=== PATIENT | female | born 1930 | race Caucasian/White ===

== ENCOUNTER → 2016-10-03 | Outpatient (CLI) | payer MEDICARE ==
[~2016-10-03] MED LIST: AGM875T PO; HCT25T; LISI20TA PO; METO50TA7 PO; SIMV20TA3 PO; TRM50T PO
== END ==
LOC: LAB 15:50
PROVIDERS: ATTEND Nurse Practitioner Family
DX: N30.00 Acute cystitis without hematuria (principal)
CPT/HCPCS: 87088

== ENCOUNTER 2018-10-19 21:31 | Inpatient (IN) | payer MEDICARE ==
[~2018-10-19] VITALS: Ht 165.1 cm; Wt 61.3 kg
--- OUTSIDE RECORDS SUMMARY | 2018-10-19 21:38 | XMS REPORT | CCD ---
Author Author Rosi Vega MD, [facility] Address [address] [place] [address] Phone Care Team Providers Care Home Health Care Worker Name Role Phone PP Unavailable CCM Unavailable Summary Purpose Interface Exchange Insurance Providers Payer name Policy type / Coverage type Covered alliance party ID Effective Begin Date Effective End Date WPS Medicare Part B Medicare Part B [id number] Unknown Unknown Family history Daughter Diagnosis Age At Onset Skin cancer Unknown Arthritis Unknown Coronary Artery Disease Unknown Asthma Unknown Depression Unknown Diabetes mellitus Type 2 Unknown Stroke Unknown Son Diagnosis Age At Onset Diabetes mellitus Type 2 Unknown Arthritis Unknown Hyperlipidemia Unknown Skin cancer Unknown Hypertension Unknown Mother Diagnosis Age At Onset Hypertension Unknown Arthritis Unknown Sister Diagnosis Age At Onset Arthritis Unknown Diabetes mellitus Type 2 Unknown Coronary Artery Disease Unknown Stroke Unknown Father Diagnosis Age At Onset Arthritis Unknown Arthritis Unknown Social History Social History Element Codes Description Effective Dates Marital status Unknown 01/02/2016 Number of children Unknown 3 01/02/[address]: 019204905 Never smoker 01/02/[address]: 181726951 Never drinks alcohol 01/02/2016 Allergies, Adverse Reactions, Alerts Substance Reaction Codes Entered Date Inactivated Date Status SULFA (SULFONAMIDE ANTIBIOTICS) Unknown 01/02/2016 No Inactive Date Active Past Medical History Illness Codes Condition Status Onset Date Resolved Date Essential (primary) hypertension ICD-9: 401.9 ICD-10: I10 Active 04/22/2016 Unknown Hypothyroidism, unspecified ICD-9: 244.9 ICD-10: E03.9 Active 07/15/2017 Unknown Mixed hyperlipidemia ICD- 9: 272.2 ICD-10: E78.2 Active 01/28/2016 Unknown Primary generalized (osteo)arthritis ICD-9: 715.09 ICD-10: M15.0 Active 09/08/2018 Unknown Abnormal weight loss ICD- 9: 783.21 ICD-10: R63.4 Active 01/06/2018 Unknown Encounter for immunization ICD-9: V04.81 ICD-10: Z23 Active 01/29/2016 Unknown Low back pain ICD-9: 724.2 ICD-10: M54.5 Active 01/06/2018 Unknown Radiculopathy, lumbar region ICD-9: 724.4 ICD-10: M54.16 Active 01/29/2016 Unknown Hypothryroidism Unknown Active 07/15/2017 Unknown Dysuria ICD-9: 788.1 ICD-10: R30.0 Active 07/08/2017 Unknown Cramp and spasm ICD-9: 729.82 ICD-10: R25.2 Active 04/22/2016 Unknown Pain in right shoulder ICD-9: 719.41 ICD-10: M25.511 Active 07/08/2017 Unknown Hypertension Unknown Active 08/20/2016 Unknown Lumbago with sciatica, left side ICD-9: 724.3 ICD-10: M54.42 Active 04/22/2016 Unknown Impacted cerumen, left ear ICD-9: 389.8 ICD-10: H61.22 Active 01/29/2016 Unknown Problems Condition Codes Effective Dates Condition Status Essential (primary) hypertension ICD-9: 401.9 ICD-10: I10 04/22/2016 Active Hypothyroidism, unspecified ICD-9: 244.9 ICD-10: E03.9 07/15/2017 Active Mixed hyperlipidemia ICD- 9: 272.2 ICD-10: E78.2 01/28/2016 Active Primary generalized (osteo)arthritis ICD-9: 715.09 ICD-10: M15.0 09/08/2018 Active Abnormal weight loss ICD- 9: 783.21 ICD-10: R63.4 01/06/2018 Active Encounter for immunization ICD-9: V04.81 ICD-10: Z23 01/29/2016 Active Low back pain ICD-9: 724.2 ICD-10: M54.5 01/06/2018 Active Radiculopathy, lumbar region ICD-9: 724.4 ICD-10: M54.16 01/29/2016 Active Hypothryroidism Unknown 07/15/2017 Active Dysuria ICD-9: 788.1 ICD-10: R30.0 07/08/2017 Active Cramp and spasm ICD-9: 729.82 ICD-10: R25.2 04/22/2016 Active Pain in right shoulder ICD-9: 719.41 ICD-10: M25.511 07/08/2017 Active Hypertension Unknown 08/20/2016 Active Lumbago with sciatica, left side ICD-9: 724.3 ICD-10: M54.42 04/22/2016 Active Impacted cerumen, left ear ICD-9: 389.8 ICD-10: H61.22 01/29/2016 Active Medications Medication Codes Instructions Start Date Stop Date Status Fill Instructions alendronate 70 mg tablet RxNorm: 206437 Tablet(s) TAKE ONE TABLET BY MOUTH ONCE A WEEK 10/19/2018 No Stop Date Active tramadol 50 mg tablet RxNorm: 084991 2 Tablet(s) PO QID as needed 10/16/2018 10/30/2018 Active tramadol 50 mg tablet RxNorm: 664137 2 Tablet(s) PO QID as needed 10/03/2018 10/15/2018 Inactive tramadol 50 mg tablet RxNorm: 314839 1-2 Tablet(s) PO QID as needed 10/03/2018 10/02/2018 Inactive tramadol 50 mg tablet RxNorm: 573166 1-2 Tablet(s) PO QID as needed 09/27/2018 09/28/2018 Inactive Synthroid 25 mcg tablet RxNorm: 709981 TAKE 1 TABLET BY MOUTH ONCE DAILY 09/04/2018 No Stop Date Active tramadol 50 mg tablet RxNorm: 290045 1-2 Tablet(s) PO QID as needed 2018 09/12/2018 Inactive tramadol 50 mg tablet RxNorm: 968155 1-2 Tablet(s) PO QID as needed 06/12/2018 07/24/2018 Inactive hydrochlorothiazide 25 mg tablet RxNorm: 059324 TAKE ONE TABLET BY MOUTH ONCE DAILY 05/08/2018 No Stop Date Active tramadol 50 mg tablet RxNorm: 899757 1-2 Tablet(s) PO QID as needed 04/04/2018 08/14/2018 Inactive simvastatin 20 mg tablet RxNorm: 790665 TAKE 1 TABLET BY MOUTH ONCE DAILY 03/13/2018 No Stop Date Active Synthroid 25 mcg tablet RxNorm: 733396 1 Tablet(s) PO daily 03/07/2018 09/02/2018 Inactive lisinopril 40 mg tablet RxNorm: 153490 TAKE 1 TABLET BY MOUTH ONCE DAILY 02/20/2018 No Stop Date Active alendronate 70 mg tablet RxNorm: 735818 TAKE ONE TABLET BY MOUTH ONCE A WEEK 02/20/2018 08/14/2018 Inactive alendronate 70 mg tablet RxNorm: 687180 TAKE ONE TABLET BY MOUTH ONCE A WEEK 02/20/2018 10/18/2018 Inactive gabapentin 100 mg capsule RxNorm: 680040 TAKE TWO CAPSULES BY MOUTH AT BEDTIME 01/30/2018 No Stop Date Active tramadol 50 mg tablet RxNorm: 030423 1-2 Tablet(s) PO QID as needed 01/16/2018 03/01/2018 Inactive tramadol 50 mg tablet RxNorm: 514119 1-2 Tablet(s) PO QID as needed 11/28/2017 06/11/2018 Inactive tramadol 50 mg tablet RxNorm: 205422 1-2 Tablet(s) PO QID as needed 10/11/2017 01/15/2018 Inactive simvastatin 20 mg tablet RxNorm: 144748 TAKE ONE TABLET BY MOUTH ONCE DAILY 09/12/2017 03/12/2018 Inactive lisinopril 40 mg tablet RxNorm: 160834 TAKE ONE TABLET BY MOUTH ONCE DAILY 2017 02/19/2018 Inactive Synthroid 25 mcg tablet RxNorm: 097934 1 Tablet(s) PO daily 08/10/2017 02/05/2018 Inactive Synthroid 25 mcg tablet RxNorm: 666983 1 Tablet(s) PO daily 08/09/2017 08/09/2017 Inactive okay for generic-hold until refill due tramadol 50 mg tablet RxNorm: 416333 1-2 Tablet(s) PO QID as needed 08/01/2017 09/13/2017 Inactive Keflex 500 mg capsule RxNorm: 847326 1 Capsule(s) PO TID 07/15/2017 07/21/2017 Inactive Synthroid 25 mcg tablet RxNorm: 166543 1 Tablet(s) PO daily 07/15/2017 07/14/2017 Inactive Synthroid 25 mcg tablet RxNorm: 094932 1 Tablet(s) PO daily 07/15/2017 07/18/2017 Inactive Voltaren 1 % topical gel RxNorm: 923181 4 Gram(s) TOP QID 07/08/2017 08/06/2017 Inactive tramadol 50 mg tablet RxNorm: 184734 1-2 Tablet(s) PO QID as needed 06/16/2017 11/27/2017 Inactive simvastatin 20 mg tablet RxNorm: 470754 TAKE ONE TABLET BY MOUTH ONCE DAILY 06/13/2017 09/11/2017 Inactive hydrochlorothiazide 25 mg tablet RxNorm: 573210 TAKE ONE TABLET BY MOUTH ONCE DAILY 05/16/2017 05/07/2018 Inactive tramadol 50 mg tablet RxNorm: 266460 1-2 Tablet(s) PO QID as needed 04/20/2017 07/31/2017 Inactive Keflex 500 mg capsule RxNorm: 338517 1 Capsule(s) PO TID 03/17/2017 03/16/2017 Inactive Keflex 500 mg capsule RxNorm: 507035 1 Capsule(s) PO TID 03/17/2017 03/23/2017 Inactive alendronate 70 mg tablet RxNorm: 937519 1 Tablet(s) PO QW 03/08/2017 02/19/2018 Inactive tramadol 50 mg tablet RxNorm: 809292 1-2 Tablet(s) PO QID as needed 02/02/2017 07/31/2017 Inactive gabapentin 100 mg capsule RxNorm: 067143 TAKE TWO CAPSULES BY MOUTH AT BEDTIME 01/31/2017 07/29/2017 Inactive tramadol 50 mg tablet RxNorm: 858115 1-2 Tablet(s) PO QID as needed 12/06/2016 07/31/2017 Inactive hydrochlorothiazide 25 mg tablet RxNorm: 236942 TAKE ONE TABLET BY MOUTH ONCE DAILY 11/16/2016 05/14/2017 Inactive lisinopril 40 mg tablet RxNorm: 207028 TAKE ONE TABLET BY MOUTH ONCE DAILY 09/30/2016 06/26/2017 Inactive alendronate 70 mg tablet RxNorm: 815156 1 Tablet(s) PO QW 09/24/2016 03/07/2017 Inactive simvastatin 20 mg tablet RxNorm: 412396 TAKE ONE TABLET BY MOUTH ONCE DAILY 09/20/2016 06/12/2017 Inactive tramadol 50 mg tablet RxNorm: 726353 1-2 Tablet(s) PO QID as needed 09/08/2016 10/20/2016 Inactive gabapentin 100 mg capsule RxNorm: 028784 1 Capsule(s) PO QHS 08/20/2016 08/14/2018 Inactive HOLD- WILL CALL WHEN NEEDED tramadol 50 mg tablet RxNorm: 506013 1-2 Tablet(s) PO QID as needed 08/20/2016 09/07/2016 Inactive tramadol 50 mg tablet RxNorm: 193980 1 Tablet(s) PO QID as needed 05/14/2016 08/05/2016 Inactive Kenalog 40 mg/mL suspension for injection RxNorm: 6522163 Milliliter(s) Inj 04/23/2016 04/23/2016 Inactive gabapentin 100 mg capsule RxNorm: 753289 2 Capsule(s) PO QHS 04/23/2016 08/19/2016 Inactive HOLD- WILL CALL WHEN NEEDED alendronate 70 mg tablet RxNorm: 594507 1 Tablet(s) PO QW 04/07/2016 09/23/2016 Inactive simvastatin 20 mg tablet RxNorm: 915732 1 Tablet(s) PO daily 03/29/2016 09/19/2016 Inactive tramadol 50 mg tablet RxNorm: 095727 1 Tablet(s) PO QID as needed 03/10/2016 07/31/2017 Inactive gabapentin 100 mg capsule RxNorm: 184281 1 Capsule(s) PO QHS 01/30/2016 04/22/2016 Inactive lisinopril 40 mg tablet RxNorm: 022952 1 Tablet(s) PO daily 01/30/2016 09/29/2016 Inactive hydrochlorothiazide 25 mg tablet RxNorm: 214028 1 Tablet(s) PO daily 01/30/2016 10/25/2016 Inactive alendronate 70 mg tablet RxNorm: 016179 1 Tablet(s) QW 01/02/2016 04/06/2016 Inactive simvastatin 20 mg tablet RxNorm: 078980 1 Tablet(s) PO daily 12/31/2015 12/30/2015 Inactive simvastatin 20 mg tablet RxNorm: 769550 1 Tablet(s) PO daily 12/31/2015 03/28/2016 Inactive Calcium + D oral RxNorm: 807342 oral No Start Date Active Tylenol 500 mg RxNorm: 2 PO QHS No Start Date Active hydrocodone 5 mg-acetaminophen 325 mg tablet RxNorm: 586225 1-2 Tablet(s) PO TID PRN No Start Date 10/01/2018 Inactive hydrochlorothiazide 25 mg tablet RxNorm: 037869 1 Tablet(s) PO daily No Start Date 01/29/2016 Inactive tramadol 50 mg tablet RxNorm: 579803 1 Tablet(s) PO QID as needed No Start Date 03/09/2016 Inactive lisinopril 40 mg tablet RxNorm: 835316 1 Tablet(s) PO daily No Start Date 01/29/2016 Inactive Medication Administered Medication Codes Instructions Start Date Status Kenalog 40 mg/mL suspension for injection RxNorm: 1060566 Milliliter 04/23/2016 No longer Active Immunizations Vaccine Codes Date Status Influenza CVX: 141 01/06/2018 completed Influenza CVX: 141 01/30/2016 completed Pneumococcal (Adult) CVX: 133 01/30/2016 completed Assessments Condition Codes Effective Dates Essential (primary) hypertension ICD-10: I10 ICD-9: 401.9 09/08/2018 Mixed hyperlipidemia ICD-10: E78.2 ICD-9: 272.2 09/08/2018 Hypothyroidism, unspecified ICD-10: E03.9 ICD-9: 244.9 09/08/2018 Primary generalized (osteo)arthritis ICD-10: M15.0 ICD-9: 715.09 09/08/2018 Encounter for immunization ICD-10: Z23 ICD-9: V04.81 01/06/2018 Abnormal weight loss ICD-10: R63.4 ICD-9: 783.21 01/06/2018 Low back pain ICD-10: M54.5 ICD-9: 724.2 01/06/2018 Dysuria ICD-10: R30.0 ICD-9: 788.1 07/15/2017 Cramp and spasm ICD-10: R25.2 ICD-9: 729.82 07/08/2017 Pain in right shoulder ICD-10: M25.511 ICD-9: 719.41 07/08/2017 Radiculopathy, lumbar region ICD-10: M54.16 ICD-9: 724.4 08/20/2016 Lumbago with sciatica, left side ICD-10: M54.42 ICD-9: 724.3 04/23/2016 Impacted cerumen, left ear ICD-10: H61.22 ICD-9: 389.8 01/30/2016 Reason For Visit Reason For Visit Effective Dates Notes joint complaint 09/08/2018 joint complaint 01/06/2018 urinary incontinence 07/08/2017 joint complaint 08/20/2016 joint complaint 04/23/2016 vaccination against influenza 01/30/2016 skin lesion 01/02/2016 to arms Results Observation Observation Code Item Item Code Result Date Lipid Ord30 CHOL 193 mg/dL 09/11/2018 Lipid Ord30 HDL 61.0 mg/dl 09/11/2018 Lipid Ord30 TRIG 172 mg/dL 09/11/2018 Lipid Ord30 LDL 98 mg/dL 09/11/2018 Lipid Ord30 C/HDL 3.2 Ratio 09/11/2018 Tsh Ord6 TSH (3rd IS) 2.05 uIU/mL 09/11/2018 Free T4 Ikv675 FREE T4 0.94 ng/dL 09/11/2018 Cbc With Differential Ord2 WBC 8.10 K/ul 09/11/2018 Cbc With Differential Ord2 RBC 3.74 M/ul 09/11/2018 Cbc With Differential Ord2 HGB 11.6 g/dl 09/11/2018 Cbc With Differential Ord2 HCT 34.6 % 09/11/2018 Cbc With Differential Ord2 Neut% 59.2 % 09/11/2018 Cbc With Differential Ord2 MCV 92.5 fl 09/11/2018 Cbc With Differential Ord2 Lymph% 28.6 % 09/11/2018 Cbc With Differential Ord2 MCH 31.0 pg 09/11/2018 Cbc With Differential Ord2 [place]% 8.9 % 09/11/2018 Cbc With Differential Ord2 Eos% 2.8 % 09/11/2018 Cbc With Differential Ord2 MCHC 33.5 pg 09/11/2018 Cbc With Differential Ord2 Baso% 0.5 % 09/11/2018 Cbc With Differential Ord2 PLT 328 K/ul 09/11/2018 Cbc With Differential Ord2 RDW 12.9 % 09/11/2018 Cbc With Differential Ord2 Neut ABS# 4.79 K/ul 09/11/2018 Cbc With Differential Ord2 Lymph ABS# 2.32 K/ul 09/11/2018 Cbc With Differential Ord2 [place] ABS# 0.7 K/ul 09/11/2018 Cbc With Differential Ord2 Eos ABS# 0.2 K/ul 09/11/2018 Cbc With Differential Ord2 Baso ABS# 0.0 K/ul 09/11/2018 Comp Metabolic Rku404 NA 129 mEq/L 09/11/2018 Comp Metabolic Smp204 K 4.0 mEq/L 09/11/2018 Comp Metabolic Xtf487 CL 93 mEq/L 09/11/2018 Comp Metabolic Tru794 CO2 27.0 mEq/L 09/11/2018 Comp Metabolic Saf846 ANION GAP 13 09/11/2018 Comp Metabolic Nxm396 GLUCOSE 83 mg/dL 09/11/2018 Comp Metabolic Tis936 Creat 0.8 mg/dL 09/11/2018 Comp Metabolic Msm445 eGFR 69 ml/min/1.73m2 09/11/2018 Comp Metabolic Byl009 BUN 16 mg/dL 09/11/2018 Comp Metabolic Tuz048 B/C Ratio 19.3 Ratio 09/11/2018 Comp Metabolic Ore858 CALCIUM 9.4 mg/dL 09/11/2018 Comp Metabolic Gor333 ALK PHOS 58 U/L 09/11/2018 Comp Metabolic Web404 AST(SGOT) 14 U/L 09/11/2018 Comp Metabolic Ift695 ALT(SGPT) 8 U/L 09/11/2018 Comp Metabolic Arm130 BILI T 0.3 mg/dL 09/11/2018 Comp Metabolic Tvb709 ALBUMIN 4.2 g/dL 09/11/2018 Comp Metabolic Gud014 TPRO 6.9 g/dL 09/11/2018 Comp Metabolic Hob256 GLOB 2.8 g/dL 09/11/2018 Comp Metabolic Esd468 A/G Ratio 1.5 Ratio 09/11/2018 Comp Metabolic Pes349 Osmo 259 mOsmo 09/11/2018 Free T4 Hoy324 FREE T4 0.95 ng/dL 01/13/2018 Comp Metabolic Udh533 NA 132 mEq/L 01/13/2018 Comp Metabolic Ipe259 K 4.2 mEq/L 01/13/2018 Comp Metabolic Iva840 CL 97 mEq/L 01/13/2018 Comp Metabolic Pdu489 CO2 29.0 mEq/L 01/13/2018 Comp Metabolic Wjw661 ANION GAP 10 01/13/2018 Comp Metabolic Rqb493 GLUCOSE 88 mg/dL 01/13/2018 Comp Metabolic Cmu852 Creat 0.9 mg/dL 01/13/2018 Comp Metabolic Cik415 eGFR 62 ml/min/1.73m2 01/13/2018 Comp Metabolic Mpw785 BUN 16 mg/dL 01/13/2018 Comp Metabolic Rpm709 B/C Ratio 17.6 Ratio 01/13/2018 Comp Metabolic Bef140 CALCIUM 10.0 mg/dL 01/13/2018 Comp Metabolic Mri291 ALK PHOS 65 U/L 01/13/2018 Comp Metabolic Qbl740 AST(SGOT) 20 U/L 01/13/2018 Comp Metabolic Kct310 ALT(SGPT) 16 U/L 01/13/2018 Comp Metabolic Ykx059 BILI T 0.3 mg/dL 01/13/2018 Comp Metabolic Zra978 ALBUMIN 4.0 g/dL 01/13/2018 Comp Metabolic Vqo448 TPRO 7.0 g/dL 01/13/2018 Comp Metabolic Fxq236 GLOB 3.0 g/dL 01/13/2018 Comp Metabolic Ypf738 A/G Ratio 1.3 Ratio 01/13/2018 Comp Metabolic Hmq754 Osmo 265 mOsmo 01/13/2018 Tsh Ord6 TSH (3rd IS) 3.60 uIU/mL 01/13/2018 Cbc With Differential Ord2 WBC 8.14 K/ul 01/13/2018 Cbc With Differential Ord2 RBC 3.94 M/ul 01/13/2018 Cbc With Differential Ord2 HGB 11.7 g/dl 01/13/2018 Cbc With Differential Ord2 HCT 34.9 % 01/13/2018 Cbc With Differential Ord2 Neut% 57.8 % 01/13/2018 Cbc With Differential Ord2 MCV 88.6 fl 01/13/2018 Cbc With Differential Ord2 Lymph% 31.3 % 01/13/2018 Cbc With Differential Ord2 MCH 29.7 pg 01/13/2018 Cbc With Differential Ord2 [place]% 7.6 % 01/13/2018 Cbc With Differential Ord2 MCHC 33.5 pg 01/13/2018 Cbc With Differential Ord2 Eos% 2.6 % 01/13/2018 Cbc With Differential Ord2 PLT 296 K/ul 01/13/2018 Cbc With Differential Ord2 Baso% 0.7 % 01/13/2018 Cbc With Differential Ord2 RDW 13.3 % 01/13/2018 Cbc With Differential Ord2 Neut ABS# 4.70 K/ul 01/13/2018 Cbc With Differential Ord2 Lymph ABS# 2.55 K/ul 01/13/2018 Cbc With Differential Ord2 [place] ABS# 0.6 K/ul 01/13/2018 Cbc With Differential Ord2 Eos ABS# 0.2 K/ul 01/13/2018 Cbc With Differential Ord2 Baso ABS# 0.1 K/ul 01/13/2018 Urine Culture Ucult Complete >100,000 col/ml aerobic growth sent to ref lab 07/16/2017 Cbc With Differential Ord2 WBC 8.52 K/ul 07/15/2017 Cbc With Differential Ord2 RBC 4.01 M/ul 07/15/2017 Cbc With Differential Ord2 HGB 11.8 g/dl 07/15/2017 Cbc With Differential Ord2 HCT 35.1 % 07/15/2017 Cbc With Differential Ord2 Neut% 59.5 % 07/15/2017 Cbc With Differential Ord2 MCV 87.5 fl 07/15/2017 Cbc With Differential Ord2 Lymph% 28.6 % 07/15/2017 Cbc With Differential Ord2 MCH 29.4 pg 07/15/2017 Cbc With Differential Ord2 [place]% 8.8 % 07/15/2017 Cbc With Differential Ord2 MCHC 33.6 pg 07/15/2017 Cbc With Differential Ord2 Eos% 2.6 % 07/15/2017 Cbc With Differential Ord2 PLT 258 K/ul 07/15/2017 Cbc With Differential Ord2 Baso% 0.5 % 07/15/2017 Cbc With Differential Ord2 RDW 13.3 % 07/15/2017 Cbc With Differential Ord2 Neut ABS# 5.07 K/ul 07/15/2017 Cbc With Differential Ord2 Lymph ABS# 2.44 K/ul 07/15/2017 Cbc With Differential Ord2 [place] ABS# 0.8 K/ul 07/15/2017 Cbc With Differential Ord2 Eos ABS# 0.2 K/ul 07/15/2017 Cbc With Differential Ord2 Baso ABS# 0.0 K/ul 07/15/2017 Lipid Ord30 CHOL 164 mg/dL 07/15/2017 Lipid Ord30 HDL 64.0 mg/dl 07/15/2017 Lipid Ord30 TRIG 93 mg/dL 07/15/2017 Lipid Ord30 LDL 81 mg/dL 07/15/2017 Lipid Ord30 C/HDL 2.6 Ratio 07/15/2017 Urinalysis Ord28 U-Color Yellow 07/15/2017 Urinalysis Ord28 U-Clarity Slightly Cloudy 07/15/2017 Urinalysis Ord28 U-Gluc Negative 07/15/2017 Urinalysis Ord28 U-Bili Negative 07/15/2017 Urinalysis Ord28 U-Ketone Negative 07/15/2017 Urinalysis Ord28 U-SG 1.010 07/15/2017 Urinalysis Ord28 U-Blood Trace-lysed 07/15/2017 Urinalysis Ord28 U-pH 6.5 07/15/2017 Urinalysis Ord28 U-Protein Negative 07/15/2017 Urinalysis Ord28 U-Urobilin 0.2 E.U./dL E.U./dL 07/15/2017 Urinalysis Ord28 U-Nitrites Negative 07/15/2017 Urinalysis Ord28 U-Leuk Small 07/15/2017 Urinalysis Ord28 U-Bact 4+ 07/15/2017 Urinalysis Ord28 U-Squamous Epi 0-5 per/HPF 07/15/2017 Urinalysis Ord28 U-Crystal None per/HPF 07/15/2017 Urinalysis Ord28 U-Mucus None 07/15/2017 Urinalysis Ord28 U-Renal tubular epi None 07/15/2017 Urinalysis Ord28 U-RBC RARE per/HPF 07/15/2017 Urinalysis Ord28 U-Transitional epi RARE per/HPF 07/15/2017 Urinalysis Ord28 U-WBC 10-20 per/HPF 07/15/2017 Urinalysis Ord28 U-Cast None per/HPF 07/15/2017 Urinalysis Ord28 U-VOL VOLUME SUFFICIENT (10mL) 07/15/2017 Urinalysis Ord28 U-Yeast NEGATIVE 07/15/2017 Urinalysis Ord28 U-Com Urine saved if culture needed (specimen acceptable for 48 hours from collection if refrigerated) 07/15/2017 Comp Metabolic Zco778 NA 132 mEq/L 07/15/2017 Comp Metabolic Vxr307 K 3.8 mEq/L 07/15/2017 Comp Metabolic Tec170 CL 95 mEq/L 07/15/2017 Comp Metabolic Kur523 CO2 30.0 mEq/L 07/15/2017 Comp Metabolic Brx742 ANION GAP 11 07/15/2017 Comp Metabolic Wsp447 GLUCOSE 92 mg/dL 07/15/2017 Comp Metabolic Udj330 Creat 0.8 mg/dL 07/15/2017 Comp Metabolic Fyr340 eGFR 75 ml/min/1.73m2 07/15/2017 Comp Metabolic Mjx902 BUN 11 mg/dL 07/15/2017 Comp Metabolic Ojy825 B/C Ratio 14.1 Ratio 07/15/2017 Comp Metabolic Ftm279 CALCIUM 9.7 mg/dL 07/15/2017 Comp Metabolic Cdy734 ALK PHOS 72 U/L 07/15/2017 Comp Metabolic Mla155 AST(SGOT) 14 U/L 07/15/2017 Comp Metabolic Viz293 ALT(SGPT) 9 U/L 07/15/2017 Comp Metabolic Zey245 BILI T 0.5 mg/dL 07/15/2017 Comp Metabolic Nwq683 ALBUMIN 4.1 g/dL 07/15/2017 Comp Metabolic Zrt513 TPRO 6.9 g/dL 07/15/2017 Comp Metabolic Bhl185 GLOB 2.8 g/dL 07/15/2017 Comp Metabolic Hkr803 A/G Ratio 1.5 Ratio 07/15/2017 Comp Metabolic Qhp944 Osmo 264 mOsmo 07/15/2017 Tsh Ord6 TSH (3rd IS) 6.20 uIU/mL 07/15/2017 Free T4 Gmi086 FREE T4 0.95 ng/dL 07/15/2017 Cbc With Differential Ord2 WBC 7.90 K/ul 01/30/2016 Cbc With Differential Ord2 RBC 3.83 M/ul 01/30/2016 Cbc With Differential Ord2 HGB 11.9 g/dl 01/30/2016 Cbc With Differential Ord2 HCT 34.9 % 01/30/2016 Cbc With Differential Ord2 Neut% 61.5 % 01/30/2016 Cbc With Differential Ord2 MCV 91.1 fl 01/30/2016 Cbc With Differential Ord2 Lymph% 27.3 % 01/30/2016 Cbc With Differential Ord2 MCH 31.1 pg 01/30/2016 Cbc With Differential Ord2 [place]% 8.6 % 01/30/2016 Cbc With Differential Ord2 MCHC 34.1 pg 01/30/2016 Cbc With Differential Ord2 Eos% 2.2 % 01/30/2016 Cbc With Differential Ord2 PLT 250 K/ul 01/30/2016 Cbc With Differential Ord2 Baso% 0.4 % 01/30/2016 Cbc With Differential Ord2 RDW 13.0 % 01/30/2016 Cbc With Differential Ord2 Neut ABS# 4.86 K/ul 01/30/2016 Cbc With Differential Ord2 Lymph ABS# 2.16 K/ul 01/30/2016 Cbc With Differential Ord2 [place] ABS# 0.7 K/ul 01/30/2016 Cbc With Differential Ord2 Eos ABS# 0.2 K/ul 01/30/2016 Cbc With Differential Ord2 Baso ABS# 0.0 K/ul 01/30/2016 Tsh Ord6 hTSH II 2.93 uIU/mL 01/30/2016 Comp Metabolic Yyr568 NA 134 mEq/L 01/30/2016 Comp Metabolic Bit417 K 4.0 mEq/L 01/30/2016 Comp Metabolic Rww803 CL 97 mEq/L 01/30/2016 Comp Metabolic Eao183 CO2 29.0 mEq/L 01/30/2016 Comp Metabolic Tgr092 ANION GAP 12 01/30/2016 Comp Metabolic Cyc505 GLUCOSE 98 mg/dL 01/30/2016 Comp Metabolic Inn018 Creat 0.9 mg/dL 01/30/2016 Comp Metabolic Sjj730 eGFR 67 ml/min/1.73m2 01/30/2016 Comp Metabolic Wuh787 BUN 16 mg/dL 01/30/2016 Comp Metabolic Uye725 B/C Ratio 18.6 Ratio 01/30/2016 Comp Metabolic Fkp049 CALCIUM 10.3 mg/dL 01/30/2016 Comp Metabolic Nuk136 ALK PHOS 66 U/L 01/30/2016 Comp Metabolic Asi908 AST(SGOT) 16 U/L 01/30/2016 Comp Metabolic Ajx622 ALT(SGPT) 10 U/L 01/30/2016 Comp Metabolic Bdf917 BILI T 0.4 mg/dL 01/30/2016 Comp Metabolic Jop448 ALBUMIN 4.2 g/dL 01/30/2016 Comp Metabolic Eot425 TPRO 7.1 g/dL 01/30/2016 Comp Metabolic Sbq492 GLOB 2.9 g/dL 01/30/2016 Comp Metabolic Ise043 A/G Ratio 1.5 Ratio 01/30/2016 Comp Metabolic Tfq296 Osmo 269 mOsmo 01/30/2016 Lipid Ord30 CHOL 176 mg/dL 01/30/2016 Lipid Ord30 HDL 53.0 mg/dl 01/30/2016 Lipid Ord30 TRIG 164 mg/dL 01/30/2016 Lipid Ord30 LDL 90 mg/dL 01/30/2016 Lipid Ord30 C/HDL 3.3 Ratio 01/30/2016 Review of Systems System Result Effective Dates Constitutional No recent illness 09/08/2018 Constitutional No anorexia 09/08/2018 Constitutional No night sweats 09/08/2018 Constitutional No chills 09/08/2018 Constitutional No diaphoresis 09/08/2018 Constitutional No fatigue 09/08/2018 Constitutional No fever 09/08/2018 Constitutional No insomnia 09/08/2018 Constitutional No malaise 09/08/2018 Constitutional No weight loss 09/08/2018 Constitutional No weight gain 09/08/2018 Eyes No eye discharge 09/08/2018 Eyes No eye erythema 09/08/2018 Eyes vision change 09/08/2018 Ears/Nose/Throat/Neck No dizziness 09/08/2018 Ears/Nose/Throat/Neck No headache 09/08/2018 Cardiovascular No chest pain/pressure 09/08/2018 Cardiovascular No dyspnea 09/08/2018 Respiratory No cough 09/08/2018 Gastrointestinal No abdominal pain 09/08/2018 Gastrointestinal No constipation 09/08/2018 Gastrointestinal No diarrhea 09/08/2018 Genitourinary/Nephrology No dysuria 09/08/2018 Musculoskeletal back pain 09/08/2018 Musculoskeletal joint complaint 09/08/2018 Dermatologic No rash 09/08/2018 Neurologic No alteration of consciousness 09/08/2018 Neurologic pain, limb 09/08/2018 Psychiatric No anxiety 09/08/2018 Endocrine No dry or coarse skin 09/08/2018 Ears/Nose/Throat/Neck hearing loss 09/08/2018 Genitourinary/Nephrology urinary frequency 09/08/2018 Constitutional No recent illness 01/06/2018 Constitutional No anorexia 01/06/2018 Constitutional No night sweats 01/06/2018 Constitutional No chills 01/06/2018 Constitutional No diaphoresis 01/06/2018 Constitutional No fatigue 01/06/2018 Constitutional No fever 01/06/2018 Constitutional No insomnia 01/06/2018 Constitutional No malaise 01/06/2018 Constitutional No weight loss 01/06/2018 Constitutional No weight gain 01/06/2018 Eyes No eye discharge 01/06/2018 Eyes No eye erythema 01/06/2018 Eyes vision change 01/06/2018 Ears/Nose/Throat/Neck No dizziness 01/06/2018 Ears/Nose/Throat/Neck No headache 01/06/2018 Cardiovascular No chest pain/pressure 01/06/2018 Cardiovascular No dyspnea 01/06/2018 Respiratory No cough 01/06/2018 Gastrointestinal No abdominal pain 01/06/2018 Gastrointestinal constipation 01/06/2018 Gastrointestinal No diarrhea 01/06/2018 Genitourinary/Nephrology No dysuria 01/06/2018 Musculoskeletal back pain 01/06/2018 Musculoskeletal joint complaint 01/06/2018 Dermatologic No rash 01/06/2018 Neurologic No alteration of consciousness 01/06/2018 Neurologic pain, limb 01/06/2018 Psychiatric No anxiety 01/06/2018 Endocrine No dry or coarse skin 01/06/2018 Musculoskeletal shoulder pain 07/08/2017 Genitourinary/Nephrology dysuria 07/08/2017 Gastrointestinal No abdominal pain 07/08/2017 Gastrointestinal constipation 07/08/2017 Gastrointestinal No diarrhea 07/08/2017 Constitutional No recent illness 07/08/2017 Constitutional No chills 07/08/2017 Constitutional No night sweats 07/08/2017 Constitutional No anorexia 07/08/2017 Constitutional No diaphoresis 07/08/2017 Constitutional fatigue 07/08/2017 Constitutional No insomnia 07/08/2017 Constitutional No fever 07/08/2017 Constitutional No malaise 07/08/2017 Constitutional weight loss 07/08/2017 Constitutional No weight gain 07/08/2017 Eyes No eye erythema 07/08/2017 Eyes No eye discharge 07/08/2017 Dermatologic No rash 07/08/2017 Dermatologic No sores 07/08/2017 Neurologic No alteration of consciousness 07/08/2017 Respiratory No cough 07/08/2017 Cardiovascular No chest pain/pressure 07/08/2017 Ears/Nose/Throat/Neck No dizziness 07/08/2017 Ears/Nose/Throat/Neck No headache 07/08/2017 Constitutional No recent illness 08/20/2016 Constitutional No anorexia 08/20/2016 Constitutional No night sweats 08/20/2016 Constitutional No chills 08/20/2016 Constitutional No diaphoresis 08/20/2016 Constitutional No fatigue 08/20/2016 Constitutional No fever 08/20/2016 Constitutional No insomnia 08/20/2016 Constitutional No malaise 08/20/2016 Constitutional No weight loss 08/20/2016 Constitutional No weight gain 08/20/2016 Eyes No eye discharge 08/20/2016 Eyes No eye erythema 08/20/2016 Eyes vision change 08/20/2016 Ears/Nose/Throat/Neck No dizziness 08/20/2016 Ears/Nose/Throat/Neck No headache 08/20/2016 Cardiovascular No chest pain/pressure 08/20/2016 Cardiovascular No dyspnea 08/20/2016 Respiratory No cough 08/20/2016 Gastrointestinal No abdominal pain 08/20/2016 Gastrointestinal constipation 08/20/2016 Gastrointestinal No diarrhea 08/20/2016 Genitourinary/Nephrology No dysuria 08/20/2016 Musculoskeletal back pain 08/20/2016 Musculoskeletal joint complaint 08/20/2016 Dermatologic No rash 08/20/2016 Neurologic No alteration of consciousness 08/20/2016 Neurologic pain, limb 08/20/2016 Psychiatric No anxiety 08/20/2016 Endocrine No dry or coarse skin 08/20/2016 Constitutional No recent illness 04/23/2016 Constitutional No anorexia 04/23/2016 Constitutional No night sweats 04/23/2016 Constitutional No chills 04/23/2016 Constitutional No diaphoresis 04/23/2016 Constitutional No fatigue 04/23/2016 Constitutional No fever 04/23/2016 Constitutional No insomnia 04/23/2016 Constitutional No malaise 04/23/2016 Constitutional No weight loss 04/23/2016 Constitutional No weight gain 04/23/2016 Eyes No eye discharge 04/23/2016 Eyes No eye erythema 04/23/2016 Eyes vision change 04/23/2016 Ears/Nose/Throat/Neck No dizziness 04/23/2016 Ears/Nose/Throat/Neck No headache 04/23/2016 Cardiovascular No chest pain/pressure 04/23/2016 Cardiovascular No dyspnea 04/23/2016 Respiratory No cough 04/23/2016 Gastrointestinal No abdominal pain 04/23/2016 Gastrointestinal constipation 04/23/2016 Gastrointestinal No diarrhea 04/23/2016 Genitourinary/Nephrology No dysuria 04/23/2016 Musculoskeletal joint complaint 04/23/2016 Dermatologic No rash 04/23/2016 Neurologic No alteration of consciousness 04/23/2016 Neurologic pain, limb 04/23/2016 Musculoskeletal back pain 04/23/2016 Constitutional No recent illness 01/30/2016 Constitutional No anorexia 01/30/2016 Constitutional No night sweats 01/30/2016 Constitutional No chills 01/30/2016 Constitutional No diaphoresis 01/30/2016 Constitutional No fatigue 01/30/2016 Constitutional No fever 01/30/2016 Constitutional No insomnia 01/30/2016 Constitutional No malaise 01/30/2016 Constitutional No weight loss 01/30/2016 Constitutional No weight gain 01/30/2016 Eyes No eye discharge 01/30/2016 Eyes vision change 01/30/2016 Eyes No eye erythema 01/30/2016 Musculoskeletal joint complaint 01/30/2016 Ears/Nose/Throat/Neck No dizziness 01/30/2016 Ears/Nose/Throat/Neck No headache 01/30/2016 Cardiovascular No chest pain/pressure 01/30/2016 Cardiovascular No dyspnea 01/30/2016 Respiratory No cough 01/30/2016 Gastrointestinal No abdominal pain 01/30/2016 Gastrointestinal constipation 01/30/2016 Gastrointestinal No diarrhea 01/30/2016 Genitourinary/Nephrology No dysuria 01/30/2016 Dermatologic No rash 01/30/2016 Neurologic No alteration of consciousness 01/30/2016 Neurologic pain, limb 01/30/2016 Constitutional No recent illness 01/02/2016 Constitutional No anorexia 01/02/2016 Constitutional No night sweats 01/02/2016 Constitutional No chills 01/02/2016 Constitutional No diaphoresis 01/02/2016 Constitutional No fever 01/02/2016 Constitutional No fatigue 01/02/2016 Constitutional No insomnia 01/02/2016 Constitutional No malaise 01/02/2016 Constitutional No weight loss 01/02/2016 Constitutional No weight gain 01/02/2016 Eyes No eye discharge 01/02/2016 Eyes No eye erythema 01/02/2016 Ears/Nose/Throat/Neck No dizziness 01/02/2016 Ears/Nose/Throat/Neck No headache 01/02/2016 Cardiovascular No chest pain/pressure 01/02/2016 Cardiovascular No dyspnea 01/02/2016 Cardiovascular No edema 01/02/2016 Respiratory No productive sputum 01/02/2016 Respiratory No chest congestion 01/02/2016 Respiratory No cough 01/02/2016 Gastrointestinal No abdominal pain 01/02/2016 Gastrointestinal constipation 01/02/2016 Gastrointestinal No diarrhea 01/02/2016 Genitourinary/Nephrology No dysuria 01/02/2016 Genitourinary/Nephrology nocturia 01/02/2016 Eyes vision change 01/02/2016 Musculoskeletal joint complaint 01/02/2016 Dermatologic rash 01/02/2016 Neurologic No alteration of consciousness 01/02/2016 Psychiatric No anxiety 01/02/2016 Psychiatric No depression 01/02/2016 Endocrine No dry or coarse skin 01/02/2016 Hematologic/Lymphatic No abnormal ecchymoses 01/02/2016 Physical Exam Exam Name System Name Item Name Status Result Effective Dates Notes Full Exam - General 1994 Constitutional general appearance Overall: well developed 09/08/2018 None Full Exam - General 1994 Constitutional general appearance Overall: in no acute distress 09/08/2018 None Full Exam - General 1994 Constitutional general appearance Overall: well nourished 09/08/2018 None Full Exam - General 1994 Eyes conjunctiva/eyelids Overall: conjunctiva clear 09/08/2018 None Full Exam - General 1994 Eyes pupils and irises Overall: pupils equal, round, reactive to light and accomodation 09/08/2018 None Full Exam - General 1994 Ears/Nose/Throat otoscopic exam Overall: external auditory canals clear 09/08/2018 None Full Exam - General 1994 Ears/Nose/Throat otoscopic exam Overall: tympanic membranes clear 09/08/2018 None Full Exam - General 1994 Ears/Nose/Throat oral cavity/pharynx/larynx Overall: oral mucosa clear 09/08/2018 None Full Exam - General 1994 Respiratory auscultation Overall: breath sounds clear bilaterally 09/08/2018 None Full Exam - General 1994 Respiratory respiratory effort/rhythm Overall: no retractions 09/08/2018 None Full Exam - General 1994 Respiratory respiratory effort/rhythm Overall: normal rate 09/08/2018 None Full Exam - General 1994 Cardiovascular auscultation of heart Overall: regular rate 09/08/2018 None Full Exam - General 1994 Cardiovascular auscultation of heart Overall: normal heart sounds 09/08/2018 None Full Exam - General 1994 Cardiovascular auscultation of heart Murmur: previously known murmur unchanged 09/08/2018 None Full Exam - General 1994 Cardiovascular auscultation of heart Systolic murmur: midsystolic 09/08/2018 None Full Exam - General 1994 Cardiovascular auscultation of heart Systolic murmur grade: II/ 09/08/2018 None Full Exam - General 1994 Abdomen abdominal exam Overall: no tenderness 09/08/2018 None Full Exam - General 1994 Abdomen abdominal exam Overall: normal bowel sounds 09/08/2018 None Full Exam - General 1994 Lymphatic neck nodes Overall: anterior cervical chain benign 09/08/2018 None Full Exam - General 1994 Lymphatic neck nodes Overall: posterior cervical chain benign 09/08/2018 None Full Exam - General 1994 Musculoskeletal spine, ribs and pelvis Posture: kyphosis 09/08/2018 None Full Exam - General 1994 Musculoskeletal head and neck Overall: head atraumatic 09/08/2018 None Full Exam - General 1994 Neurologic sensation Overall: intact to touch, pin, vibration, proprioception 09/08/2018 None Full Exam - General 1994 Neurologic cranial nerves Overall: crainial nerves 2 - 12 grossly intact 09/08/2018 None Full Exam - General 1994 Psychiatric orientation/consciousness Overall: oriented to person, place and time 09/08/2018 None Full Exam - General 1994 Constitutional general appearance Overall: well developed 01/06/2018 None Full Exam - General 1994 Constitutional general appearance Overall: in no acute distress 01/06/2018 None Full Exam - General 1994 Constitutional general appearance Overall: well nourished 01/06/2018 None Full Exam - General 1994 Eyes conjunctiva/eyelids Overall: conjunctiva clear 01/06/2018 None Full Exam - General 1994 Eyes pupils and irises Overall: pupils equal, round, reactive to light and accomodation 01/06/2018 None Full Exam - General 1994 Ears/Nose/Throat otoscopic exam Overall: external auditory canals clear 01/06/2018 None Full Exam - General 1994 Ears/Nose/Throat otoscopic exam Overall: tympanic membranes clear 01/06/2018 None Full Exam - General 1994 Ears/Nose/Throat oral cavity/pharynx/larynx Overall: oral mucosa clear 01/06/2018 None Full Exam - General 1994 Respiratory auscultation Overall: breath sounds clear bilaterally 01/06/2018 None Full Exam - General 1994 Respiratory respiratory effort/rhythm Overall: no retractions 01/06/2018 None Full Exam - General 1994 Respiratory respiratory effort/rhythm Overall: normal rate 01/06/2018 None Full Exam - General 1994 Cardiovascular auscultation of heart Overall: regular rate 01/06/2018 None Full Exam - General 1994 Cardiovascular auscultation of heart Overall: normal heart sounds 01/06/2018 None Full Exam - General 1994 Abdomen abdominal exam Overall: no tenderness 01/06/2018 None Full Exam - General 1994 Abdomen abdominal exam Overall: normal bowel sounds 01/06/2018 None Full Exam - General 1994 Lymphatic neck nodes Overall: anterior cervical chain benign 01/06/2018 None Full Exam - General 1994 Lymphatic neck nodes Overall: posterior cervical chain benign 01/06/2018 None Full Exam - General 1994 Musculoskeletal spine, ribs and pelvis Posture: kyphosis 01/06/2018 None Full Exam - General 1994 Musculoskeletal head and neck Overall: head atraumatic 01/06/2018 None Full Exam - General 1994 Neurologic sensation Overall: intact to touch, pin, vibration, proprioception 01/06/2018 None Full Exam - General 1994 Neurologic cranial nerves Overall: crainial nerves 2 - 12 grossly intact 01/06/2018 None Full Exam - General 1994 Psychiatric orientation/consciousness Overall: oriented to person, place and time 01/06/2018 None Full Exam - General 1994 Cardiovascular auscultation of heart Murmur: previously known murmur unchanged 01/06/2018 None Full Exam - General 1994 Cardiovascular auscultation of heart Systolic murmur: midsystolic 01/06/2018 None Full Exam - General 1994 Cardiovascular auscultation of heart Systolic murmur grade: II/ 01/06/2018 None Full Exam - General 1995 Constitutional general appearance Overall: well developed 07/08/2017 None Full Exam - General 1994 Constitutional general appearance Overall: in no acute distress 07/08/2017 None Full Exam - General 1994 Constitutional general appearance Overall: well nourished 07/08/2017 None Full Exam - General 1994 Eyes conjunctiva/eyelids Overall: conjunctiva clear 07/08/2017 None Full Exam - General 1994 Eyes pupils and irises Overall: pupils equal, round, reactive to light and accomodation 07/08/2017 None Full Exam - General 1994 Ears/Nose/Throat otoscopic exam Overall: external auditory canals clear 07/08/2017 None Full Exam - General 1994 Ears/Nose/Throat otoscopic exam Overall: tympanic membranes clear 07/08/2017 None Full Exam - General 1994 Ears/Nose/Throat oral cavity/pharynx/larynx Overall: oral mucosa clear 07/08/2017 None Full Exam - General 1994 Respiratory auscultation Overall: breath sounds clear bilaterally 07/08/2017 None Full Exam - General 1994 Respiratory respiratory effort/rhythm Overall: no retractions 07/08/2017 None Full Exam - General 1994 Respiratory respiratory effort/rhythm Overall: normal rate 07/08/2017 None Full Exam - General 1994 Cardiovascular auscultation of heart Overall: regular rate 07/08/2017 None Full Exam - General 1994 Cardiovascular auscultation of heart Overall: normal heart sounds 07/08/2017 None Full Exam - General 1994 Abdomen abdominal exam Overall: no tenderness 07/08/2017 None Full Exam - General 1994 Abdomen abdominal exam Overall: normal bowel sounds 07/08/2017 None Full Exam - General 1994 Lymphatic neck nodes Overall: anterior cervical chain benign 07/08/2017 None Full Exam - General 1994 Lymphatic neck nodes Overall: posterior cervical chain benign 07/08/2017 None Full Exam - General 1994 Musculoskeletal spine, ribs and pelvis Posture: kyphosis 07/08/2017 None Full Exam - General 1994 Musculoskeletal head and neck Overall: head atraumatic 07/08/2017 None Full Exam - General 1994 Neurologic sensation Overall: intact to touch, pin, vibration, proprioception 07/08/2017 None Full Exam - General 1994 Neurologic cranial nerves Overall: crainial nerves 2 - 12 grossly intact 07/08/2017 None Full Exam - General 1994 Psychiatric orientation/consciousness Overall: oriented to person, place and time 07/08/2017 None Full Exam - General 1994 Constitutional general appearance Overall: well developed 08/20/2016 None Full Exam - General 1994 Constitutional general appearance Overall: in no acute distress 08/20/2016 None Full Exam - General 1994 Constitutional general appearance Overall: well nourished 08/20/2016 None Full Exam - General 1994 Eyes conjunctiva/eyelids Overall: conjunctiva clear 08/20/2016 None Full Exam - General 1994 Eyes pupils and irises Overall: pupils equal, round, reactive to light and accomodation 08/20/2016 None Full Exam - General 1994 Ears/Nose/Throat otoscopic exam Overall: external auditory canals clear 08/20/2016 None Full Exam - General 1994 Ears/Nose/Throat otoscopic exam Overall: tympanic membranes clear 08/20/2016 None Full Exam - General 1994 Ears/Nose/Throat oral cavity/pharynx/larynx Overall: oral mucosa clear 08/20/2016 None Full Exam - General 1994 Respiratory auscultation Overall: breath sounds clear bilaterally 08/20/2016 None Full Exam - General 1994 Respiratory respiratory effort/rhythm Overall: no retractions 08/20/2016 None Full Exam - General 1994 Respiratory respiratory effort/rhythm Overall: normal rate 08/20/2016 None Full Exam - General 1994 Cardiovascular auscultation of heart Overall: regular rate 08/20/2016 None Full Exam - General 1994 Cardiovascular auscultation of heart Overall: normal heart sounds 08/20/2016 None Full Exam - General 1994 Abdomen abdominal exam Overall: no tenderness 08/20/2016 None Full Exam - General 1994 Abdomen abdominal exam Overall: normal bowel sounds 08/20/2016 None Full Exam - General 1994 Lymphatic neck nodes Overall: anterior cervical chain benign 08/20/2016 None Full Exam - General 1994 Lymphatic neck nodes Overall: posterior cervical chain benign 08/20/2016 None Full Exam - General 1994 Musculoskeletal spine, ribs and pelvis Posture: kyphosis 08/20/2016 None Full Exam - General 1994 Musculoskeletal head and neck Overall: head atraumatic 08/20/2016 None Full Exam - General 1994 Neurologic sensation Overall: intact to touch, pin, vibration, proprioception 08/20/2016 None Full Exam - General 1994 Neurologic cranial nerves Overall: crainial nerves 2 - 12 grossly intact 08/20/2016 None Full Exam - General 1994 Psychiatric orientation/consciousness Overall: oriented to person, place and time 08/20/2016 None Full Exam - General 1994 Constitutional general appearance Overall: well developed 04/23/2016 None Full Exam - General 1994 Constitutional general appearance Overall: in no acute distress 04/23/2016 None Full Exam - General 1994 Constitutional general appearance Overall: well nourished 04/23/2016 None Full Exam - General 1994 Eyes conjunctiva/eyelids Overall: conjunctiva clear 04/23/2016 None Full Exam - General 1994 Eyes pupils and irises Overall: pupils equal, round, reactive to light and accomodation 04/23/2016 None Full Exam - General 1994 Ears/Nose/Throat otoscopic exam Overall: external auditory canals clear 04/23/2016 None Full Exam - General 1994 Ears/Nose/Throat otoscopic exam Overall: tympanic membranes clear 04/23/2016 None Full Exam - General 1994 Ears/Nose/Throat oral cavity/pharynx/larynx Overall: oral mucosa clear 04/23/2016 None Full Exam - General 1994 Respiratory auscultation Overall: breath sounds clear bilaterally 04/23/2016 None Full Exam - General 1994 Respiratory respiratory effort/rhythm Overall: no retractions 04/23/2016 None Full Exam - General 1994 Respiratory respiratory effort/rhythm Overall: normal rate 04/23/2016 None Full Exam - General 1994 Cardiovascular auscultation of heart Overall: regular rate 04/23/2016 None Full Exam - General 1994 Cardiovascular auscultation of heart Overall: normal heart sounds 04/23/2016 None Full Exam - General 1994 Abdomen abdominal exam Overall: no tenderness 04/23/2016 None Full Exam - General 1994 Abdomen abdominal exam Overall: normal bowel sounds 04/23/2016 None Full Exam - General 1994 Lymphatic neck nodes Overall: anterior cervical chain benign 04/23/2016 None Full Exam - General 1994 Lymphatic neck nodes Overall: posterior cervical chain benign 04/23/2016 None Full Exam - General 1994 Musculoskeletal spine, ribs and pelvis Posture: kyphosis 04/23/2016 None Full Exam - General 1994 Musculoskeletal head and neck Overall: head atraumatic 04/23/2016 None Full Exam - General 1994 Integument inspection of skin Location: left arm 04/23/2016 None Full Exam - General 1994 Integument inspection of skin Location: right arm 04/23/2016 None Full Exam - General 1994 Integument inspection of skin Rash/Lesions: patch 04/23/2016 None Full Exam - General 1994 Neurologic sensation Overall: intact to touch, pin, vibration, proprioception 04/23/2016 None Full Exam - General 1994 Neurologic cranial nerves Overall: crainial nerves 2 - 12 grossly intact 04/23/2016 None Full Exam - General 1994 Psychiatric orientation/consciousness Overall: oriented to person, place and time 04/23/2016 None Full Exam - General 1994 Musculoskeletal spine, ribs and pelvis Sacroiliac joints: tender left sacroiliac joint 04/23/2016 None Full Exam - General 1994 Constitutional general appearance Overall: well developed 01/30/2016 None Full Exam - General 1994 Constitutional general appearance Overall: in no acute distress 01/30/2016 None Full Exam - General 1994 Constitutional general appearance Overall: well nourished 01/30/2016 None Full Exam - General 1994 Eyes conjunctiva/eyelids Overall: conjunctiva clear 01/30/2016 None Full Exam - General 1994 Eyes pupils and irises Overall: pupils equal, round, reactive to light and accomodation 01/30/2016 None Full Exam - General 1994 Ears/Nose/Throat otoscopic exam Overall: external auditory canals clear 01/30/2016 None Full Exam - General 1994 Ears/Nose/Throat otoscopic exam Overall: tympanic membranes clear 01/30/2016 None Full Exam - General 1994 Ears/Nose/Throat oral cavity/pharynx/larynx Overall: oral mucosa clear 01/30/2016 None Full Exam - General 1994 Respiratory auscultation Overall: breath sounds clear bilaterally 01/30/2016 None Full Exam - General 1994 Respiratory respiratory effort/rhythm Overall: no retractions 01/30/2016 None Full Exam - General 1994 Respiratory respiratory effort/rhythm Overall: normal rate 01/30/2016 None Full Exam - General 1994 Cardiovascular auscultation of heart Overall: regular rate 01/30/2016 None Full Exam - General 1994 Cardiovascular auscultation of heart Overall: normal heart sounds 01/30/2016 None Full Exam - General 1994 Abdomen abdominal exam Overall: no tenderness 01/30/2016 None Full Exam - General 1994 Abdomen abdominal exam Overall: normal bowel sounds 01/30/2016 None Full Exam - General 1994 Lymphatic neck nodes Overall: anterior cervical chain benign 01/30/2016 None Full Exam - General 1994 Lymphatic neck nodes Overall: posterior cervical chain benign 01/30/2016 None Full Exam - General 1994 Musculoskeletal spine, ribs and pelvis Posture: kyphosis 01/30/2016 None Full Exam - General 1994 Musculoskeletal head and neck Overall: head atraumatic 01/30/2016 None Full Exam - General 1994 Integument inspection of skin Location: left arm 01/30/2016 None Full Exam - General 1994 Integument inspection of skin Location: right arm 01/30/2016 None Full Exam - General 1994 Integument inspection of skin Rash/Lesions: patch 01/30/2016 None Full Exam - General 1994 Neurologic sensation Overall: intact to touch, pin, vibration, proprioception 01/30/2016 None Full Exam - General 1994 Neurologic cranial nerves Overall: crainial nerves 2 - 12 grossly intact 01/30/2016 None Full Exam - General 1994 Psychiatric orientation/consciousness Overall: oriented to person, place and time 01/30/2016 None Full Exam - General 1994 Constitutional general appearance Overall: well developed 01/02/2016 None Full Exam - General 1994 Constitutional general appearance Overall: in no acute distress 01/02/2016 None Full Exam - General 1994 Constitutional general appearance Overall: well nourished 01/02/2016 None Full Exam - General 1994 Psychiatric orientation/consciousness Overall: oriented to person, place and time 01/02/2016 None Full Exam - General 1994 Neurologic cranial nerves Overall: crainial nerves 2 - 12 grossly intact 01/02/2016 None Full Exam - General 1994 Neurologic sensation Overall: intact to touch, pin, vibration, proprioception 01/02/2016 None Full Exam - General 1994 Integument inspection of skin Rash/Lesions: patch 01/02/2016 None Full Exam - General 1994 Integument inspection of skin Location: left arm 01/02/2016 None Full Exam - General 1994 Integument inspection of skin Location: right arm 01/02/2016 None Full Exam - General 1994 Musculoskeletal spine, ribs and pelvis Posture: kyphosis 01/02/2016 None Full Exam - General 1994 Musculoskeletal head and neck Overall: head atraumatic 01/02/2016 None Full Exam - General 1994 Lymphatic neck nodes Overall: anterior cervical chain benign 01/02/2016 None Full Exam - General 1994 Lymphatic neck nodes Overall: posterior cervical chain benign 01/02/2016 None Full Exam - General 1994 Abdomen abdominal exam Overall: no tenderness 01/02/2016 None Full Exam - General 1994 Abdomen abdominal exam Overall: normal bowel sounds 01/02/2016 None Full Exam - General 1994 Cardiovascular auscultation of heart Overall: regular rate 01/02/2016 None Full Exam - General 1994 Cardiovascular auscultation of heart Overall: normal heart sounds 01/02/2016 None Full Exam - General 1994 Respiratory auscultation Overall: breath sounds clear bilaterally 01/02/2016 None Full Exam - General 1994 Respiratory respiratory effort/rhythm Overall: no retractions 01/02/2016 None Full Exam - General 1994 Respiratory respiratory effort/rhythm Overall: normal rate 01/02/2016 None Full Exam - General 1994 Ears/Nose/Throat otoscopic exam Overall: external auditory canals clear 01/02/2016 None Full Exam - General 1994 Ears/Nose/Throat otoscopic exam Overall: tympanic membranes clear 01/02/2016 None Full Exam - General 1994 Ears/Nose/Throat oral cavity/pharynx/larynx Overall: oral mucosa clear 01/02/2016 None Full Exam - General 1994 Eyes conjunctiva/eyelids Overall: conjunctiva clear 01/02/2016 None Full Exam - General 1994 Eyes pupils and irises Overall: pupils equal, round, reactive to light and accomodation 01/02/2016 None Procedures Procedure Codes Date ADMIN INFLUENZA VIRUS VAC CPT-4: G0008 01/06/2018 FLU VAC NO PRSV 4 RODNEY 3 YRS+ Formatting Model/CDA Sections, Assigned to/Karine [facility] CPT-4: [id number] 01/06/2018 TRIAMCINOLONE ACET INJ NOS CPT-4: J3301 04/23/2016 ADMIN INFLUENZA VIRUS VAC CPT-4: G0008 01/30/2016 PNEUMOCOCCAL VACC [address]: [id number] CPT-4: 10780 01/30/2016 FLU VACC 4 RODNEY 3 YRS PLUS IM Formatting Model/CDA Sections, Assigned to/Karine Archuleta SNOMED CT: [id number] CPT-4: 39383Fpdcpnt 01/30/2016 ADMIN PNEUMOCOCCAL VACCINE SNOMED CT: 94305067 CPT-4: G0009 01/30/2016 Vital Signs Date Vital 09/08/2018 Blood Pressure 1: 140/72 Code: 8480-6 Heart Rate 1: 85 bpm SpO2: 98% Weight: 136 lbs 01/06/2018 Blood Pressure 1: 138/70 Code: 8480-6 BMI: 21.5 Code: 52021-2 Heart Rate 1: 75 bpm Height: 5'6" SpO2: 98% Weight: 133 lbs 07/08/2017 Blood Pressure 1: 148/82 Code: 8480-6 BMI: 21.6 Code: 81370-3 Heart Rate 1: 80 bpm Height: 5'6" SpO2: 98% Weight: 134 lbs 08/20/2016 Blood Pressure 1: 124/76 Code: 8480-6 BMI: 23.2 Code: 60301-6 Heart Rate 1: 72 bpm Height: 5'6" SpO2: 93% Weight: 144 lbs 04/23/2016 Blood Pressure 1: 130/82 Code: 8480-6 BMI: 23.4 Code: 45734-3 Heart Rate 1: 86 bpm Height: 5'6" SpO2: 98% Weight: 145 lbs 01/30/2016 Blood Pressure 1: 140/86 Code: 8480-6 BMI: 23.9 Code: 97352-4 Heart Rate 1: 55 bpm Height: 5'6" SpO2: 96% Weight: 148 lbs 01/02/2016 Blood Pressure 1: 146/86 Code: 8480-6 BMI: 24.2 Code: 29115-7 Heart Rate 1: 84 bpm Height: 5'6" SpO2: 97% Weight: 150 lbs Functional Status No Functional Status data History of Present Illness Symptom Name Status Result Effective Date Notes Location diffusely 09/08/2018 left hip Location on both knees 09/08/2018 None Quality chronic 09/08/2018 None Onset and Resolution ongoing 09/08/2018 None Onset of Symptom _ years ago 09/08/2018 None Limitation on Activities does not limit activities 09/08/2018 None Significant Medications NSAIDs 09/08/2018 None Triggers no known associated factors 09/08/2018 None Alleviating Factors medication 09/08/2018 None Exacerbating Factors activity 09/08/2018 None Pertinent Findings Denies joint redness 09/08/2018 None Pertinent Findings Denies muscle swelling 09/08/2018 None Quality intermittent 09/08/2018 None Onset and Resolution ongoing 09/08/2018 None Onset of Symptom during adulthood 09/08/2018 None Blood Pressure Values not checking blood pressure at home 09/08/2018 None Severity not consistently severe symptoms, the symptoms fluctuate from no symptoms to anxiety and headaches 09/08/2018 None Frequency of Episodes unchanged 09/08/2018 None Triggers no known associated factors 09/08/2018 None Alleviating Factors medication 09/08/2018 None Pertinent Findings Denies anxiety 09/08/2018 None Pertinent Findings Denies decreased energy 09/08/2018 None Pertinent Findings Denies dizziness 09/08/2018 None Pertinent Findings Denies dyspnea 09/08/2018 None Pertinent Findings Denies edema 09/08/2018 None joint complaint Location diffusely 01/06/2018 left hip joint complaint Location on both knees 01/06/2018 more on the left joint complaint Onset and Resolution ongoing 01/06/2018 None joint complaint Limitation on Activities does not limit activities 01/06/2018 None joint complaint Pertinent Findings Denies joint redness 01/06/2018 None joint complaint Pertinent Findings Denies muscle swelling 01/06/2018 None hypertension Quality intermittent 01/06/2018 None hypertension Onset and Resolution ongoing 01/06/2018 None hypertension Blood Pressure Values not checking blood pressure at home 01/06/2018 None hypertension Severity not consistently severe symptoms, the symptoms fluctuate from no symptoms to anxiety and headaches 01/06/2018 None hypertension Frequency of Episodes unchanged 01/06/2018 None hypertension Triggers no known associated factors 01/06/2018 None hypertension Alleviating Factors medication 01/06/2018 None hypertension Pertinent Findings Denies anxiety 01/06/2018 None hypertension Pertinent Findings Denies decreased energy 01/06/2018 None hypertension Pertinent Findings Denies dizziness 01/06/2018 None hypertension Pertinent Findings Denies dyspnea 01/06/2018 None hypertension Pertinent Findings Denies edema 01/06/2018 None joint complaint Onset of Symptom _ years ago 01/06/2018 None joint complaint Triggers no known associated factors 01/06/2018 None joint complaint Alleviating Factors medication 01/06/2018 None joint complaint Exacerbating Factors activity 01/06/2018 None hypertension Onset of Symptom during adulthood 01/06/2018 None joint complaint Quality chronic 01/06/2018 None joint complaint Significant Medications NSAIDs 01/06/2018 None joint complaint Mechanism of injury unknown 01/06/2018 None urinary incontinence Quality constant 07/08/2017 None urinary incontinence Onset and Resolution sudden in onset 07/08/2017 None urinary incontinence Onset of Symptom 1 months ago 07/08/2017 None urinary incontinence Frequency of Episodes daily 07/08/2017 None urinary incontinence Timing of Episodes at night 07/08/2017 None urinary incontinence Pertinent Findings nocturia 07/08/2017 None joint complaint Location diffusely 08/20/2016 left hip joint complaint Location on both knees 08/20/2016 more on the left joint complaint Onset and Resolution ongoing 08/20/2016 None joint complaint Limitation on Activities does not limit activities 08/20/2016 None joint complaint Pertinent Findings Denies joint redness 08/20/2016 None joint complaint Pertinent Findings Denies muscle swelling 08/20/2016 None hypertension Quality intermittent 08/20/2016 None hypertension Onset and Resolution ongoing 08/20/2016 None hypertension Severity not consistently severe symptoms, the symptoms fluctuate from no symptoms to anxiety and headaches 08/20/2016 None hypertension Frequency of Episodes unchanged 08/20/2016 None hypertension Triggers no known associated factors 08/20/2016 None hypertension Alleviating Factors medication 08/20/2016 None hypertension Pertinent Findings Denies anxiety 08/20/2016 None hypertension Pertinent Findings Denies dizziness 08/20/2016 None hypertension Pertinent Findings Denies dyspnea 08/20/2016 None hypertension Blood Pressure Values not checking blood pressure at home 08/20/2016 None hypertension Pertinent Findings Denies decreased energy 08/20/2016 None hypertension Pertinent Findings Denies edema 08/20/2016 None hypertension Quality intermittent 04/23/2016 None hypertension Onset and Resolution ongoing 04/23/2016 None hypertension Blood Pressure Values patient checking blood pressure at home - did not bring in readings 04/23/2016 None hypertension Severity not consistently severe symptoms, the symptoms fluctuate from no symptoms to anxiety and headaches 04/23/2016 None hypertension Frequency of Episodes unchanged 04/23/2016 None hypertension Triggers no known associated factors 04/23/2016 None hypertension Alleviating Factors medication 04/23/2016 None hypertension Pertinent Findings Denies anxiety 04/23/2016 None hypertension Pertinent Findings Denies dizziness 04/23/2016 None hypertension Pertinent Findings Denies dyspnea 04/23/2016 None joint complaint Location on both knees 04/23/2016 more on the left joint complaint Location diffusely 04/23/2016 left hip joint complaint Onset and Resolution ongoing 04/23/2016 None joint complaint Limitation on Activities does not limit activities 04/23/2016 None joint complaint Pertinent Findings Denies joint redness 04/23/2016 None joint complaint Pertinent Findings Denies muscle swelling 04/23/2016 None hypertension Quality intermittent 01/30/2016 None hypertension Onset and Resolution ongoing 01/30/2016 None hypertension Blood Pressure Values patient checking blood pressure at home - did not bring in readings 01/30/2016 None hypertension Pertinent Findings Denies anxiety 01/30/2016 None hypertension Pertinent Findings Denies dizziness 01/30/2016 None hypertension Pertinent Findings Denies dyspnea 01/30/2016 None hypertension Severity not consistently severe symptoms, the symptoms fluctuate from no symptoms to anxiety and headaches 01/30/2016 None hypertension Frequency of Episodes unchanged 01/30/2016 None hypertension Triggers no known associated factors 01/30/2016 None hypertension Alleviating Factors medication 01/30/2016 None skin lesion Quality erythematous 01/02/2016 None paresthesia Location bilaterally 01/02/2016 None paresthesia Location on both feet 01/02/2016 None skin lesion Onset and Resolution gradual in onset 01/02/2016 None skin lesion Onset of Symptom 3 years ago 01/02/2016 None paresthesia Quality pins and needles 01/02/2016 None paresthesia Quality numbness 01/02/2016 None paresthesia Quality aching 01/02/2016 None paresthesia Quality intermittent 01/02/2016 None paresthesia Onset and Resolution ongoing 01/02/2016 None paresthesia Onset of Symptom 4 years ago 01/02/2016 None paresthesia Frequency of Episodes daily 01/02/2016 None Advance Directives No Advance Directive data Encounters Encounter Performer Location Codes Date [id number]) [id number] EST. PATIENT, LEVEL IV Diagnosis: Essential (primary) hypertension[ICD10: I10] Diagnosis: Mixed hyperlipidemia[ICD10: E78.2] Diagnosis: Hypothyroidism, unspecified[ICD10: E03.9] Diagnosis: Primary generalized (osteo)arthritis[ICD10: M15.0] Rosi Tsai MD, [facility] CPT-4: 87739 09/08/2018 ([id number]) 45430 EST. PATIENT, LEVEL IV Diagnosis: Essential (primary) hypertension[ICD10: I10] Diagnosis: Hypothyroidism, unspecified[ICD10: E03.9] Diagnosis: Low back pain[ICD10: M54.5] Diagnosis: Encounter for immunization[ICD10: Z23] Diagnosis: Abnormal weight loss[ICD10: R63.4] Rosi Tsai MD, [facility] CPT- 4: 34468 01/06/2018 [id number]) [id number] EST. PATIENT, LEVEL IV Diagnosis: Essential (primary) hypertension[ICD10: I10] Diagnosis: Pain in right shoulder[ICD10: M25.511] Diagnosis: Mixed hyperlipidemia[ICD10: E78.2] Diagnosis: Dysuria[ICD10: R30.0] Diagnosis: Cramp and spasm[ICD10: R25.2] Rosi Tsai MD, [facility] CPT-4: 13832 07/08/2017 ([id number]) 83745 EST. PATIENT, LEVEL III Diagnosis: Essential (primary) hypertension[ICD10: I10] Diagnosis: Radiculopathy, lumbar region[ICD10: M54.16] Rosi Tsai MD, [facility] CPT-4: 88945 08/20/2016 ([id number]) 65856 EST. PATIENT, LEVEL IV Diagnosis: Essential (primary) hypertension[ICD10: I10] Diagnosis: Lumbago with sciatica, left side[ICD10: M54.42] Diagnosis: Cramp and spasm[ICD10: R25.2] Rosi Tsai MD, [facility] CPT-4: 54618 04/23/2016 ([id number]) 19353 EST. PATIENT, LEVEL III Diagnosis: Essential (primary) hypertension[ICD10: I10] Diagnosis: Radiculopathy, lumbar region[ICD10: M54.16] Diagnosis: Encounter for immunization[ICD10: Z23] Diagnosis: Impacted cerumen, left ear[ICD10: H61.22] Genny Tsai MD, [facility] CPT-4: 97665 01/30/2016 ([id number]) OFFICE VISIT, NEW - LEVEL 3 Diagnosis: Essential (primary) hypertension[ICD10: I10] Diagnosis: Mixed hyperlipidemia[ICD10: E78.2] Diagnosis: Cramp and spasm[ICD10: R25.2] Rosi Tsai MD, [facility] CPT-4: 10560 01/02/2016 Plan of Care Planned Activity Notes Codes Status Date Visit Plan: Hypertension - well controlled - continue with current medications, continue with no added salt diet. Pt has been encouraged to exercise daily. The pt has been advised to call the office if there are any acute concerns about change in blood pressure readings at home. Hypothyroidism - pt with chronic hypothyroidism, continue with current medication, will monitor pt to signs or symptoms of lack of adequate supplementation. Pt is to continue with current dose of medication unless directed otherwise. Check labs at regular intervals q 3 months or q 6 months based on previous levels of control. Hyperlip idemia -hold simvastatin due to pain -call in 2 weeks with update 09/08/2018 Patient Education: Patient Medication Summary Completed 09/08/2018 Patient Education: Cholesterol Management Completed 09/08/2018 Patient Education: Hypertension Completed 09/08/2018 Appointment: Rosi Vega WPtel: [phone] [phone] [place] (30 min) Complex 09/01/2018 Appointment: Rosi Vega WPtel: [address] [phone] [place] (30 min) Complex 07/28/2018 Appointment: Rosi Vega WPtel: [address] [phone] [place] (30 min) Complex 07/14/2018 Appointment: Rosi Vega WPtel: [phone] [id number] [place] (30 min) Complex 07/07/2018 Visit Plan: Hypertension - well controlled - continue with current medications, continue with no added salt diet. Pt has been encouraged to exercise daily. The pt has been advised to call the office if there are any acute concerns about change in blood pressure readings at home. Hypothyroidism - pt with chronic hypothyroidism, continue with current medication, will monitor pt to signs or symptoms of lack of adequate supplementation. Pt is to continue with current dose of medication unless directed otherwise. Check labs at regular intervals wither q 3 months or q 6 months based on previous levels of control. C hronic Pain Syndrome - pt has chronic pain - has been maintained on current medications, has not sought out other medications, only uses PRN pain medications as directed, and understands the consequences of over-medication. Weight loss-add carnation instant breakfast to ice cream 01/06/2018 Appointment: Rosi Vega WPtel: [phone] [phone] [place] (15 min) Moderate 01/06/2018 Patient Education: Patient Medication Summary Completed 01/06/2018 Patient Education: Hypertension Completed 01/06/2018 Patient Education: Patient Medication Summary Completed 07/15/2017 Visit Plan: Hypertension - well controlled - continue with current medications, continue with no added salt diet. Pt has been encouraged to exercise daily. The pt has been advised to call the office if there are any acute concerns about change in blood pressure readings at home. Right shoulder pain-rx for voltaren gel Dysuria-urinary incontinence -check UA Leg cramps-check labs 07/08/2017 Appointment: Rosi Vega WPtel: [phone] (15 min) Moderate 07/08/2017 Patient Education: Patient Medication Summary Completed 07/08/2017 Appointment: Rosi Vega WPtel: [address] [place], [place] [phone] (15 min) Moderate 12/24/2016 Visit Plan: Hypertension - well controlled - continue with current medications, continue with no added salt diet. Pt has been encouraged to exercise daily. The pt has been advised to call the office if there are any acute concerns about change in blood pressure readings at home. Chronic back pain -continue tramadol-okay to take 2 tabs if needed especially at bedtime- patient verbalized understanding of plan. 08/20/2016 Appointment: Rosi Vega WPtel: [address] [place], [place] [phone] (30 min) Complex 08/20/2016 Patient Education: Patient Medication Summary Completed 08/20/2016 Appointment: Rosi Vega WPtel: [address] [place], [place] [phone] (30 min) Complex 04/30/2016 Visit Plan: Hypertension - well controlled - continue with current medications, continue with no added salt diet. Pt has been encouraged to exercise daily. The pt has been advised to call the office if there are any acute concerns about change in blood pressure readings at home. Lumbar radiculopathy with sciatica-kenalog injection today in the office-increase gabapentin to 200mg at HS 04/23/2016 Patient Education: Patient Medication Summary Completed 04/23/2016 Visit Plan: Hypertension - well controlled - continue with current medications, continue with no added salt diet. Pt has been encouraged to exercise daily. The pt has been advised to call the office if there are any acute concerns about change in blood pressure readings at home. Lumbar radiculopathy-start gabapentin 100mg po q HS Cerumen Impaction - The impacted cerumen was removed with the use of the ear currette. The patient tolerated the procedure without incident and had improvement in hearing. The wax was removed by the practitioner due to the wax being more complicated to remove, and staff was needed to assist the removal of the wax by holding the ear, and keeping patient stabilized during the removal process. 01/30/2016 Appointment: Rosi Vega WPtel: [id number] (30 min) Complex 01/30/2016 Patient Education: Patient Medication Summary Completed 01/30/2016 Patient Education: Hypertension Completed 01/30/2016 Patient Education: Patient Medication Summary Completed 01/29/2016 Visit Plan: Hypertension - well controlled - continue with current medications, continue with no added salt diet. Pt has been encouraged to exercise daily. The pt has been advised to call the office if there are any acute concerns about change in blood pressure readings at home. Hyperlipidemia - pt has been counseled about appropriate diet, exercise, and need for low fat food choices. I have discussed the need for the patient to take medications as prescribed. If the patient has negative side effects from the medication, they are to CALL the office and not abruptly discontinue the medication without discussion with a practitioner in the office. We will check labs in 3-6 months for follow up on the patient's chronic medical problem and to assure normal liver response to medications. Leg cramps-review recent labs from Dr Reese-cbc, cmp, iron, vitamin B12, magnesium 01/02/2016 Appointment: Rosi Vega WPtel: [id number] New Patient 01/02/2016 Patient Education: Patient Medication Summary Completed 01/02/2016 Instructions Comment PREVNAR 13 AND INFLUENZA VACCINE . Hypertension - well controlled - continue with current medications, continue with no added salt diet. Pt has been encouraged to exercise daily. The pt has been advised to call the office if there are any acute concerns about change in blood pressure readings at home. Lumbar radiculopathy-start gabapentin 100mg po q HS Cerumen Impaction - The impacted cerumen was removed with the use of the ear currette. The patient tolerated the procedure without incident and had improvement in hearing. The wax was removed by the practitioner due to the wax being more complicated to remove, and staff was needed to assist the removal of the wax by holding the ear, and keeping patient stabilized during the removal process. HOLD SIMVASTATIN X 2 WEEKS AND MESSAGE WITH UPDATE FASTING LABS . Hypertension - well controlled - continue with current medications, continue with no added salt diet. Pt has been encouraged to exercise daily. The pt has been advised to call the office if there are any acute concerns about change in blood pressure readings at home. Hypothyroidism - pt with chronic hypothyroidism, continue with current medication, will monitor pt to signs or symptoms of lack of adequate supplementation. Pt is to continue with current dose of medication unless directed otherwise. Check labs at regular intervals q 3 months or q 6 months based on previous levels of control. Hyperlipidemia -hold simvastatin due to pain -call in 2 weeks with update . Hypertension - well controlled - continue with current medications, continue with no added salt diet. Pt has been encouraged to exercise daily. The pt has been advised to call the office if there are any acute concerns about change in blood pressure readings at home. Chronic back pain -continue tramadol-okay to take 2 tabs if needed especially at bedtime-patient verbalized understanding of plan. check UA fasting labs-I'll send an order to [facility] voltaren gel for right shoulder . Hypertension - well controlled - continue with current medications, continue with no added salt diet. Pt has been encouraged to exercise daily. The pt has been advised to call the office if there are any acute concerns about change in blood pressure readings at home. Right shoulder pain-rx for voltaren gel Dysuria-urinary incontinence -check UA Leg cramps-check labs . Hypertension - well controlled - continue with current medications, continue with no added salt diet. Pt has been encouraged to exercise daily. The pt has been advised to call the office if there are any acute concerns about change in blood pressure readings at home. Hyperlipidemia - pt has been counseled about appropriate diet, exercise, and need for low fat food choices. I have discussed the need for the patient to take medications as prescribed. If the patient has negative side effects from the medication, they are to CALL the office and not abruptly discontinue the medication without discussion with a practitioner in the office. We will check labs in 3-6 months for follow up on the patient's chronic medical problem and to assure normal liver response to medications. Leg cramps-review recent labs from Dr Reese-cbc, cmp, iron, vitamin B12, magnesium TYLENOL EXTRA STRENTH 2 TABS UP TO THREE TIMES DAILY FOR PAIN CARNATION INSTANT BREAKFAST-ADD TO ICE CREAM REPEAT THYROID LABS . Hypertension - well controlled - continue with current medications, continue with no added salt diet. Pt has been encouraged to exercise daily. The pt has been advised to call the office if there are any acute concerns about change in blood pressure readings at home. Hypothyroidism - pt with chronic hypothyroidism, continue with current medication, will monitor pt to signs or symptoms of lack of adequate supplementation. Pt is to continue with current dose of medication unless directed otherwise. Check labs at regular intervals wither q 3 months or q 6 months based on previous levels of control. Chronic Pain Syndrome - pt has chronic pain - has been maintained on current medications, has not sought out other medications, only uses PRN pain medications as directed, and understands the consequences of over-medication. Weight loss-add carnation instant breakfast to ice cream INCREASE GABAPENTIN TO 2 CAPSULES AT BEDTIME . Hypertension - well controlled - continue with current medications, continue with no added salt diet. Pt has been encouraged to exercise daily. The pt has been advised to call the office if there are any acute concerns about change in blood pressure readings at home. Lumbar radiculopathy with sciatica-kenalog injection today in the office- increase gabapentin to 200mg at HS
--- OUTSIDE RECORDS SUMMARY | 2018-10-19 21:39 | XMS REPORT | CCD ---
Author Author Rosi Vega MD, [facility] Address [address] [place] [address] Phone Care Team Providers Care Cutter First Name Role Phone PP Unavailable CCM Unavailable Summary Purpose Interface Exchange Insurance Providers Payer name Policy type / Coverage type Covered democrat ID Effective Begin Date Effective End Date WPS Medicare Part B Medicare Part B [id number] Unknown Unknown Family history Daughter Diagnosis Age [...] Unknown 5 01/02/[address]: 640321009 Never smoker 01/02/[address]: 458315908 Never drinks alcohol 01/02/2016 Allergies, Adverse Reactions, [...] Start Date Stop Date Status Fill Instructions tramadol 50 mg tablet RxNorm: 316854 2 Tablet(s) PO QID as needed 10/16/2018 10/30/2018 Active tramadol 50 mg tablet RxNorm: 317307 2 Tablet(s) PO QID as needed 10/03/2018 10/15/2018 Inactive tramadol 50 mg tablet RxNorm: 957661 1-2 Tablet(s) PO QID as needed 10/03/2018 10/02/2018 Inactive tramadol 50 mg tablet RxNorm: 553164 1-2 Tablet(s) PO QID as needed 09/27/2018 09/28/2018 Inactive Synthroid 25 mcg tablet RxNorm: 058290 TAKE 1 TABLET BY MOUTH ONCE DAILY 09/04/2018 No Stop Date Active tramadol 50 mg tablet RxNorm: 524566 1-2 Tablet(s) PO QID as needed 2018 09/12/2018 Inactive tramadol 50 mg tablet RxNorm: 071286 1-2 Tablet(s) PO QID as needed 06/12/2018 07/24/2018 Inactive hydrochlorothiazide 25 mg tablet RxNorm: 927064 TAKE ONE TABLET BY MOUTH ONCE DAILY 05/08/2018 No Stop Date Active tramadol 50 mg tablet RxNorm: 725872 1-2 Tablet(s) PO QID as needed 04/04/2018 08/14/2018 Inactive simvastatin 20 mg tablet RxNorm: 907788 TAKE 1 TABLET BY MOUTH ONCE DAILY 03/13/2018 No Stop Date Active Synthroid 25 mcg tablet RxNorm: 915225 1 Tablet(s) PO daily 03/07/2018 09/02/2018 Inactive lisinopril 40 mg tablet RxNorm: 450113 TAKE 1 TABLET BY MOUTH ONCE DAILY 02/20/2018 No Stop Date Active alendronate 70 mg tablet RxNorm: 939324 TAKE ONE TABLET BY MOUTH ONCE A WEEK 02/20/2018 No Stop Date Active alendronate 70 mg tablet RxNorm: 624202 TAKE ONE TABLET BY MOUTH ONCE A WEEK 02/20/2018 08/14/2018 Inactive gabapentin 100 mg capsule RxNorm: 014716 TAKE TWO CAPSULES BY MOUTH AT BEDTIME 01/30/2018 No Stop Date Active tramadol 50 mg tablet RxNorm: 421396 1-2 Tablet(s) PO QID as needed 01/16/2018 03/01/2018 Inactive tramadol 50 mg tablet RxNorm: 984885 1-2 Tablet(s) PO QID as needed 11/28/2017 06/11/2018 Inactive tramadol 50 mg tablet RxNorm: 028109 1-2 Tablet(s) PO QID as needed 10/11/2017 01/15/2018 Inactive simvastatin 20 mg tablet RxNorm: 197590 TAKE ONE TABLET BY MOUTH ONCE DAILY 09/12/2017 03/12/2018 Inactive lisinopril 40 mg tablet RxNorm: 685092 TAKE ONE TABLET BY MOUTH ONCE DAILY 2017 02/19/2018 Inactive Synthroid 25 mcg tablet RxNorm: 854428 1 Tablet(s) PO daily 08/10/2017 02/05/2018 Inactive Synthroid 25 mcg tablet RxNorm: 312293 1 Tablet(s) PO daily 08/09/2017 08/09/2017 Inactive okay for generic-hold until refill due tramadol 50 mg tablet RxNorm: 313471 1-2 Tablet(s) PO QID as needed 08/01/2017 09/13/2017 Inactive Keflex 500 mg capsule RxNorm: 293104 1 Capsule(s) PO TID 07/15/2017 07/21/2017 Inactive Synthroid 25 mcg tablet RxNorm: 601034 1 Tablet(s) PO daily 07/15/2017 07/14/2017 Inactive Synthroid 25 mcg tablet RxNorm: 659565 1 Tablet(s) PO daily 07/15/2017 07/18/2017 Inactive Voltaren 1 % topical gel RxNorm: 673795 4 Gram(s) TOP QID 07/08/2017 08/06/2017 Inactive tramadol 50 mg tablet RxNorm: 676719 1-2 Tablet(s) PO QID as needed 06/16/2017 11/27/2017 Inactive simvastatin 20 mg tablet RxNorm: 291787 TAKE ONE TABLET BY MOUTH ONCE DAILY 06/13/2017 09/11/2017 Inactive hydrochlorothiazide 25 mg tablet RxNorm: 458756 TAKE ONE TABLET BY MOUTH ONCE DAILY 05/16/2017 05/07/2018 Inactive tramadol 50 mg tablet RxNorm: 613964 1-2 Tablet(s) PO QID as needed 04/20/2017 07/31/2017 Inactive Keflex 500 mg capsule RxNorm: 399871 1 Capsule(s) PO TID 03/17/2017 03/16/2017 Inactive Keflex 500 mg capsule RxNorm: 098486 1 Capsule(s) PO TID 03/17/2017 03/23/2017 Inactive alendronate 70 mg tablet RxNorm: 713941 1 Tablet(s) PO QW 03/08/2017 02/19/2018 Inactive tramadol 50 mg tablet RxNorm: 743850 1-2 Tablet(s) PO QID as needed 02/02/2017 07/31/2017 Inactive gabapentin 100 mg capsule RxNorm: 173258 TAKE TWO CAPSULES BY MOUTH AT BEDTIME 01/31/2017 07/29/2017 Inactive tramadol 50 mg tablet RxNorm: 101459 1-2 Tablet(s) PO QID as needed 12/06/2016 07/31/2017 Inactive hydrochlorothiazide 25 mg tablet RxNorm: 868120 TAKE ONE TABLET BY MOUTH ONCE DAILY 11/16/2016 05/14/2017 Inactive lisinopril 40 mg tablet RxNorm: 424205 TAKE ONE TABLET BY MOUTH ONCE DAILY 09/30/2016 06/26/2017 Inactive alendronate 70 mg tablet RxNorm: 224533 1 Tablet(s) PO QW 09/24/2016 03/07/2017 Inactive simvastatin 20 mg tablet RxNorm: 418482 TAKE ONE TABLET BY MOUTH ONCE DAILY 09/20/2016 06/12/2017 Inactive tramadol 50 mg tablet RxNorm: 142893 1-2 Tablet(s) PO QID as needed 09/08/2016 10/20/2016 Inactive gabapentin 100 mg capsule RxNorm: 059357 1 Capsule(s) PO QHS 08/20/2016 08/14/2018 Inactive HOLD- WILL CALL WHEN NEEDED tramadol 50 mg tablet RxNorm: 105096 1-2 Tablet(s) PO QID as needed 08/20/2016 09/07/2016 Inactive tramadol 50 mg tablet RxNorm: 963150 1 Tablet(s) PO QID as needed 05/14/2016 08/05/2016 Inactive Kenalog 40 mg/mL suspension for injection RxNorm: 2907100 Milliliter(s) Inj 04/23/2016 04/23/2016 Inactive gabapentin 100 mg capsule RxNorm: 872676 2 Capsule(s) PO QHS 04/23/2016 08/19/2016 Inactive HOLD- WILL CALL WHEN NEEDED alendronate 70 mg tablet RxNorm: 052734 1 Tablet(s) PO QW 04/07/2016 09/23/2016 Inactive simvastatin 20 mg tablet RxNorm: 733236 1 Tablet(s) PO daily 03/29/2016 09/19/2016 Inactive tramadol 50 mg tablet RxNorm: 539665 1 Tablet(s) PO QID as needed 03/10/2016 07/31/2017 Inactive gabapentin 100 mg capsule RxNorm: 747194 1 Capsule(s) PO QHS 01/30/2016 04/22/2016 Inactive lisinopril 40 mg tablet RxNorm: 024037 1 Tablet(s) PO daily 01/30/2016 09/29/2016 Inactive hydrochlorothiazide 25 mg tablet RxNorm: 470647 1 Tablet(s) PO daily 01/30/2016 10/25/2016 Inactive alendronate 70 mg tablet RxNorm: 900874 1 Tablet(s) QW 01/02/2016 04/06/2016 Inactive simvastatin 20 mg tablet RxNorm: 191984 1 Tablet(s) PO daily 12/31/2015 12/30/2015 Inactive simvastatin 20 mg tablet RxNorm: 304215 1 Tablet(s) PO daily 12/31/2015 03/28/2016 Inactive Calcium + D oral RxNorm: 189074 oral No Start Date Active Tylenol 500 mg RxNorm: 2 PO QHS No Start Date Active hydrocodone 5 mg-acetaminophen 325 mg tablet RxNorm: 137988 1-2 Tablet(s) PO TID PRN No Start Date 10/01/2018 Inactive hydrochlorothiazide 25 mg tablet RxNorm: 157072 1 Tablet(s) PO daily No Start Date 01/29/2016 Inactive tramadol 50 mg tablet RxNorm: 153356 1 Tablet(s) PO QID as needed No Start Date 03/09/2016 Inactive lisinopril 40 mg tablet RxNorm: 059380 1 Tablet(s) PO daily No Start Date 01/29/2016 Inactive Medication Administered Medication Codes Instructions Start Date Status Kenalog 40 mg/mL suspension for injection RxNorm: 7118602 Milliliter 04/23/2016 No longer Active Immunizations Vaccine [...] (3rd IS) 2.05 uIU/mL 09/11/2018 Free T4 Hdm452 FREE T4 0.94 ng/dL 09/11/2018 Cbc With [...] 31.0 pg 09/11/2018 Cbc With Differential Ord2 Mccone% 8.9 % 09/11/2018 Cbc With Differential Ord2 [...] 2.32 K/ul 09/11/2018 Cbc With Differential Ord2 Mccone ABS# 0.7 K/ul 09/11/2018 Cbc With Differential Ord2 Eos ABS# 0.2 K/ul 09/11/2018 Cbc With Differential Ord2 Baso ABS# 0.0 K/ul 09/11/2018 Comp Metabolic Ojx622 NA 129 mEq/L 09/11/2018 Comp Metabolic Rtn732 K 4.0 mEq/L 09/11/2018 Comp Metabolic Ooc955 CL 93 mEq/L 09/11/2018 Comp Metabolic Bfs665 CO2 27.0 mEq/L 09/11/2018 Comp Metabolic Eho629 ANION GAP 13 09/11/2018 Comp Metabolic Keb835 GLUCOSE 83 mg/dL 09/11/2018 Comp Metabolic Jub788 Creat 0.8 mg/dL 09/11/2018 Comp Metabolic Rtn413 eGFR 69 ml/min/1.73m2 09/11/2018 Comp Metabolic Tnc854 BUN 16 mg/dL 09/11/2018 Comp Metabolic Rcm640 B/C Ratio 19.3 Ratio 09/11/2018 Comp Metabolic Lsk072 CALCIUM 9.4 mg/dL 09/11/2018 Comp Metabolic Orf920 ALK PHOS 58 U/L 09/11/2018 Comp Metabolic Ctg260 AST(SGOT) 14 U/L 09/11/2018 Comp Metabolic Eub104 ALT(SGPT) 8 U/L 09/11/2018 Comp Metabolic Ywo643 BILI T 0.3 mg/dL 09/11/2018 Comp Metabolic Qiw912 ALBUMIN 4.2 g/dL 09/11/2018 Comp Metabolic Nzx683 TPRO 6.9 g/dL 09/11/2018 Comp Metabolic Mye009 GLOB 2.8 g/dL 09/11/2018 Comp Metabolic Edu315 A/G Ratio 1.5 Ratio 09/11/2018 Comp Metabolic Slb278 Osmo 259 mOsmo 09/11/2018 Free T4 Zts372 FREE T4 0.95 ng/dL 01/13/2018 Comp Metabolic Xvi917 NA 132 mEq/L 01/13/2018 Comp Metabolic Bfj932 K 4.2 mEq/L 01/13/2018 Comp Metabolic Ekb277 CL 97 mEq/L 01/13/2018 Comp Metabolic Igw710 CO2 29.0 mEq/L 01/13/2018 Comp Metabolic Jdc208 ANION GAP 10 01/13/2018 Comp Metabolic Zin147 GLUCOSE 88 mg/dL 01/13/2018 Comp Metabolic Ydf558 Creat 0.9 mg/dL 01/13/2018 Comp Metabolic Uru998 eGFR 62 ml/min/1.73m2 01/13/2018 Comp Metabolic Ndl882 BUN 16 mg/dL 01/13/2018 Comp Metabolic Wuj209 B/C Ratio 17.6 Ratio 01/13/2018 Comp Metabolic Gez593 CALCIUM 10.0 mg/dL 01/13/2018 Comp Metabolic Vcx620 ALK PHOS 65 U/L 01/13/2018 Comp Metabolic Arp485 AST(SGOT) 20 U/L 01/13/2018 Comp Metabolic Fpk675 ALT(SGPT) 16 U/L 01/13/2018 Comp Metabolic Ooe948 BILI T 0.3 mg/dL 01/13/2018 Comp Metabolic Sqg246 ALBUMIN 4.0 g/dL 01/13/2018 Comp Metabolic Agf893 TPRO 7.0 g/dL 01/13/2018 Comp Metabolic Rrb095 GLOB 3.0 g/dL 01/13/2018 Comp Metabolic Nnk360 A/G Ratio 1.3 Ratio 01/13/2018 Comp Metabolic Wpi702 Osmo 265 mOsmo 01/13/2018 Tsh Ord6 TSH [...] 29.7 pg 01/13/2018 Cbc With Differential Ord2 Mccone% 7.6 % 01/13/2018 Cbc With Differential Ord2 [...] 2.55 K/ul 01/13/2018 Cbc With Differential Ord2 Mccone ABS# 0.6 K/ul 01/13/2018 Cbc With Differential [...] 29.4 pg 07/15/2017 Cbc With Differential Ord2 Mccone% 8.8 % 07/15/2017 Cbc With Differential Ord2 [...] 2.44 K/ul 07/15/2017 Cbc With Differential Ord2 Mccone ABS# 0.8 K/ul 07/15/2017 Cbc With Differential [...] from collection if refrigerated) 07/15/2017 Comp Metabolic Dac601 NA 132 mEq/L 07/15/2017 Comp Metabolic Aui828 K 3.8 mEq/L 07/15/2017 Comp Metabolic Puv223 CL 95 mEq/L 07/15/2017 Comp Metabolic Lph638 CO2 30.0 mEq/L 07/15/2017 Comp Metabolic Wuo986 ANION GAP 11 07/15/2017 Comp Metabolic Cuc648 GLUCOSE 92 mg/dL 07/15/2017 Comp Metabolic Iug370 Creat 0.8 mg/dL 07/15/2017 Comp Metabolic Fmq899 eGFR 75 ml/min/1.73m2 07/15/2017 Comp Metabolic Fiw685 BUN 11 mg/dL 07/15/2017 Comp Metabolic Jsm008 B/C Ratio 14.1 Ratio 07/15/2017 Comp Metabolic Ylf765 CALCIUM 9.7 mg/dL 07/15/2017 Comp Metabolic Sqc682 ALK PHOS 72 U/L 07/15/2017 Comp Metabolic Spx685 AST(SGOT) 14 U/L 07/15/2017 Comp Metabolic Pgx639 ALT(SGPT) 9 U/L 07/15/2017 Comp Metabolic Tfs820 BILI T 0.5 mg/dL 07/15/2017 Comp Metabolic Nne539 ALBUMIN 4.1 g/dL 07/15/2017 Comp Metabolic Ffg206 TPRO 6.9 g/dL 07/15/2017 Comp Metabolic Dwz487 GLOB 2.8 g/dL 07/15/2017 Comp Metabolic Auk272 A/G Ratio 1.5 Ratio 07/15/2017 Comp Metabolic Ibu859 Osmo 264 mOsmo 07/15/2017 Tsh Ord6 TSH (3rd IS) 6.20 uIU/mL 07/15/2017 Free T4 Djt323 FREE T4 0.95 ng/dL 07/15/2017 Cbc With [...] 31.1 pg 01/30/2016 Cbc With Differential Ord2 Mccone% 8.6 % 01/30/2016 Cbc With Differential Ord2 [...] 2.16 K/ul 01/30/2016 Cbc With Differential Ord2 Mccone ABS# 0.7 K/ul 01/30/2016 Cbc With Differential Ord2 Eos ABS# 0.2 K/ul 01/30/2016 Cbc With Differential Ord2 Baso ABS# 0.0 K/ul 01/30/2016 Tsh Ord6 hTSH II 2.93 uIU/mL 01/30/2016 Comp Metabolic Nle747 NA 134 mEq/L 01/30/2016 Comp Metabolic Okq871 K 4.0 mEq/L 01/30/2016 Comp Metabolic Bnr040 CL 97 mEq/L 01/30/2016 Comp Metabolic Vgp325 CO2 29.0 mEq/L 01/30/2016 Comp Metabolic Rpf805 ANION GAP 12 01/30/2016 Comp Metabolic Fgh026 GLUCOSE 98 mg/dL 01/30/2016 Comp Metabolic Hft704 Creat 0.9 mg/dL 01/30/2016 Comp Metabolic Lse319 eGFR 67 ml/min/1.73m2 01/30/2016 Comp Metabolic Cwe981 BUN 16 mg/dL 01/30/2016 Comp Metabolic Dcx905 B/C Ratio 18.6 Ratio 01/30/2016 Comp Metabolic Acb297 CALCIUM 10.3 mg/dL 01/30/2016 Comp Metabolic Imi166 ALK PHOS 66 U/L 01/30/2016 Comp Metabolic Icp011 AST(SGOT) 16 U/L 01/30/2016 Comp Metabolic Bik591 ALT(SGPT) 10 U/L 01/30/2016 Comp Metabolic Hpo949 BILI T 0.4 mg/dL 01/30/2016 Comp Metabolic Nhv160 ALBUMIN 4.2 g/dL 01/30/2016 Comp Metabolic Lvz189 TPRO 7.1 g/dL 01/30/2016 Comp Metabolic Sci158 GLOB 2.9 g/dL 01/30/2016 Comp Metabolic Tkb135 A/G Ratio 1.5 Ratio 01/30/2016 Comp Metabolic Uzl274 Osmo 269 mOsmo 01/30/2016 Lipid Ord30 CHOL [...] Formatting Model/CDA Sections, Assigned to/Karine Archuleta CPT-4: 23288Ovxhtrz 01/06/2018 TRIAMCINOLONE ACET INJ NOS CPT-4: J3301 04/23/2016 ADMIN INFLUENZA VIRUS VAC CPT-4: G0008 01/30/2016 PNEUMOCOCCAL VACC [address]: 20938003 CPT-4: 83763 01/30/2016 FLU VACC 4 RODNEY 3 YRS PLUS IM Formatting Model/CDA Sections, Assigned to/Karine Archuleta SNOMED CT: 87304696 CPT-4: 68116Zczmyse 01/30/2016 ADMIN PNEUMOCOCCAL VACCINE SNOMED CT: 46498044 CPT-4: G0009 01/30/2016 Vital Signs Date Vital 09/08/2018 Blood Pressure 1: 140/72 Code: 8480-6 Heart Rate 1: 85 bpm SpO2: 98% Weight: 136 lbs 01/06/2018 Blood Pressure 1: 138/70 Code: 8480-6 BMI: 21.5 Code: 37196-6 Heart Rate 1: 75 bpm Height: 5'6" SpO2: 98% Weight: 133 lbs 07/08/2017 Blood Pressure 1: 148/82 Code: 8480-6 BMI: 21.6 Code: 62059-6 Heart Rate 1: 80 bpm Height: 5'6" SpO2: 98% Weight: 134 lbs 08/20/2016 Blood Pressure 1: 124/76 Code: 8480-6 BMI: 23.2 Code: 39576-2 Heart Rate 1: 72 bpm Height: 5'6" SpO2: 93% Weight: 144 lbs 04/23/2016 Blood Pressure 1: 130/82 Code: 8480-6 BMI: 23.4 Code: 70106-6 Heart Rate 1: 86 bpm Height: 5'6" SpO2: 98% Weight: 145 lbs 01/30/2016 Blood Pressure 1: 140/86 Code: 8480-6 BMI: 23.9 Code: 41752-0 Heart Rate 1: 55 bpm Height: 5'6" SpO2: 96% Weight: 148 lbs 01/02/2016 Blood Pressure 1: 146/86 Code: 8480-6 BMI: 24.2 Code: 59006-7 Heart Rate 1: 84 bpm Height: 5'6" [...] data Encounters Encounter Performer Location Codes Date ([id number]) [id number] EST. PATIENT, LEVEL IV Diagnosis: Essential (primary) hypertension[ICD10: I10] Diagnosis: Mixed hyperlipidemia[ICD10: E78.2] Diagnosis: Hypothyroidism, unspecified[ICD10: E03.9] Diagnosis: Primary generalized (osteo)arthritis[ICD10: M15.0] Rosi Tsai MD, [facility] CPT-4: 04327 09/08/2018 ([id number]) [id number] EST. PATIENT, LEVEL IV Diagnosis: Essential (primary) hypertension[ICD10: I10] Diagnosis: Hypothyroidism, unspecified[ICD10: E03.9] Diagnosis: Low back pain[ICD10: M54.5] Diagnosis: Encounter for immunization[ICD10: Z23] Diagnosis: Abnormal weight loss[ICD10: R63.4] Rosi Tsai MD, [facility] CPT- 4: 92274 01/06/2018 [id number]) [id number] EST. PATIENT, LEVEL IV Diagnosis: Essential (primary) hypertension[ICD10: I10] Diagnosis: Pain in right shoulder[ICD10: M25.511] Diagnosis: Mixed hyperlipidemia[ICD10: E78.2] Diagnosis: Dysuria[ICD10: R30.0] Diagnosis: Cramp and spasm[ICD10: R25.2] Rosi Tsai MD, [facility] CPT-4: 34600 07/08/2017 ([id number]) [id number] EST. PATIENT, LEVEL III Diagnosis: Essential (primary) hypertension[ICD10: I10] Diagnosis: Radiculopathy, lumbar region[ICD10: M54.16] Rosi Tsai MD, [facility] CPT-4: 69824 08/20/2016 ([id number]) 22073 EST. PATIENT, LEVEL IV Diagnosis: Essential (primary) hypertension[ICD10: I10] Diagnosis: Lumbago with sciatica, left side[ICD10: M54.42] Diagnosis: Cramp and spasm[ICD10: R25.2] Rosi Tsai MD, [facility] CPT-4: 67599 04/23/2016 ([id number]) [id number] EST. PATIENT, LEVEL III Diagnosis: Essential (primary) hypertension[ICD10: I10] Diagnosis: Radiculopathy, lumbar region[ICD10: M54.16] Diagnosis: Encounter for immunization[ICD10: Z23] Diagnosis: Impacted cerumen, left ear[ICD10: H61.22] Genny Tsai MD, [facility] CPT-4: 30468 01/30/2016 ([id number]) OFFICE VISIT, NEW - LEVEL 3 Diagnosis: Essential (primary) hypertension[ICD10: I10] Diagnosis: Mixed hyperlipidemia[ICD10: E78.2] Diagnosis: Cramp and spasm[ICD10: R25.2] Rosi Tsai MD, [facility] CPT-4: 71005 01/02/2016 Plan of Care Planned Activity Notes [...] Hypertension Completed 09/08/2018 Appointment: Rosi Vega WPtel: [phone] [phone] [place] (30 min) Complex 09/01/2018 Appointment: Rosi Vega WPtel: [address] [phone] [place] (30 min) Complex 07/28/2018 Appointment: Rosi Vega WPtel: [phone] [phone] [place] (30 min) Complex 07/14/2018 Appointment: Rosi Vega WPtel: [phone] [phone] [place] (30 min) Complex 07/07/2018 Visit Plan: [...] ice cream 01/06/2018 [phone] [phone] [place] (15 min) Moderate 01/06/2018 Patient Education: [...] cramps-check labs 07/08/2017 Appointment: Rosi Vega WPtel: [address] [place] [address] (15 min) Moderate 07/08/2017 Patient Education: Patient Medication Summary Completed 07/08/2017 Appointment: Rosi Vega WPtel: [address] [place] [address] (15 min) Moderate 12/24/2016 Visit Plan: Hypertension [...] of plan. 08/20/2016 Appointment: Rosi Vega WPtel: [address] [place], [place] [phone] [place] [address] (30 min) Complex 08/20/2016 Patient Education: Patient Medication Summary Completed 08/20/2016 Appointment: Rosi Vega WPtel: [address] [place] [address] (30 min) Complex 04/30/2016 Visit Plan: Hypertension [...] removal process. 01/30/2016 Appointment: Rosi Vega WPtel: [phone] (30 min) Complex 01/30/2016 Patient Education: Patient [...] B12, magnesium 01/02/2016 [facility]ment: [facility] [phone] [phone] New Patient 01/02/2016 Patient Education: Patient Medication [...]
[2018-10-19] MEDS ORDERED: CEFEPIME INJECTION 1,000 MG in WATER (STERILE) FOR INJECTION 10 ML IV ONE (21:45)
[2018-10-19] MEDS ORDERED: ONDANSETRON 4 MG/2 ML (SDV) Z0FRAN IVP ONE (21:45)
[2018-10-19] MEDS ORDERED: NS IV 1000 ML 1,000 ML IV ONE ×2 (21:45→22:45)
--- OUTSIDE RECORDS SUMMARY | 2018-10-19 21:45 | XMS REPORT | CCD ---
Author Author Rosi Vega MD, [facility] Address [address] [place] [address] Phone Care Team Providers Care Life Underwriter Name Role Phone PP Unavailable CCM Unavailable Summary Purpose Interface Exchange Insurance Providers Payer name Policy type / Coverage type Covered republican ID Effective Begin Date Effective End Date WPS Medicare Part B Medicare Part B [id number] Unknown Unknown Family history Daughter Diagnosis Age [...] Unknown 5 01/02/[address]: 799894082 Never smoker 01/02/[address]: 922077774 Never drinks alcohol 01/02/2016 Allergies, Adverse Reactions, [...] Fill Instructions tramadol 50 mg tablet RxNorm: 943014 2 Tablet(s) PO QID as needed 10/03/2018 11/01/2018 Active tramadol 50 mg tablet RxNorm: 649982 1-2 Tablet(s) PO QID as needed 10/03/2018 10/02/2018 Inactive tramadol 50 mg tablet RxNorm: 367160 1-2 Tablet(s) PO QID as needed 09/27/2018 09/28/2018 Inactive Synthroid 25 mcg tablet RxNorm: 121923 TAKE 1 TABLET BY MOUTH ONCE DAILY 09/04/2018 No Stop Date Active tramadol 50 mg tablet RxNorm: 720834 1-2 Tablet(s) PO QID as needed 2018 09/12/2018 Inactive tramadol 50 mg tablet RxNorm: 031312 1-2 Tablet(s) PO QID as needed 06/12/2018 07/24/2018 Inactive hydrochlorothiazide 25 mg tablet RxNorm: 052974 TAKE ONE TABLET BY MOUTH ONCE DAILY 05/08/2018 No Stop Date Active tramadol 50 mg tablet RxNorm: 962212 1-2 Tablet(s) PO QID as needed 04/04/2018 08/14/2018 Inactive simvastatin 20 mg tablet RxNorm: 720755 TAKE 1 TABLET BY MOUTH ONCE DAILY 03/13/2018 No Stop Date Active Synthroid 25 mcg tablet RxNorm: 597855 1 Tablet(s) PO daily 03/07/2018 09/02/2018 Inactive lisinopril 40 mg tablet RxNorm: 084770 TAKE 1 TABLET BY MOUTH ONCE DAILY 02/20/2018 No Stop Date Active alendronate 70 mg tablet RxNorm: 597571 TAKE ONE TABLET BY MOUTH ONCE A WEEK 02/20/2018 No Stop Date Active alendronate 70 mg tablet RxNorm: 041593 TAKE ONE TABLET BY MOUTH ONCE A WEEK 02/20/2018 08/14/2018 Inactive gabapentin 100 mg capsule RxNorm: 400480 TAKE TWO CAPSULES BY MOUTH AT BEDTIME 01/30/2018 No Stop Date Active tramadol 50 mg tablet RxNorm: 959624 1-2 Tablet(s) PO QID as needed 01/16/2018 03/01/2018 Inactive tramadol 50 mg tablet RxNorm: 122392 1-2 Tablet(s) PO QID as needed 11/28/2017 06/11/2018 Inactive tramadol 50 mg tablet RxNorm: 838292 1-2 Tablet(s) PO QID as needed 10/11/2017 01/15/2018 Inactive simvastatin 20 mg tablet RxNorm: 606717 TAKE ONE TABLET BY MOUTH ONCE DAILY 09/12/2017 03/12/2018 Inactive lisinopril 40 mg tablet RxNorm: 494683 TAKE ONE TABLET BY MOUTH ONCE DAILY 2017 02/19/2018 Inactive Synthroid 25 mcg tablet RxNorm: 948624 1 Tablet(s) PO daily 08/10/2017 02/05/2018 Inactive Synthroid 25 mcg tablet RxNorm: 977801 1 Tablet(s) PO daily 08/09/2017 08/09/2017 Inactive okay for generic-hold until refill due tramadol 50 mg tablet RxNorm: 946219 1-2 Tablet(s) PO QID as needed 08/01/2017 09/13/2017 Inactive Keflex 500 mg capsule RxNorm: 002648 1 Capsule(s) PO TID 07/15/2017 07/21/2017 Inactive Synthroid 25 mcg tablet RxNorm: 951117 1 Tablet(s) PO daily 07/15/2017 07/14/2017 Inactive Synthroid 25 mcg tablet RxNorm: 805330 1 Tablet(s) PO daily 07/15/2017 07/18/2017 Inactive Voltaren 1 % topical gel RxNorm: 286492 4 Gram(s) TOP QID 07/08/2017 08/06/2017 Inactive tramadol 50 mg tablet RxNorm: 697486 1-2 Tablet(s) PO QID as needed 06/16/2017 11/27/2017 Inactive simvastatin 20 mg tablet RxNorm: 695978 TAKE ONE TABLET BY MOUTH ONCE DAILY 06/13/2017 09/11/2017 Inactive hydrochlorothiazide 25 mg tablet RxNorm: 588687 TAKE ONE TABLET BY MOUTH ONCE DAILY 05/16/2017 05/07/2018 Inactive tramadol 50 mg tablet RxNorm: 349884 1-2 Tablet(s) PO QID as needed 04/20/2017 07/31/2017 Inactive Keflex 500 mg capsule RxNorm: 861646 1 Capsule(s) PO TID 03/17/2017 03/16/2017 Inactive Keflex 500 mg capsule RxNorm: 831076 1 Capsule(s) PO TID 03/17/2017 03/23/2017 Inactive alendronate 70 mg tablet RxNorm: 687529 1 Tablet(s) PO QW 03/08/2017 02/19/2018 Inactive tramadol 50 mg tablet RxNorm: 846884 1-2 Tablet(s) PO QID as needed 02/02/2017 07/31/2017 Inactive gabapentin 100 mg capsule RxNorm: 070943 TAKE TWO CAPSULES BY MOUTH AT BEDTIME 01/31/2017 07/29/2017 Inactive tramadol 50 mg tablet RxNorm: 861767 1-2 Tablet(s) PO QID as needed 12/06/2016 07/31/2017 Inactive hydrochlorothiazide 25 mg tablet RxNorm: 078300 TAKE ONE TABLET BY MOUTH ONCE DAILY 11/16/2016 05/14/2017 Inactive lisinopril 40 mg tablet RxNorm: 730173 TAKE ONE TABLET BY MOUTH ONCE DAILY 09/30/2016 06/26/2017 Inactive alendronate 70 mg tablet RxNorm: 992683 1 Tablet(s) PO QW 09/24/2016 03/07/2017 Inactive simvastatin 20 mg tablet RxNorm: 740260 TAKE ONE TABLET BY MOUTH ONCE DAILY 09/20/2016 06/12/2017 Inactive tramadol 50 mg tablet RxNorm: 121220 1-2 Tablet(s) PO QID as needed 09/08/2016 10/20/2016 Inactive gabapentin 100 mg capsule RxNorm: 532530 1 Capsule(s) PO QHS 08/20/2016 08/14/2018 Inactive HOLD- WILL CALL WHEN NEEDED tramadol 50 mg tablet RxNorm: 659117 1-2 Tablet(s) PO QID as needed 08/20/2016 09/07/2016 Inactive tramadol 50 mg tablet RxNorm: 750192 1 Tablet(s) PO QID as needed 05/14/2016 08/05/2016 Inactive Kenalog 40 mg/mL suspension for injection RxNorm: 4012575 Milliliter(s) Inj 04/23/2016 04/23/2016 Inactive gabapentin 100 mg capsule RxNorm: 181489 2 Capsule(s) PO QHS 04/23/2016 08/19/2016 Inactive HOLD- WILL CALL WHEN NEEDED alendronate 70 mg tablet RxNorm: 966286 1 Tablet(s) PO QW 04/07/2016 09/23/2016 Inactive simvastatin 20 mg tablet RxNorm: 526682 1 Tablet(s) PO daily 03/29/2016 09/19/2016 Inactive tramadol 50 mg tablet RxNorm: 544657 1 Tablet(s) PO QID as needed 03/10/2016 07/31/2017 Inactive gabapentin 100 mg capsule RxNorm: 939833 1 Capsule(s) PO QHS 01/30/2016 04/22/2016 Inactive lisinopril 40 mg tablet RxNorm: 525463 1 Tablet(s) PO daily 01/30/2016 09/29/2016 Inactive hydrochlorothiazide 25 mg tablet RxNorm: 660590 1 Tablet(s) PO daily 01/30/2016 10/25/2016 Inactive alendronate 70 mg tablet RxNorm: 721511 1 Tablet(s) QW 01/02/2016 04/06/2016 Inactive simvastatin 20 mg tablet RxNorm: 846136 1 Tablet(s) PO daily 12/31/2015 12/30/2015 Inactive simvastatin 20 mg tablet RxNorm: 296554 1 Tablet(s) PO daily 12/31/2015 03/28/2016 Inactive Calcium + D oral RxNorm: 827138 oral No Start Date Active Tylenol 500 mg RxNorm: 2 PO QHS No Start Date Active hydrocodone 5 mg-acetaminophen 325 mg tablet RxNorm: 866922 1-2 Tablet(s) PO TID PRN No Start Date 10/01/2018 Inactive hydrochlorothiazide 25 mg tablet RxNorm: 307403 1 Tablet(s) PO daily No Start Date 01/29/2016 Inactive tramadol 50 mg tablet RxNorm: 814220 1 Tablet(s) PO QID as needed No Start Date 03/09/2016 Inactive lisinopril 40 mg tablet RxNorm: 921720 1 Tablet(s) PO daily No Start Date 01/29/2016 Inactive Medication Administered Medication Codes Instructions Start Date Status Kenalog 40 mg/mL suspension for injection RxNorm: 8274530 Milliliter 04/23/2016 No longer Active Immunizations Vaccine [...] (3rd IS) 2.05 uIU/mL 09/11/2018 Free T4 Uvj310 FREE T4 0.94 ng/dL 09/11/2018 Cbc With [...] 31.0 pg 09/11/2018 Cbc With Differential Ord2 [place]% 8.9 % 09/11/2018 Cbc With Differential Ord2 [...] 2.32 K/ul 09/11/2018 Cbc With Differential Ord2 [place] ABS# 0.7 K/ul 09/11/2018 Cbc With Differential Ord2 Eos ABS# 0.2 K/ul 09/11/2018 Cbc With Differential Ord2 Baso ABS# 0.0 K/ul 09/11/2018 Comp Metabolic Qgw783 NA 129 mEq/L 09/11/2018 Comp Metabolic Dfl694 K 4.0 mEq/L 09/11/2018 Comp Metabolic Lnh396 CL 93 mEq/L 09/11/2018 Comp Metabolic Fix949 CO2 27.0 mEq/L 09/11/2018 Comp Metabolic Szl020 ANION GAP 13 09/11/2018 Comp Metabolic Pqe165 GLUCOSE 83 mg/dL 09/11/2018 Comp Metabolic Xbq249 Creat 0.8 mg/dL 09/11/2018 Comp Metabolic Mvf346 eGFR 69 ml/min/1.73m2 09/11/2018 Comp Metabolic Ulb547 BUN 16 mg/dL 09/11/2018 Comp Metabolic Ilo403 B/C Ratio 19.3 Ratio 09/11/2018 Comp Metabolic Mty403 CALCIUM 9.4 mg/dL 09/11/2018 Comp Metabolic Qfh618 ALK PHOS 58 U/L 09/11/2018 Comp Metabolic Ziy528 AST(SGOT) 14 U/L 09/11/2018 Comp Metabolic Ldp420 ALT(SGPT) 8 U/L 09/11/2018 Comp Metabolic Dfp272 BILI T 0.3 mg/dL 09/11/2018 Comp Metabolic Jjv658 ALBUMIN 4.2 g/dL 09/11/2018 Comp Metabolic Vii030 TPRO 6.9 g/dL 09/11/2018 Comp Metabolic Csl621 GLOB 2.8 g/dL 09/11/2018 Comp Metabolic Jxo474 A/G Ratio 1.5 Ratio 09/11/2018 Comp Metabolic Fod383 Osmo 259 mOsmo 09/11/2018 Free T4 Rcn043 FREE T4 0.95 ng/dL 01/13/2018 Comp Metabolic Yka822 NA 132 mEq/L 01/13/2018 Comp Metabolic Mry838 K 4.2 mEq/L 01/13/2018 Comp Metabolic Uuw202 CL 97 mEq/L 01/13/2018 Comp Metabolic Spg092 CO2 29.0 mEq/L 01/13/2018 Comp Metabolic Ufe710 ANION GAP 10 01/13/2018 Comp Metabolic Ofa875 GLUCOSE 88 mg/dL 01/13/2018 Comp Metabolic Atj448 Creat 0.9 mg/dL 01/13/2018 Comp Metabolic Gal027 eGFR 62 ml/min/1.73m2 01/13/2018 Comp Metabolic Itr168 BUN 16 mg/dL 01/13/2018 Comp Metabolic Jgh429 B/C Ratio 17.6 Ratio 01/13/2018 Comp Metabolic Tel627 CALCIUM 10.0 mg/dL 01/13/2018 Comp Metabolic Oeb998 ALK PHOS 65 U/L 01/13/2018 Comp Metabolic Oav458 AST(SGOT) 20 U/L 01/13/2018 Comp Metabolic Oby876 ALT(SGPT) 16 U/L 01/13/2018 Comp Metabolic Wwn051 BILI T 0.3 mg/dL 01/13/2018 Comp Metabolic Exv971 ALBUMIN 4.0 g/dL 01/13/2018 Comp Metabolic Btl601 TPRO 7.0 g/dL 01/13/2018 Comp Metabolic Smr750 GLOB 3.0 g/dL 01/13/2018 Comp Metabolic Lam978 A/G Ratio 1.3 Ratio 01/13/2018 Comp Metabolic Asu941 Osmo 265 mOsmo 01/13/2018 Tsh Ord6 TSH [...] 29.7 pg 01/13/2018 Cbc With Differential Ord2 [place]% 7.6 % 01/13/2018 Cbc With Differential Ord2 [...] 2.55 K/ul 01/13/2018 Cbc With Differential Ord2 [place] ABS# 0.6 K/ul 01/13/2018 Cbc With Differential [...] 29.4 pg 07/15/2017 Cbc With Differential Ord2 [place]% 8.8 % 07/15/2017 Cbc With Differential Ord2 [...] 2.44 K/ul 07/15/2017 Cbc With Differential Ord2 [place] ABS# 0.8 K/ul 07/15/2017 Cbc With Differential [...] from collection if refrigerated) 07/15/2017 Comp Metabolic Mgv389 NA 132 mEq/L 07/15/2017 Comp Metabolic Rlb165 K 3.8 mEq/L 07/15/2017 Comp Metabolic Lcv182 CL 95 mEq/L 07/15/2017 Comp Metabolic Uhw513 CO2 30.0 mEq/L 07/15/2017 Comp Metabolic Mwo715 ANION GAP 11 07/15/2017 Comp Metabolic Xrz682 GLUCOSE 92 mg/dL 07/15/2017 Comp Metabolic Cir163 Creat 0.8 mg/dL 07/15/2017 Comp Metabolic Yqk040 eGFR 75 ml/min/1.73m2 07/15/2017 Comp Metabolic Xrs770 BUN 11 mg/dL 07/15/2017 Comp Metabolic Dgk266 B/C Ratio 14.1 Ratio 07/15/2017 Comp Metabolic Xrj269 CALCIUM 9.7 mg/dL 07/15/2017 Comp Metabolic Uqs575 ALK PHOS 72 U/L 07/15/2017 Comp Metabolic Ajl389 AST(SGOT) 14 U/L 07/15/2017 Comp Metabolic Ivu177 ALT(SGPT) 9 U/L 07/15/2017 Comp Metabolic Oly685 BILI T 0.5 mg/dL 07/15/2017 Comp Metabolic Owd409 ALBUMIN 4.1 g/dL 07/15/2017 Comp Metabolic Yzu490 TPRO 6.9 g/dL 07/15/2017 Comp Metabolic Xuy608 GLOB 2.8 g/dL 07/15/2017 Comp Metabolic Mns547 A/G Ratio 1.5 Ratio 07/15/2017 Comp Metabolic Aku299 Osmo 264 mOsmo 07/15/2017 Tsh Ord6 TSH (3rd IS) 6.20 uIU/mL 07/15/2017 Free T4 Yhs884 FREE T4 0.95 ng/dL 07/15/2017 Cbc With [...] 31.1 pg 01/30/2016 Cbc With Differential Ord2 [place]% 8.6 % 01/30/2016 Cbc With Differential Ord2 [...] 2.16 K/ul 01/30/2016 Cbc With Differential Ord2 [place] ABS# 0.7 K/ul 01/30/2016 Cbc With Differential Ord2 Eos ABS# 0.2 K/ul 01/30/2016 Cbc With Differential Ord2 Baso ABS# 0.0 K/ul 01/30/2016 Tsh Ord6 hTSH II 2.93 uIU/mL 01/30/2016 Comp Metabolic Avz524 NA 134 mEq/L 01/30/2016 Comp Metabolic Kbh894 K 4.0 mEq/L 01/30/2016 Comp Metabolic Kgp878 CL 97 mEq/L 01/30/2016 Comp Metabolic Tci034 CO2 29.0 mEq/L 01/30/2016 Comp Metabolic Mfc268 ANION GAP 12 01/30/2016 Comp Metabolic Odq953 GLUCOSE 98 mg/dL 01/30/2016 Comp Metabolic Hyi879 Creat 0.9 mg/dL 01/30/2016 Comp Metabolic Kle192 eGFR 67 ml/min/1.73m2 01/30/2016 Comp Metabolic Cki638 BUN 16 mg/dL 01/30/2016 Comp Metabolic Mfw615 B/C Ratio 18.6 Ratio 01/30/2016 Comp Metabolic Ekh013 CALCIUM 10.3 mg/dL 01/30/2016 Comp Metabolic Dpw125 ALK PHOS 66 U/L 01/30/2016 Comp Metabolic Ppr144 AST(SGOT) 16 U/L 01/30/2016 Comp Metabolic Hyv416 ALT(SGPT) 10 U/L 01/30/2016 Comp Metabolic Ouy204 BILI T 0.4 mg/dL 01/30/2016 Comp Metabolic Gvg790 ALBUMIN 4.2 g/dL 01/30/2016 Comp Metabolic Ltr305 TPRO 7.1 g/dL 01/30/2016 Comp Metabolic Pod902 GLOB 2.9 g/dL 01/30/2016 Comp Metabolic Ouj573 A/G Ratio 1.5 Ratio 01/30/2016 Comp Metabolic Tah423 Osmo 269 mOsmo 01/30/2016 Lipid Ord30 CHOL [...] II/ 01/06/2018 None Full Exam - General 1994 Constitutional general appearance Overall: well developed 07/08/2017 [...] Formatting Model/CDA Sections, Assigned to/Karine Archuleta CPT-4: 70104Rpfiiot 01/06/2018 TRIAMCINOLONE ACET INJ NOS CPT-4: J3301 04/23/2016 ADMIN INFLUENZA VIRUS VAC CPT-4: G0008 01/30/2016 PNEUMOCOCCAL VACC [address]: 91021430 CPT-4: 41188 01/30/2016 FLU VACC 4 RODNEY 3 YRS PLUS IM Formatting Model/CDA Sections, Assigned to/Karine Archuleta SNOMED CT: 71547055 CPT-4: 17606Zkszmuv 01/30/2016 ADMIN PNEUMOCOCCAL VACCINE SNOMED CT: 68046680 CPT-4: G0009 01/30/2016 Vital Signs Date Vital 09/08/2018 Blood Pressure 1: 140/72 Code: 8480-6 Heart Rate 1: 85 bpm SpO2: 98% Weight: 136 lbs 01/06/2018 Blood Pressure 1: 138/70 Code: 8480-6 BMI: 21.5 Code: 16481-9 Heart Rate 1: 75 bpm Height: 5'6" SpO2: 98% Weight: 133 lbs 07/08/2017 Blood Pressure 1: 148/82 Code: 8480-6 BMI: 21.6 Code: 28388-8 Heart Rate 1: 80 bpm Height: 5'6" SpO2: 98% Weight: 134 lbs 08/20/2016 Blood Pressure 1: 124/76 Code: 8480-6 BMI: 23.2 Code: 55824-1 Heart Rate 1: 72 bpm Height: 5'6" SpO2: 93% Weight: 144 lbs 04/23/2016 Blood Pressure 1: 130/82 Code: 8480-6 BMI: 23.4 Code: 14077-3 Heart Rate 1: 86 bpm Height: 5'6" SpO2: 98% Weight: 145 lbs 01/30/2016 Blood Pressure 1: 140/86 Code: 8480-6 BMI: 23.9 Code: 29242-2 Heart Rate 1: 55 bpm Height: 5'6" SpO2: 96% Weight: 148 lbs 01/02/2016 Blood Pressure 1: 146/86 Code: 8480-6 BMI: 24.2 Code: 65793-2 Heart Rate 1: 84 bpm Height: 5'6" [...] data Encounters Encounter Performer Location Codes Date ([id number]) [id number] EST. PATIENT, LEVEL IV Diagnosis: Essential (primary) hypertension[ICD10: I10] Diagnosis: Mixed hyperlipidemia[ICD10: E78.2] Diagnosis: Hypothyroidism, unspecified[ICD10: E03.9] Diagnosis: Primary generalized (osteo)arthritis[ICD10: M15.0] Rosi Tsai MD, [facility] CPT-4: 97638 09/08/2018 [id number]) [id number] EST. PATIENT, LEVEL IV Diagnosis: Essential (primary) hypertension[ICD10: I10] Diagnosis: Hypothyroidism, unspecified[ICD10: E03.9] Diagnosis: Low back pain[ICD10: M54.5] Diagnosis: Encounter for immunization[ICD10: Z23] Diagnosis: Abnormal weight loss[ICD10: R63.4] Rosi Tsai MD, [facility] CPT- 4: 54052 01/06/2018 ([id number]) 63048 EST. PATIENT, LEVEL IV Diagnosis: Essential (primary) hypertension[ICD10: I10] Diagnosis: Pain in right shoulder[ICD10: M25.511] Diagnosis: Mixed hyperlipidemia[ICD10: E78.2] Diagnosis: Dysuria[ICD10: R30.0] Diagnosis: Cramp and spasm[ICD10: R25.2] Rosi Tsai MD, [facility] CPT-4: 53566 07/08/2017 ([id number]) 91051 EST. PATIENT, LEVEL III Diagnosis: Essential (primary) hypertension[ICD10: I10] Diagnosis: Radiculopathy, lumbar region[ICD10: M54.16] [facility] CPT-4: 92538 08/20/2016 ([id number]) 77691 EST. PATIENT, LEVEL IV Diagnosis: Essential (primary) hypertension[ICD10: I10] Diagnosis: Lumbago with sciatica, left side[ICD10: M54.42] Diagnosis: Cramp and spasm[ICD10: R25.2] Rosi Tsai MD, [facility] CPT-4: 69102 04/23/2016 ([id number]) 14086 EST. PATIENT, LEVEL III Diagnosis: Essential (primary) hypertension[ICD10: I10] Diagnosis: Radiculopathy, lumbar region[ICD10: M54.16] Diagnosis: Encounter for immunization[ICD10: Z23] Diagnosis: Impacted cerumen, left ear[ICD10: H61.22] Genny Tsai MD, [facility] CPT-4: 15720 01/30/2016 ([id number]) OFFICE VISIT, NEW - LEVEL 3 Diagnosis: Essential (primary) hypertension[ICD10: I10] Diagnosis: Mixed hyperlipidemia[ICD10: E78.2] Diagnosis: Cramp and spasm[ICD10: R25.2] Rosi Tsai MD, [facility] CPT-4: 80670 01/02/2016 Plan of Care Planned Activity Notes [...] 09/08/2018 Patient Education: Hypertension Completed 09/08/2018 [facility]ointment: [facility] [phone] [phone] [place] (30 min) Complex 09/01/2018 Appointment: Rosi Vega WPtel: [phone] [phone] [place] (30 min) Complex 07/28/2018 Appointment: Rosi Vega WPtel: [phone] [phone] [place] (30 min) Complex 07/14/2018 Appointment: Rosi Vega WPtel: [phone] [phone] (30 min) Complex 07/07/2018 Visit Plan: Hypertension [...] ice cream 01/06/2018 Appointment: [phone] [phone] [place] (15 min) Moderate 01/06/2018 Patient Education: [...] cramps-check labs 07/08/2017 Appointment: Rosi Vega WPtel: [phone] [phone] (15 min) Moderate 07/08/2017 Patient Education: Patient Medication Summary Completed 07/08/2017 Appointment: Rosi Vega WPtel: [phone] [phone] (15 min) Moderate 12/24/2016 Visit Plan: Hypertension [...] of plan. 08/20/2016 Appointment: Rosi Vega WPtel: [phone] [place] (30 min) Complex 08/20/2016 Patient Education: Patient Medication Summary Completed 08/20/2016 Appointment: Rosi Vega WPtel: [phone] (30 min) Complex 04/30/2016 Visit Plan: Hypertension [...] removal process. 01/30/2016 Appointment: Rosi Vega WPtel: [phone] [phone] [place] [address] (30 min) Complex 01/30/2016 Patient Education: Patient [...] magnesium 01/02/2016 [facility]ment: [phone] [phone] New Patient 01/02/2016 Patient Education: Patient Medication [...]
--- OUTSIDE RECORDS SUMMARY | 2018-10-19 21:47 | XMS REPORT | CCD ---
Author Author Rosi Vega MD, 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 [employer] Name Role Phone PP Unavailable CCM Unavailable Summary Purpose Interface Exchange Insurance Providers Payer name Policy type / Coverage type Covered alliance party ID Effective Begin Date Effective End Date WPS Medicare Part B Medicare Part B [id number] Unknown Unknown Family history Daughter Diagnosis Age [...] Unknown 5 01/02/[address]: 482370075 Never smoker 01/02/[address]: 112674378 Never drinks alcohol 01/02/2016 Allergies, Adverse Reactions, [...] Fill Instructions tramadol 50 mg tablet RxNorm: 029652 1-2 Tablet(s) PO QID as needed 10/03/2018 11/01/2018 Active tramadol 50 mg tablet RxNorm: 674544 1-2 Tablet(s) PO QID as needed 09/27/2018 09/28/2018 Inactive Synthroid 25 mcg tablet RxNorm: 357781 TAKE 1 TABLET BY MOUTH ONCE DAILY 09/04/2018 No Stop Date Active tramadol 50 mg tablet RxNorm: 305933 1-2 Tablet(s) PO QID as needed 2018 09/12/2018 Inactive tramadol 50 mg tablet RxNorm: 095320 1-2 Tablet(s) PO QID as needed 06/12/2018 07/24/2018 Inactive hydrochlorothiazide 25 mg tablet RxNorm: 749995 TAKE ONE TABLET BY MOUTH ONCE DAILY 05/08/2018 No Stop Date Active tramadol 50 mg tablet RxNorm: 033349 1-2 Tablet(s) PO QID as needed 04/04/2018 08/14/2018 Inactive simvastatin 20 mg tablet RxNorm: 479807 TAKE 1 TABLET BY MOUTH ONCE DAILY 03/13/2018 No Stop Date Active Synthroid 25 mcg tablet RxNorm: 356541 1 Tablet(s) PO daily 03/07/2018 09/02/2018 Inactive lisinopril 40 mg tablet RxNorm: 084953 TAKE 1 TABLET BY MOUTH ONCE DAILY 02/20/2018 No Stop Date Active alendronate 70 mg tablet RxNorm: 780843 TAKE ONE TABLET BY MOUTH ONCE A WEEK 02/20/2018 No Stop Date Active alendronate 70 mg tablet RxNorm: 685069 TAKE ONE TABLET BY MOUTH ONCE A WEEK 02/20/2018 08/14/2018 Inactive gabapentin 100 mg capsule RxNorm: 137982 TAKE TWO CAPSULES BY MOUTH AT BEDTIME 01/30/2018 No Stop Date Active tramadol 50 mg tablet RxNorm: 971593 1-2 Tablet(s) PO QID as needed 01/16/2018 03/01/2018 Inactive tramadol 50 mg tablet RxNorm: 191342 1-2 Tablet(s) PO QID as needed 11/28/2017 06/11/2018 Inactive tramadol 50 mg tablet RxNorm: 093880 1-2 Tablet(s) PO QID as needed 10/11/2017 01/15/2018 Inactive simvastatin 20 mg tablet RxNorm: 724973 TAKE ONE TABLET BY MOUTH ONCE DAILY 09/12/2017 03/12/2018 Inactive lisinopril 40 mg tablet RxNorm: 605367 TAKE ONE TABLET BY MOUTH ONCE DAILY 2017 02/19/2018 Inactive Synthroid 25 mcg tablet RxNorm: 465837 1 Tablet(s) PO daily 08/10/2017 02/05/2018 Inactive Synthroid 25 mcg tablet RxNorm: 106977 1 Tablet(s) PO daily 08/09/2017 08/09/2017 Inactive okay for generic-hold until refill due tramadol 50 mg tablet RxNorm: 576774 1-2 Tablet(s) PO QID as needed 08/01/2017 09/13/2017 Inactive Keflex 500 mg capsule RxNorm: 115073 1 Capsule(s) PO TID 07/15/2017 07/21/2017 Inactive Synthroid 25 mcg tablet RxNorm: 989026 1 Tablet(s) PO daily 07/15/2017 07/14/2017 Inactive Synthroid 25 mcg tablet RxNorm: 640258 1 Tablet(s) PO daily 07/15/2017 07/18/2017 Inactive Voltaren 1 % topical gel RxNorm: 406053 4 Gram(s) TOP QID 07/08/2017 08/06/2017 Inactive tramadol 50 mg tablet RxNorm: 864732 1-2 Tablet(s) PO QID as needed 06/16/2017 11/27/2017 Inactive simvastatin 20 mg tablet RxNorm: 363229 TAKE ONE TABLET BY MOUTH ONCE DAILY 06/13/2017 09/11/2017 Inactive hydrochlorothiazide 25 mg tablet RxNorm: 315610 TAKE ONE TABLET BY MOUTH ONCE DAILY 05/16/2017 05/07/2018 Inactive tramadol 50 mg tablet RxNorm: 553718 1-2 Tablet(s) PO QID as needed 04/20/2017 07/31/2017 Inactive Keflex 500 mg capsule RxNorm: 452319 1 Capsule(s) PO TID 03/17/2017 03/16/2017 Inactive Keflex 500 mg capsule RxNorm: 588875 1 Capsule(s) PO TID 03/17/2017 03/23/2017 Inactive alendronate 70 mg tablet RxNorm: 018769 1 Tablet(s) PO QW 03/08/2017 02/19/2018 Inactive tramadol 50 mg tablet RxNorm: 892790 1-2 Tablet(s) PO QID as needed 02/02/2017 07/31/2017 Inactive gabapentin 100 mg capsule RxNorm: 094852 TAKE TWO CAPSULES BY MOUTH AT BEDTIME 01/31/2017 07/29/2017 Inactive tramadol 50 mg tablet RxNorm: 018552 1-2 Tablet(s) PO QID as needed 12/06/2016 07/31/2017 Inactive hydrochlorothiazide 25 mg tablet RxNorm: 725745 TAKE ONE TABLET BY MOUTH ONCE DAILY 11/16/2016 05/14/2017 Inactive lisinopril 40 mg tablet RxNorm: 151367 TAKE ONE TABLET BY MOUTH ONCE DAILY 09/30/2016 06/26/2017 Inactive alendronate 70 mg tablet RxNorm: 063725 1 Tablet(s) PO QW 09/24/2016 03/07/2017 Inactive simvastatin 20 mg tablet RxNorm: 836462 TAKE ONE TABLET BY MOUTH ONCE DAILY 09/20/2016 06/12/2017 Inactive tramadol 50 mg tablet RxNorm: 450456 1-2 Tablet(s) PO QID as needed 09/08/2016 10/20/2016 Inactive gabapentin 100 mg capsule RxNorm: 702883 1 Capsule(s) PO QHS 08/20/2016 08/14/2018 Inactive HOLD- WILL CALL WHEN NEEDED tramadol 50 mg tablet RxNorm: 426120 1-2 Tablet(s) PO QID as needed 08/20/2016 09/07/2016 Inactive tramadol 50 mg tablet RxNorm: 719394 1 Tablet(s) PO QID as needed 05/14/2016 08/05/2016 Inactive Kenalog 40 mg/mL suspension for injection RxNorm: 9561558 Milliliter(s) Inj 04/23/2016 04/23/2016 Inactive gabapentin 100 mg capsule RxNorm: 051971 2 Capsule(s) PO QHS 04/23/2016 08/19/2016 Inactive HOLD- WILL CALL WHEN NEEDED alendronate 70 mg tablet RxNorm: 737976 1 Tablet(s) PO QW 04/07/2016 09/23/2016 Inactive simvastatin 20 mg tablet RxNorm: 242572 1 Tablet(s) PO daily 03/29/2016 09/19/2016 Inactive tramadol 50 mg tablet RxNorm: 300512 1 Tablet(s) PO QID as needed 03/10/2016 07/31/2017 Inactive gabapentin 100 mg capsule RxNorm: 378026 1 Capsule(s) PO QHS 01/30/2016 04/22/2016 Inactive lisinopril 40 mg tablet RxNorm: 965765 1 Tablet(s) PO daily 01/30/2016 09/29/2016 Inactive hydrochlorothiazide 25 mg tablet RxNorm: 172122 1 Tablet(s) PO daily 01/30/2016 10/25/2016 Inactive alendronate 70 mg tablet RxNorm: 559228 1 Tablet(s) QW 01/02/2016 04/06/2016 Inactive simvastatin 20 mg tablet RxNorm: 689543 1 Tablet(s) PO daily 12/31/2015 12/30/2015 Inactive simvastatin 20 mg tablet RxNorm: 318874 1 Tablet(s) PO daily 12/31/2015 03/28/2016 Inactive Calcium + D oral RxNorm: 206766 oral No Start Date Active Tylenol 500 mg RxNorm: 2 PO QHS No Start Date Active hydrocodone 5 mg-acetaminophen 325 mg tablet RxNorm: 640233 1-2 Tablet(s) PO TID PRN No Start Date 10/01/2018 Inactive hydrochlorothiazide 25 mg tablet RxNorm: 643572 1 Tablet(s) PO daily No Start Date 01/29/2016 Inactive tramadol 50 mg tablet RxNorm: 684750 1 Tablet(s) PO QID as needed No Start Date 03/09/2016 Inactive lisinopril 40 mg tablet RxNorm: 950983 1 Tablet(s) PO daily No Start Date 01/29/2016 Inactive Medication Administered Medication Codes Instructions Start Date Status Kenalog 40 mg/mL suspension for injection RxNorm: 6296937 Milliliter 04/23/2016 No longer Active Immunizations Vaccine [...] (3rd IS) 2.05 uIU/mL 09/11/2018 Free T4 Ywt778 FREE T4 0.94 ng/dL 09/11/2018 Cbc With [...] 31.0 pg 09/11/2018 Cbc With Differential Ord2 Blanco% 8.9 % 09/11/2018 Cbc With Differential Ord2 [...] 2.32 K/ul 09/11/2018 Cbc With Differential Ord2 Blanco ABS# 0.7 K/ul 09/11/2018 Cbc With Differential Ord2 Eos ABS# 0.2 K/ul 09/11/2018 Cbc With Differential Ord2 Baso ABS# 0.0 K/ul 09/11/2018 Comp Metabolic Ukf152 NA 129 mEq/L 09/11/2018 Comp Metabolic Ifw982 K 4.0 mEq/L 09/11/2018 Comp Metabolic Cxe566 CL 93 mEq/L 09/11/2018 Comp Metabolic Ofp083 CO2 27.0 mEq/L 09/11/2018 Comp Metabolic Lwa397 ANION GAP 13 09/11/2018 Comp Metabolic Qnl894 GLUCOSE 83 mg/dL 09/11/2018 Comp Metabolic Pml701 Creat 0.8 mg/dL 09/11/2018 Comp Metabolic Jul132 eGFR 69 ml/min/1.73m2 09/11/2018 Comp Metabolic Tyr952 BUN 16 mg/dL 09/11/2018 Comp Metabolic Vyh728 B/C Ratio 19.3 Ratio 09/11/2018 Comp Metabolic Pqa372 CALCIUM 9.4 mg/dL 09/11/2018 Comp Metabolic Vck328 ALK PHOS 58 U/L 09/11/2018 Comp Metabolic Zkf315 AST(SGOT) 14 U/L 09/11/2018 Comp Metabolic Bsj386 ALT(SGPT) 8 U/L 09/11/2018 Comp Metabolic Inq216 BILI T 0.3 mg/dL 09/11/2018 Comp Metabolic Nwu224 ALBUMIN 4.2 g/dL 09/11/2018 Comp Metabolic Hbm984 TPRO 6.9 g/dL 09/11/2018 Comp Metabolic Syv323 GLOB 2.8 g/dL 09/11/2018 Comp Metabolic Skw669 A/G Ratio 1.5 Ratio 09/11/2018 Comp Metabolic Nxn712 Osmo 259 mOsmo 09/11/2018 Free T4 Sbt409 FREE T4 0.95 ng/dL 01/13/2018 Comp Metabolic Bar838 NA 132 mEq/L 01/13/2018 Comp Metabolic Jet269 K 4.2 mEq/L 01/13/2018 Comp Metabolic Wja375 CL 97 mEq/L 01/13/2018 Comp Metabolic Jre291 CO2 29.0 mEq/L 01/13/2018 Comp Metabolic Yyo699 ANION GAP 10 01/13/2018 Comp Metabolic Sib962 GLUCOSE 88 mg/dL 01/13/2018 Comp Metabolic Ces726 Creat 0.9 mg/dL 01/13/2018 Comp Metabolic Hmo172 eGFR 62 ml/min/1.73m2 01/13/2018 Comp Metabolic Tjn306 BUN 16 mg/dL 01/13/2018 Comp Metabolic Qvv981 B/C Ratio 17.6 Ratio 01/13/2018 Comp Metabolic Qra987 CALCIUM 10.0 mg/dL 01/13/2018 Comp Metabolic Ajt391 ALK PHOS 65 U/L 01/13/2018 Comp Metabolic Rmg356 AST(SGOT) 20 U/L 01/13/2018 Comp Metabolic Pih824 ALT(SGPT) 16 U/L 01/13/2018 Comp Metabolic Xxp962 BILI T 0.3 mg/dL 01/13/2018 Comp Metabolic Tee850 ALBUMIN 4.0 g/dL 01/13/2018 Comp Metabolic Uat886 TPRO 7.0 g/dL 01/13/2018 Comp Metabolic Pwh449 GLOB 3.0 g/dL 01/13/2018 Comp Metabolic Jhs709 A/G Ratio 1.3 Ratio 01/13/2018 Comp Metabolic Uwq864 Osmo 265 mOsmo 01/13/2018 Tsh Ord6 TSH [...] 29.7 pg 01/13/2018 Cbc With Differential Ord2 Blanco% 7.6 % 01/13/2018 Cbc With Differential Ord2 [...] 2.55 K/ul 01/13/2018 Cbc With Differential Ord2 Blanco ABS# 0.6 K/ul 01/13/2018 Cbc With Differential [...] 29.4 pg 07/15/2017 Cbc With Differential Ord2 Blanco% 8.8 % 07/15/2017 Cbc With Differential Ord2 [...] 2.44 K/ul 07/15/2017 Cbc With Differential Ord2 Blanco ABS# 0.8 K/ul 07/15/2017 Cbc With Differential [...] from collection if refrigerated) 07/15/2017 Comp Metabolic Glg204 NA 132 mEq/L 07/15/2017 Comp Metabolic Jrg649 K 3.8 mEq/L 07/15/2017 Comp Metabolic Aqf421 CL 95 mEq/L 07/15/2017 Comp Metabolic Fdj982 CO2 30.0 mEq/L 07/15/2017 Comp Metabolic Wng757 ANION GAP 11 07/15/2017 Comp Metabolic Biu778 GLUCOSE 92 mg/dL 07/15/2017 Comp Metabolic Cuu909 Creat 0.8 mg/dL 07/15/2017 Comp Metabolic Pvu824 eGFR 75 ml/min/1.73m2 07/15/2017 Comp Metabolic Xbf644 BUN 11 mg/dL 07/15/2017 Comp Metabolic Vyi946 B/C Ratio 14.1 Ratio 07/15/2017 Comp Metabolic Mln887 CALCIUM 9.7 mg/dL 07/15/2017 Comp Metabolic Khb471 ALK PHOS 72 U/L 07/15/2017 Comp Metabolic Qwf217 AST(SGOT) 14 U/L 07/15/2017 Comp Metabolic Gnu466 ALT(SGPT) 9 U/L 07/15/2017 Comp Metabolic Mrf670 BILI T 0.5 mg/dL 07/15/2017 Comp Metabolic Bxq595 ALBUMIN 4.1 g/dL 07/15/2017 Comp Metabolic Ahq662 TPRO 6.9 g/dL 07/15/2017 Comp Metabolic Hex888 GLOB 2.8 g/dL 07/15/2017 Comp Metabolic Wjk259 A/G Ratio 1.5 Ratio 07/15/2017 Comp Metabolic Bxd332 Osmo 264 mOsmo 07/15/2017 Tsh Ord6 TSH (3rd IS) 6.20 uIU/mL 07/15/2017 Free T4 Tpn268 FREE T4 0.95 ng/dL 07/15/2017 Cbc With [...] 31.1 pg 01/30/2016 Cbc With Differential Ord2 Blanco% 8.6 % 01/30/2016 Cbc With Differential Ord2 [...] 2.16 K/ul 01/30/2016 Cbc With Differential Ord2 Blanco ABS# 0.7 K/ul 01/30/2016 Cbc With Differential Ord2 Eos ABS# 0.2 K/ul 01/30/2016 Cbc With Differential Ord2 Baso ABS# 0.0 K/ul 01/30/2016 Tsh Ord6 hTSH II 2.93 uIU/mL 01/30/2016 Comp Metabolic Apa505 NA 134 mEq/L 01/30/2016 Comp Metabolic Qsr917 K 4.0 mEq/L 01/30/2016 Comp Metabolic Qxr424 CL 97 mEq/L 01/30/2016 Comp Metabolic Nji555 CO2 29.0 mEq/L 01/30/2016 Comp Metabolic Bdj794 ANION GAP 12 01/30/2016 Comp Metabolic Chg388 GLUCOSE 98 mg/dL 01/30/2016 Comp Metabolic Wol310 Creat 0.9 mg/dL 01/30/2016 Comp Metabolic Yqt419 eGFR 67 ml/min/1.73m2 01/30/2016 Comp Metabolic Uga445 BUN 16 mg/dL 01/30/2016 Comp Metabolic Jek057 B/C Ratio 18.6 Ratio 01/30/2016 Comp Metabolic Ohc864 CALCIUM 10.3 mg/dL 01/30/2016 Comp Metabolic Lgs895 ALK PHOS 66 U/L 01/30/2016 Comp Metabolic Hoh290 AST(SGOT) 16 U/L 01/30/2016 Comp Metabolic Ixz657 ALT(SGPT) 10 U/L 01/30/2016 Comp Metabolic Eun988 BILI T 0.4 mg/dL 01/30/2016 Comp Metabolic Qhj666 ALBUMIN 4.2 g/dL 01/30/2016 Comp Metabolic Cor948 TPRO 7.1 g/dL 01/30/2016 Comp Metabolic Ljo772 GLOB 2.9 g/dL 01/30/2016 Comp Metabolic Nry203 A/G Ratio 1.5 Ratio 01/30/2016 Comp Metabolic Rvh931 Osmo 269 mOsmo 01/30/2016 Lipid Ord30 CHOL [...] clear 09/08/2018 None Full Exam - General 1995 Ears/Nose/Throat otoscopic exam Overall: tympanic membranes clear [...] nourished 01/06/2018 None Full Exam - General 1995 Eyes conjunctiva/eyelids Overall: conjunctiva clear 01/06/2018 None [...] Formatting Model/CDA Sections, Assigned to/Karine Archuleta CPT-4: 88431Klwcekz 01/06/2018 TRIAMCINOLONE ACET INJ NOS CPT-4: J3301 04/23/2016 ADMIN INFLUENZA VIRUS VAC CPT-4: G0008 01/30/2016 PNEUMOCOCCAL VACC [address]: 63781956 CPT-4: 22664 01/30/2016 FLU VACC 4 RODNEY 3 YRS PLUS IM Formatting Model/CDA Sections, Assigned to/Karine Archuleta SNOMED CT: 75057514 CPT-4: 06889Bznpgwm 01/30/2016 ADMIN PNEUMOCOCCAL VACCINE SNOMED CT: 39940150 CPT-4: G0009 01/30/2016 Vital Signs Date Vital 09/08/2018 Blood Pressure 1: 140/72 Code: 8480-6 Heart Rate 1: 85 bpm SpO2: 98% Weight: 136 lbs 01/06/2018 Blood Pressure 1: 138/70 Code: 8480-6 BMI: 21.5 Code: 75359-1 Heart Rate 1: 75 bpm Height: 5'6" SpO2: 98% Weight: 133 lbs 07/08/2017 Blood Pressure 1: 148/82 Code: 8480-6 BMI: 21.6 Code: 57301-8 Heart Rate 1: 80 bpm Height: 5'6" SpO2: 98% Weight: 134 lbs 08/20/2016 Blood Pressure 1: 124/76 Code: 8480-6 BMI: 23.2 Code: 42885-2 Heart Rate 1: 72 bpm Height: 5'6" SpO2: 93% Weight: 144 lbs 04/23/2016 Blood Pressure 1: 130/82 Code: 8480-6 BMI: 23.4 Code: 52546-4 Heart Rate 1: 86 bpm Height: 5'6" SpO2: 98% Weight: 145 lbs 01/30/2016 Blood Pressure 1: 140/86 Code: 8480-6 BMI: 23.9 Code: 05767-3 Heart Rate 1: 55 bpm Height: 5'6" SpO2: 96% Weight: 148 lbs 01/02/2016 Blood Pressure 1: 146/86 Code: 8480-6 BMI: 24.2 Code: 81772-3 Heart Rate 1: 84 bpm Height: 5'6" [...] data Encounters Encounter Performer Location Codes Date ([id number]) [id number] EST. PATIENT, LEVEL IV Diagnosis: Essential (primary) hypertension[ICD10: I10] Diagnosis: Mixed hyperlipidemia[ICD10: E78.2] Diagnosis: Hypothyroidism, unspecified[ICD10: E03.9] Diagnosis: Primary generalized (osteo)arthritis[ICD10: M15.0] Rosi Tsai MD, [facility] CPT-4: 19076 09/08/2018 ([id number]) 11708 EST. PATIENT, LEVEL IV Diagnosis: Essential (primary) hypertension[ICD10: I10] Diagnosis: Hypothyroidism, unspecified[ICD10: E03.9] Diagnosis: Low back pain[ICD10: M54.5] Diagnosis: Encounter for immunization[ICD10: Z23] Diagnosis: Abnormal weight loss[ICD10: R63.4] Rosi Tsai MD, [facility] CPT- 4: 43735 01/06/2018 [id number]) [id number] EST. PATIENT, LEVEL IV Diagnosis: Essential (primary) hypertension[ICD10: I10] Diagnosis: Pain in right shoulder[ICD10: M25.511] Diagnosis: Mixed hyperlipidemia[ICD10: E78.2] Diagnosis: Dysuria[ICD10: R30.0] Diagnosis: Cramp and spasm[ICD10: R25.2] [facility] CPT-4: 84367 07/08/2017 [id number]) [id number] EST. PATIENT, LEVEL III Diagnosis: Essential (primary) hypertension[ICD10: I10] Diagnosis: Radiculopathy, lumbar region[ICD10: M54.16] Rosi Tsai MD, [facility] CPT-4: 67010 08/20/2016 ([id number]) 75954 EST. PATIENT, LEVEL IV Diagnosis: Essential (primary) hypertension[ICD10: I10] Diagnosis: Lumbago with sciatica, left side[ICD10: M54.42] Diagnosis: Cramp and spasm[ICD10: R25.2] [facility] CPT-4: 46240 04/23/2016 [id number]) 62213 EST. PATIENT, LEVEL III Diagnosis: Essential (primary) hypertension[ICD10: I10] Diagnosis: Radiculopathy, lumbar region[ICD10: M54.16] Diagnosis: Encounter for immunization[ICD10: Z23] Diagnosis: Impacted cerumen, left ear[ICD10: H61.22] Genny Tsai MD, [facility] CPT-4: 93674 01/30/2016 ([id number]) OFFICE VISIT, NEW - LEVEL 3 Diagnosis: Essential (primary) hypertension[ICD10: I10] Diagnosis: Mixed hyperlipidemia[ICD10: E78.2] Diagnosis: Cramp and spasm[ICD10: R25.2] Rosi Tsai MD, [facility] CPT-4: 12890 01/02/2016 Plan of Care Planned Activity Notes [...] 09/08/2018 Patient Education: Hypertension Completed 09/08/2018 Appointment: Reji Vegaie WPtel: [address] [phone] [place] (30 min) Complex 09/01/2018 Appointment: Gary Rosi WPtel: [address] [phone] [place] (30 min) Complex 07/28/2018 Appointment: Rosi Vega WPtel: [address] [phone] [place] (30 min) Complex 07/14/2018 Appointment: GaryRejiie WPtel: [phone] [phone] [place] (30 min) Complex 07/07/2018 Visit Plan: [...] ice cream 01/06/2018 Appointment: [phone] [place] (15 min) Moderate 01/06/2018 [...] cramps-check labs 07/08/2017 Appointment: Rosi Vega WPtel: [address] [place] [address] (15 min) Moderate 07/08/2017 Patient Education: Patient Medication Summary Completed 07/08/2017 Appointment: Rosi Vega WPtel: [address] [place] [address] (15 min) Moderate 12/24/2016 Visit Plan: Hypertension [...] of plan. 08/20/2016 Appointment: Rosi Vega WPtel: [address] [place], [place] [phone] [place] [address] (30 min) Complex 08/20/2016 Patient Education: Patient Medication Summary Completed 08/20/2016 Appointment: Rois Vega WPtel: [address] [place] [address] (30 min) Complex 04/30/2016 Visit Plan: Hypertension [...] process. 01/30/2016 Appointment: Rosi Vega WPtel: [phone] [facility] [place] [address] (30 min) Complex 01/30/2016 Patient Education: Patient [...] B12, magnesium 01/02/2016 Appointment: Rosi Vega WPtel: [address] [place], [place] [phone] New Patient 01/02/2016 Patient Education: Patient Medication [...]
--- OUTSIDE RECORDS SUMMARY | 2018-10-19 21:49 | XMS REPORT | CCD ---
Author Author Rosi Vega MD, [facility] Address [address] [place] [address] Phone Care Team Providers Care Tool Room Attendant Name Role Phone PP Unavailable CCM Unavailable Summary Purpose Interface Exchange Insurance Providers Payer name Policy type / Coverage type Covered green party ID Effective Begin Date Effective End Date WPS Medicare Part B Medicare Part B [id number] Unknown Unknown Family history Daughter Diagnosis Age [...] Unknown 5 01/02/[address]: 534899787 Never smoker 01/02/[address]: 473047120 Never drinks alcohol 01/02/2016 Allergies, Adverse Reactions, [...] Fill Instructions tramadol 50 mg tablet RxNorm: 310351 1-2 Tablet(s) PO QID as needed 09/27/2018 11/10/2018 Active Synthroid 25 mcg tablet RxNorm: 100140 TAKE 1 TABLET BY MOUTH ONCE DAILY 09/04/2018 No Stop Date Active tramadol 50 mg tablet RxNorm: 151469 1-2 Tablet(s) PO QID as needed 2018 09/12/2018 Inactive tramadol 50 mg tablet RxNorm: 499348 1-2 Tablet(s) PO QID as needed 06/12/2018 07/24/2018 Inactive hydrochlorothiazide 25 mg tablet RxNorm: 327463 TAKE ONE TABLET BY MOUTH ONCE DAILY 05/08/2018 No Stop Date Active tramadol 50 mg tablet RxNorm: 671438 1-2 Tablet(s) PO QID as needed 04/04/2018 08/14/2018 Inactive simvastatin 20 mg tablet RxNorm: 603868 TAKE 1 TABLET BY MOUTH ONCE DAILY 03/13/2018 No Stop Date Active Synthroid 25 mcg tablet RxNorm: 362078 1 Tablet(s) PO daily 03/07/2018 09/02/2018 Inactive lisinopril 40 mg tablet RxNorm: 624273 TAKE 1 TABLET BY MOUTH ONCE DAILY 02/20/2018 No Stop Date Active alendronate 70 mg tablet RxNorm: 917072 TAKE ONE TABLET BY MOUTH ONCE A WEEK 02/20/2018 No Stop Date Active alendronate 70 mg tablet RxNorm: 728290 TAKE ONE TABLET BY MOUTH ONCE A WEEK 02/20/2018 08/14/2018 Inactive gabapentin 100 mg capsule RxNorm: 022609 TAKE TWO CAPSULES BY MOUTH AT BEDTIME 01/30/2018 No Stop Date Active tramadol 50 mg tablet RxNorm: 209913 1-2 Tablet(s) PO QID as needed 01/16/2018 03/01/2018 Inactive tramadol 50 mg tablet RxNorm: 714306 1-2 Tablet(s) PO QID as needed 11/28/2017 06/11/2018 Inactive tramadol 50 mg tablet RxNorm: 963665 1-2 Tablet(s) PO QID as needed 10/11/2017 01/15/2018 Inactive simvastatin 20 mg tablet RxNorm: 921480 TAKE ONE TABLET BY MOUTH ONCE DAILY 09/12/2017 03/12/2018 Inactive lisinopril 40 mg tablet RxNorm: 392217 TAKE ONE TABLET BY MOUTH ONCE DAILY 2017 02/19/2018 Inactive Synthroid 25 mcg tablet RxNorm: 487973 1 Tablet(s) PO daily 08/10/2017 02/05/2018 Inactive Synthroid 25 mcg tablet RxNorm: 808393 1 Tablet(s) PO daily 08/09/2017 08/09/2017 Inactive okay for generic-hold until refill due tramadol 50 mg tablet RxNorm: 791098 1-2 Tablet(s) PO QID as needed 08/01/2017 09/13/2017 Inactive Keflex 500 mg capsule RxNorm: 366104 1 Capsule(s) PO TID 07/15/2017 07/21/2017 Inactive Synthroid 25 mcg tablet RxNorm: 852350 1 Tablet(s) PO daily 07/15/2017 07/14/2017 Inactive Synthroid 25 mcg tablet RxNorm: 447646 1 Tablet(s) PO daily 07/15/2017 07/18/2017 Inactive Voltaren 1 % topical gel RxNorm: 708383 4 Gram(s) TOP QID 07/08/2017 08/06/2017 Inactive tramadol 50 mg tablet RxNorm: 635914 1-2 Tablet(s) PO QID as needed 06/16/2017 11/27/2017 Inactive simvastatin 20 mg tablet RxNorm: 452478 TAKE ONE TABLET BY MOUTH ONCE DAILY 06/13/2017 09/11/2017 Inactive hydrochlorothiazide 25 mg tablet RxNorm: 186962 TAKE ONE TABLET BY MOUTH ONCE DAILY 05/16/2017 05/07/2018 Inactive tramadol 50 mg tablet RxNorm: 401346 1-2 Tablet(s) PO QID as needed 04/20/2017 07/31/2017 Inactive Keflex 500 mg capsule RxNorm: 332852 1 Capsule(s) PO TID 03/17/2017 03/16/2017 Inactive Keflex 500 mg capsule RxNorm: 939861 1 Capsule(s) PO TID 03/17/2017 03/23/2017 Inactive alendronate 70 mg tablet RxNorm: 516683 1 Tablet(s) PO QW 03/08/2017 02/19/2018 Inactive tramadol 50 mg tablet RxNorm: 650569 1-2 Tablet(s) PO QID as needed 02/02/2017 07/31/2017 Inactive gabapentin 100 mg capsule RxNorm: 907217 TAKE TWO CAPSULES BY MOUTH AT BEDTIME 01/31/2017 07/29/2017 Inactive tramadol 50 mg tablet RxNorm: 682858 1-2 Tablet(s) PO QID as needed 12/06/2016 07/31/2017 Inactive hydrochlorothiazide 25 mg tablet RxNorm: 822881 TAKE ONE TABLET BY MOUTH ONCE DAILY 11/16/2016 05/14/2017 Inactive lisinopril 40 mg tablet RxNorm: 938687 TAKE ONE TABLET BY MOUTH ONCE DAILY 09/30/2016 06/26/2017 Inactive alendronate 70 mg tablet RxNorm: 155075 1 Tablet(s) PO QW 09/24/2016 03/07/2017 Inactive simvastatin 20 mg tablet RxNorm: 684135 TAKE ONE TABLET BY MOUTH ONCE DAILY 09/20/2016 06/12/2017 Inactive tramadol 50 mg tablet RxNorm: 623089 1-2 Tablet(s) PO QID as needed 09/08/2016 10/20/2016 Inactive gabapentin 100 mg capsule RxNorm: 748016 1 Capsule(s) PO QHS 08/20/2016 08/14/2018 Inactive HOLD- WILL CALL WHEN NEEDED tramadol 50 mg tablet RxNorm: 774924 1-2 Tablet(s) PO QID as needed 08/20/2016 09/07/2016 Inactive tramadol 50 mg tablet RxNorm: 050029 1 Tablet(s) PO QID as needed 05/14/2016 08/05/2016 Inactive Kenalog 40 mg/mL suspension for injection RxNorm: 3876989 Milliliter(s) Inj 04/23/2016 04/23/2016 Inactive gabapentin 100 mg capsule RxNorm: 324705 2 Capsule(s) PO QHS 04/23/2016 08/19/2016 Inactive HOLD- WILL CALL WHEN NEEDED alendronate 70 mg tablet RxNorm: 950802 1 Tablet(s) PO QW 04/07/2016 09/23/2016 Inactive simvastatin 20 mg tablet RxNorm: 260182 1 Tablet(s) PO daily 03/29/2016 09/19/2016 Inactive tramadol 50 mg tablet RxNorm: 289055 1 Tablet(s) PO QID as needed 03/10/2016 07/31/2017 Inactive gabapentin 100 mg capsule RxNorm: 447040 1 Capsule(s) PO QHS 01/30/2016 04/22/2016 Inactive lisinopril 40 mg tablet RxNorm: 492985 1 Tablet(s) PO daily 01/30/2016 09/29/2016 Inactive hydrochlorothiazide 25 mg tablet RxNorm: 371139 1 Tablet(s) PO daily 01/30/2016 10/25/2016 Inactive alendronate 70 mg tablet RxNorm: 683728 1 Tablet(s) QW 01/02/2016 04/06/2016 Inactive simvastatin 20 mg tablet RxNorm: 237451 1 Tablet(s) PO daily 12/31/2015 12/30/2015 Inactive simvastatin 20 mg tablet RxNorm: 104097 1 Tablet(s) PO daily 12/31/2015 03/28/2016 Inactive Calcium + D oral RxNorm: 856368 oral No Start Date Active Tylenol 500 mg RxNorm: 2 PO QHS No Start Date Active hydrochlorothiazide 25 mg tablet RxNorm: 889750 1 Tablet(s) PO daily No Start Date 01/29/2016 Inactive tramadol 50 mg tablet RxNorm: 058577 1 Tablet(s) PO QID as needed No Start Date 03/09/2016 Inactive lisinopril 40 mg tablet RxNorm: 288762 1 Tablet(s) PO daily No Start Date 01/29/2016 Inactive Medication Administered Medication Codes Instructions Start Date Status Kenalog 40 mg/mL suspension for injection RxNorm: 1331750 Milliliter 04/23/2016 No longer Active Immunizations Vaccine [...] (3rd IS) 2.05 uIU/mL 09/11/2018 Free T4 Jrk189 FREE T4 0.94 ng/dL 09/11/2018 Cbc With [...] 31.0 pg 09/11/2018 Cbc With Differential Ord2 [place]% 8.9 % 09/11/2018 Cbc With Differential Ord2 [...] 2.32 K/ul 09/11/2018 Cbc With Differential Ord2 [place] ABS# 0.7 K/ul 09/11/2018 Cbc With Differential Ord2 Eos ABS# 0.2 K/ul 09/11/2018 Cbc With Differential Ord2 Baso ABS# 0.0 K/ul 09/11/2018 Comp Metabolic Xdh156 NA 129 mEq/L 09/11/2018 Comp Metabolic Nov747 K 4.0 mEq/L 09/11/2018 Comp Metabolic Jup363 CL 93 mEq/L 09/11/2018 Comp Metabolic Nit579 CO2 27.0 mEq/L 09/11/2018 Comp Metabolic Lam311 ANION GAP 13 09/11/2018 Comp Metabolic Jis860 GLUCOSE 83 mg/dL 09/11/2018 Comp Metabolic Srr115 Creat 0.8 mg/dL 09/11/2018 Comp Metabolic Ptc055 eGFR 69 ml/min/1.73m2 09/11/2018 Comp Metabolic Jbc937 BUN 16 mg/dL 09/11/2018 Comp Metabolic Tzw479 B/C Ratio 19.3 Ratio 09/11/2018 Comp Metabolic Oip616 CALCIUM 9.4 mg/dL 09/11/2018 Comp Metabolic Tjy366 ALK PHOS 58 U/L 09/11/2018 Comp Metabolic Yub332 AST(SGOT) 14 U/L 09/11/2018 Comp Metabolic Lfk167 ALT(SGPT) 8 U/L 09/11/2018 Comp Metabolic Xlj357 BILI T 0.3 mg/dL 09/11/2018 Comp Metabolic Iex194 ALBUMIN 4.2 g/dL 09/11/2018 Comp Metabolic Voh036 TPRO 6.9 g/dL 09/11/2018 Comp Metabolic Pua983 GLOB 2.8 g/dL 09/11/2018 Comp Metabolic Dkx133 A/G Ratio 1.5 Ratio 09/11/2018 Comp Metabolic Nbf503 Osmo 259 mOsmo 09/11/2018 Free T4 Pws394 FREE T4 0.95 ng/dL 01/13/2018 Comp Metabolic Nhq215 NA 132 mEq/L 01/13/2018 Comp Metabolic Ksc096 K 4.2 mEq/L 01/13/2018 Comp Metabolic Prl703 CL 97 mEq/L 01/13/2018 Comp Metabolic Wbz148 CO2 29.0 mEq/L 01/13/2018 Comp Metabolic Xqi325 ANION GAP 10 01/13/2018 Comp Metabolic Sdw376 GLUCOSE 88 mg/dL 01/13/2018 Comp Metabolic Bhu693 Creat 0.9 mg/dL 01/13/2018 Comp Metabolic Iep689 eGFR 62 ml/min/1.73m2 01/13/2018 Comp Metabolic Dko402 BUN 16 mg/dL 01/13/2018 Comp Metabolic Ypt298 B/C Ratio 17.6 Ratio 01/13/2018 Comp Metabolic Fhu347 CALCIUM 10.0 mg/dL 01/13/2018 Comp Metabolic Ecm584 ALK PHOS 65 U/L 01/13/2018 Comp Metabolic Vzz783 AST(SGOT) 20 U/L 01/13/2018 Comp Metabolic Jqz838 ALT(SGPT) 16 U/L 01/13/2018 Comp Metabolic Sje064 BILI T 0.3 mg/dL 01/13/2018 Comp Metabolic Sxr943 ALBUMIN 4.0 g/dL 01/13/2018 Comp Metabolic Vec762 TPRO 7.0 g/dL 01/13/2018 Comp Metabolic Yll116 GLOB 3.0 g/dL 01/13/2018 Comp Metabolic Rdq173 A/G Ratio 1.3 Ratio 01/13/2018 Comp Metabolic Pty110 Osmo 265 mOsmo 01/13/2018 Tsh Ord6 TSH [...] 29.7 pg 01/13/2018 Cbc With Differential Ord2 [place]% 7.6 % 01/13/2018 Cbc With Differential Ord2 [...] 2.55 K/ul 01/13/2018 Cbc With Differential Ord2 [place] ABS# 0.6 K/ul 01/13/2018 Cbc With Differential [...] 29.4 pg 07/15/2017 Cbc With Differential Ord2 [place]% 8.8 % 07/15/2017 Cbc With Differential Ord2 [...] 2.44 K/ul 07/15/2017 Cbc With Differential Ord2 [place] ABS# 0.8 K/ul 07/15/2017 Cbc With Differential [...] from collection if refrigerated) 07/15/2017 Comp Metabolic Lfv224 NA 132 mEq/L 07/15/2017 Comp Metabolic Aiv835 K 3.8 mEq/L 07/15/2017 Comp Metabolic Tct902 CL 95 mEq/L 07/15/2017 Comp Metabolic Dbl640 CO2 30.0 mEq/L 07/15/2017 Comp Metabolic Crc050 ANION GAP 11 07/15/2017 Comp Metabolic Vbt899 GLUCOSE 92 mg/dL 07/15/2017 Comp Metabolic Nry687 Creat 0.8 mg/dL 07/15/2017 Comp Metabolic Srb974 eGFR 75 ml/min/1.73m2 07/15/2017 Comp Metabolic Eds043 BUN 11 mg/dL 07/15/2017 Comp Metabolic Xuf664 B/C Ratio 14.1 Ratio 07/15/2017 Comp Metabolic Wta707 CALCIUM 9.7 mg/dL 07/15/2017 Comp Metabolic Byr224 ALK PHOS 72 U/L 07/15/2017 Comp Metabolic Xjd179 AST(SGOT) 14 U/L 07/15/2017 Comp Metabolic Ulx816 ALT(SGPT) 9 U/L 07/15/2017 Comp Metabolic Tqs417 BILI T 0.5 mg/dL 07/15/2017 Comp Metabolic Wap274 ALBUMIN 4.1 g/dL 07/15/2017 Comp Metabolic Xkc524 TPRO 6.9 g/dL 07/15/2017 Comp Metabolic Pvf473 GLOB 2.8 g/dL 07/15/2017 Comp Metabolic Tch779 A/G Ratio 1.5 Ratio 07/15/2017 Comp Metabolic Ies031 Osmo 264 mOsmo 07/15/2017 Tsh Ord6 TSH (3rd IS) 6.20 uIU/mL 07/15/2017 Free T4 Gjl252 FREE T4 0.95 ng/dL 07/15/2017 Cbc With [...] 31.1 pg 01/30/2016 Cbc With Differential Ord2 [place]% 8.6 % 01/30/2016 Cbc With Differential Ord2 [...] 2.16 K/ul 01/30/2016 Cbc With Differential Ord2 [place] ABS# 0.7 K/ul 01/30/2016 Cbc With Differential Ord2 Eos ABS# 0.2 K/ul 01/30/2016 Cbc With Differential Ord2 Baso ABS# 0.0 K/ul 01/30/2016 Tsh Ord6 hTSH II 2.93 uIU/mL 01/30/2016 Comp Metabolic Gfy609 NA 134 mEq/L 01/30/2016 Comp Metabolic Ydc146 K 4.0 mEq/L 01/30/2016 Comp Metabolic Ibr920 CL 97 mEq/L 01/30/2016 Comp Metabolic Udk070 CO2 29.0 mEq/L 01/30/2016 Comp Metabolic Dtm040 ANION GAP 12 01/30/2016 Comp Metabolic Vjj228 GLUCOSE 98 mg/dL 01/30/2016 Comp Metabolic Hen091 Creat 0.9 mg/dL 01/30/2016 Comp Metabolic Dkr982 eGFR 67 ml/min/1.73m2 01/30/2016 Comp Metabolic Wrg550 BUN 16 mg/dL 01/30/2016 Comp Metabolic Yxl521 B/C Ratio 18.6 Ratio 01/30/2016 Comp Metabolic Quk541 CALCIUM 10.3 mg/dL 01/30/2016 Comp Metabolic Ctp436 ALK PHOS 66 U/L 01/30/2016 Comp Metabolic Igc661 AST(SGOT) 16 U/L 01/30/2016 Comp Metabolic Lew996 ALT(SGPT) 10 U/L 01/30/2016 Comp Metabolic Qkg026 BILI T 0.4 mg/dL 01/30/2016 Comp Metabolic Qzw632 ALBUMIN 4.2 g/dL 01/30/2016 Comp Metabolic Kgz417 TPRO 7.1 g/dL 01/30/2016 Comp Metabolic Xee638 GLOB 2.9 g/dL 01/30/2016 Comp Metabolic Ksf947 A/G Ratio 1.5 Ratio 01/30/2016 Comp Metabolic She584 Osmo 269 mOsmo 01/30/2016 Lipid Ord30 CHOL [...] clear 01/06/2018 None Full Exam - General 1995 Ears/Nose/Throat otoscopic exam Overall: tympanic membranes clear 01/06/2018 None Full Exam - General 1995 Ears/Nose/Throat oral cavity/pharynx/larynx Overall: oral mucosa clear 01/06/2018 None Full Exam - General 1994 Respiratory auscultation Overall: breath sounds clear bilaterally 01/06/2018 None Full Exam - General 1995 Respiratory respiratory effort/rhythm Overall: no retractions 01/06/2018 [...] accomodation 07/08/2017 None Full Exam - General 1995 Ears/Nose/Throat otoscopic exam Overall: external auditory canals [...] Formatting Model/CDA Sections, Assigned to/Karine Archuleta CPT-4: 46388Ndlpqmd 01/06/2018 TRIAMCINOLONE ACET INJ NOS CPT-4: J3301 04/23/2016 ADMIN INFLUENZA VIRUS VAC CPT-4: G0008 01/30/2016 PNEUMOCOCCAL VACC [address]: 99640232 CPT-4: 97404 01/30/2016 FLU VACC 4 RODNEY 3 YRS PLUS IM Formatting Model/CDA Sections, Assigned to/Karine Archuleta SNOMED CT: 76812019 CPT-4: 56421Rngczla 01/30/2016 ADMIN PNEUMOCOCCAL VACCINE SNOMED CT: 66061999 CPT-4: G0009 01/30/2016 Vital Signs Date Vital 09/08/2018 Blood Pressure 1: 140/72 Code: 8480-6 Heart Rate 1: 85 bpm SpO2: 98% Weight: 136 lbs 01/06/2018 Blood Pressure 1: 138/70 Code: 8480-6 BMI: 21.5 Code: 23339-7 Heart Rate 1: 75 bpm Height: 5'6" SpO2: 98% Weight: 133 lbs 07/08/2017 Blood Pressure 1: 148/82 Code: 8480-6 BMI: 21.6 Code: 46461-6 Heart Rate 1: 80 bpm Height: 5'6" SpO2: 98% Weight: 134 lbs 08/20/2016 Blood Pressure 1: 124/76 Code: 8480-6 BMI: 23.2 Code: 44263-8 Heart Rate 1: 72 bpm Height: 5'6" SpO2: 93% Weight: 144 lbs 04/23/2016 Blood Pressure 1: 130/82 Code: 8480-6 BMI: 23.4 Code: 42359-5 Heart Rate 1: 86 bpm Height: 5'6" SpO2: 98% Weight: 145 lbs 01/30/2016 Blood Pressure 1: 140/86 Code: 8480-6 BMI: 23.9 Code: 74133-4 Heart Rate 1: 55 bpm Height: 5'6" SpO2: 96% Weight: 148 lbs 01/02/2016 Blood Pressure 1: 146/86 Code: 8480-6 BMI: 24.2 Code: 92289-4 Heart Rate 1: 84 bpm Height: 5'6" [...] data Encounters Encounter Performer Location Codes Date ([id number]) 30033 EST. PATIENT, LEVEL IV Diagnosis: Essential (primary) hypertension[ICD10: I10] Diagnosis: Mixed hyperlipidemia[ICD10: E78.2] Diagnosis: Hypothyroidism, unspecified[ICD10: E03.9] Diagnosis: Primary generalized (osteo)arthritis[ICD10: M15.0] Rosi Tsai MD, [facility] CPT-4: 75432 09/08/2018 ([id number]) 37626 EST. PATIENT, LEVEL IV Diagnosis: Essential (primary) hypertension[ICD10: I10] Diagnosis: Hypothyroidism, unspecified[ICD10: E03.9] Diagnosis: Low back pain[ICD10: M54.5] Diagnosis: Encounter for immunization[ICD10: Z23] Diagnosis: Abnormal weight loss[ICD10: R63.4] Rosi Tsai MD, [facility] CPT- 4: 41992 01/06/2018 ([id number]) 23208 EST. PATIENT, LEVEL IV Diagnosis: Essential (primary) hypertension[ICD10: I10] Diagnosis: Pain in right shoulder[ICD10: M25.511] Diagnosis: Mixed hyperlipidemia[ICD10: E78.2] Diagnosis: Dysuria[ICD10: R30.0] Diagnosis: Cramp and spasm[ICD10: R25.2] Rosi Tsai MD, [facility] CPT-4: 16383 07/08/2017 ([id number]) 91811 EST. PATIENT, LEVEL III Diagnosis: Essential (primary) hypertension[ICD10: I10] Diagnosis: Radiculopathy, lumbar region[ICD10: M54.16] Rosi Tsai MD, [facility] CPT-4: 53352 08/20/2016 ([id number]) 41214 EST. PATIENT, LEVEL IV Diagnosis: Essential (primary) hypertension[ICD10: I10] Diagnosis: Lumbago with sciatica, left side[ICD10: M54.42] Diagnosis: Cramp and spasm[ICD10: R25.2] Rosi Tsai MD, [facility] CPT-4: 53895 04/23/2016 ([id number]) 63579 EST. PATIENT, LEVEL III Diagnosis: Essential (primary) hypertension[ICD10: I10] Diagnosis: Radiculopathy, lumbar region[ICD10: M54.16] Diagnosis: Encounter for immunization[ICD10: Z23] Diagnosis: Impacted cerumen, left ear[ICD10: H61.22] [facility] CPT-4: 54578 01/30/2016 ([id number]) OFFICE VISIT, NEW - LEVEL 3 Diagnosis: Essential (primary) hypertension[ICD10: I10] Diagnosis: Mixed hyperlipidemia[ICD10: E78.2] Diagnosis: Cramp and spasm[ICD10: R25.2] [facility] CPT-4: 34972 01/02/2016 Plan of Care Planned Activity Notes [...] Hypertension Completed 09/08/2018 Appointment: [phone] ([facility] min) Complex 09/01/2018 Appointment: Rosi Vega WPtel: [facility]5 [phone] (30 min) Complex 07/28/2018 Appointment: Rosi Vega WPtel: [facility]9 [phone] (30 min) Complex 07/14/2018 Appointment: Rosi Vega WPtel: [phone] (30 min) Complex 07/07/2018 Visit Plan: Hypertension [...] ice cream 01/06/2018 Appointment: Rosi Vega WPtel: [address] [place], [place] [phone] (15 min) Moderate 01/06/2018 Patient Education: Patient [...] cramps-check labs 07/08/2017 Appointment: Rosi Vega WPtel: [phone] (15 min) Moderate 07/08/2017 Patient Education: Patient Medication Summary Completed 07/08/2017 Appointment: Rosi Vega WPtel: [phone] (15 min) Moderate 12/24/2016 Visit Plan: Hypertension [...] of plan. 08/20/2016 Appointment: Rosi Vega WPtel: [phone] (30 min) Complex 08/20/2016 Patient Education: Patient Medication Summary Completed 08/20/2016 Appointment: Rosi Vega WPtel: [phone] (30 min) Complex 04/30/2016 Visit Plan: Hypertension [...] process. 01/30/2016 Appointment: Ros[facility] Vega WPtel[phone] ([facility] min) Complex 01/30/2016 Patient Education: Patient [...] magnesium 01/02/2016 Appointment: [facility] [phone] [phone] New Patient 01/02/2016 Patient Education: Patient Medication [...]
--- NOTE | 2018-10-19 21:52 | ED GI ---
General Chief Complaint: Abdominal/GI Problems Stated Complaint: NAUSEA,VOMITING Source of Information: Patient, Family (Daughter) Exam Limitations: No Limitations History of Present Illness Date Seen by Provider: Oct 19, 2018 Time Seen by Provider: 21:37 Initial Comments Patient resists ER by private conveyance with her daughter and chief complaint that she's having nausea vomiting since about 6:30 this afternoon. She's not been able to keep much fluids down lately and her daughter's concern she has become dehydrated. She has no fevers or chills but last week she was discovered to have a red spot from what he thought was a bug bite on her right medial foot and so she was put on 10 days of doxycycline. Doxycycline had been hard on her stomach causing some nausea but no vomiting. Today however it became significantly worse. The patient denies any pain. She has a history of peripheral neuropathy in her feet. She denies a history of diabetes, chest pain, abdominal pain, diarrhea. She had a small bowel movement today. She refused any Pepto-Bismol thinking that it would just be vomited back up. Allergies and Home Medications Allergies Uncoded Allergies: SULFA (Allergy, 02/18/10) Home Medications Amoxicillin/Clavulanate K 1 Tab Tablet, 1 TAB PO BID FOR INFECTION Prescribed by: THANG ROLON on 02/18/10320 Lisinopril 20 Mg Tablet, 1 EACH PO DAILY, (Reported) Metoprolol Succinate 50 Mg Tab, 50 MG PO BID, (Reported) Simvastatin 20 Mg Tablet, 20 MG PO DAILY, (Reported) Tramadol Hcl 50 Mg Tab, 50 MG PO Q4-6HOURS PRN FOR PAIN Prescribed by: THANG ROLON on 02/18/10320 Patient Home Medication List Home Medication List Reviewed: Yes Review of Systems Review of Systems Constitutional: No chills, No fever; malaise, weakness EENTM: No Blurred Vision, No Double Vision Respiratory: Denies Cough, Denies Shortness of Air Cardiovascular: Denies Chest Pain, Denies Edema Gastrointestinal: See HPI; Denies Abdomen Distended, Denies Abdominal Pain, Denies Constipated, Denies Diarrhea; Nausea, Poor Appetite, Poor Fluid Intake, Vomiting Genitourinary: Denies Discharge, Denies Drainage Musculoskeletal: No back pain, No joint pain, No joint swelling Skin: No pruritus, No rash Psychiatric/Neurological: Denies Headache, Denies Numbness, Denies Paresthesia Past Aokecey-Qqmlpt-[id number] Hx Patient Social History Alcohol Use: Denies Use Recreational Drug Use: No Smoking Status: Never a Smoker Recent Foreign Travel: No Contact w/Someone Who Travel: No Physical Exam Vital Signs Vital Signs - First Documented 10/19/18 21:32 Temp 97.3 Pulse 106 Resp 20 B/P (MAP) 190/98 (128) Pulse Ox 99 O2 Delivery Room Air Capillary Refill : Height/Weight/BMI Height: '" Weight: lbs. oz. kg; BMI Method: General Appearance: WD/WN, moderate distress HEENT: PERRL/EOMI, normal ENT inspection, pharynx normal (oropharynx is dry) Neck: non-tender, full range of motion Respiratory: lungs clear, normal breath sounds, no respiratory distress, no accessory muscle use Cardiovascular: normal peripheral pulses, regular rate, rhythm, no edema Peripheral Pulses: 2+ Dorsalis Pedis (R), 2+ Left Dors-Pedis (L) Gastrointestinal: normal bowel sounds, soft, no organomegaly, tenderness (mild left upper and left lower quadrant tenderness) Extremities: normal range of motion, non-tender, no pedal edema, normal capillary refill, other (erythematous, nonindurated, rash on the right foot medial dorsal side. Nontender to palpation. No fluctuance) Neurologic/Psychiatric: alert, oriented x 3, other (anxious) Skin: rash (right foot dorsal) Focused Exam Lactate Level 10/19/18 21:40: Lactic Acid Level 1.51 Lactic Acid Level Laboratory Tests Test 10/19/18 21:40 Lactic Acid Level 1.51 MMOL/L (0.50-2.00) Progress/Results/Core Measures Results/Orders Lab Results Laboratory Tests Test 10/19/18 21:40 10/19/18 23:10 Range/Units White Blood Count 10.2 4.3-11.0 10^3/uL Red Blood Count 4.24 L 4.35-5.85 10^6/uL Hemoglobin 13.2 11.5-16.0 G/DL Hematocrit 37 35-52 % Mean Corpuscular Volume 88 80-99 FL Mean Corpuscular Hemoglobin 31 25-34 PG Mean Corpuscular Hemoglobin Concent 36 32-36 G/DL Red Cell Distribution Width 12.4 10.0-14.5 % Platelet Count 315 130-400 10^3/uL Mean Platelet Volume 9.5 7.4-10.4 FL Neutrophils (%) (Auto) 74 42-75 % Lymphocytes (%) (Auto) 17 12-44 % Monocytes (%) (Auto) 9 0-12 % Eosinophils (%) (Auto) 1 0-10 % Basophils (%) (Auto) 1 0-10 % Neutrophils # (Auto) 7.5 1.8-7.8 X 10^3 Lymphocytes # (Auto) 1.7 1.0-4.0 X 10^3 Monocytes # (Auto) 0.9 0.0-1.0 X 10^3 Eosinophils # (Auto) 0.1 0.0-0.3 10^3/uL Basophils # (Auto) 0.1 0.0-0.1 10^3/uL Prothrombin Time 14.0 12.2-14.7 SEC INR Comment 1.0 0.8-1.4 Activated Partial Thromboplast Time 35 24-35 SEC Sodium Level 124 *L 135-145 MMOL/L Potassium Level 3.4 L 3.6-5.0 MMOL/L Chloride Level 89 L 98-107 MMOL/L Carbon Dioxide Level 20 L 21-32 MMOL/L Anion Gap 15 H 5-14 MMOL/L Blood Urea Nitrogen 17 7-18 MG/DL Creatinine 0.85 0.60-1.30 MG/DL Estimat Glomerular Filtration Rate > 60 BUN/Creatinine Ratio 20 Glucose Level 112 H 70-105 MG/DL Lactic Acid Level 1.51 0.50-2.00 MMOL/L Calcium Level 9.9 8.5-10.1 MG/DL Corrected Calcium 9.5 8.5-10.1 MG/DL Magnesium Level 1.9 1.8-2.4 MG/DL Total Bilirubin 0.7 0.1-1.0 MG/DL Aspartate Amino Transf (AST/SGOT) 16 5-34 U/L Alanine Aminotransferase (ALT/SGPT) 9 0-55 U/L Alkaline Phosphatase 75 40-136 U/L Total Protein 8.3 H 6.4-8.2 GM/DL Albumin 4.5 3.2-4.5 GM/DL Urine Color YELLOW Urine Clarity CLEAR Urine pH 8 5-9 Urine Specific [place] 1.015 L 1.016-1.022 Urine Protein NEGATIVE NEGATIVE Urine Glucose (UA) NEGATIVE NEGATIVE Urine Ketones 1+ H NEGATIVE Urine Nitrite NEGATIVE NEGATIVE Urine Bilirubin NEGATIVE NEGATIVE Urine Urobilinogen NORMAL NORMAL MG/DL Urine Leukocyte Esterase 3+ H NEGATIVE Urine RBC (Auto) 3+ H NEGATIVE Urine RBC 5-10 H /HPF Urine WBC 10-25 H /HPF Urine Squamous Epithelial Cells 0-2 /HPF Urine Crystals NONE /LPF Urine Bacteria FEW H /HPF Urine Casts NONE /LPF Urine Mucus NEGATIVE /LPF Urine Culture Indicated CULTURE PENDING My Orders Orders - JEFFREY JASSO Cbc With Automated Diff (10/19/18 21:43) Comprehensive Metabolic Panel (10/19/18 21:43) Blood Culture (10/19/18 21:43) Sputum Culture (10/19/18 21:43) Urinalysis (10/19/18 21:43) Urine Culture (10/19/18 21:43) Protime With Inr (10/19/18 21:43) Partial Thromboplastin Time (10/19/18 21:43) Chest 1 View, Ap/Pa Only (10/19/18 21:43) Ed Iv/Invasive Line Start (10/19/18 21:43) Ed Iv/Invasive Line Start (10/19/18 21:43) Vital Signs Adult Sepsis Patie Q15M (10/19/18 21:43) O2 (10/19/18 21:43) Remove Rings In Anticipation O (10/19/18 21:43) Lactic Acid Analyzer (10/19/18 21:43) Ns Iv 1000 Ml (Sodium Chloride 0.9%) (10/19/18 21:45) Cefepime Injection (Maxipime Injection) (10/19/18 21:45) Ondansetron Injection (Zofran Injectio (10/19/18 21:45) Magnesium (10/19/18 21:46) Promethazine Injection (Phenergan Injec (10/19/18 22:45) Straight Cath For Spec.-Adult (10/19/18 22:45) Ns Iv 1000 Ml (Sodium Chloride 0.9%) (10/19/18 22:45) Ekg Tracing (10/19/18 23:45) Continuous Ekg Monitoring (10/19/18 23:45) Metoprolol Tartrate Injection (Lopressor (10/19/18 23:45) Medications Given in ED Current Medications Medications Dose Ordered Sig/Tyler Route Start Time Stop Time Status Last Admin Dose Admin Cefepime HCl 1000 mg/Sterile Water 10 ml @ 200 mls/hr ONCE ONCE IV 10/19/18 21:45 10/19/18 21:48 DC 10/19/18 22:21 200 MLS/HR Ondansetron HCl 8 mg ONCE ONCE IVP 10/19/18 21:45 10/19/18 21:48 DC 10/19/18 22:02 8 MG Promethazine HCl 25 mg ONCE ONCE IVP 10/19/18 22:45 10/19/18 22:46 DC 10/19/18 23:08 25 MG Sodium Chloride 1,000 ml @ 100 mls/hr Q10H ONCE IV 10/19/18 22:45 10/20/18 08:44 10/19/18 23:09 100 MLS/HR Sodium Chloride 1,000 ml @ 1,000 mls/hr ONCE ONCE IV 10/19/18 21:45 10/19/18 22:44 DC 10/19/18 22:02 1,000 MLS/HR Vital Signs/I&O 10/19/18 21:32 Temp 97.3 Pulse 106 Resp 20 B/P (MAP) 190/98 (128) Pulse Ox 99 O2 Delivery Room Air 10/20/18 00:00 Intake Total 1010 ml Balance 1010 ml Progress Progress Note #1: Time: 21:51 Progress Note Septic workup and 20 mL/kg of fluids which be about 1 L. Use cefepime for potential cellulitis although the foot is not very impressive. Another possibility would be that she is having dehydration secondary to not tolerating the doxycycline and the GI distress it has been causing. Abdomen is nonacute nonsurgical. Zofran for nausea and we'll reevaluate. Urinalysis. Progress Note #2: Time: 22:47 Progress Note The patient's sodium is moderately low in the daughter relates that recently he had a doctor's appointment the nurse practitioner had instructed him to drink sports drinks because the sodium was minimally low. Patient's nausea is only minimally improved after the Zofran so we'll give her some Phenergan. Because of her intractable nausea hyponatremia we will pursue an inpatient course with some IV fluids and nausea medicines. Initial ECG Impression Date: Oct 20, 2018 Initial ECG Impression Time: 23:54 Initial ECG Rate: 122 Initial ECG Rhythm: S.Tach Initial ECG Intervals: QT (490) Initial ECG Impression: Normal, Nonspecific Changes Comment Sinus tachycardia. Diagnostic Imaging Diagonstic Imaging: Xray Plain Films/CT/US/NM/MRI: chest (1v) Comments No acute cardiopulmonary process noted. Reviewed: Reviewed by Me Departure Communication (Admissions) Time/Spoke to Admitting Phy: 23:45 Discussed the case with Dr. Tsai. Quang. She agrees with admission. Impression Primary Impression: Sepsis Qualified Codes: A41.9 - Sepsis, unspecified organism Additional Impressions: UTI (urinary tract infection) Qualified Codes: N30.01 - Acute cystitis with hematuria Hyponatremia Intractable nausea and vomiting Qualified Codes: R11.2 - Nausea with vomiting, unspecified Disposition: 09 ADMITTED INPATIENT Condition: Stable Admissions Decision to Admit Reason: Admit from ER (General) Decision to Admit/Date: Oct 19, 2018 Time/Decision to Admit Time: 23:30 Departure-Patient Inst. Referrals: LINDA TSAI MD Primary Care Physician JEFFREY JASSO Oct 19, 2018 21:52
[2018-10-19 21:53] LABS: BASOPHILS # (AUTO) 0.1 10^3/uL (0.0-0.1); BASOPHILS % (AUTO) 1 % (0-10); EOSINOPHILS # (AUTO) 0.1 10^3/uL (0.0-0.3); EOSINOPHILS % (AUTO) 1 % (0-10); HEMATOCRIT 37 % (35-52); HEMOGLOBIN 13.2 G/DL (11.5-16.0); LYMPHOCYTES # (AUTO) 1.7 X 10^3 (1.0-4.0); LYMPHOCYTES % (AUTO) 17 % (12-44); MEAN CORPUSCULAR HEMOGLOBIN 31 PG (25-34); MEAN CORPUSCULAR HGB CONC 36 G/DL (32-36); MEAN CORPUSCULAR VOLUME 88 FL (80-99); MEAN PLATELET VOLUME 9.5 FL (7.4-10.4); MONOCYTES # (AUTO) 0.9 X 10^3 (0.0-1.0); MONOCYTES % (AUTO) 9 % (0-12); NEUTROPHILS # (AUTO) 7.5 X 10^3 (1.8-7.8); NEUTROPHILS % (AUTO) 74 % (42-75); PLATELET COUNT 315 10^3/uL (130-400); RED CELL DISTRIBUTION WIDTH 12.4 % (10.0-14.5); WHITE BLOOD COUNT 10.2 10^3/uL (4.3-11.0)
--- OUTSIDE RECORDS SUMMARY | 2018-10-19 21:53 | XMS REPORT | CCD ---
Author Author Rosi Vega MD, [facility] Address [address] [place] [address] Phone Care Team Providers Care Clinical Documentation Manager Name Role Phone PP Unavailable CCM Unavailable Summary Purpose Interface Exchange Insurance Providers Payer name Policy type / Coverage type Covered libertarian ID Effective Begin Date Effective End Date WPS Medicare Part B Medicare Part B [id number] Unknown Unknown Family history Daughter Diagnosis Age [...] Unknown 5 01/02/[address]: 136610222 Never smoker 01/02/[address]: 995089696 Never drinks alcohol 01/02/2016 Allergies, Adverse Reactions, [...] Start Date Stop Date Status Fill Instructions Synthroid 25 mcg tablet RxNorm: 150059 TAKE 1 TABLET BY MOUTH ONCE DAILY 09/04/2018 No Stop Date Active tramadol 50 mg tablet RxNorm: 162742 1-2 Tablet(s) PO QID as needed 2018 09/13/2018 Inactive tramadol 50 mg tablet RxNorm: 918595 1-2 Tablet(s) PO QID as needed 06/12/2018 07/24/2018 Inactive hydrochlorothiazide 25 mg tablet RxNorm: 047616 TAKE ONE TABLET BY MOUTH ONCE DAILY 05/08/2018 No Stop Date Active tramadol 50 mg tablet RxNorm: 233044 1-2 Tablet(s) PO QID as needed 04/04/2018 08/14/2018 Inactive simvastatin 20 mg tablet RxNorm: 605529 TAKE 1 TABLET BY MOUTH ONCE DAILY 03/13/2018 No Stop Date Active Synthroid 25 mcg tablet RxNorm: 467664 1 Tablet(s) PO daily 03/07/2018 09/02/2018 Inactive lisinopril 40 mg tablet RxNorm: 643346 TAKE 1 TABLET BY MOUTH ONCE DAILY 02/20/2018 No Stop Date Active alendronate 70 mg tablet RxNorm: 216747 TAKE ONE TABLET BY MOUTH ONCE A WEEK 02/20/2018 No Stop Date Active alendronate 70 mg tablet RxNorm: 541229 TAKE ONE TABLET BY MOUTH ONCE A WEEK 02/20/2018 08/14/2018 Inactive gabapentin 100 mg capsule RxNorm: 410211 TAKE TWO CAPSULES BY MOUTH AT BEDTIME 01/30/2018 No Stop Date Active tramadol 50 mg tablet RxNorm: 412189 1-2 Tablet(s) PO QID as needed 01/16/2018 03/01/2018 Inactive tramadol 50 mg tablet RxNorm: 245070 1-2 Tablet(s) PO QID as needed 11/28/2017 06/11/2018 Inactive tramadol 50 mg tablet RxNorm: 841994 1-2 Tablet(s) PO QID as needed 10/11/2017 01/15/2018 Inactive simvastatin 20 mg tablet RxNorm: 342508 TAKE ONE TABLET BY MOUTH ONCE DAILY 09/12/2017 03/12/2018 Inactive lisinopril 40 mg tablet RxNorm: 478014 TAKE ONE TABLET BY MOUTH ONCE DAILY 2017 02/19/2018 Inactive Synthroid 25 mcg tablet RxNorm: 277017 1 Tablet(s) PO daily 08/10/2017 02/05/2018 Inactive Synthroid 25 mcg tablet RxNorm: 305561 1 Tablet(s) PO daily 08/09/2017 08/09/2017 Inactive okay for generic-hold until refill due tramadol 50 mg tablet RxNorm: 784972 1-2 Tablet(s) PO QID as needed 08/01/2017 09/13/2017 Inactive Keflex 500 mg capsule RxNorm: 081469 1 Capsule(s) PO TID 07/15/2017 07/21/2017 Inactive Synthroid 25 mcg tablet RxNorm: 645417 1 Tablet(s) PO daily 07/15/2017 07/14/2017 Inactive Synthroid 25 mcg tablet RxNorm: 804184 1 Tablet(s) PO daily 07/15/2017 07/18/2017 Inactive Voltaren 1 % topical gel RxNorm: 705725 4 Gram(s) TOP QID 07/08/2017 08/06/2017 Inactive tramadol 50 mg tablet RxNorm: 090581 1-2 Tablet(s) PO QID as needed 06/16/2017 11/27/2017 Inactive simvastatin 20 mg tablet RxNorm: 161849 TAKE ONE TABLET BY MOUTH ONCE DAILY 06/13/2017 09/11/2017 Inactive hydrochlorothiazide 25 mg tablet RxNorm: 542272 TAKE ONE TABLET BY MOUTH ONCE DAILY 05/16/2017 05/07/2018 Inactive tramadol 50 mg tablet RxNorm: 744465 1-2 Tablet(s) PO QID as needed 04/20/2017 07/31/2017 Inactive Keflex 500 mg capsule RxNorm: 203560 1 Capsule(s) PO TID 03/17/2017 03/16/2017 Inactive Keflex 500 mg capsule RxNorm: 461385 1 Capsule(s) PO TID 03/17/2017 03/23/2017 Inactive alendronate 70 mg tablet RxNorm: 168490 1 Tablet(s) PO QW 03/08/2017 02/19/2018 Inactive tramadol 50 mg tablet RxNorm: 148286 1-2 Tablet(s) PO QID as needed 02/02/2017 07/31/2017 Inactive gabapentin 100 mg capsule RxNorm: 660811 TAKE TWO CAPSULES BY MOUTH AT BEDTIME 01/31/2017 07/29/2017 Inactive tramadol 50 mg tablet RxNorm: 428357 1-2 Tablet(s) PO QID as needed 12/06/2016 07/31/2017 Inactive hydrochlorothiazide 25 mg tablet RxNorm: 515371 TAKE ONE TABLET BY MOUTH ONCE DAILY 11/16/2016 05/14/2017 Inactive lisinopril 40 mg tablet RxNorm: 774763 TAKE ONE TABLET BY MOUTH ONCE DAILY 09/30/2016 06/26/2017 Inactive alendronate 70 mg tablet RxNorm: 986271 1 Tablet(s) PO QW 09/24/2016 03/07/2017 Inactive simvastatin 20 mg tablet RxNorm: 023455 TAKE ONE TABLET BY MOUTH ONCE DAILY 09/20/2016 06/12/2017 Inactive tramadol 50 mg tablet RxNorm: 478344 1-2 Tablet(s) PO QID as needed 09/08/2016 10/20/2016 Inactive gabapentin 100 mg capsule RxNorm: 749693 1 Capsule(s) PO QHS 08/20/2016 08/14/2018 Inactive HOLD- WILL CALL WHEN NEEDED tramadol 50 mg tablet RxNorm: 507825 1-2 Tablet(s) PO QID as needed 08/20/2016 09/07/2016 Inactive tramadol 50 mg tablet RxNorm: 055916 1 Tablet(s) PO QID as needed 05/14/2016 08/05/2016 Inactive Kenalog 40 mg/mL suspension for injection RxNorm: 9167098 Milliliter(s) Inj 04/23/2016 04/23/2016 Inactive gabapentin 100 mg capsule RxNorm: 228053 2 Capsule(s) PO QHS 04/23/2016 08/19/2016 Inactive HOLD- WILL CALL WHEN NEEDED alendronate 70 mg tablet RxNorm: 381581 1 Tablet(s) PO QW 04/07/2016 09/23/2016 Inactive simvastatin 20 mg tablet RxNorm: 408451 1 Tablet(s) PO daily 03/29/2016 09/19/2016 Inactive tramadol 50 mg tablet RxNorm: 660955 1 Tablet(s) PO QID as needed 03/10/2016 07/31/2017 Inactive gabapentin 100 mg capsule RxNorm: 371409 1 Capsule(s) PO QHS 01/30/2016 04/22/2016 Inactive lisinopril 40 mg tablet RxNorm: 406968 1 Tablet(s) PO daily 01/30/2016 09/29/2016 Inactive hydrochlorothiazide 25 mg tablet RxNorm: 133816 1 Tablet(s) PO daily 01/30/2016 10/25/2016 Inactive alendronate 70 mg tablet RxNorm: 371829 1 Tablet(s) QW 01/02/2016 04/06/2016 Inactive simvastatin 20 mg tablet RxNorm: 146875 1 Tablet(s) PO daily 12/31/2015 12/30/2015 Inactive simvastatin 20 mg tablet RxNorm: 644044 1 Tablet(s) PO daily 12/31/2015 03/28/2016 Inactive Calcium + D oral RxNorm: 034204 oral No Start Date Active Tylenol 500 mg RxNorm: 2 PO QHS No Start Date Active hydrochlorothiazide 25 mg tablet RxNorm: 615870 1 Tablet(s) PO daily No Start Date 01/29/2016 Inactive tramadol 50 mg tablet RxNorm: 131983 1 Tablet(s) PO QID as needed No Start Date 03/09/2016 Inactive lisinopril 40 mg tablet RxNorm: 622205 1 Tablet(s) PO daily No Start Date 01/29/2016 Inactive Medication Administered Medication Codes Instructions Start Date Status Kenalog 40 mg/mL suspension for injection RxNorm: 0115270 Milliliter 04/23/2016 No longer Active Immunizations Vaccine [...] (3rd IS) 2.05 uIU/mL 09/11/2018 Free T4 Ujd620 FREE T4 0.94 ng/dL 09/11/2018 Cbc With [...] 31.0 pg 09/11/2018 Cbc With Differential Ord2 Storey% 8.9 % 09/11/2018 Cbc With Differential Ord2 [...] 2.32 K/ul 09/11/2018 Cbc With Differential Ord2 Storey ABS# 0.7 K/ul 09/11/2018 Cbc With Differential Ord2 Eos ABS# 0.2 K/ul 09/11/2018 Cbc With Differential Ord2 Baso ABS# 0.0 K/ul 09/11/2018 Comp Metabolic Pwb946 NA 129 mEq/L 09/11/2018 Comp Metabolic Gdj480 K 4.0 mEq/L 09/11/2018 Comp Metabolic Nes337 CL 93 mEq/L 09/11/2018 Comp Metabolic Xoq680 CO2 27.0 mEq/L 09/11/2018 Comp Metabolic Amh425 ANION GAP 13 09/11/2018 Comp Metabolic Slo157 GLUCOSE 83 mg/dL 09/11/2018 Comp Metabolic Azu406 Creat 0.8 mg/dL 09/11/2018 Comp Metabolic Ghz007 eGFR 69 ml/min/1.73m2 09/11/2018 Comp Metabolic Yei932 BUN 16 mg/dL 09/11/2018 Comp Metabolic Tyr013 B/C Ratio 19.3 Ratio 09/11/2018 Comp Metabolic Lor167 CALCIUM 9.4 mg/dL 09/11/2018 Comp Metabolic Wxp818 ALK PHOS 58 U/L 09/11/2018 Comp Metabolic Zim088 AST(SGOT) 14 U/L 09/11/2018 Comp Metabolic Acw188 ALT(SGPT) 8 U/L 09/11/2018 Comp Metabolic Gbr798 BILI T 0.3 mg/dL 09/11/2018 Comp Metabolic Cux012 ALBUMIN 4.2 g/dL 09/11/2018 Comp Metabolic Cvb541 TPRO 6.9 g/dL 09/11/2018 Comp Metabolic Wvr939 GLOB 2.8 g/dL 09/11/2018 Comp Metabolic Psa329 A/G Ratio 1.5 Ratio 09/11/2018 Comp Metabolic Urk283 Osmo 259 mOsmo 09/11/2018 Free T4 Eqc935 FREE T4 0.95 ng/dL 01/13/2018 Comp Metabolic Prk865 NA 132 mEq/L 01/13/2018 Comp Metabolic Xla581 K 4.2 mEq/L 01/13/2018 Comp Metabolic Ytf752 CL 97 mEq/L 01/13/2018 Comp Metabolic Pds904 CO2 29.0 mEq/L 01/13/2018 Comp Metabolic Yvk361 ANION GAP 10 01/13/2018 Comp Metabolic Cnu929 GLUCOSE 88 mg/dL 01/13/2018 Comp Metabolic Qch497 Creat 0.9 mg/dL 01/13/2018 Comp Metabolic Ctv430 eGFR 62 ml/min/1.73m2 01/13/2018 Comp Metabolic Nji833 BUN 16 mg/dL 01/13/2018 Comp Metabolic Ggb200 B/C Ratio 17.6 Ratio 01/13/2018 Comp Metabolic Gun829 CALCIUM 10.0 mg/dL 01/13/2018 Comp Metabolic Fmz564 ALK PHOS 65 U/L 01/13/2018 Comp Metabolic Xmj917 AST(SGOT) 20 U/L 01/13/2018 Comp Metabolic Gsv696 ALT(SGPT) 16 U/L 01/13/2018 Comp Metabolic Yxl584 BILI T 0.3 mg/dL 01/13/2018 Comp Metabolic Lqh394 ALBUMIN 4.0 g/dL 01/13/2018 Comp Metabolic Ihj606 TPRO 7.0 g/dL 01/13/2018 Comp Metabolic Sqx978 GLOB 3.0 g/dL 01/13/2018 Comp Metabolic Fht297 A/G Ratio 1.3 Ratio 01/13/2018 Comp Metabolic Frv065 Osmo 265 mOsmo 01/13/2018 Tsh Ord6 TSH [...] 29.7 pg 01/13/2018 Cbc With Differential Ord2 Storey% 7.6 % 01/13/2018 Cbc With Differential Ord2 [...] 2.55 K/ul 01/13/2018 Cbc With Differential Ord2 Storey ABS# 0.6 K/ul 01/13/2018 Cbc With Differential [...] 29.4 pg 07/15/2017 Cbc With Differential Ord2 Storey% 8.8 % 07/15/2017 Cbc With Differential Ord2 [...] 2.44 K/ul 07/15/2017 Cbc With Differential Ord2 Storey ABS# 0.8 K/ul 07/15/2017 Cbc With Differential [...] from collection if refrigerated) 07/15/2017 Comp Metabolic Oui621 NA 132 mEq/L 07/15/2017 Comp Metabolic Peh599 K 3.8 mEq/L 07/15/2017 Comp Metabolic Njb284 CL 95 mEq/L 07/15/2017 Comp Metabolic Wpt737 CO2 30.0 mEq/L 07/15/2017 Comp Metabolic Awp871 ANION GAP 11 07/15/2017 Comp Metabolic Xlu666 GLUCOSE 92 mg/dL 07/15/2017 Comp Metabolic Bci428 Creat 0.8 mg/dL 07/15/2017 Comp Metabolic Afq855 eGFR 75 ml/min/1.73m2 07/15/2017 Comp Metabolic Xzo410 BUN 11 mg/dL 07/15/2017 Comp Metabolic Olm366 B/C Ratio 14.1 Ratio 07/15/2017 Comp Metabolic Wdy285 CALCIUM 9.7 mg/dL 07/15/2017 Comp Metabolic Gzb209 ALK PHOS 72 U/L 07/15/2017 Comp Metabolic Kev577 AST(SGOT) 14 U/L 07/15/2017 Comp Metabolic Vcz706 ALT(SGPT) 9 U/L 07/15/2017 Comp Metabolic Gvs350 BILI T 0.5 mg/dL 07/15/2017 Comp Metabolic Qlm265 ALBUMIN 4.1 g/dL 07/15/2017 Comp Metabolic Fqc949 TPRO 6.9 g/dL 07/15/2017 Comp Metabolic Xvs889 GLOB 2.8 g/dL 07/15/2017 Comp Metabolic Wlp899 A/G Ratio 1.5 Ratio 07/15/2017 Comp Metabolic Hxd678 Osmo 264 mOsmo 07/15/2017 Tsh Ord6 TSH (3rd IS) 6.20 uIU/mL 07/15/2017 Free T4 Gdb567 FREE T4 0.95 ng/dL 07/15/2017 Cbc With [...] 31.1 pg 01/30/2016 Cbc With Differential Ord2 Storey% 8.6 % 01/30/2016 Cbc With Differential Ord2 [...] 2.16 K/ul 01/30/2016 Cbc With Differential Ord2 Storey ABS# 0.7 K/ul 01/30/2016 Cbc With Differential Ord2 Eos ABS# 0.2 K/ul 01/30/2016 Cbc With Differential Ord2 Baso ABS# 0.0 K/ul 01/30/2016 Tsh Ord6 hTSH II 2.93 uIU/mL 01/30/2016 Comp Metabolic Kao136 NA 134 mEq/L 01/30/2016 Comp Metabolic Anb022 K 4.0 mEq/L 01/30/2016 Comp Metabolic Scx001 CL 97 mEq/L 01/30/2016 Comp Metabolic Jjt496 CO2 29.0 mEq/L 01/30/2016 Comp Metabolic Wir662 ANION GAP 12 01/30/2016 Comp Metabolic Oeg530 GLUCOSE 98 mg/dL 01/30/2016 Comp Metabolic Ien409 Creat 0.9 mg/dL 01/30/2016 Comp Metabolic Hqh987 eGFR 67 ml/min/1.73m2 01/30/2016 Comp Metabolic Qhy475 BUN 16 mg/dL 01/30/2016 Comp Metabolic Faf284 B/C Ratio 18.6 Ratio 01/30/2016 Comp Metabolic Sub591 CALCIUM 10.3 mg/dL 01/30/2016 Comp Metabolic Qst408 ALK PHOS 66 U/L 01/30/2016 Comp Metabolic Doe666 AST(SGOT) 16 U/L 01/30/2016 Comp Metabolic Xoh921 ALT(SGPT) 10 U/L 01/30/2016 Comp Metabolic Onc404 BILI T 0.4 mg/dL 01/30/2016 Comp Metabolic Qop975 ALBUMIN 4.2 g/dL 01/30/2016 Comp Metabolic Tcx126 TPRO 7.1 g/dL 01/30/2016 Comp Metabolic Crb516 GLOB 2.9 g/dL 01/30/2016 Comp Metabolic Sum227 A/G Ratio 1.5 Ratio 01/30/2016 Comp Metabolic Qob011 Osmo 269 mOsmo 01/30/2016 Lipid Ord30 CHOL [...] Formatting Model/CDA Sections, Assigned to/Karine Archuleta CPT-4: 32138Fumfdou 01/06/2018 TRIAMCINOLONE ACET INJ NOS CPT-4: J3301 04/23/2016 ADMIN INFLUENZA VIRUS VAC CPT-4: G0008 01/30/2016 PNEUMOCOCCAL VACC [address]: 24350891 CPT-4: 27873 01/30/2016 FLU VACC 4 RODNEY 3 YRS PLUS IM Formatting Model/CDA Sections, Assigned to/Karine Archuleta SNOMED CT: 70928623 CPT-4: 74421Tprboon 01/30/2016 ADMIN PNEUMOCOCCAL VACCINE SNOMED CT: 88059832 CPT-4: G0009 01/30/2016 Vital Signs Date Vital 09/08/2018 Blood Pressure 1: 140/72 Code: 8480-6 Heart Rate 1: 85 bpm SpO2: 98% Weight: 136 lbs 01/06/2018 Blood Pressure 1: 138/70 Code: 8480-6 BMI: 21.5 Code: 93793-8 Heart Rate 1: 75 bpm Height: 5'6" SpO2: 98% Weight: 133 lbs 07/08/2017 Blood Pressure 1: 148/82 Code: 8480-6 BMI: 21.6 Code: 67520-4 Heart Rate 1: 80 bpm Height: 5'6" SpO2: 98% Weight: 134 lbs 08/20/2016 Blood Pressure 1: 124/76 Code: 8480-6 BMI: 23.2 Code: 20792-9 Heart Rate 1: 72 bpm Height: 5'6" SpO2: 93% Weight: 144 lbs 04/23/2016 Blood Pressure 1: 130/82 Code: 8480-6 BMI: 23.4 Code: 76536-4 Heart Rate 1: 86 bpm Height: 5'6" SpO2: 98% Weight: 145 lbs 01/30/2016 Blood Pressure 1: 140/86 Code: 8480-6 BMI: 23.9 Code: 71253-0 Heart Rate 1: 55 bpm Height: 5'6" SpO2: 96% Weight: 148 lbs 01/02/2016 Blood Pressure 1: 146/86 Code: 8480-6 BMI: 24.2 Code: 61200-0 Heart Rate 1: 84 bpm Height: 5'6" [...] data Encounters Encounter Performer Location Codes Date ([id number]) [id number] EST. PATIENT, LEVEL IV Diagnosis: Essential (primary) hypertension[ICD10: I10] Diagnosis: Mixed hyperlipidemia[ICD10: E78.2] Diagnosis: Hypothyroidism, unspecified[ICD10: E03.9] Diagnosis: Primary generalized (osteo)arthritis[ICD10: M15.0] Rosi Tsai MD, [facility] CPT-4: 29721 09/08/2018 ([id number]) [id number] EST. PATIENT, LEVEL IV Diagnosis: Essential (primary) hypertension[ICD10: I10] Diagnosis: Hypothyroidism, unspecified[ICD10: E03.9] Diagnosis: Low back pain[ICD10: M54.5] Diagnosis: Encounter for immunization[ICD10: Z23] Diagnosis: Abnormal weight loss[ICD10: R63.4] Rosi Tsai MD, [facility] CPT- 4: 54744 01/06/2018 ([id number]) 33214 EST. PATIENT, LEVEL IV Diagnosis: Essential (primary) hypertension[ICD10: I10] Diagnosis: Pain in right shoulder[ICD10: M25.511] Diagnosis: Mixed hyperlipidemia[ICD10: E78.2] Diagnosis: Dysuria[ICD10: R30.0] Diagnosis: Cramp and spasm[ICD10: R25.2] Rosi Tsai MD, [facility] CPT-4: 36282 07/08/2017 [id number]) [id number] EST. PATIENT, LEVEL III Diagnosis: Essential (primary) hypertension[ICD10: I10] Diagnosis: Radiculopathy, lumbar region[ICD10: M54.16] Rosi Tsai MD, [facility] CPT-4: 25872 08/20/2016 [id number]) 92626 EST. PATIENT, LEVEL IV Diagnosis: Essential (primary) hypertension[ICD10: I10] Diagnosis: Lumbago with sciatica, left side[ICD10: M54.42] Diagnosis: Cramp and spasm[ICD10: R25.2] [facility] CPT-4: 09871 04/23/2016 ([id number]) 10979 EST. PATIENT, LEVEL III Diagnosis: Essential (primary) hypertension[ICD10: I10] Diagnosis: Radiculopathy, lumbar region[ICD10: M54.16] Diagnosis: Encounter for immunization[ICD10: Z23] Diagnosis: Impacted cerumen, left ear[ICD10: H61.22] [facility] CPT-4: 25325 01/30/2016 ([id number]) OFFICE VISIT, NEW - LEVEL 3 Diagnosis: Essential (primary) hypertension[ICD10: I10] Diagnosis: Mixed hyperlipidemia[ICD10: E78.2] Diagnosis: Cramp and spasm[ICD10: R25.2] [facility] CPT-4: 62747 01/02/2016 Plan of Care Planned Activity Notes [...] Completed 09/08/2018 Appointment: Rosi Vega WPtel: [phone] [phone] [place] (30 min) Complex 09/01/2018 [phone] ([facility]) Complex 07/28/2018 Appointment: Rosi Vega WPtel: [phone] [phone] (30 min) Complex 07/14/2018 Appointment: Rosi Vega WPtel: Formerly named [phone] (30 min) Complex 07/07/2018 Visit Plan: [...] breakfast to ice cream 01/06/2018 Appointment: Rosi eVga WPtel: Formerly named [phone] (15 min) Moderate 01/06/2018 Patient Education: Patient [...] cramps-check labs 07/08/2017 Appointment: Rosi Vega WPtel: Formerly named [phone] (15 min) Moderate 07/08/2017 Patient Education: Patient Medication Summary Completed 07/08/2017 Appointment: Rosi Vega WPtel: [address] [place], [place] [phone] (15 min) Moderate 12/24/2016 Visit Plan: Hypertension [...] of plan. 08/20/2016 Appointment: Rosi Vega WPtel: [phone] [phone] (30 min) Complex 08/20/2016 Patient Education: Patient Medication Summary Completed 08/20/2016 Appointment: Rosi Vega WPtel: [address] [place], [place] [phone] (30 min) Complex 04/30/2016 Visit Plan: Hypertension [...] removal process. 01/30/2016 Appointment: Rosi Vega WPtel: [phone] [phone] (30 min) Complex 01/30/2016 Patient Education: [...] B12, magnesium 01/02/2016 Appointment: Rosi Vega WPtel: [phone] [facility] Patient 01/02/2016 Patient Education: Patient [...]
--- OUTSIDE RECORDS SUMMARY | 2018-10-19 21:55 | XMS REPORT | CCD ---
Author Author Rosi Vega MD, [facility] Address [address] [place] [address] Phone Care Team Providers Care Multilith Operator Name Role Phone PP Unavailable CCM Unavailable Summary Purpose Interface Exchange Insurance Providers Payer name Policy type / Coverage type Covered democrat ID Effective Begin Date Effective End Date WPS Medicare Part B Medicare Part B [id number] Unknown Unknown Family history Daughter Diagnosis Age [...] Unknown 5 01/02/[address]: 799473763 Never smoker 01/02/[address]: 855833345 Never drinks alcohol 01/02/2016 Allergies, Adverse Reactions, [...] Fill Instructions Synthroid 25 mcg tablet RxNorm: 662102 TAKE 1 TABLET BY MOUTH ONCE DAILY 09/04/2018 No Stop Date Active tramadol 50 mg tablet RxNorm: 473299 1-2 Tablet(s) PO QID as needed 2018 09/13/2018 Active tramadol 50 mg tablet RxNorm: 469825 1-2 Tablet(s) PO QID as needed 06/12/2018 07/24/2018 Inactive hydrochlorothiazide 25 mg tablet RxNorm: 287749 TAKE ONE TABLET BY MOUTH ONCE DAILY 05/08/2018 No Stop Date Active tramadol 50 mg tablet RxNorm: 684656 1-2 Tablet(s) PO QID as needed 04/04/2018 08/14/2018 Inactive simvastatin 20 mg tablet RxNorm: 548998 TAKE 1 TABLET BY MOUTH ONCE DAILY 03/13/2018 No Stop Date Active Synthroid 25 mcg tablet RxNorm: 476141 1 Tablet(s) PO daily 03/07/2018 09/02/2018 Inactive lisinopril 40 mg tablet RxNorm: 154447 TAKE 1 TABLET BY MOUTH ONCE DAILY 02/20/2018 No Stop Date Active alendronate 70 mg tablet RxNorm: 514751 TAKE ONE TABLET BY MOUTH ONCE A WEEK 02/20/2018 No Stop Date Active alendronate 70 mg tablet RxNorm: 384000 TAKE ONE TABLET BY MOUTH ONCE A WEEK 02/20/2018 08/14/2018 Inactive gabapentin 100 mg capsule RxNorm: 374249 TAKE TWO CAPSULES BY MOUTH AT BEDTIME 01/30/2018 No Stop Date Active tramadol 50 mg tablet RxNorm: 383278 1-2 Tablet(s) PO QID as needed 01/16/2018 03/01/2018 Inactive tramadol 50 mg tablet RxNorm: 304590 1-2 Tablet(s) PO QID as needed 11/28/2017 06/11/2018 Inactive tramadol 50 mg tablet RxNorm: 652599 1-2 Tablet(s) PO QID as needed 10/11/2017 01/15/2018 Inactive simvastatin 20 mg tablet RxNorm: 219675 TAKE ONE TABLET BY MOUTH ONCE DAILY 09/12/2017 03/12/2018 Inactive lisinopril 40 mg tablet RxNorm: 644914 TAKE ONE TABLET BY MOUTH ONCE DAILY 2017 02/19/2018 Inactive Synthroid 25 mcg tablet RxNorm: 028929 1 Tablet(s) PO daily 08/10/2017 02/05/2018 Inactive Synthroid 25 mcg tablet RxNorm: 558030 1 Tablet(s) PO daily 08/09/2017 08/09/2017 Inactive okay for generic-hold until refill due tramadol 50 mg tablet RxNorm: 391315 1-2 Tablet(s) PO QID as needed 08/01/2017 09/13/2017 Inactive Keflex 500 mg capsule RxNorm: 652060 1 Capsule(s) PO TID 07/15/2017 07/21/2017 Inactive Synthroid 25 mcg tablet RxNorm: 365913 1 Tablet(s) PO daily 07/15/2017 07/14/2017 Inactive Synthroid 25 mcg tablet RxNorm: 653697 1 Tablet(s) PO daily 07/15/2017 07/18/2017 Inactive Voltaren 1 % topical gel RxNorm: 262212 4 Gram(s) TOP QID 07/08/2017 08/06/2017 Inactive tramadol 50 mg tablet RxNorm: 651911 1-2 Tablet(s) PO QID as needed 06/16/2017 11/27/2017 Inactive simvastatin 20 mg tablet RxNorm: 363044 TAKE ONE TABLET BY MOUTH ONCE DAILY 06/13/2017 09/11/2017 Inactive hydrochlorothiazide 25 mg tablet RxNorm: 769989 TAKE ONE TABLET BY MOUTH ONCE DAILY 05/16/2017 05/07/2018 Inactive tramadol 50 mg tablet RxNorm: 042926 1-2 Tablet(s) PO QID as needed 04/20/2017 07/31/2017 Inactive Keflex 500 mg capsule RxNorm: 175022 1 Capsule(s) PO TID 03/17/2017 03/16/2017 Inactive Keflex 500 mg capsule RxNorm: 071701 1 Capsule(s) PO TID 03/17/2017 03/23/2017 Inactive alendronate 70 mg tablet RxNorm: 705495 1 Tablet(s) PO QW 03/08/2017 02/19/2018 Inactive tramadol 50 mg tablet RxNorm: 816558 1-2 Tablet(s) PO QID as needed 02/02/2017 07/31/2017 Inactive gabapentin 100 mg capsule RxNorm: 032528 TAKE TWO CAPSULES BY MOUTH AT BEDTIME 01/31/2017 07/29/2017 Inactive tramadol 50 mg tablet RxNorm: 140191 1-2 Tablet(s) PO QID as needed 12/06/2016 07/31/2017 Inactive hydrochlorothiazide 25 mg tablet RxNorm: 975189 TAKE ONE TABLET BY MOUTH ONCE DAILY 11/16/2016 05/14/2017 Inactive lisinopril 40 mg tablet RxNorm: 347607 TAKE ONE TABLET BY MOUTH ONCE DAILY 09/30/2016 06/26/2017 Inactive alendronate 70 mg tablet RxNorm: 546007 1 Tablet(s) PO QW 09/24/2016 03/07/2017 Inactive simvastatin 20 mg tablet RxNorm: 019138 TAKE ONE TABLET BY MOUTH ONCE DAILY 09/20/2016 06/12/2017 Inactive tramadol 50 mg tablet RxNorm: 832156 1-2 Tablet(s) PO QID as needed 09/08/2016 10/20/2016 Inactive gabapentin 100 mg capsule RxNorm: 797446 1 Capsule(s) PO QHS 08/20/2016 08/14/2018 Inactive HOLD- WILL CALL WHEN NEEDED tramadol 50 mg tablet RxNorm: 556327 1-2 Tablet(s) PO QID as needed 08/20/2016 09/07/2016 Inactive tramadol 50 mg tablet RxNorm: 204131 1 Tablet(s) PO QID as needed 05/14/2016 08/05/2016 Inactive Kenalog 40 mg/mL suspension for injection RxNorm: 7163796 Milliliter(s) Inj 04/23/2016 04/23/2016 Inactive gabapentin 100 mg capsule RxNorm: 071951 2 Capsule(s) PO QHS 04/23/2016 08/19/2016 Inactive HOLD- WILL CALL WHEN NEEDED alendronate 70 mg tablet RxNorm: 843964 1 Tablet(s) PO QW 04/07/2016 09/23/2016 Inactive simvastatin 20 mg tablet RxNorm: 673018 1 Tablet(s) PO daily 03/29/2016 09/19/2016 Inactive tramadol 50 mg tablet RxNorm: 297930 1 Tablet(s) PO QID as needed 03/10/2016 07/31/2017 Inactive gabapentin 100 mg capsule RxNorm: 162564 1 Capsule(s) PO QHS 01/30/2016 04/22/2016 Inactive lisinopril 40 mg tablet RxNorm: 354248 1 Tablet(s) PO daily 01/30/2016 09/29/2016 Inactive hydrochlorothiazide 25 mg tablet RxNorm: 638923 1 Tablet(s) PO daily 01/30/2016 10/25/2016 Inactive alendronate 70 mg tablet RxNorm: 955350 1 Tablet(s) QW 01/02/2016 04/06/2016 Inactive simvastatin 20 mg tablet RxNorm: 725632 1 Tablet(s) PO daily 12/31/2015 12/30/2015 Inactive simvastatin 20 mg tablet RxNorm: 847727 1 Tablet(s) PO daily 12/31/2015 03/28/2016 Inactive Calcium + D oral RxNorm: 364785 oral No Start Date Active Tylenol 500 mg RxNorm: 2 PO QHS No Start Date Active hydrochlorothiazide 25 mg tablet RxNorm: 040311 1 Tablet(s) PO daily No Start Date 01/29/2016 Inactive tramadol 50 mg tablet RxNorm: 817940 1 Tablet(s) PO QID as needed No Start Date 03/09/2016 Inactive lisinopril 40 mg tablet RxNorm: 176419 1 Tablet(s) PO daily No Start Date 01/29/2016 Inactive Medication Administered Medication Codes Instructions Start Date Status Kenalog 40 mg/mL suspension for injection RxNorm: 0856500 Milliliter 04/23/2016 No longer Active Immunizations Vaccine [...] (3rd IS) 2.05 uIU/mL 09/11/2018 Free T4 Vzw279 FREE T4 0.94 ng/dL 09/11/2018 Cbc With [...] 31.0 pg 09/11/2018 Cbc With Differential Ord2 [place]% 8.9 % 09/11/2018 Cbc With Differential Ord2 [...] 2.32 K/ul 09/11/2018 Cbc With Differential Ord2 [place] ABS# 0.7 K/ul 09/11/2018 Cbc With Differential Ord2 Eos ABS# 0.2 K/ul 09/11/2018 Cbc With Differential Ord2 Baso ABS# 0.0 K/ul 09/11/2018 Comp Metabolic Efz718 NA 129 mEq/L 09/11/2018 Comp Metabolic Xxz833 K 4.0 mEq/L 09/11/2018 Comp Metabolic Qmy048 CL 93 mEq/L 09/11/2018 Comp Metabolic Vcy200 CO2 27.0 mEq/L 09/11/2018 Comp Metabolic Gyo636 ANION GAP 13 09/11/2018 Comp Metabolic Zdm625 GLUCOSE 83 mg/dL 09/11/2018 Comp Metabolic Hsq243 Creat 0.8 mg/dL 09/11/2018 Comp Metabolic Jat276 eGFR 69 ml/min/1.73m2 09/11/2018 Comp Metabolic Tej298 BUN 16 mg/dL 09/11/2018 Comp Metabolic Sxo614 B/C Ratio 19.3 Ratio 09/11/2018 Comp Metabolic Ahl889 CALCIUM 9.4 mg/dL 09/11/2018 Comp Metabolic Wcr474 ALK PHOS 58 U/L 09/11/2018 Comp Metabolic Wgv324 AST(SGOT) 14 U/L 09/11/2018 Comp Metabolic Jyj600 ALT(SGPT) 8 U/L 09/11/2018 Comp Metabolic Kee192 BILI T 0.3 mg/dL 09/11/2018 Comp Metabolic Rgj076 ALBUMIN 4.2 g/dL 09/11/2018 Comp Metabolic Pdd251 TPRO 6.9 g/dL 09/11/2018 Comp Metabolic Yfq890 GLOB 2.8 g/dL 09/11/2018 Comp Metabolic Htw645 A/G Ratio 1.5 Ratio 09/11/2018 Comp Metabolic Mbx449 Osmo 259 mOsmo 09/11/2018 Free T4 Aeh677 FREE T4 0.95 ng/dL 01/13/2018 Comp Metabolic Imz745 NA 132 mEq/L 01/13/2018 Comp Metabolic Vou968 K 4.2 mEq/L 01/13/2018 Comp Metabolic Vmp662 CL 97 mEq/L 01/13/2018 Comp Metabolic Wmf150 CO2 29.0 mEq/L 01/13/2018 Comp Metabolic Bqb287 ANION GAP 10 01/13/2018 Comp Metabolic Htv121 GLUCOSE 88 mg/dL 01/13/2018 Comp Metabolic Vxi693 Creat 0.9 mg/dL 01/13/2018 Comp Metabolic Wna844 eGFR 62 ml/min/1.73m2 01/13/2018 Comp Metabolic Vuy434 BUN 16 mg/dL 01/13/2018 Comp Metabolic Zjm402 B/C Ratio 17.6 Ratio 01/13/2018 Comp Metabolic Cqe317 CALCIUM 10.0 mg/dL 01/13/2018 Comp Metabolic Dpx452 ALK PHOS 65 U/L 01/13/2018 Comp Metabolic Pns775 AST(SGOT) 20 U/L 01/13/2018 Comp Metabolic Cjb814 ALT(SGPT) 16 U/L 01/13/2018 Comp Metabolic Qyz157 BILI T 0.3 mg/dL 01/13/2018 Comp Metabolic Cqv973 ALBUMIN 4.0 g/dL 01/13/2018 Comp Metabolic Ccv782 TPRO 7.0 g/dL 01/13/2018 Comp Metabolic Ovg706 GLOB 3.0 g/dL 01/13/2018 Comp Metabolic Uem954 A/G Ratio 1.3 Ratio 01/13/2018 Comp Metabolic Ynt225 Osmo 265 mOsmo 01/13/2018 Tsh Ord6 TSH [...] 29.7 pg 01/13/2018 Cbc With Differential Ord2 [place]% 7.6 % 01/13/2018 Cbc With Differential Ord2 [...] 2.55 K/ul 01/13/2018 Cbc With Differential Ord2 [place] ABS# 0.6 K/ul 01/13/2018 Cbc With Differential [...] 29.4 pg 07/15/2017 Cbc With Differential Ord2 [place]% 8.8 % 07/15/2017 Cbc With Differential Ord2 [...] 2.44 K/ul 07/15/2017 Cbc With Differential Ord2 [place] ABS# 0.8 K/ul 07/15/2017 Cbc With Differential [...] from collection if refrigerated) 07/15/2017 Comp Metabolic Dkp070 NA 132 mEq/L 07/15/2017 Comp Metabolic Bsc306 K 3.8 mEq/L 07/15/2017 Comp Metabolic Qvx977 CL 95 mEq/L 07/15/2017 Comp Metabolic Ply023 CO2 30.0 mEq/L 07/15/2017 Comp Metabolic Vwh839 ANION GAP 11 07/15/2017 Comp Metabolic Mbv388 GLUCOSE 92 mg/dL 07/15/2017 Comp Metabolic Oac592 Creat 0.8 mg/dL 07/15/2017 Comp Metabolic Fqb067 eGFR 75 ml/min/1.73m2 07/15/2017 Comp Metabolic Wut241 BUN 11 mg/dL 07/15/2017 Comp Metabolic Ycp498 B/C Ratio 14.1 Ratio 07/15/2017 Comp Metabolic Vdc546 CALCIUM 9.7 mg/dL 07/15/2017 Comp Metabolic Mcm877 ALK PHOS 72 U/L 07/15/2017 Comp Metabolic Hbn672 AST(SGOT) 14 U/L 07/15/2017 Comp Metabolic Hjz164 ALT(SGPT) 9 U/L 07/15/2017 Comp Metabolic Yxr127 BILI T 0.5 mg/dL 07/15/2017 Comp Metabolic Jhe534 ALBUMIN 4.1 g/dL 07/15/2017 Comp Metabolic Rcm033 TPRO 6.9 g/dL 07/15/2017 Comp Metabolic Esg809 GLOB 2.8 g/dL 07/15/2017 Comp Metabolic Qyd160 A/G Ratio 1.5 Ratio 07/15/2017 Comp Metabolic Ntl647 Osmo 264 mOsmo 07/15/2017 Tsh Ord6 TSH (3rd IS) 6.20 uIU/mL 07/15/2017 Free T4 Wja335 FREE T4 0.95 ng/dL 07/15/2017 Cbc With [...] 31.1 pg 01/30/2016 Cbc With Differential Ord2 [place]% 8.6 % 01/30/2016 Cbc With Differential Ord2 [...] 2.16 K/ul 01/30/2016 Cbc With Differential Ord2 [place] ABS# 0.7 K/ul 01/30/2016 Cbc With Differential Ord2 Eos ABS# 0.2 K/ul 01/30/2016 Cbc With Differential Ord2 Baso ABS# 0.0 K/ul 01/30/2016 Tsh Ord6 hTSH II 2.93 uIU/mL 01/30/2016 Comp Metabolic Xtj843 NA 134 mEq/L 01/30/2016 Comp Metabolic Xuk615 K 4.0 mEq/L 01/30/2016 Comp Metabolic Bii217 CL 97 mEq/L 01/30/2016 Comp Metabolic Uas176 CO2 29.0 mEq/L 01/30/2016 Comp Metabolic Vsq405 ANION GAP 12 01/30/2016 Comp Metabolic Icg406 GLUCOSE 98 mg/dL 01/30/2016 Comp Metabolic Qwa189 Creat 0.9 mg/dL 01/30/2016 Comp Metabolic Yoi522 eGFR 67 ml/min/1.73m2 01/30/2016 Comp Metabolic Ogq616 BUN 16 mg/dL 01/30/2016 Comp Metabolic Dqm670 B/C Ratio 18.6 Ratio 01/30/2016 Comp Metabolic Uvd256 CALCIUM 10.3 mg/dL 01/30/2016 Comp Metabolic Omb635 ALK PHOS 66 U/L 01/30/2016 Comp Metabolic Ofs601 AST(SGOT) 16 U/L 01/30/2016 Comp Metabolic Moc589 ALT(SGPT) 10 U/L 01/30/2016 Comp Metabolic Ili541 BILI T 0.4 mg/dL 01/30/2016 Comp Metabolic Bfa337 ALBUMIN 4.2 g/dL 01/30/2016 Comp Metabolic Asj235 TPRO 7.1 g/dL 01/30/2016 Comp Metabolic Gyo707 GLOB 2.9 g/dL 01/30/2016 Comp Metabolic Tgg013 A/G Ratio 1.5 Ratio 01/30/2016 Comp Metabolic Jel676 Osmo 269 mOsmo 01/30/2016 Lipid Ord30 CHOL [...] Formatting Model/CDA Sections, Assigned to/Karine Archuleta CPT-4: 84357Htquhwb 01/06/2018 TRIAMCINOLONE ACET INJ NOS CPT-4: J3301 04/23/2016 ADMIN INFLUENZA VIRUS VAC CPT-4: G0008 01/30/2016 PNEUMOCOCCAL VACC [address]: 08092663 CPT-4: 36517 01/30/2016 FLU VACC 4 RODNEY 3 YRS PLUS IM Formatting Model/CDA Sections, Assigned to/Karine Archuleta SNOMED CT: 07529391 CPT-4: 03488Pzxxyjy 01/30/2016 ADMIN PNEUMOCOCCAL VACCINE SNOMED CT: 38177331 CPT-4: G0009 01/30/2016 Vital Signs Date Vital 09/08/2018 Blood Pressure 1: 140/72 Code: 8480-6 Heart Rate 1: 85 bpm SpO2: 98% Weight: 136 lbs 01/06/2018 Blood Pressure 1: 138/70 Code: 8480-6 BMI: 21.5 Code: 82062-0 Heart Rate 1: 75 bpm Height: 5'6" SpO2: 98% Weight: 133 lbs 07/08/2017 Blood Pressure 1: 148/82 Code: 8480-6 BMI: 21.6 Code: 90858-5 Heart Rate 1: 80 bpm Height: 5'6" SpO2: 98% Weight: 134 lbs 08/20/2016 Blood Pressure 1: 124/76 Code: 8480-6 BMI: 23.2 Code: 28202-3 Heart Rate 1: 72 bpm Height: 5'6" SpO2: 93% Weight: 144 lbs 04/23/2016 Blood Pressure 1: 130/82 Code: 8480-6 BMI: 23.4 Code: 43898-6 Heart Rate 1: 86 bpm Height: 5'6" SpO2: 98% Weight: 145 lbs 01/30/2016 Blood Pressure 1: 140/86 Code: 8480-6 BMI: 23.9 Code: 51789-6 Heart Rate 1: 55 bpm Height: 5'6" SpO2: 96% Weight: 148 lbs 01/02/2016 Blood Pressure 1: 146/86 Code: 8480-6 BMI: 24.2 Code: 65662-0 Heart Rate 1: 84 bpm Height: 5'6" [...] data Encounters Encounter Performer Location Codes Date ([id number]) [id number] EST. PATIENT, LEVEL IV Diagnosis: Essential (primary) hypertension[ICD10: I10] Diagnosis: Mixed hyperlipidemia[ICD10: E78.2] Diagnosis: Hypothyroidism, unspecified[ICD10: E03.9] Diagnosis: Primary generalized (osteo)arthritis[ICD10: M15.0] Rosi Tsai MD, [facility] CPT-4: 37151 09/08/2018 ([id number]) [id number] EST. PATIENT, LEVEL IV Diagnosis: Essential (primary) hypertension[ICD10: I10] Diagnosis: Hypothyroidism, unspecified[ICD10: E03.9] Diagnosis: Low back pain[ICD10: M54.5] Diagnosis: Encounter for immunization[ICD10: Z23] Diagnosis: Abnormal weight loss[ICD10: R63.4] Rosi Tsai MD, [facility] CPT- 4: 92985 01/06/2018 ([id number]) [id number] EST. PATIENT, LEVEL IV Diagnosis: Essential (primary) hypertension[ICD10: I10] Diagnosis: Pain in right shoulder[ICD10: M25.511] Diagnosis: Mixed hyperlipidemia[ICD10: E78.2] Diagnosis: Dysuria[ICD10: R30.0] Diagnosis: Cramp and spasm[ICD10: R25.2] Rosi Tsai MD, [facility] CPT-4: 43716 07/08/2017 [id number]) [id number] EST. PATIENT, LEVEL III Diagnosis: Essential (primary) hypertension[ICD10: I10] Diagnosis: Radiculopathy, lumbar region[ICD10: M54.16] Rosi Tsai MD, [facility] CPT-4: 08664 08/20/2016 [id number]) [id number] EST. PATIENT, LEVEL IV Diagnosis: Essential (primary) hypertension[ICD10: I10] Diagnosis: Lumbago with sciatica, left side[ICD10: M54.42] Diagnosis: Cramp and spasm[ICD10: R25.2] [facility] CPT-4: 09075 04/23/2016 ([id number]) 66342 EST. PATIENT, LEVEL III Diagnosis: Essential (primary) hypertension[ICD10: I10] Diagnosis: Radiculopathy, lumbar region[ICD10: M54.16] Diagnosis: Encounter for immunization[ICD10: Z23] Diagnosis: Impacted cerumen, left ear[ICD10: H61.22] [facility] CPT-4: 21076 01/30/2016 ([id number]) OFFICE VISIT, NEW - LEVEL 3 Diagnosis: Essential (primary) hypertension[ICD10: I10] Diagnosis: Mixed hyperlipidemia[ICD10: E78.2] Diagnosis: Cramp and spasm[ICD10: R25.2] [facility] CPT-4: 90718 01/02/2016 Plan of Care Planned Activity Notes [...] Completed 09/08/2018 Appointment: Rosi Vega WPtel: [phone] [phone] [place] (30 min) Complex 09/01/2018 [facility] [phone] [phone] ([facility]) Complex 07/28/2018 Appointment: Rosi Vega WPtel: [phone] [phone] (30 min) Complex 07/14/2018 Appointment: Rosi Vega WPtel: [phone] (30 min) Complex 07/07/2018 Visit Plan: Hypertension [...] ice cream 01/06/2018 Appointment: Rosi Vega WPtel: [phone] (15 min) Moderate 01/06/2018 Patient Education: Patient [...] cramps-check labs 07/08/2017 Appointment: Rosi Vega WPtel: [phone] (15 min) Moderate 07/08/2017 Patient Education: Patient Medication Summary Completed 07/08/2017 Appointment: Rosi Vega WPtel: [address] [place], [place] [phone] (15 min) Moderate 12/24/2016 Visit Plan: Hypertension [...] plan. 08/20/2016 Appointment: Rosi Vega WPtel: [phone] [phone] (30 min) Complex 08/20/2016 Patient Education: Patient Medication Summary Completed 08/20/2016 Appointment: Rosi Vega WPtel: [address] [place], [place] [phone] (30 min) Complex 04/30/2016 Visit Plan: Hypertension [...] process. 01/30/2016 Appointment: Rosi Vega WPtel: [phone] [phone] (30 min) Complex 01/30/2016 Patient Education: Patient [...] B12, magnesium 01/02/2016 Appointment: Ros[facility]ega WPtel[phone] New Patient 01/02/2016 Patient Education: Patient Medication [...]
--- OUTSIDE RECORDS SUMMARY | 2018-10-19 21:56 | XMS REPORT | CCD ---
Author Author Rosi Vega MD, [facility] Address [address] [place] [address] Phone Care Team Providers Care Production Team Manager Name Role Phone PP Unavailable CCM Unavailable Summary Purpose Interface Exchange Insurance Providers Payer name Policy type / Coverage type Covered republican ID Effective Begin Date Effective End Date WPS Medicare Part B Medicare Part B [id number] Unknown Unknown Family history Daughter Diagnosis Age [...] Unknown 5 01/02/[address]: 633661394 Never smoker 01/02/[address]: 566588357 Never drinks alcohol 01/02/2016 Allergies, Adverse Reactions, Alerts Substance Reaction Codes Entered Date Inactivated Date Status SULFA (SULFONAMIDE ANTIBIOTICS) Unknown 01/02/2016 No Inactive Date Active Past Medical History Illness Codes Condition Status Onset Date Resolved Date Abnormal weight loss ICD- 9: 783.21 ICD-10: R63.4 Active 01/06/2018 Unknown Encounter for immunization ICD-9: V04.81 ICD-10: Z23 Active 01/29/2016 Unknown Essential (primary) hypertension ICD-9: 401.9 ICD-10: I10 Active 04/22/2016 Unknown Hypothyroidism, unspecified ICD-9: 244.9 ICD-10: E03.9 Active 07/15/2017 Unknown Low back pain ICD-9: 724.2 ICD-10: M54.5 Active 01/06/2018 Unknown Radiculopathy, lumbar region ICD-9: 724.4 ICD-10: M54.16 Active 01/29/2016 Unknown Hypothryroidism Unknown Active 07/15/2017 Unknown Dysuria ICD-9: 788.1 ICD-10: R30.0 Active 07/08/2017 Unknown Cramp and spasm ICD-9: 729.82 ICD-10: R25.2 Active 04/22/2016 Unknown Mixed hyperlipidemia ICD- 9: 272.2 ICD-10: E78.2 Active 01/28/2016 Unknown Pain in right shoulder ICD-9: 719.41 ICD-10: M25.511 Active 07/08/2017 Unknown Hypertension Unknown Active 08/20/2016 Unknown Lumbago with sciatica, left side ICD-9: 724.3 ICD-10: M54.42 Active 04/22/2016 Unknown Impacted cerumen, left ear ICD-9: 389.8 ICD-10: H61.22 Active 01/29/2016 Unknown Problems Condition Codes Effective Dates Condition Status Abnormal weight loss ICD- 9: 783.21 ICD-10: R63.4 01/06/2018 Active Encounter for immunization ICD-9: V04.81 ICD-10: Z23 01/29/2016 Active Essential (primary) hypertension ICD-9: 401.9 ICD-10: I10 04/22/2016 Active Hypothyroidism, unspecified ICD-9: 244.9 ICD-10: E03.9 07/15/2017 Active Low back pain ICD-9: 724.2 ICD-10: M54.5 01/06/2018 Active Radiculopathy, lumbar region ICD-9: 724.4 ICD-10: M54.16 01/29/2016 Active Hypothryroidism Unknown 07/15/2017 Active Dysuria ICD-9: 788.1 ICD-10: R30.0 07/08/2017 Active Cramp and spasm ICD-9: 729.82 ICD-10: R25.2 04/22/2016 Active Mixed hyperlipidemia ICD- 9: 272.2 ICD-10: E78.2 01/28/2016 Active Pain in right shoulder ICD-9: 719.41 ICD-10: M25.511 07/08/2017 Active Hypertension Unknown 08/20/2016 Active Lumbago with sciatica, left side ICD-9: 724.3 ICD-10: M54.42 04/22/2016 Active Impacted cerumen, left ear ICD-9: 389.8 ICD-10: H61.22 01/29/2016 Active Medications Medication Codes Instructions Start Date Stop Date Status Fill Instructions Synthroid 25 mcg tablet RxNorm: 514497 TAKE 1 TABLET BY MOUTH ONCE DAILY 09/04/2018 No Stop Date Active tramadol 50 mg tablet RxNorm: 593882 1-2 Tablet(s) PO QID as needed 2018 09/13/2018 Active tramadol 50 mg tablet RxNorm: 953473 1-2 Tablet(s) PO QID as needed 06/12/2018 07/24/2018 Inactive hydrochlorothiazide 25 mg tablet RxNorm: 709774 TAKE ONE TABLET BY MOUTH ONCE DAILY 05/08/2018 No Stop Date Active tramadol 50 mg tablet RxNorm: 556648 1-2 Tablet(s) PO QID as needed 04/04/2018 08/14/2018 Inactive simvastatin 20 mg tablet RxNorm: 175099 TAKE 1 TABLET BY MOUTH ONCE DAILY 03/13/2018 No Stop Date Active Synthroid 25 mcg tablet RxNorm: 029520 1 Tablet(s) PO daily 03/07/2018 09/02/2018 Inactive lisinopril 40 mg tablet RxNorm: 238779 TAKE 1 TABLET BY MOUTH ONCE DAILY 02/20/2018 No Stop Date Active alendronate 70 mg tablet RxNorm: 076529 TAKE ONE TABLET BY MOUTH ONCE A WEEK 02/20/2018 No Stop Date Active alendronate 70 mg tablet RxNorm: 461832 TAKE ONE TABLET BY MOUTH ONCE A WEEK 02/20/2018 08/14/2018 Inactive gabapentin 100 mg capsule RxNorm: 011059 TAKE TWO CAPSULES BY MOUTH AT BEDTIME 01/30/2018 No Stop Date Active tramadol 50 mg tablet RxNorm: 891890 1-2 Tablet(s) PO QID as needed 01/16/2018 03/01/2018 Inactive tramadol 50 mg tablet RxNorm: 908417 1-2 Tablet(s) PO QID as needed 11/28/2017 06/11/2018 Inactive tramadol 50 mg tablet RxNorm: 225492 1-2 Tablet(s) PO QID as needed 10/11/2017 01/15/2018 Inactive simvastatin 20 mg tablet RxNorm: 106768 TAKE ONE TABLET BY MOUTH ONCE DAILY 09/12/2017 03/12/2018 Inactive lisinopril 40 mg tablet RxNorm: 015732 TAKE ONE TABLET BY MOUTH ONCE DAILY 2017 02/19/2018 Inactive Synthroid 25 mcg tablet RxNorm: 056256 1 Tablet(s) PO daily 08/10/2017 02/05/2018 Inactive Synthroid 25 mcg tablet RxNorm: 389521 1 Tablet(s) PO daily 08/09/2017 08/09/2017 Inactive okay for generic-hold until refill due tramadol 50 mg tablet RxNorm: 042665 1-2 Tablet(s) PO QID as needed 08/01/2017 09/13/2017 Inactive Keflex 500 mg capsule RxNorm: 531574 1 Capsule(s) PO TID 07/15/2017 07/21/2017 Inactive Synthroid 25 mcg tablet RxNorm: 233499 1 Tablet(s) PO daily 07/15/2017 07/14/2017 Inactive Synthroid 25 mcg tablet RxNorm: 228463 1 Tablet(s) PO daily 07/15/2017 07/18/2017 Inactive Voltaren 1 % topical gel RxNorm: 931930 4 Gram(s) TOP QID 07/08/2017 08/06/2017 Inactive tramadol 50 mg tablet RxNorm: 201417 1-2 Tablet(s) PO QID as needed 06/16/2017 11/27/2017 Inactive simvastatin 20 mg tablet RxNorm: 500901 TAKE ONE TABLET BY MOUTH ONCE DAILY 06/13/2017 09/11/2017 Inactive hydrochlorothiazide 25 mg tablet RxNorm: 533946 TAKE ONE TABLET BY MOUTH ONCE DAILY 05/16/2017 05/07/2018 Inactive tramadol 50 mg tablet RxNorm: 169569 1-2 Tablet(s) PO QID as needed 04/20/2017 07/31/2017 Inactive Keflex 500 mg capsule RxNorm: 393002 1 Capsule(s) PO TID 03/17/2017 03/16/2017 Inactive Keflex 500 mg capsule RxNorm: 836893 1 Capsule(s) PO TID 03/17/2017 03/23/2017 Inactive alendronate 70 mg tablet RxNorm: 937681 1 Tablet(s) PO QW 03/08/2017 02/19/2018 Inactive tramadol 50 mg tablet RxNorm: 297305 1-2 Tablet(s) PO QID as needed 02/02/2017 07/31/2017 Inactive gabapentin 100 mg capsule RxNorm: 426980 TAKE TWO CAPSULES BY MOUTH AT BEDTIME 01/31/2017 07/29/2017 Inactive tramadol 50 mg tablet RxNorm: 702930 1-2 Tablet(s) PO QID as needed 12/06/2016 07/31/2017 Inactive hydrochlorothiazide 25 mg tablet RxNorm: 430021 TAKE ONE TABLET BY MOUTH ONCE DAILY 11/16/2016 05/14/2017 Inactive lisinopril 40 mg tablet RxNorm: 870450 TAKE ONE TABLET BY MOUTH ONCE DAILY 09/30/2016 06/26/2017 Inactive alendronate 70 mg tablet RxNorm: 348628 1 Tablet(s) PO QW 09/24/2016 03/07/2017 Inactive simvastatin 20 mg tablet RxNorm: 869203 TAKE ONE TABLET BY MOUTH ONCE DAILY 09/20/2016 06/12/2017 Inactive tramadol 50 mg tablet RxNorm: 713961 1-2 Tablet(s) PO QID as needed 09/08/2016 10/20/2016 Inactive gabapentin 100 mg capsule RxNorm: 940815 1 Capsule(s) PO QHS 08/20/2016 08/14/2018 Inactive HOLD- WILL CALL WHEN NEEDED tramadol 50 mg tablet RxNorm: 054664 1-2 Tablet(s) PO QID as needed 08/20/2016 09/07/2016 Inactive tramadol 50 mg tablet RxNorm: 740488 1 Tablet(s) PO QID as needed 05/14/2016 08/05/2016 Inactive Kenalog 40 mg/mL suspension for injection RxNorm: 0036182 Milliliter(s) Inj 04/23/2016 04/23/2016 Inactive gabapentin 100 mg capsule RxNorm: 462023 2 Capsule(s) PO QHS 04/23/2016 08/19/2016 Inactive HOLD- WILL CALL WHEN NEEDED alendronate 70 mg tablet RxNorm: 227231 1 Tablet(s) PO QW 04/07/2016 09/23/2016 Inactive simvastatin 20 mg tablet RxNorm: 535675 1 Tablet(s) PO daily 03/29/2016 09/19/2016 Inactive tramadol 50 mg tablet RxNorm: 451066 1 Tablet(s) PO QID as needed 03/10/2016 07/31/2017 Inactive gabapentin 100 mg capsule RxNorm: 226073 1 Capsule(s) PO QHS 01/30/2016 04/22/2016 Inactive lisinopril 40 mg tablet RxNorm: 208774 1 Tablet(s) PO daily 01/30/2016 09/29/2016 Inactive hydrochlorothiazide 25 mg tablet RxNorm: 259056 1 Tablet(s) PO daily 01/30/2016 10/25/2016 Inactive alendronate 70 mg tablet RxNorm: 705267 1 Tablet(s) QW 01/02/2016 04/06/2016 Inactive simvastatin 20 mg tablet RxNorm: 593445 1 Tablet(s) PO daily 12/31/2015 12/30/2015 Inactive simvastatin 20 mg tablet RxNorm: 754263 1 Tablet(s) PO daily 12/31/2015 03/28/2016 Inactive Calcium + D oral RxNorm: 495961 oral No Start Date Active Tylenol 500 mg RxNorm: 2 PO QHS No Start Date Active hydrochlorothiazide 25 mg tablet RxNorm: 047538 1 Tablet(s) PO daily No Start Date 01/29/2016 Inactive tramadol 50 mg tablet RxNorm: 312829 1 Tablet(s) PO QID as needed No Start Date 03/09/2016 Inactive lisinopril 40 mg tablet RxNorm: 780231 1 Tablet(s) PO daily No Start Date 01/29/2016 Inactive Medication Administered Medication Codes Instructions Start Date Status Kenalog 40 mg/mL suspension for injection RxNorm: 1780530 Milliliter 04/23/2016 No longer Active Immunizations Vaccine Codes Date Status Influenza CVX: 141 01/06/2018 completed Influenza CVX: 141 01/30/2016 completed Pneumococcal (Adult) CVX: 133 01/30/2016 completed Assessments Condition Codes Effective Dates Encounter for immunization ICD-10: Z23 ICD-9: V04.81 01/06/2018 Abnormal weight loss ICD-10: R63.4 ICD-9: 783.21 01/06/2018 Essential (primary) hypertension ICD-10: I10 ICD-9: 401.9 01/06/2018 Low back pain ICD-10: M54.5 ICD-9: 724.2 01/06/2018 Hypothyroidism, unspecified ICD-10: E03.9 ICD-9: 244.9 01/06/2018 Dysuria ICD-10: R30.0 ICD-9: 788.1 07/15/2017 Cramp and spasm ICD-10: R25.2 ICD-9: 729.82 07/08/2017 Pain in right shoulder ICD-10: M25.511 ICD-9: 719.41 07/08/2017 Mixed hyperlipidemia ICD-10: E78.2 ICD-9: 272.2 07/08/2017 Radiculopathy, lumbar region ICD-10: M54.16 ICD-9: 724.4 08/20/2016 Lumbago with sciatica, left side ICD-10: M54.42 ICD-9: 724.3 04/23/2016 Impacted cerumen, left ear ICD-10: H61.22 ICD-9: 389.8 01/30/2016 Reason For Visit Reason For Visit Effective Dates Notes joint complaint 01/06/2018 urinary incontinence 07/08/2017 joint complaint 08/20/2016 joint complaint 04/23/2016 vaccination against influenza 01/30/2016 skin lesion 01/02/2016 to arms Results Observation Observation Code Item Item Code Result Date Free T4 Fzq100 FREE T4 0.95 ng/dL 01/13/2018 Comp Metabolic Ggo263 NA 132 mEq/L 01/13/2018 Comp Metabolic Pxu887 K 4.2 mEq/L 01/13/2018 Comp Metabolic Dit055 CL 97 mEq/L 01/13/2018 Comp Metabolic Urc942 CO2 29.0 mEq/L 01/13/2018 Comp Metabolic Urx737 ANION GAP 10 01/13/2018 Comp Metabolic Jfs689 GLUCOSE 88 mg/dL 01/13/2018 Comp Metabolic Suw031 Creat 0.9 mg/dL 01/13/2018 Comp Metabolic Ecm544 eGFR 62 ml/min/1.73m2 01/13/2018 Comp Metabolic Yey250 BUN 16 mg/dL 01/13/2018 Comp Metabolic Mqt786 B/C Ratio 17.6 Ratio 01/13/2018 Comp Metabolic Wcm064 CALCIUM 10.0 mg/dL 01/13/2018 Comp Metabolic Ucz674 ALK PHOS 65 U/L 01/13/2018 Comp Metabolic Wek054 AST(SGOT) 20 U/L 01/13/2018 Comp Metabolic Dta665 ALT(SGPT) 16 U/L 01/13/2018 Comp Metabolic Xny600 BILI T 0.3 mg/dL 01/13/2018 Comp Metabolic Vzt891 ALBUMIN 4.0 g/dL 01/13/2018 Comp Metabolic Odw794 TPRO 7.0 g/dL 01/13/2018 Comp Metabolic Fam162 GLOB 3.0 g/dL 01/13/2018 Comp Metabolic Wnn787 A/G Ratio 1.3 Ratio 01/13/2018 Comp Metabolic Kjz444 Osmo 265 mOsmo 01/13/2018 Tsh Ord6 TSH [...] 29.7 pg 01/13/2018 Cbc With Differential Ord2 [place]% 7.6 % 01/13/2018 Cbc With Differential Ord2 [...] 2.55 K/ul 01/13/2018 Cbc With Differential Ord2 [place] ABS# 0.6 K/ul 01/13/2018 Cbc With Differential [...] 29.4 pg 07/15/2017 Cbc With Differential Ord2 [place]% 8.8 % 07/15/2017 Cbc With Differential Ord2 [...] 2.44 K/ul 07/15/2017 Cbc With Differential Ord2 [place] ABS# 0.8 K/ul 07/15/2017 Cbc With Differential [...] from collection if refrigerated) 07/15/2017 Comp Metabolic Uwz528 NA 132 mEq/L 07/15/2017 Comp Metabolic Ojy468 K 3.8 mEq/L 07/15/2017 Comp Metabolic Sct997 CL 95 mEq/L 07/15/2017 Comp Metabolic Rue863 CO2 30.0 mEq/L 07/15/2017 Comp Metabolic Ehd877 ANION GAP 11 07/15/2017 Comp Metabolic Scv686 GLUCOSE 92 mg/dL 07/15/2017 Comp Metabolic Duv213 Creat 0.8 mg/dL 07/15/2017 Comp Metabolic Xse972 eGFR 75 ml/min/1.73m2 07/15/2017 Comp Metabolic Rpj443 BUN 11 mg/dL 07/15/2017 Comp Metabolic Pte913 B/C Ratio 14.1 Ratio 07/15/2017 Comp Metabolic Fwu235 CALCIUM 9.7 mg/dL 07/15/2017 Comp Metabolic Cyf533 ALK PHOS 72 U/L 07/15/2017 Comp Metabolic Uvb679 AST(SGOT) 14 U/L 07/15/2017 Comp Metabolic Std592 ALT(SGPT) 9 U/L 07/15/2017 Comp Metabolic Erj294 BILI T 0.5 mg/dL 07/15/2017 Comp Metabolic Orr191 ALBUMIN 4.1 g/dL 07/15/2017 Comp Metabolic Sgu467 TPRO 6.9 g/dL 07/15/2017 Comp Metabolic Qos703 GLOB 2.8 g/dL 07/15/2017 Comp Metabolic Nnm801 A/G Ratio 1.5 Ratio 07/15/2017 Comp Metabolic Now443 Osmo 264 mOsmo 07/15/2017 Tsh Ord6 TSH (3rd IS) 6.20 uIU/mL 07/15/2017 Free T4 Iud395 FREE T4 0.95 ng/dL 07/15/2017 Cbc With [...] 31.1 pg 01/30/2016 Cbc With Differential Ord2 [place]% 8.6 % 01/30/2016 Cbc With Differential Ord2 [...] 2.16 K/ul 01/30/2016 Cbc With Differential Ord2 [place] ABS# 0.7 K/ul 01/30/2016 Cbc With Differential Ord2 Eos ABS# 0.2 K/ul 01/30/2016 Cbc With Differential Ord2 Baso ABS# 0.0 K/ul 01/30/2016 Tsh Ord6 hTSH II 2.93 uIU/mL 01/30/2016 Comp Metabolic Lkc673 NA 134 mEq/L 01/30/2016 Comp Metabolic Xun517 K 4.0 mEq/L 01/30/2016 Comp Metabolic Sce934 CL 97 mEq/L 01/30/2016 Comp Metabolic Hir197 CO2 29.0 mEq/L 01/30/2016 Comp Metabolic Odv384 ANION GAP 12 01/30/2016 Comp Metabolic Jks400 GLUCOSE 98 mg/dL 01/30/2016 Comp Metabolic Kba370 Creat 0.9 mg/dL 01/30/2016 Comp Metabolic Dgj393 eGFR 67 ml/min/1.73m2 01/30/2016 Comp Metabolic Jzj341 BUN 16 mg/dL 01/30/2016 Comp Metabolic Lfk462 B/C Ratio 18.6 Ratio 01/30/2016 Comp Metabolic Vyi524 CALCIUM 10.3 mg/dL 01/30/2016 Comp Metabolic Wvm617 ALK PHOS 66 U/L 01/30/2016 Comp Metabolic Oxv335 AST(SGOT) 16 U/L 01/30/2016 Comp Metabolic Wuo265 ALT(SGPT) 10 U/L 01/30/2016 Comp Metabolic Cbv929 BILI T 0.4 mg/dL 01/30/2016 Comp Metabolic But506 ALBUMIN 4.2 g/dL 01/30/2016 Comp Metabolic Idc701 TPRO 7.1 g/dL 01/30/2016 Comp Metabolic Qpf205 GLOB 2.9 g/dL 01/30/2016 Comp Metabolic Cxi471 A/G Ratio 1.5 Ratio 01/30/2016 Comp Metabolic Xak573 Osmo 269 mOsmo 01/30/2016 Lipid Ord30 CHOL 176 mg/dL 01/30/2016 Lipid Ord30 HDL 53.0 mg/dl 01/30/2016 Lipid Ord30 TRIG 164 mg/dL 01/30/2016 Lipid Ord30 LDL 90 mg/dL 01/30/2016 Lipid Ord30 C/HDL 3.3 Ratio 01/30/2016 Review of Systems System Result Effective Dates Constitutional No recent illness 01/06/2018 Constitutional No [...] Formatting Model/CDA Sections, Assigned to/Karine Archuleta CPT-4: 08320Hjluwgm 01/06/2018 TRIAMCINOLONE ACET INJ NOS CPT-4: J3301 04/23/2016 ADMIN INFLUENZA VIRUS VAC CPT-4: G0008 01/30/2016 PNEUMOCOCCAL VACC [address]: 97726823 CPT-4: 84279 01/30/2016 FLU VACC 4 RODNEY 3 YRS PLUS IM Formatting Model/CDA Sections, Assigned to/Karine Archuleta SNOMED CT: 79525109 CPT-4: 20485Lnpehtj 01/30/2016 ADMIN PNEUMOCOCCAL VACCINE SNOMED CT: 37029454 CPT-4: G0009 01/30/2016 Vital Signs Date Vital 01/06/2018 Blood Pressure 1: 138/70 Code: 8480-6 BMI: 21.5 Code: 34557-4 Heart Rate 1: 75 bpm Height: 5'6" SpO2: 98% Weight: 133 lbs 07/08/2017 Blood Pressure 1: 148/82 Code: 8480-6 BMI: 21.6 Code: 82132-4 Heart Rate 1: 80 bpm Height: 5'6" SpO2: 98% Weight: 134 lbs 08/20/2016 Blood Pressure 1: 124/76 Code: 8480-6 BMI: 23.2 Code: 02257-9 Heart Rate 1: 72 bpm Height: 5'6" SpO2: 93% Weight: 144 lbs 04/23/2016 Blood Pressure 1: 130/82 Code: 8480-6 BMI: 23.4 Code: 37886-3 Heart Rate 1: 86 bpm Height: 5'6" SpO2: 98% Weight: 145 lbs 01/30/2016 Blood Pressure 1: 140/86 Code: 8480-6 BMI: 23.9 Code: 15493-1 Heart Rate 1: 55 bpm Height: 5'6" SpO2: 96% Weight: 148 lbs 01/02/2016 Blood Pressure 1: 146/86 Code: 8480-6 BMI: 24.2 Code: 13334-8 Heart Rate 1: 84 bpm Height: 5'6" SpO2: 97% Weight: 150 lbs Functional Status No Functional Status data History of Present Illness Symptom Name Status Result Effective Date Notes joint complaint Location diffusely 01/06/2018 left hip [...] data Encounters Encounter Performer Location Codes Date (85) 07102 EST. PATIENT, LEVEL IV Diagnosis: Essential (primary) hypertension[ICD10: I10] Diagnosis: Hypothyroidism, unspecified[ICD10: E03.9] Diagnosis: Low back pain[ICD10: M54.5] Diagnosis: Encounter for immunization[ICD10: Z23] Diagnosis: Abnormal weight loss[ICD10: R63.4] Rosi Tsai MD, [facility] CPT- 4: 17908 01/06/2018 ([id number]) 84921 EST. PATIENT, LEVEL IV Diagnosis: Essential (primary) hypertension[ICD10: I10] Diagnosis: Pain in right shoulder[ICD10: M25.511] Diagnosis: Mixed hyperlipidemia[ICD10: E78.2] Diagnosis: Dysuria[ICD10: R30.0] Diagnosis: Cramp and spasm[ICD10: R25.2] Rosi Tsai MD, [facility] CPT-4: 12277 07/08/2017 ([id number]) 72240 EST. PATIENT, LEVEL III Diagnosis: Essential (primary) hypertension[ICD10: I10] Diagnosis: Radiculopathy, lumbar region[ICD10: M54.16] Rosi Tsai MD, [facility] CPT-4: 36947 08/20/2016 ([id number]) 11010 EST. PATIENT, LEVEL IV Diagnosis: Essential (primary) hypertension[ICD10: I10] Diagnosis: Lumbago with sciatica, left side[ICD10: M54.42] Diagnosis: Cramp and spasm[ICD10: R25.2] Rosi Tsai MD, [facility] CPT-4: 59246 04/23/2016 ([id number]) 66226 EST. PATIENT, LEVEL III Diagnosis: Essential (primary) hypertension[ICD10: I10] Diagnosis: Radiculopathy, lumbar region[ICD10: M54.16] Diagnosis: Encounter for immunization[ICD10: Z23] Diagnosis: Impacted cerumen, left ear[ICD10: H61.22] Genny Tsai MD, [facility] CPT-4: 59836 01/30/2016 ([id number]) OFFICE VISIT, NEW - LEVEL 3 Diagnosis: Essential (primary) hypertension[ICD10: I10] Diagnosis: Mixed hyperlipidemia[ICD10: E78.2] Diagnosis: Cramp and spasm[ICD10: R25.2] Rosi Tsai MD, [facility] CPT-4: 38812 01/02/2016 Plan of Care Planned Activity Notes Codes Status Date Appointment: Rosi Vega WPtel: [phone] [phone] [place] (30 min) Complex 09/01/2018 Appointment: Rosi Vega WPtel: [phone] [phone] [place] (30 min) Complex 07/28/2018 Appointment: Rosi Vega WPtel: [phone] [phone] [place] (30 min) Complex 07/14/2018 Appointment: Rosi Vega WPtel: [phone] [phone] (30 min) Complex 07/07/2018 Visit Plan: Hypertension [...] ice cream 01/06/2018 Appointment: [phone] [phone] (15 min) Moderate 01/06/2018 Patient Education: Patient [...] cramps-check labs 07/08/2017 Appointment: Rosi Vega WPtel: [address] [place] [address] (15 min) Moderate 07/08/2017 Patient Education: Patient Medication Summary Completed 07/08/2017 Appointment: Rosi Vega WPtel: [address] [place] [address] (15 min) Moderate 12/24/2016 Visit Plan: Hypertension [...] of plan. 08/20/2016 Appointment: Rosi Vega WPtel: [address] [place] [address] (30 min) Complex 08/20/2016 Patient Education: Patient Medication Summary Completed 08/20/2016 Appointment: Rosi Vega WPtel: [address] [place], [place] [phone] [place] [address] (30 min) Complex 04/30/2016 Visit Plan: Hypertension [...] removal process. 01/30/2016 Appointment: Rosi Vega WPtel: [phone] (30 min) Complex 01/30/2016 Patient Education: Patient [...] B12, magnesium 01/02/2016 Appointment: Rosi Vega WPtel: [facility] [phone] New Patient 01/02/2016 Patient Education: Patient Medication [...] keeping patient stabilized during the removal process. . Hypertension - well controlled - continue [...]
--- OUTSIDE RECORDS SUMMARY | 2018-10-19 21:57 | XMS REPORT | CCD ---
Author Author Rosi Vega MD, 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 Role Phone PP Unavailable CCM Unavailable Summary Purpose Interface Exchange Insurance Providers Payer name Policy type / Coverage type Covered republican ID Effective Begin Date Effective End Date WPS Medicare Part B Medicare Part B [id number] Unknown Unknown Family history Daughter Diagnosis Age [...] Unknown 5 01/02/[address]: 495626507 Never smoker 01/02/[address]: 826121329 Never drinks alcohol 01/02/2016 Allergies, Adverse Reactions, Alerts Allergies, Adverse Reactions, Alerts data not found Past Medical History Illness Codes Condition Status Onset Date Resolved Date Hypertension Unknown Active 08/20/2016 Unknown Essential (primary) hypertension ICD-9: 401.9 ICD-10: I10 Active 04/22/2016 Unknown Radiculopathy, lumbar region ICD-9: 724.4 ICD-10: M54.16 Active 01/29/2016 Unknown Cramp and spasm ICD-9: 729.82 ICD-10: R25.2 Active 04/22/2016 Unknown Lumbago with sciatica, left side ICD-9: 724.3 ICD-10: M54.42 Active 04/22/2016 Unknown Encounter for immunization ICD-9: V04.81 ICD-10: Z23 Active 01/29/2016 Unknown Impacted cerumen, left ear ICD-9: 389.8 ICD-10: H61.22 Active 01/29/2016 Unknown Mixed hyperlipidemia ICD- 9: 272.2 ICD-10: E78.2 Active 01/28/2016 Unknown Problems Condition Codes Effective Dates Condition Status Hypertension Unknown 08/20/2016 Active Essential (primary) hypertension ICD-9: 401.9 ICD-10: I10 04/22/2016 Active Radiculopathy, lumbar region ICD-9: 724.4 ICD-10: M54.16 01/29/2016 Active Cramp and spasm ICD-9: 729.82 ICD-10: R25.2 04/22/2016 Active Lumbago with sciatica, left side ICD-9: 724.3 ICD-10: M54.42 04/22/2016 Active Encounter for immunization ICD-9: V04.81 ICD-10: Z23 01/29/2016 Active Impacted cerumen, left ear ICD-9: 389.8 ICD-10: H61.22 01/29/2016 Active Mixed hyperlipidemia ICD- 9: 272.2 ICD-10: E78.2 01/28/2016 Active Medications Medication Codes Instructions Start Date Stop Date Status Fill Instructions hydrochlorothiazide 25 mg tablet RxNorm: 133169 TAKE ONE TABLET BY MOUTH ONCE DAILY 11/16/2016 05/14/2017 Active lisinopril 40 mg tablet RxNorm: 761143 TAKE ONE TABLET BY MOUTH ONCE DAILY 09/30/2016 06/26/2017 Active alendronate 70 mg tablet RxNorm: 688757 1 Tablet(s) PO QW 09/24/2016 03/22/2017 Active simvastatin 20 mg tablet RxNorm: 464592 TAKE ONE TABLET BY MOUTH ONCE DAILY 09/20/2016 06/16/2017 Active tramadol 50 mg tablet RxNorm: 040215 1-2 Tablet(s) PO QID as needed 09/08/2016 10/22/2016 Inactive gabapentin 100 mg capsule RxNorm: 997573 1 Capsule(s) PO QHS 08/20/2016 12/17/2016 Active HOLD- WILL CALL WHEN NEEDED tramadol 50 mg tablet RxNorm: 233428 1-2 Tablet(s) PO QID as needed 08/20/2016 09/07/2016 Inactive tramadol 50 mg tablet RxNorm: 584611 1 Tablet(s) PO QID as needed 05/14/2016 08/05/2016 Inactive Kenalog 40 mg/mL suspension for injection RxNorm: 7390079 Milliliter(s) Inj 04/23/2016 04/23/2016 Inactive gabapentin 100 mg capsule RxNorm: 488570 2 Capsule(s) PO QHS 04/23/2016 08/19/2016 Inactive HOLD- WILL CALL WHEN NEEDED alendronate 70 mg tablet RxNorm: 287315 1 Tablet(s) PO QW 04/07/2016 09/23/2016 Inactive simvastatin 20 mg tablet RxNorm: 398770 1 Tablet(s) PO daily 03/29/2016 09/19/2016 Inactive tramadol 50 mg tablet RxNorm: 638381 1 Tablet(s) PO QID as needed 03/10/2016 05/03/2016 Inactive gabapentin 100 mg capsule RxNorm: 077754 1 Capsule(s) PO QHS 01/30/2016 04/22/2016 Inactive lisinopril 40 mg tablet RxNorm: 990494 1 Tablet(s) PO daily 01/30/2016 09/29/2016 Inactive hydrochlorothiazide 25 mg tablet RxNorm: 497285 1 Tablet(s) PO daily 01/30/2016 10/25/2016 Inactive alendronate 70 mg tablet RxNorm: 872722 1 Tablet(s) QW 01/02/2016 04/06/2016 Inactive simvastatin 20 mg tablet RxNorm: 191179 1 Tablet(s) PO daily 12/31/2015 12/30/2015 Inactive simvastatin 20 mg tablet RxNorm: 283197 1 Tablet(s) PO daily 12/31/2015 03/28/2016 Inactive Calcium + D oral RxNorm: 709526 oral No Start Date Active Tylenol 500 mg RxNorm: 2 PO QHS No Start Date Active hydrochlorothiazide 25 mg tablet RxNorm: 093345 1 Tablet(s) PO daily No Start Date 01/29/2016 Inactive tramadol 50 mg tablet RxNorm: 109669 1 Tablet(s) PO QID as needed No Start Date 03/09/2016 Inactive lisinopril 40 mg tablet RxNorm: 195487 1 Tablet(s) PO daily No Start Date 01/29/2016 Inactive Medication Administered Medication Codes Instructions Start Date Status Kenalog 40 mg/mL suspension for injection RxNorm: 3472290 Milliliter 04/23/2016 No longer Active Immunizations Vaccine Codes Date Status Influenza CVX: 141 01/30/2016 completed Pneumococcal (Adult) CVX: 133 01/30/2016 completed Assessments Condition Codes Effective Dates Essential (primary) hypertension ICD-10: I10 ICD-9: 401.9 08/20/2016 Radiculopathy, lumbar region ICD-10: M54.16 ICD-9: 724.4 08/20/2016 Cramp and spasm ICD-10: R25.2 ICD-9: 729.82 04/23/2016 Lumbago with sciatica, left side ICD-10: M54.42 ICD-9: 724.3 04/23/2016 Encounter for immunization ICD-10: Z23 ICD-9: V04.81 01/30/2016 Impacted cerumen, left ear ICD-10: H61.22 ICD-9: 389.8 01/30/2016 Mixed hyperlipidemia ICD-10: E78.2 ICD-9: 272.2 01/29/2016 Reason For Visit Reason For Visit Effective Dates Notes joint complaint 08/20/2016 joint complaint 04/23/2016 vaccination against influenza 01/30/2016 skin lesion 01/02/2016 to arms Results Observation Observation Code Item Item Code Result Date Tsh Ord6 hTSH II 2.93 uIU/mL 01/30/2016 Lipid Ord30 CHOL 176 mg/dL 01/30/2016 Lipid Ord30 HDL 53.0 mg/dl 01/30/2016 Lipid Ord30 TRIG 164 mg/dL 01/30/2016 Lipid Ord30 LDL 90 mg/dL 01/30/2016 Lipid Ord30 C/HDL 3.3 Ratio 01/30/2016 Comp Metabolic Hsw703 NA 134 mEq/L 01/30/2016 Comp Metabolic Hac266 K 4.0 mEq/L 01/30/2016 Comp Metabolic Ywz939 CL 97 mEq/L 01/30/2016 Comp Metabolic Erd227 CO2 29.0 mEq/L 01/30/2016 Comp Metabolic Adc303 ANION GAP 12 01/30/2016 Comp Metabolic Kdv541 GLUCOSE 98 mg/dL 01/30/2016 Comp Metabolic Wti198 Creat 0.9 mg/dL 01/30/2016 Comp Metabolic Niw184 eGFR 67 ml/min/1.73m2 01/30/2016 Comp Metabolic Xtr240 BUN 16 mg/dL 01/30/2016 Comp Metabolic Wyi919 B/C Ratio 18.6 Ratio 01/30/2016 Comp Metabolic Zqu415 CALCIUM 10.3 mg/dL 01/30/2016 Comp Metabolic Llm134 ALK PHOS 66 U/L 01/30/2016 Comp Metabolic Hgj323 AST(SGOT) 16 U/L 01/30/2016 Comp Metabolic Cwr409 ALT(SGPT) 10 U/L 01/30/2016 Comp Metabolic Jxe511 BILI T 0.4 mg/dL 01/30/2016 Comp Metabolic Xww266 ALBUMIN 4.2 g/dL 01/30/2016 Comp Metabolic Ugx535 TPRO 7.1 g/dL 01/30/2016 Comp Metabolic Mrr896 GLOB 2.9 g/dL 01/30/2016 Comp Metabolic Akh315 A/G Ratio 1.5 Ratio 01/30/2016 Comp Metabolic Cjc280 Osmo 269 mOsmo 01/30/2016 Cbc With Differential Ord2 WBC 7.90 K/ul 01/30/2016 Cbc With Differential Ord2 RBC 3.83 M/ul 01/30/2016 Cbc With Differential Ord2 HGB 11.9 g/dl 01/30/2016 Cbc With Differential Ord2 HCT 34.9 % 01/30/2016 Cbc With Differential Ord2 Neut% 61.5 % 01/30/2016 Cbc With Differential Ord2 Lymph% 27.3 % 01/30/2016 Cbc With Differential Ord2 MCV 91.1 fl 01/30/2016 Cbc With Differential Ord2 Smith% 8.6 % 01/30/2016 Cbc With Differential Ord2 MCH 31.1 pg 01/30/2016 Cbc With Differential Ord2 MCHC 34.1 pg 01/30/2016 Cbc With Differential Ord2 Eos% 2.2 % 01/30/2016 Cbc With Differential Ord2 PLT 250 K/ul 01/30/2016 Cbc With Differential Ord2 Baso% 0.4 % 01/30/2016 Cbc With Differential Ord2 RDW 13.0 % 01/30/2016 Cbc With Differential Ord2 Neut ABS# 4.86 K/ul 01/30/2016 Cbc With Differential Ord2 Lymph ABS# 2.16 K/ul 01/30/2016 Cbc With Differential Ord2 Smith ABS# 0.7 K/ul 01/30/2016 Cbc With Differential Ord2 Eos ABS# 0.2 K/ul 01/30/2016 Cbc With Differential Ord2 Baso ABS# 0.0 K/ul 01/30/2016 Review of Systems System Result Effective Dates Constitutional No recent illness 08/20/2016 Constitutional No [...] accomodation 01/02/2016 None Procedures Procedure Codes Date TRIAMCINOLONE ACET INJ NOS CPT-4: T7020Gkhhpds 04/23/2016 ADMIN INFLUENZA VIRUS VAC CPT-4: C3791Sfwjtfn 01/30/2016 PNEUMOCOCCAL VACC [address]: 82597898 CPT-4: 46740Nukrfnm 01/30/2016 FLU VACC 4 RODNEY 3 YRS PLUS IM Formatting Model/CDA Sections, Assigned to/Karine Archuleta SNOMED CT: 82210800 CPT-4: 26470Kdgdynb 01/30/2016 ADMIN PNEUMOCOCCAL VACCINE SNOMED CT: 17843374 CPT-4: M8425Sovdwin 01/30/2016 Vital Signs Date Vital 08/20/2016 Blood Pressure 1: 124/76 Code: 8480-6 BMI: 23.2 Code: 87028-1 Heart Rate 1: 72 bpm Height: 5'6" SpO2: 93% Weight: 144 lbs 04/23/2016 Blood Pressure 1: 130/82 Code: 8480-6 BMI: 23.4 Code: 88543-8 Heart Rate 1: 86 bpm Height: 5'6" SpO2: 98% Weight: 145 lbs 01/30/2016 Blood Pressure 1: 140/86 Code: 8480-6 BMI: 23.9 Code: 93255-8 Heart Rate 1: 55 bpm Height: 5'6" SpO2: 96% Weight: 148 lbs 01/02/2016 Blood Pressure 1: 146/86 Code: 8480-6 BMI: 24.2 Code: 89542-2 Heart Rate 1: 84 bpm Height: 5'6" SpO2: 97% Weight: 150 lbs Functional Status No Functional Status data History of Present Illness Symptom Name Status Result Effective Date Notes joint complaint Location diffusely 08/20/2016 left hip [...] data Encounters Encounter Performer Location Codes Date ([id number]) 76077 EST. PATIENT, LEVEL III Diagnosis: Essential (primary) hypertension[ICD10: I10] Diagnosis: Radiculopathy, lumbar region[ICD10: M54.16] Rosi Tsai MD, [facility] CPT-4: 94270 08/20/2016 ([id number]) 17029 EST. PATIENT, LEVEL IV Diagnosis: Essential (primary) hypertension[ICD10: I10] Diagnosis: Lumbago with sciatica, left side[ICD10: M54.42] Diagnosis: Cramp and spasm[ICD10: R25.2] Rosi Tsai MD, [facility] CPT-4: 42264 04/23/2016 ([id number]) 62819 EST. PATIENT, LEVEL III Diagnosis: Essential (primary) hypertension[ICD10: I10] Diagnosis: Radiculopathy, lumbar region[ICD10: M54.16] Diagnosis: Encounter for immunization[ICD10: Z23] Diagnosis: Impacted cerumen, left ear[ICD10: H61.22] [facility] CPT-4: 57968 01/30/2016 ([id number]) OFFICE VISIT, NEW - LEVEL 3 Diagnosis: Essential (primary) hypertension[ICD10: I10] Diagnosis: Mixed hyperlipidemia[ICD10: E78.2] Diagnosis: Cramp and spasm[ICD10: R25.2] [facility] CPT-4: 39088 01/02/2016 Plan of Care Planned Activity Notes Codes Status Date Visit Plan: Hypertension - well controlled - continue with current medications, continue with no added salt diet. Pt has been encouraged to exercise daily.The pt has been advised to call the office if there are any acute concerns about change in blood pressure readings at home.Chronic back pain -continue tramadol- okay to take 2 tabs if needed especially at bedtime-patient verbalized understanding of plan. 08/20/2016 Appointment: Rosi Vega WPtel: [address] [place], [place] [phone] (30 min) Complex 08/20/2016 Patient Education: Patient Medication Summary Completed 08/20/2016 Appointment: Rosi Vega WPtel: [phone] [facility] [phone] (30 min) Complex 04/30/2016 Visit Plan: Hypertension - well controlled - continue with current medications, continue with no added salt diet. Pt has been encouraged to exercise daily.The pt has been advised to call the office if there are any acute concerns about change in blood pressure readings at home.Lumbar radiculopathy with sciatica- kenalog injection today in the office-increase gabapentin to 200mg at HS 04/23/2016 Patient Education: Patient Medication Summary Completed 04/23/2016 Visit Plan: Hypertension - well controlled - continue with current medications, continue with no added salt diet. Pt has been encouraged to exercise daily.The pt has been advised to call the office if there are any acute concerns about change in blood pressure readings at home.Lumbar radiculopathy-start gabapentin 100mg po q HS Cerumen Impaction - The impacted cerumen was removed with the use of the ear currette. The patient tolerated the procedure without incident and had improvement in hearing.The wax was removed by the practitioner due to the wax being more complicated to remove, and staff was needed to assist the removal of the wax by holding the ear, and keeping patient stabilized during the removal process. 01/30/2016 Appointment: Rosi Vega WPtel: [phone] [facility] [phone] (30 min) Complex 01/30/2016 Patient Education: Patient Medication Summary Completed 01/30/2016 Patient Education: Hypertension Completed 01/30/2016 Patient Education: Patient Medication Summary Completed 01/29/2016 Visit Plan: Hypertension - well controlled - continue with current medications, continue with no added salt diet. Pt has been encouraged to exercise daily.The pt has been advised to call the office if there are any acute concerns about change in blood pressure readings at home.Hyperlipidemia - pt has been counseled about appropriate [...] and to assure normal liver response to medications.Leg cramps-review recent labs from Dr Reese-cbc, cmp, iron, vitamin B12, magnesium 01/02/2016 Appointment: [facility] [address] [phone] New Patient 01/02/2016 Patient Education: Patient Medication [...] especially at bedtime-patient verbalized understanding of plan. . Hypertension - well controlled - continue [...] Dr Reese-cbc, cmp, iron, vitamin B12, magnesium INCREASE GABAPENTIN TO 2 CAPSULES AT BEDTIME [...]
--- OUTSIDE RECORDS SUMMARY | 2018-10-19 21:57 | XMS REPORT | CCD ---
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 Role Phone PP Unavailable CCM Unavailable Summary Purpose Interface Exchange Insurance Providers Payer name Policy type / Coverage type Covered republican ID Effective Begin Date Effective End Date WPS Medicare Part B Medicare Part B [id number] Unknown Unknown Family history Daughter Diagnosis Age [...] Unknown 3 01/02/[address]: 690682490 Never smoker 01/02/[address]: 076441607 Never drinks alcohol 01/02/2016 Allergies, Adverse Reactions, [...] Start Date Stop Date Status Fill Instructions lisinopril 40 mg tablet RxNorm: 491562 TAKE ONE TABLET BY MOUTH ONCE DAILY 09/30/2016 06/26/2017 Active alendronate 70 mg tablet RxNorm: 163149 1 Tablet(s) PO QW 09/24/2016 03/22/2017 Active simvastatin 20 mg tablet RxNorm: 562410 TAKE ONE TABLET BY MOUTH ONCE DAILY 09/20/2016 06/16/2017 Active tramadol 50 mg tablet RxNorm: 717234 1-2 Tablet(s) PO QID as needed 09/08/2016 10/22/2016 Active gabapentin 100 mg capsule RxNorm: 414233 1 Capsule(s) PO QHS 08/20/2016 12/17/2016 Active HOLD- WILL CALL WHEN NEEDED tramadol 50 mg tablet RxNorm: 549604 1-2 Tablet(s) PO QID as needed 08/20/2016 09/07/2016 Inactive tramadol 50 mg tablet RxNorm: 849716 1 Tablet(s) PO QID as needed 05/14/2016 08/05/2016 Inactive Kenalog 40 mg/mL suspension for injection RxNorm: 9721855 Milliliter(s) Inj 04/23/2016 04/23/2016 Inactive gabapentin 100 mg capsule RxNorm: 730635 2 Capsule(s) PO QHS 04/23/2016 08/19/2016 Inactive HOLD- WILL CALL WHEN NEEDED alendronate 70 mg tablet RxNorm: 552596 1 Tablet(s) PO QW 04/07/2016 09/23/2016 Inactive simvastatin 20 mg tablet RxNorm: 186405 1 Tablet(s) PO daily 03/29/2016 09/19/2016 Inactive tramadol 50 mg tablet RxNorm: 902793 1 Tablet(s) PO QID as needed 03/10/2016 05/03/2016 Inactive hydrochlorothiazide 25 mg tablet RxNorm: 685243 1 Tablet(s) PO daily 01/30/2016 10/25/2016 Active gabapentin 100 mg capsule RxNorm: 457520 1 Capsule(s) PO QHS 01/30/2016 04/22/2016 Inactive lisinopril 40 mg tablet RxNorm: 631745 1 Tablet(s) PO daily 01/30/2016 09/29/2016 Inactive alendronate 70 mg tablet RxNorm: 070159 1 Tablet(s) QW 01/02/2016 04/06/2016 Inactive simvastatin 20 mg tablet RxNorm: 344067 1 Tablet(s) PO daily 12/31/2015 12/30/2015 Inactive simvastatin 20 mg tablet RxNorm: 587601 1 Tablet(s) PO daily 12/31/2015 03/28/2016 Inactive Calcium + D oral RxNorm: 504435 oral No Start Date Active Tylenol 500 mg RxNorm: 2 PO QHS No Start Date Active hydrochlorothiazide 25 mg tablet RxNorm: 155405 1 Tablet(s) PO daily No Start Date 01/29/2016 Inactive tramadol 50 mg tablet RxNorm: 150281 1 Tablet(s) PO QID as needed No Start Date 03/09/2016 Inactive lisinopril 40 mg tablet RxNorm: 859392 1 Tablet(s) PO daily No Start Date 01/29/2016 Inactive Medication Administered Medication Codes Instructions Start Date Status Kenalog 40 mg/mL suspension for injection RxNorm: 4069736 Milliliter 04/23/2016 No longer Active Immunizations Vaccine Codes Date Status Influenza CVX: 141 01/30/2016 completed Pneumococcal (Adult) CVX: 133 01/30/2016 completed Assessments Condition Codes Effective Dates Radiculopathy, lumbar region ICD-10: M54.16 ICD-9: 724.4 08/20/2016 Essential (primary) hypertension ICD-10: I10 ICD-9: 401.9 08/20/2016 Cramp and spasm ICD-10: R25.2 ICD-9: [...] Observation Code Item Item Code Result Date Cbc With Differential Ord2 WBC 7.90 K/ul 01/30/2016 Cbc With Differential Ord2 RBC 3.83 M/ul 01/30/2016 Cbc With Differential Ord2 HGB 11.9 g/dl 01/30/2016 Cbc With Differential Ord2 HCT 34.9 % 01/30/2016 Cbc With Differential Ord2 Neut% 61.5 % 01/30/2016 Cbc With Differential Ord2 Lymph% 27.3 % 01/30/2016 Cbc With Differential Ord2 MCV 91.1 fl 01/30/2016 Cbc With Differential Ord2 Gregg% 8.6 % 01/30/2016 Cbc With Differential Ord2 [...] 2.16 K/ul 01/30/2016 Cbc With Differential Ord2 Gregg ABS# 0.7 K/ul 01/30/2016 Cbc With Differential Ord2 Eos ABS# 0.2 K/ul 01/30/2016 Cbc With Differential Ord2 Baso ABS# 0.0 K/ul 01/30/2016 Tsh Ord6 hTSH II 2.93 uIU/mL 01/30/2016 Comp Metabolic Zsh143 NA 134 mEq/L 01/30/2016 Comp Metabolic Ibo797 K 4.0 mEq/L 01/30/2016 Comp Metabolic Uyj534 CL 97 mEq/L 01/30/2016 Comp Metabolic Cwy689 CO2 29.0 mEq/L 01/30/2016 Comp Metabolic Yhl003 ANION GAP 12 01/30/2016 Comp Metabolic Bzf469 GLUCOSE 98 mg/dL 01/30/2016 Comp Metabolic Phw136 Creat 0.9 mg/dL 01/30/2016 Comp Metabolic Dzd796 eGFR 67 ml/min/1.73m2 01/30/2016 Comp Metabolic Fpf307 BUN 16 mg/dL 01/30/2016 Comp Metabolic Det969 B/C Ratio 18.6 Ratio 01/30/2016 Comp Metabolic Yzr298 CALCIUM 10.3 mg/dL 01/30/2016 Comp Metabolic Kly825 ALK PHOS 66 U/L 01/30/2016 Comp Metabolic Yxo728 AST(SGOT) 16 U/L 01/30/2016 Comp Metabolic Pdu516 ALT(SGPT) 10 U/L 01/30/2016 Comp Metabolic Fhm000 BILI T 0.4 mg/dL 01/30/2016 Comp Metabolic Xno127 ALBUMIN 4.2 g/dL 01/30/2016 Comp Metabolic Mky387 TPRO 7.1 g/dL 01/30/2016 Comp Metabolic Vzy913 GLOB 2.9 g/dL 01/30/2016 Comp Metabolic Nfe538 A/G Ratio 1.5 Ratio 01/30/2016 Comp Metabolic Ejv541 Osmo 269 mOsmo 01/30/2016 Lipid Ord30 CHOL [...] Codes Date TRIAMCINOLONE ACET INJ NOS CPT-4: N0870Ucruxmk 04/23/2016 ADMIN INFLUENZA VIRUS VAC CPT-4: P6096Ldekejo 01/30/2016 PNEUMOCOCCAL VACC [address]: 06660509 CPT-4: 49403Ntworto 01/30/2016 FLU VACC 4 RODNEY 3 YRS PLUS IM Formatting Model/CDA Sections, Assigned to/Karine Archuleta SNOMED CT: 11775697 CPT-4: 41110Zwmucab 01/30/2016 ADMIN PNEUMOCOCCAL VACCINE SNOMED CT: 28850867 CPT-4: M7733Tfzemuz 01/30/2016 Vital Signs Date Vital 08/20/2016 Blood Pressure 1: 124/76 Code: 8480-6 BMI: 23.2 Code: 20678-8 Heart Rate 1: 72 bpm Height: 5'6" SpO2: 93% Weight: 144 lbs 04/23/2016 Blood Pressure 1: 130/82 Code: 8480-6 BMI: 23.4 Code: 22484-5 Heart Rate 1: 86 bpm Height: 5'6" SpO2: 98% Weight: 145 lbs 01/30/2016 Blood Pressure 1: 140/86 Code: 8480-6 BMI: 23.9 Code: 75089-3 Heart Rate 1: 55 bpm Height: 5'6" SpO2: 96% Weight: 148 lbs 01/02/2016 Blood Pressure 1: 146/86 Code: 8480-6 BMI: 24.2 Code: 19882-3 Heart Rate 1: 84 bpm Height: 5'6" [...] Directive data Encounters Encounter Performer Location Codes ([id number]) 52258 EST. PATIENT, LEVEL III Diagnosis: Essential (primary) hypertension[ICD10: I10] Diagnosis: Radiculopathy, lumbar region[ICD10: M54.16] Rosi Tsai MD, [facility] CPT-4: 03805 08/20/2016 ([id number]) 12925 EST. PATIENT, LEVEL IV Diagnosis: Essential (primary) hypertension[ICD10: I10] Diagnosis: Lumbago with sciatica, left side[ICD10: M54.42] Diagnosis: Cramp and spasm[ICD10: R25.2] Rosi Tsai MD, [facility] CPT-4: 34384 04/23/2016 ([id number]) 31516 EST. PATIENT, LEVEL III Diagnosis: Essential (primary) hypertension[ICD10: I10] Diagnosis: Radiculopathy, lumbar region[ICD10: M54.16] Diagnosis: Encounter for immunization[ICD10: Z23] Diagnosis: Impacted cerumen, left ear[ICD10: H61.22] Genny Tsai MD, [facility] CPT-4: 74984 01/30/2016 ([id number]) OFFICE VISIT, NEW - LEVEL 3 Diagnosis: Essential (primary) hypertension[ICD10: I10] Diagnosis: Mixed hyperlipidemia[ICD10: E78.2] Diagnosis: Cramp and spasm[ICD10: R25.2] Rosi Tsai MD, [facility] CPT-4: 17434 01/02/2016 Plan of Care Planned Activity Notes [...] of plan. 08/20/2016 Appointment: Rosi Vega WPtel: [address] [place] [address] (30 min) Complex 08/20/2016 Patient Education: Patient Medication Summary Completed 08/20/2016 Appointment: Rosi Vega WPtel: [address] [place], [place] [phone] [place] (30 min) Complex 04/30/2016 Visit Plan: Hypertension [...] removal process. 01/30/2016 Appointment: [phone] (30 min) Complex 01/30/2016 Patient Education: Patient [...] B12, magnesium 01/02/2016 Appointment: Rosi Vega WPtel: [address] [place], [place] [phone] New Patient 01/02/2016 Patient Education: Patient Medication [...]
--- OUTSIDE RECORDS SUMMARY | 2018-10-19 21:58 | XMS REPORT | CCD ---
Author Author Rosi Vega MD, [facility] Address [address] [place] [address] Phone Care Team Providers Care Public Relations Counselor Name Role Phone PP Unavailable CCM Unavailable Summary Purpose Interface Exchange Insurance Providers Payer name Policy type / Coverage type Covered green party ID Effective Begin Date Effective End Date WPS Medicare Part B Medicare Part B [id number] Unknown Unknown Family history Daughter Diagnosis Age [...] Unknown 5 01/02/[address]: 733289284 Never smoker 01/02/[address]: 076349876 Never drinks alcohol 01/02/2016 Allergies, Adverse Reactions, [...] Fill Instructions tramadol 50 mg tablet RxNorm: 172151 1-2 Tablet(s) PO QID as needed 2018 09/13/2018 Active tramadol 50 mg tablet RxNorm: 995623 1-2 Tablet(s) PO QID as needed 06/12/2018 07/25/2018 Inactive hydrochlorothiazide 25 mg tablet RxNorm: 105436 TAKE ONE TABLET BY MOUTH ONCE DAILY 05/08/2018 No Stop Date Active tramadol 50 mg tablet RxNorm: 803301 1-2 Tablet(s) PO QID as needed 04/04/2018 05/17/2018 Inactive simvastatin 20 mg tablet RxNorm: 394401 TAKE 1 TABLET BY MOUTH ONCE DAILY 03/13/2018 No Stop Date Active Synthroid 25 mcg tablet RxNorm: 921867 1 Tablet(s) PO daily 03/07/2018 09/02/2018 Active alendronate 70 mg tablet RxNorm: 647900 TAKE ONE TABLET BY MOUTH ONCE A WEEK 02/20/2018 No Stop Date Active lisinopril 40 mg tablet RxNorm: 325822 TAKE 1 TABLET BY MOUTH ONCE DAILY 02/20/2018 No Stop Date Active alendronate 70 mg tablet RxNorm: 568101 TAKE ONE TABLET BY MOUTH ONCE A WEEK 02/20/2018 No Stop Date Active gabapentin 100 mg capsule RxNorm: 880722 TAKE TWO CAPSULES BY MOUTH AT BEDTIME 01/30/2018 No Stop Date Active tramadol 50 mg tablet RxNorm: 121142 1-2 Tablet(s) PO QID as needed 01/16/2018 03/01/2018 Inactive tramadol 50 mg tablet RxNorm: 339169 1-2 Tablet(s) PO QID as needed 11/28/2017 06/11/2018 Inactive tramadol 50 mg tablet RxNorm: 822224 1-2 Tablet(s) PO QID as needed 10/11/2017 01/15/2018 Inactive simvastatin 20 mg tablet RxNorm: 360135 TAKE ONE TABLET BY MOUTH ONCE DAILY 09/12/2017 03/12/2018 Inactive lisinopril 40 mg tablet RxNorm: 226661 TAKE ONE TABLET BY MOUTH ONCE DAILY 2017 02/19/2018 Inactive Synthroid 25 mcg tablet RxNorm: 606359 1 Tablet(s) PO daily 08/10/2017 02/05/2018 Inactive Synthroid 25 mcg tablet RxNorm: 121230 1 Tablet(s) PO daily 08/09/2017 08/09/2017 Inactive okay for generic-hold until refill due tramadol 50 mg tablet RxNorm: 865210 1-2 Tablet(s) PO QID as needed 08/01/2017 09/13/2017 Inactive Keflex 500 mg capsule RxNorm: 380036 1 Capsule(s) PO TID 07/15/2017 07/21/2017 Inactive Synthroid 25 mcg tablet RxNorm: 977816 1 Tablet(s) PO daily 07/15/2017 07/14/2017 Inactive Synthroid 25 mcg tablet RxNorm: 797132 1 Tablet(s) PO daily 07/15/2017 07/18/2017 Inactive Voltaren 1 % topical gel RxNorm: 907603 4 Gram(s) TOP QID 07/08/2017 08/06/2017 Inactive tramadol 50 mg tablet RxNorm: 715818 1-2 Tablet(s) PO QID as needed 06/16/2017 11/27/2017 Inactive simvastatin 20 mg tablet RxNorm: 115370 TAKE ONE TABLET BY MOUTH ONCE DAILY 06/13/2017 09/11/2017 Inactive hydrochlorothiazide 25 mg tablet RxNorm: 669249 TAKE ONE TABLET BY MOUTH ONCE DAILY 05/16/2017 05/07/2018 Inactive tramadol 50 mg tablet RxNorm: 500481 1-2 Tablet(s) PO QID as needed 04/20/2017 07/31/2017 Inactive Keflex 500 mg capsule RxNorm: 662497 1 Capsule(s) PO TID 03/17/2017 03/16/2017 Inactive Keflex 500 mg capsule RxNorm: 121724 1 Capsule(s) PO TID 03/17/2017 03/23/2017 Inactive alendronate 70 mg tablet RxNorm: 217454 1 Tablet(s) PO QW 03/08/2017 02/19/2018 Inactive tramadol 50 mg tablet RxNorm: 548940 1-2 Tablet(s) PO QID as needed 02/02/2017 07/31/2017 Inactive gabapentin 100 mg capsule RxNorm: 170281 TAKE TWO CAPSULES BY MOUTH AT BEDTIME 01/31/2017 07/29/2017 Inactive tramadol 50 mg tablet RxNorm: 493147 1-2 Tablet(s) PO QID as needed 12/06/2016 07/31/2017 Inactive hydrochlorothiazide 25 mg tablet RxNorm: 226752 TAKE ONE TABLET BY MOUTH ONCE DAILY 11/16/2016 05/14/2017 Inactive lisinopril 40 mg tablet RxNorm: 074886 TAKE ONE TABLET BY MOUTH ONCE DAILY 09/30/2016 06/26/2017 Inactive alendronate 70 mg tablet RxNorm: 552468 1 Tablet(s) PO QW 09/24/2016 03/07/2017 Inactive simvastatin 20 mg tablet RxNorm: 599239 TAKE ONE TABLET BY MOUTH ONCE DAILY 09/20/2016 06/12/2017 Inactive tramadol 50 mg tablet RxNorm: 135856 1-2 Tablet(s) PO QID as needed 09/08/2016 10/20/2016 Inactive gabapentin 100 mg capsule RxNorm: 302502 1 Capsule(s) PO QHS 08/20/2016 12/17/2016 Inactive HOLD- WILL CALL WHEN NEEDED tramadol 50 mg tablet RxNorm: 798028 1-2 Tablet(s) PO QID as needed 08/20/2016 09/07/2016 Inactive tramadol 50 mg tablet RxNorm: 634793 1 Tablet(s) PO QID as needed 05/14/2016 08/05/2016 Inactive Kenalog 40 mg/mL suspension for injection RxNorm: 1394077 Milliliter(s) Inj 04/23/2016 04/23/2016 Inactive gabapentin 100 mg capsule RxNorm: 240103 2 Capsule(s) PO QHS 04/23/2016 08/19/2016 Inactive HOLD- WILL CALL WHEN NEEDED alendronate 70 mg tablet RxNorm: 840548 1 Tablet(s) PO QW 04/07/2016 09/23/2016 Inactive simvastatin 20 mg tablet RxNorm: 705877 1 Tablet(s) PO daily 03/29/2016 09/19/2016 Inactive tramadol 50 mg tablet RxNorm: 629684 1 Tablet(s) PO QID as needed 03/10/2016 07/31/2017 Inactive gabapentin 100 mg capsule RxNorm: 519860 1 Capsule(s) PO QHS 01/30/2016 04/22/2016 Inactive lisinopril 40 mg tablet RxNorm: 808463 1 Tablet(s) PO daily 01/30/2016 09/29/2016 Inactive hydrochlorothiazide 25 mg tablet RxNorm: 727450 1 Tablet(s) PO daily 01/30/2016 10/25/2016 Inactive alendronate 70 mg tablet RxNorm: 230917 1 Tablet(s) QW 01/02/2016 04/06/2016 Inactive simvastatin 20 mg tablet RxNorm: 742345 1 Tablet(s) PO daily 12/31/2015 12/30/2015 Inactive simvastatin 20 mg tablet RxNorm: 045380 1 Tablet(s) PO daily 12/31/2015 03/28/2016 Inactive Calcium + D oral RxNorm: 626372 oral No Start Date Active Tylenol 500 mg RxNorm: 2 PO QHS No Start Date Active hydrochlorothiazide 25 mg tablet RxNorm: 257005 1 Tablet(s) PO daily No Start Date 01/29/2016 Inactive tramadol 50 mg tablet RxNorm: 015997 1 Tablet(s) PO QID as needed No Start Date 03/09/2016 Inactive lisinopril 40 mg tablet RxNorm: 165124 1 Tablet(s) PO daily No Start Date 01/29/2016 Inactive Medication Administered Medication Codes Instructions Start Date Status Kenalog 40 mg/mL suspension for injection RxNorm: 7790560 Milliliter 04/23/2016 No longer Active Immunizations Vaccine [...] Item Item Code Result Date Free T4 Fmg703 FREE T4 0.95 ng/dL 01/13/2018 Comp Metabolic Ndp878 NA 132 mEq/L 01/13/2018 Comp Metabolic Zkn974 K 4.2 mEq/L 01/13/2018 Comp Metabolic Kaw273 CL 97 mEq/L 01/13/2018 Comp Metabolic Cxp376 CO2 29.0 mEq/L 01/13/2018 Comp Metabolic Cld871 ANION GAP 10 01/13/2018 Comp Metabolic Gyo350 GLUCOSE 88 mg/dL 01/13/2018 Comp Metabolic Tfe989 Creat 0.9 mg/dL 01/13/2018 Comp Metabolic Hbl623 eGFR 62 ml/min/1.73m2 01/13/2018 Comp Metabolic Pae333 BUN 16 mg/dL 01/13/2018 Comp Metabolic Wct391 B/C Ratio 17.6 Ratio 01/13/2018 Comp Metabolic Oje337 CALCIUM 10.0 mg/dL 01/13/2018 Comp Metabolic Wnu967 ALK PHOS 65 U/L 01/13/2018 Comp Metabolic Kcs292 AST(SGOT) 20 U/L 01/13/2018 Comp Metabolic Ksf363 ALT(SGPT) 16 U/L 01/13/2018 Comp Metabolic Tti609 BILI T 0.3 mg/dL 01/13/2018 Comp Metabolic Lbh188 ALBUMIN 4.0 g/dL 01/13/2018 Comp Metabolic Cjx938 TPRO 7.0 g/dL 01/13/2018 Comp Metabolic Ebq977 GLOB 3.0 g/dL 01/13/2018 Comp Metabolic Wad390 A/G Ratio 1.3 Ratio 01/13/2018 Comp Metabolic Skm806 Osmo 265 mOsmo 01/13/2018 Tsh Ord6 TSH [...] 29.7 pg 01/13/2018 Cbc With Differential Ord2 Gordon% 7.6 % 01/13/2018 Cbc With Differential Ord2 [...] 2.55 K/ul 01/13/2018 Cbc With Differential Ord2 Gordon ABS# 0.6 K/ul 01/13/2018 Cbc With Differential [...] 29.4 pg 07/15/2017 Cbc With Differential Ord2 Gordon% 8.8 % 07/15/2017 Cbc With Differential Ord2 [...] 2.44 K/ul 07/15/2017 Cbc With Differential Ord2 Gordon ABS# 0.8 K/ul 07/15/2017 Cbc With Differential [...] from collection if refrigerated) 07/15/2017 Comp Metabolic Vnw161 NA 132 mEq/L 07/15/2017 Comp Metabolic Ovt195 K 3.8 mEq/L 07/15/2017 Comp Metabolic Dff602 CL 95 mEq/L 07/15/2017 Comp Metabolic Aid090 CO2 30.0 mEq/L 07/15/2017 Comp Metabolic Tva104 ANION GAP 11 07/15/2017 Comp Metabolic Ugi812 GLUCOSE 92 mg/dL 07/15/2017 Comp Metabolic Suz052 Creat 0.8 mg/dL 07/15/2017 Comp Metabolic Fto629 eGFR 75 ml/min/1.73m2 07/15/2017 Comp Metabolic Ofr027 BUN 11 mg/dL 07/15/2017 Comp Metabolic Aat239 B/C Ratio 14.1 Ratio 07/15/2017 Comp Metabolic Qqx153 CALCIUM 9.7 mg/dL 07/15/2017 Comp Metabolic Puy339 ALK PHOS 72 U/L 07/15/2017 Comp Metabolic Hpx547 AST(SGOT) 14 U/L 07/15/2017 Comp Metabolic Buu818 ALT(SGPT) 9 U/L 07/15/2017 Comp Metabolic Jod874 BILI T 0.5 mg/dL 07/15/2017 Comp Metabolic Aiu933 ALBUMIN 4.1 g/dL 07/15/2017 Comp Metabolic Cvp632 TPRO 6.9 g/dL 07/15/2017 Comp Metabolic Yge233 GLOB 2.8 g/dL 07/15/2017 Comp Metabolic Lvw030 A/G Ratio 1.5 Ratio 07/15/2017 Comp Metabolic Zfe013 Osmo 264 mOsmo 07/15/2017 Tsh Ord6 TSH (3rd IS) 6.20 uIU/mL 07/15/2017 Free T4 Inu414 FREE T4 0.95 ng/dL 07/15/2017 Cbc With [...] 31.1 pg 01/30/2016 Cbc With Differential Ord2 Gordon% 8.6 % 01/30/2016 Cbc With Differential Ord2 [...] 2.16 K/ul 01/30/2016 Cbc With Differential Ord2 Gordon ABS# 0.7 K/ul 01/30/2016 Cbc With Differential Ord2 Eos ABS# 0.2 K/ul 01/30/2016 Cbc With Differential Ord2 Baso ABS# 0.0 K/ul 01/30/2016 Tsh Ord6 hTSH II 2.93 uIU/mL 01/30/2016 Comp Metabolic Cux425 NA 134 mEq/L 01/30/2016 Comp Metabolic Dwb843 K 4.0 mEq/L 01/30/2016 Comp Metabolic Azp315 CL 97 mEq/L 01/30/2016 Comp Metabolic Shs929 CO2 29.0 mEq/L 01/30/2016 Comp Metabolic Kji518 ANION GAP 12 01/30/2016 Comp Metabolic Vvi052 GLUCOSE 98 mg/dL 01/30/2016 Comp Metabolic Gwm434 Creat 0.9 mg/dL 01/30/2016 Comp Metabolic Zno881 eGFR 67 ml/min/1.73m2 01/30/2016 Comp Metabolic Bbt854 BUN 16 mg/dL 01/30/2016 Comp Metabolic Hec272 B/C Ratio 18.6 Ratio 01/30/2016 Comp Metabolic Bdm384 CALCIUM 10.3 mg/dL 01/30/2016 Comp Metabolic Eng943 ALK PHOS 66 U/L 01/30/2016 Comp Metabolic Bsz720 AST(SGOT) 16 U/L 01/30/2016 Comp Metabolic Lkb661 ALT(SGPT) 10 U/L 01/30/2016 Comp Metabolic Nee842 BILI T 0.4 mg/dL 01/30/2016 Comp Metabolic Mml743 ALBUMIN 4.2 g/dL 01/30/2016 Comp Metabolic Smh790 TPRO 7.1 g/dL 01/30/2016 Comp Metabolic Dxe367 GLOB 2.9 g/dL 01/30/2016 Comp Metabolic Kke792 A/G Ratio 1.5 Ratio 01/30/2016 Comp Metabolic Qcm993 Osmo 269 mOsmo 01/30/2016 Lipid Ord30 CHOL [...] Formatting Model/CDA Sections, Assigned to/Karine Archuleta CPT-4: 14810Qhytnrz 01/06/2018 TRIAMCINOLONE ACET INJ NOS CPT-4: J3301 04/23/2016 ADMIN INFLUENZA VIRUS VAC CPT-4: G0008 01/30/2016 PNEUMOCOCCAL VACC [address]: 05443964 CPT-4: 63608 01/30/2016 FLU VACC 4 RODNEY 3 YRS PLUS IM Formatting Model/CDA Sections, Assigned to/Karine Archuleta SNOMED CT: 50073622 CPT-4: 48093Vuayjpm 01/30/2016 ADMIN PNEUMOCOCCAL VACCINE SNOMED CT: 05351023 CPT-4: G0009 01/30/2016 Vital Signs Date Vital 01/06/2018 Blood Pressure 1: 138/70 Code: 8480-6 BMI: 21.5 Code: 47924-1 Heart Rate 1: 75 bpm Height: 5'6" SpO2: 98% Weight: 133 lbs 07/08/2017 Blood Pressure 1: 148/82 Code: 8480-6 BMI: 21.6 Code: 75326-1 Heart Rate 1: 80 bpm Height: 5'6" SpO2: 98% Weight: 134 lbs 08/20/2016 Blood Pressure 1: 124/76 Code: 8480-6 BMI: 23.2 Code: 71512-9 Heart Rate 1: 72 bpm Height: 5'6" SpO2: 93% Weight: 144 lbs 04/23/2016 Blood Pressure 1: 130/82 Code: 8480-6 BMI: 23.4 Code: 17950-4 Heart Rate 1: 86 bpm Height: 5'6" SpO2: 98% Weight: 145 lbs 01/30/2016 Blood Pressure 1: 140/86 Code: 8480-6 BMI: 23.9 Code: 24803-9 Heart Rate 1: 55 bpm Height: 5'6" SpO2: 96% Weight: 148 lbs 01/02/2016 Blood Pressure 1: 146/86 Code: 8480-6 BMI: 24.2 Code: 28961-4 Heart Rate 1: 84 bpm Height: 5'6" [...] data Encounters Encounter Performer Location Codes Date ([id number]) [id number] EST. PATIENT, LEVEL IV Diagnosis: Essential (primary) hypertension[ICD10: I10] Diagnosis: Hypothyroidism, unspecified[ICD10: E03.9] Diagnosis: Low back pain[ICD10: M54.5] Diagnosis: Encounter for immunization[ICD10: Z23] Diagnosis: Abnormal weight loss[ICD10: R63.4] Rosi Tsai MD, [facility] CPT- 4: 28138 01/06/2018 ([id number] 78844 EST. PATIENT, LEVEL IV Diagnosis: Essential (primary) hypertension[ICD10: I10] Diagnosis: Pain in right shoulder[ICD10: M25.511] Diagnosis: Mixed hyperlipidemia[ICD10: E78.2] Diagnosis: Dysuria[ICD10: R30.0] Diagnosis: Cramp and spasm[ICD10: R25.2] Rosi Tsai MD, [facility] CPT-4: 83860 07/08/2017 ([id number]) [id number] EST. PATIENT, LEVEL III Diagnosis: Essential (primary) hypertension[ICD10: I10] Diagnosis: Radiculopathy, lumbar region[ICD10: M54.16] Rosi Tsai MD, [facility] CPT-4: 53789 08/20/2016 ([id number]) [id number] EST. PATIENT, LEVEL IV Diagnosis: Essential (primary) hypertension[ICD10: I10] Diagnosis: Lumbago with sciatica, left side[ICD10: M54.42] Diagnosis: Cramp and spasm[ICD10: R25.2] Rosi Tsai MD, [facility] CPT-4: 19974 04/23/2016 ([id number]) [id number] EST. PATIENT, LEVEL III Diagnosis: Essential (primary) hypertension[ICD10: I10] Diagnosis: Radiculopathy, lumbar region[ICD10: M54.16] Diagnosis: Encounter for immunization[ICD10: Z23] Diagnosis: Impacted cerumen, left ear[ICD10: H61.22] Genny Tsai MD, [facility] CPT-4: 22818 01/30/2016 ([id number]) OFFICE VISIT, NEW - LEVEL 3 Diagnosis: Essential (primary) hypertension[ICD10: I10] Diagnosis: Mixed hyperlipidemia[ICD10: E78.2] Diagnosis: Cramp and spasm[ICD10: R25.2] [facility] CPT-4: 31137 01/02/2016 Plan of Care Planned Activity Notes Codes Status Date Appointment: Rosi Vega WPtel: [address] [phone] (30 min) Complex 07/28/2018 Appointment: Gary Rosi WPtel: [address] [phone] (30 min) Complex 07/14/2018 Appointment: Gary Rosi WPtel: [address] [phone] (30 min) Complex 07/07/2018 Visit Plan: Hypertension [...] instant breakfast to ice cream 01/06/2018 Appointment: Gary Rosi WPtel: [phone] (15 min) Moderate 01/06/2018 Patient Education: Patient [...] cramps-check labs 07/08/2017 Appointment: Rosi Vega WPtel: [address] [place] [address] (15 min) Moderate 07/08/2017 Patient Education: Patient Medication Summary Completed 07/08/2017 Appointment: Rosi Vega WPtel: [address] [place] [address] (15 min) Moderate 12/24/2016 Visit Plan: Hypertension [...] of plan. 08/20/2016 Appointment: Rosi Vega WPtel: [address] [place], [place] [id number] [place] [address] (30 min) Complex 08/20/2016 Patient Education: Patient Medication Summary Completed 08/20/2016 Appointment: Rosi Vega WPtel: [address] [place] [address] (30 min) Complex 04/30/2016 Visit Plan: Hypertension [...] process. 01/30/2016 Appointment: Rosi Vega WPtel: [address] [facility] [place] [address] (30 min) Complex 01/30/2016 Patient Education: Patient [...] B12, magnesium 01/02/2016 Appointment: Rosi Vega WPtel: [phone] New Patient 01/02/2016 Patient Education: Patient Medication [...]
--- OUTSIDE RECORDS SUMMARY | 2018-10-19 22:00 | XMS REPORT | CCD ---
Author Author Rosi Vega MD, [facility] Address [address] [place] [address] Phone Care Team Providers Care Boat Hop Name Role Phone PP Unavailable CCM Unavailable Summary Purpose Interface Exchange Insurance Providers Payer name Policy type / Coverage type Covered alliance party ID Effective Begin Date Effective End Date WPS Medicare Part B Medicare Part B [id number] Unknown Unknown Family history Daughter Diagnosis Age [...] Unknown 5 01/02/[address]: 570309030 Never smoker 01/02/[address]: 180951825 Never drinks alcohol 01/02/2016 Allergies, Adverse Reactions, [...] Fill Instructions tramadol 50 mg tablet RxNorm: 106461 1-2 Tablet(s) PO QID as needed 06/12/2018 07/26/2018 Active hydrochlorothiazide 25 mg tablet RxNorm: 243017 TAKE ONE TABLET BY MOUTH ONCE DAILY 05/08/2018 No Stop Date Active tramadol 50 mg tablet RxNorm: 991354 1-2 Tablet(s) PO QID as needed 04/04/2018 05/18/2018 Inactive simvastatin 20 mg tablet RxNorm: 646669 TAKE 1 TABLET BY MOUTH ONCE DAILY 03/13/2018 No Stop Date Active Synthroid 25 mcg tablet RxNorm: 768271 1 Tablet(s) PO daily 03/07/2018 09/02/2018 Active alendronate 70 mg tablet RxNorm: 762746 TAKE ONE TABLET BY MOUTH ONCE A WEEK 02/20/2018 No Stop Date Active lisinopril 40 mg tablet RxNorm: 587586 TAKE 1 TABLET BY MOUTH ONCE DAILY 02/20/2018 No Stop Date Active alendronate 70 mg tablet RxNorm: 345774 TAKE ONE TABLET BY MOUTH ONCE A WEEK 02/20/2018 No Stop Date Active gabapentin 100 mg capsule RxNorm: 020840 TAKE TWO CAPSULES BY MOUTH AT BEDTIME 01/30/2018 No Stop Date Active tramadol 50 mg tablet RxNorm: 759528 1-2 Tablet(s) PO QID as needed 01/16/2018 03/01/2018 Inactive tramadol 50 mg tablet RxNorm: 067758 1-2 Tablet(s) PO QID as needed 11/28/2017 06/11/2018 Inactive tramadol 50 mg tablet RxNorm: 827285 1-2 Tablet(s) PO QID as needed 10/11/2017 01/15/2018 Inactive simvastatin 20 mg tablet RxNorm: 274067 TAKE ONE TABLET BY MOUTH ONCE DAILY 09/12/2017 03/12/2018 Inactive lisinopril 40 mg tablet RxNorm: 724424 TAKE ONE TABLET BY MOUTH ONCE DAILY 2017 02/19/2018 Inactive Synthroid 25 mcg tablet RxNorm: 054270 1 Tablet(s) PO daily 08/10/2017 02/05/2018 Inactive Synthroid 25 mcg tablet RxNorm: 073856 1 Tablet(s) PO daily 08/09/2017 08/09/2017 Inactive okay for generic-hold until refill due tramadol 50 mg tablet RxNorm: 144924 1-2 Tablet(s) PO QID as needed 08/01/2017 09/13/2017 Inactive Keflex 500 mg capsule RxNorm: 980130 1 Capsule(s) PO TID 07/15/2017 07/21/2017 Inactive Synthroid 25 mcg tablet RxNorm: 628581 1 Tablet(s) PO daily 07/15/2017 07/14/2017 Inactive Synthroid 25 mcg tablet RxNorm: 795394 1 Tablet(s) PO daily 07/15/2017 07/18/2017 Inactive Voltaren 1 % topical gel RxNorm: 992588 4 Gram(s) TOP QID 07/08/2017 08/06/2017 Inactive tramadol 50 mg tablet RxNorm: 731592 1-2 Tablet(s) PO QID as needed 06/16/2017 11/27/2017 Inactive simvastatin 20 mg tablet RxNorm: 432404 TAKE ONE TABLET BY MOUTH ONCE DAILY 06/13/2017 09/11/2017 Inactive hydrochlorothiazide 25 mg tablet RxNorm: 372393 TAKE ONE TABLET BY MOUTH ONCE DAILY 05/16/2017 05/07/2018 Inactive tramadol 50 mg tablet RxNorm: 111452 1-2 Tablet(s) PO QID as needed 04/20/2017 07/31/2017 Inactive Keflex 500 mg capsule RxNorm: 749012 1 Capsule(s) PO TID 03/17/2017 03/16/2017 Inactive Keflex 500 mg capsule RxNorm: 522182 1 Capsule(s) PO TID 03/17/2017 03/23/2017 Inactive alendronate 70 mg tablet RxNorm: 807008 1 Tablet(s) PO QW 03/08/2017 02/19/2018 Inactive tramadol 50 mg tablet RxNorm: 955627 1-2 Tablet(s) PO QID as needed 02/02/2017 07/31/2017 Inactive gabapentin 100 mg capsule RxNorm: 664249 TAKE TWO CAPSULES BY MOUTH AT BEDTIME 01/31/2017 07/29/2017 Inactive tramadol 50 mg tablet RxNorm: 366651 1-2 Tablet(s) PO QID as needed 12/06/2016 07/31/2017 Inactive hydrochlorothiazide 25 mg tablet RxNorm: 516931 TAKE ONE TABLET BY MOUTH ONCE DAILY 11/16/2016 05/14/2017 Inactive lisinopril 40 mg tablet RxNorm: 749010 TAKE ONE TABLET BY MOUTH ONCE DAILY 09/30/2016 06/26/2017 Inactive alendronate 70 mg tablet RxNorm: 185967 1 Tablet(s) PO QW 09/24/2016 03/07/2017 Inactive simvastatin 20 mg tablet RxNorm: 591766 TAKE ONE TABLET BY MOUTH ONCE DAILY 09/20/2016 06/12/2017 Inactive tramadol 50 mg tablet RxNorm: 078246 1-2 Tablet(s) PO QID as needed 09/08/2016 10/20/2016 Inactive gabapentin 100 mg capsule RxNorm: 611530 1 Capsule(s) PO QHS 08/20/2016 12/17/2016 Inactive HOLD- WILL CALL WHEN NEEDED tramadol 50 mg tablet RxNorm: 848290 1-2 Tablet(s) PO QID as needed 08/20/2016 09/07/2016 Inactive tramadol 50 mg tablet RxNorm: 534774 1 Tablet(s) PO QID as needed 05/14/2016 08/05/2016 Inactive Kenalog 40 mg/mL suspension for injection RxNorm: 6530658 Milliliter(s) Inj 04/23/2016 04/23/2016 Inactive gabapentin 100 mg capsule RxNorm: 541050 2 Capsule(s) PO QHS 04/23/2016 08/19/2016 Inactive HOLD- WILL CALL WHEN NEEDED alendronate 70 mg tablet RxNorm: 928166 1 Tablet(s) PO QW 04/07/2016 09/23/2016 Inactive simvastatin 20 mg tablet RxNorm: 006349 1 Tablet(s) PO daily 03/29/2016 09/19/2016 Inactive tramadol 50 mg tablet RxNorm: 739680 1 Tablet(s) PO QID as needed 03/10/2016 07/31/2017 Inactive gabapentin 100 mg capsule RxNorm: 163589 1 Capsule(s) PO QHS 01/30/2016 04/22/2016 Inactive lisinopril 40 mg tablet RxNorm: 170538 1 Tablet(s) PO daily 01/30/2016 09/29/2016 Inactive hydrochlorothiazide 25 mg tablet RxNorm: 385925 1 Tablet(s) PO daily 01/30/2016 10/25/2016 Inactive alendronate 70 mg tablet RxNorm: 763829 1 Tablet(s) QW 01/02/2016 04/06/2016 Inactive simvastatin 20 mg tablet RxNorm: 287537 1 Tablet(s) PO daily 12/31/2015 12/30/2015 Inactive simvastatin 20 mg tablet RxNorm: 884882 1 Tablet(s) PO daily 12/31/2015 03/28/2016 Inactive Calcium + D oral RxNorm: 733707 oral No Start Date Active Tylenol 500 mg RxNorm: 2 PO QHS No Start Date Active hydrochlorothiazide 25 mg tablet RxNorm: 830211 1 Tablet(s) PO daily No Start Date 01/29/2016 Inactive tramadol 50 mg tablet RxNorm: 124639 1 Tablet(s) PO QID as needed No Start Date 03/09/2016 Inactive lisinopril 40 mg tablet RxNorm: 556485 1 Tablet(s) PO daily No Start Date 01/29/2016 Inactive Medication Administered Medication Codes Instructions Start Date Status Kenalog 40 mg/mL suspension for injection RxNorm: 1193931 Milliliter 04/23/2016 No longer Active Immunizations Vaccine Codes Date Status Influenza CVX: 141 01/06/2018 completed Influenza CVX: 141 01/30/2016 completed Pneumococcal (Adult) CVX: 133 01/30/2016 completed Assessments Condition Codes Effective Dates Encounter for immunization ICD-10: Z23 ICD-9: V04.81 01/06/2018 Abnormal weight loss ICD-10: R63.4 ICD-9: 783.21 01/06/2018 Essential (primary) hypertension ICD-10: I10 ICD-9: 401.9 01/06/2018 Hypothyroidism, unspecified ICD-10: E03.9 ICD-9: 244.9 01/06/2018 Low back pain ICD-10: M54.5 ICD-9: [...] Result Date Cbc With Differential Ord2 WBC 8.14 K/ul 01/13/2018 Cbc With Differential Ord2 RBC 3.94 M/ul 01/13/2018 Cbc With Differential Ord2 HGB 11.7 g/dl 01/13/2018 Cbc With Differential Ord2 Neut% 57.8 % 01/13/2018 Cbc With Differential Ord2 HCT 34.9 % 01/13/2018 Cbc With Differential Ord2 MCV 88.6 fl 01/13/2018 Cbc With Differential Ord2 Lymph% 31.3 % 01/13/2018 Cbc With Differential Ord2 MCH 29.7 pg 01/13/2018 Cbc With Differential Ord2 Robertson% 7.6 % 01/13/2018 Cbc With Differential Ord2 [...] 2.55 K/ul 01/13/2018 Cbc With Differential Ord2 Robertson ABS# 0.6 K/ul 01/13/2018 Cbc With Differential Ord2 Eos ABS# 0.2 K/ul 01/13/2018 Cbc With Differential Ord2 Baso ABS# 0.1 K/ul 01/13/2018 Tsh Ord6 TSH (3rd IS) 3.60 uIU/mL 01/13/2018 Comp Metabolic Gjh489 NA 132 mEq/L 01/13/2018 Comp Metabolic Wft279 K 4.2 mEq/L 01/13/2018 Comp Metabolic Pfc029 CL 97 mEq/L 01/13/2018 Comp Metabolic Lwn378 CO2 29.0 mEq/L 01/13/2018 Comp Metabolic Eaq979 ANION GAP 10 01/13/2018 Comp Metabolic Gwf283 GLUCOSE 88 mg/dL 01/13/2018 Comp Metabolic Gev094 Creat 0.9 mg/dL 01/13/2018 Comp Metabolic Ryc721 eGFR 62 ml/min/1.73m2 01/13/2018 Comp Metabolic Xkt943 BUN 16 mg/dL 01/13/2018 Comp Metabolic Mnk333 B/C Ratio 17.6 Ratio 01/13/2018 Comp Metabolic Uaq074 CALCIUM 10.0 mg/dL 01/13/2018 Comp Metabolic Chw450 ALK PHOS 65 U/L 01/13/2018 Comp Metabolic Uys593 AST(SGOT) 20 U/L 01/13/2018 Comp Metabolic Pyb139 ALT(SGPT) 16 U/L 01/13/2018 Comp Metabolic Gxh549 BILI T 0.3 mg/dL 01/13/2018 Comp Metabolic Jll168 ALBUMIN 4.0 g/dL 01/13/2018 Comp Metabolic Jqw443 TPRO 7.0 g/dL 01/13/2018 Comp Metabolic Ibl360 GLOB 3.0 g/dL 01/13/2018 Comp Metabolic Jjd282 A/G Ratio 1.3 Ratio 01/13/2018 Comp Metabolic Hlb555 Osmo 265 mOsmo 01/13/2018 Free T4 Psg628 FREE T4 0.95 ng/dL 01/13/2018 Urine Culture Ucult Complete >100,000 col/ml aerobic growth sent to ref lab 07/16/2017 Cbc With Differential Ord2 WBC 8.52 K/ul 07/15/2017 Cbc With Differential Ord2 RBC 4.01 M/ul 07/15/2017 Cbc With Differential Ord2 HGB 11.8 g/dl 07/15/2017 Cbc With Differential Ord2 Neut% 59.5 % 07/15/2017 Cbc With Differential Ord2 HCT 35.1 % 07/15/2017 Cbc With Differential Ord2 Lymph% 28.6 % 07/15/2017 Cbc With Differential Ord2 MCV 87.5 fl 07/15/2017 Cbc With Differential Ord2 MCH 29.4 pg 07/15/2017 Cbc With Differential Ord2 Robertson% 8.8 % 07/15/2017 Cbc With Differential Ord2 Eos% 2.6 % 07/15/2017 Cbc With Differential Ord2 MCHC 33.6 pg 07/15/2017 Cbc With Differential Ord2 Baso% 0.5 % 07/15/2017 Cbc With Differential Ord2 PLT 258 K/ul 07/15/2017 Cbc With Differential Ord2 RDW 13.3 % 07/15/2017 Cbc With Differential Ord2 Neut ABS# 5.07 K/ul 07/15/2017 Cbc With Differential Ord2 Lymph ABS# 2.44 K/ul 07/15/2017 Cbc With Differential Ord2 Robertson ABS# 0.8 K/ul 07/15/2017 Cbc With Differential [...] from collection if refrigerated) 07/15/2017 Comp Metabolic Kxj822 NA 132 mEq/L 07/15/2017 Comp Metabolic Khz588 K 3.8 mEq/L 07/15/2017 Comp Metabolic Mmf387 CL 95 mEq/L 07/15/2017 Comp Metabolic Mme739 CO2 30.0 mEq/L 07/15/2017 Comp Metabolic Sru803 ANION GAP 11 07/15/2017 Comp Metabolic Xdv473 GLUCOSE 92 mg/dL 07/15/2017 Comp Metabolic Gzp789 Creat 0.8 mg/dL 07/15/2017 Comp Metabolic Juz341 eGFR 75 ml/min/1.73m2 07/15/2017 Comp Metabolic Emk841 BUN 11 mg/dL 07/15/2017 Comp Metabolic Mzc389 B/C Ratio 14.1 Ratio 07/15/2017 Comp Metabolic Noh481 CALCIUM 9.7 mg/dL 07/15/2017 Comp Metabolic Jio253 ALK PHOS 72 U/L 07/15/2017 Comp Metabolic Bmy639 AST(SGOT) 14 U/L 07/15/2017 Comp Metabolic Mdh577 ALT(SGPT) 9 U/L 07/15/2017 Comp Metabolic Efd180 BILI T 0.5 mg/dL 07/15/2017 Comp Metabolic Rzx526 ALBUMIN 4.1 g/dL 07/15/2017 Comp Metabolic Sjo435 TPRO 6.9 g/dL 07/15/2017 Comp Metabolic Udv223 GLOB 2.8 g/dL 07/15/2017 Comp Metabolic Rjs696 A/G Ratio 1.5 Ratio 07/15/2017 Comp Metabolic Tae684 Osmo 264 mOsmo 07/15/2017 Tsh Ord6 TSH (3rd IS) 6.20 uIU/mL 07/15/2017 Free T4 Uzj024 FREE T4 0.95 ng/dL 07/15/2017 Cbc With [...] 31.1 pg 01/30/2016 Cbc With Differential Ord2 Robertson% 8.6 % 01/30/2016 Cbc With Differential Ord2 [...] 2.16 K/ul 01/30/2016 Cbc With Differential Ord2 Robertson ABS# 0.7 K/ul 01/30/2016 Cbc With Differential Ord2 Eos ABS# 0.2 K/ul 01/30/2016 Cbc With Differential Ord2 Baso ABS# 0.0 K/ul 01/30/2016 Lipid Ord30 CHOL 176 mg/dL 01/30/2016 Lipid Ord30 HDL 53.0 mg/dl 01/30/2016 Lipid Ord30 TRIG 164 mg/dL 01/30/2016 Lipid Ord30 LDL 90 mg/dL 01/30/2016 Lipid Ord30 C/HDL 3.3 Ratio 01/30/2016 Comp Metabolic Jhq854 NA 134 mEq/L 01/30/2016 Comp Metabolic Zjk825 K 4.0 mEq/L 01/30/2016 Comp Metabolic Kqp640 CL 97 mEq/L 01/30/2016 Comp Metabolic Jpa824 CO2 29.0 mEq/L 01/30/2016 Comp Metabolic Mkt980 ANION GAP 12 01/30/2016 Comp Metabolic Vym365 GLUCOSE 98 mg/dL 01/30/2016 Comp Metabolic Sbb898 Creat 0.9 mg/dL 01/30/2016 Comp Metabolic Zap977 eGFR 67 ml/min/1.73m2 01/30/2016 Comp Metabolic Xfq203 BUN 16 mg/dL 01/30/2016 Comp Metabolic Yxv022 B/C Ratio 18.6 Ratio 01/30/2016 Comp Metabolic Uji081 CALCIUM 10.3 mg/dL 01/30/2016 Comp Metabolic Bvs699 ALK PHOS 66 U/L 01/30/2016 Comp Metabolic Oos597 AST(SGOT) 16 U/L 01/30/2016 Comp Metabolic Aqt704 ALT(SGPT) 10 U/L 01/30/2016 Comp Metabolic Zyo219 BILI T 0.4 mg/dL 01/30/2016 Comp Metabolic Uox483 ALBUMIN 4.2 g/dL 01/30/2016 Comp Metabolic Sev141 TPRO 7.1 g/dL 01/30/2016 Comp Metabolic Qyl489 GLOB 2.9 g/dL 01/30/2016 Comp Metabolic Xnv426 A/G Ratio 1.5 Ratio 01/30/2016 Comp Metabolic Kcm392 Osmo 269 mOsmo 01/30/2016 Tsh Ord6 hTSH II 2.93 uIU/mL 01/30/2016 Review of Systems System Result Effective [...] distress 07/08/2017 None Full Exam - General 1995 Constitutional general appearance Overall: well nourished 07/08/2017 [...] Formatting Model/CDA Sections, Assigned to/Karine Archuleta CPT-4: 47684Fwsoppu 01/06/2018 TRIAMCINOLONE ACET INJ NOS CPT-4: J3301 04/23/2016 ADMIN INFLUENZA VIRUS VAC CPT-4: G0008 01/30/2016 PNEUMOCOCCAL VACC [address]: 65217087 CPT-4: 92894 01/30/2016 FLU VACC 4 RODNEY 3 YRS PLUS IM Formatting Model/CDA Sections, Assigned to/Karine Archuleta SNOMED CT: 20410454 CPT-4: 18225Ksdfraw 01/30/2016 ADMIN PNEUMOCOCCAL VACCINE SNOMED CT: 09851821 CPT-4: G0009 01/30/2016 Vital Signs Date Vital 01/06/2018 Blood Pressure 1: 138/70 Code: 8480-6 BMI: 21.5 Code: 25679-5 Heart Rate 1: 75 bpm Height: 5'6" SpO2: 98% Weight: 133 lbs 07/08/2017 Blood Pressure 1: 148/82 Code: 8480-6 BMI: 21.6 Code: 78654-7 Heart Rate 1: 80 bpm Height: 5'6" SpO2: 98% Weight: 134 lbs 08/20/2016 Blood Pressure 1: 124/76 Code: 8480-6 BMI: 23.2 Code: 96905-8 Heart Rate 1: 72 bpm Height: 5'6" SpO2: 93% Weight: 144 lbs 04/23/2016 Blood Pressure 1: 130/82 Code: 8480-6 BMI: 23.4 Code: 98481-2 Heart Rate 1: 86 bpm Height: 5'6" SpO2: 98% Weight: 145 lbs 01/30/2016 Blood Pressure 1: 140/86 Code: 8480-6 BMI: 23.9 Code: 36330-3 Heart Rate 1: 55 bpm Height: 5'6" SpO2: 96% Weight: 148 lbs 01/02/2016 Blood Pressure 1: 146/86 Code: 8480-6 BMI: 24.2 Code: 64535-0 Heart Rate 1: 84 bpm Height: 5'6" [...] data Encounters Encounter Performer Location Codes Date ([id number]) [id number] EST. PATIENT, LEVEL IV Diagnosis: Essential (primary) hypertension[ICD10: I10] Diagnosis: Hypothyroidism, unspecified[ICD10: E03.9] Diagnosis: Low back pain[ICD10: M54.5] Diagnosis: Encounter for immunization[ICD10: Z23] Diagnosis: Abnormal weight loss[ICD10: R63.4] Rosi Tsai MD, [facility] CPT- 4: 07111 01/06/2018 ([id number]) [id number] EST. PATIENT, LEVEL IV Diagnosis: Essential (primary) hypertension[ICD10: I10] Diagnosis: Pain in right shoulder[ICD10: M25.511] Diagnosis: Mixed hyperlipidemia[ICD10: E78.2] Diagnosis: Dysuria[ICD10: R30.0] Diagnosis: Cramp and spasm[ICD10: R25.2] Rosi Tsai MD, [facility] CPT-4: 66289 07/08/2017 ([id number]) [id number] EST. PATIENT, LEVEL III Diagnosis: Essential (primary) hypertension[ICD10: I10] Diagnosis: Radiculopathy, lumbar region[ICD10: M54.16] Rosi Tsai MD, [facility] CPT-4: 97134 08/20/2016 ([id number]) [id number] EST. PATIENT, LEVEL IV Diagnosis: Essential (primary) hypertension[ICD10: I10] Diagnosis: Lumbago with sciatica, left side[ICD10: M54.42] Diagnosis: Cramp and spasm[ICD10: R25.2] Rosi Tsai MD, [facility] CPT-4: 44627 04/23/2016 ([id number]) 45501 EST. PATIENT, LEVEL III Diagnosis: Essential (primary) hypertension[ICD10: I10] Diagnosis: Radiculopathy, lumbar region[ICD10: M54.16] Diagnosis: Encounter for immunization[ICD10: Z23] Diagnosis: Impacted cerumen, left ear[ICD10: H61.22] [facility] CPT-4: 33560 01/30/2016 ([id number]) OFFICE VISIT, NEW - LEVEL 3 Diagnosis: Essential (primary) hypertension[ICD10: I10] Diagnosis: Mixed hyperlipidemia[ICD10: E78.2] Diagnosis: Cramp and spasm[ICD10: R25.2] [facility] CPT-4: 55718 01/02/2016 Plan of Care Planned Activity Notes [...] ice cream 01/06/2018 Appointment: Rosi Vega WPtel: [facility]9 [phone] (15 min) Moderate 01/06/2018 Patient Education: Patient [...] cramps-check labs 07/08/2017 Appointment: Rosi Vega WPtel: [facility]3 [phone] (15 min) Moderate 07/08/2017 Patient Education: Patient Medication Summary Completed 07/08/2017 Appointment: Rosi Vega WPtel: [phone] [phone] (15 min) Moderate 12/24/2016 Visit Plan: Hypertension [...] of plan. 08/20/2016 Appointment: Rosi Vega WPtel: [facility]5 [phone] (30 min) Complex 08/20/2016 Patient Education: Patient Medication Summary Completed 08/20/2016 Appointment: Rosi Vega WPtel: [facility]5 [phone] (30 min) Complex 04/30/2016 Visit Plan: Hypertension [...] removal process. 01/30/2016 Appointment: Rosi Vega WPtel: [facility]5 [phone] (30 min) Complex 01/30/2016 Patient Education: Patient [...] B12, magnesium 01/02/2016 Appointment: [phone] [facility] Patient 01/02/2016 Patient Education: Patient Medication [...]
--- OUTSIDE RECORDS SUMMARY | 2018-10-19 22:01 | XMS REPORT | CCD ---
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 Name Role Phone PP Unavailable CCM Unavailable Summary Purpose Interface Exchange Insurance Providers Payer name Policy type / Coverage type Covered constitution party ID Effective Begin Date Effective End Date WPS Medicare Part B Medicare Part B [id number] Unknown Unknown Family history Daughter Diagnosis Age [...] Unknown 5 01/02/[address]: 628997683 Never smoker 01/02/[address]: 886045400 Never drinks alcohol 01/02/2016 Allergies, Adverse Reactions, [...] Fill Instructions hydrochlorothiazide 25 mg tablet RxNorm: 224091 TAKE ONE TABLET BY MOUTH ONCE DAILY 05/08/2018 No Stop Date Active tramadol 50 mg tablet RxNorm: 724794 1-2 Tablet(s) PO QID as needed 04/04/2018 05/18/2018 Inactive simvastatin 20 mg tablet RxNorm: 643932 TAKE 1 TABLET BY MOUTH ONCE DAILY 03/13/2018 No Stop Date Active Synthroid 25 mcg tablet RxNorm: 801551 1 Tablet(s) PO daily 03/07/2018 09/02/2018 Active alendronate 70 mg tablet RxNorm: 666370 TAKE ONE TABLET BY MOUTH ONCE A WEEK 02/20/2018 No Stop Date Active lisinopril 40 mg tablet RxNorm: 998121 TAKE 1 TABLET BY MOUTH ONCE DAILY 02/20/2018 No Stop Date Active alendronate 70 mg tablet RxNorm: 617840 TAKE ONE TABLET BY MOUTH ONCE A WEEK 02/20/2018 No Stop Date Active gabapentin 100 mg capsule RxNorm: 108093 TAKE TWO CAPSULES BY MOUTH AT BEDTIME 01/30/2018 No Stop Date Active tramadol 50 mg tablet RxNorm: 299271 1-2 Tablet(s) PO QID as needed 01/16/2018 03/01/2018 Inactive tramadol 50 mg tablet RxNorm: 740677 1-2 Tablet(s) PO QID as needed 11/28/2017 12/26/2017 Inactive tramadol 50 mg tablet RxNorm: 012540 1-2 Tablet(s) PO QID as needed 10/11/2017 01/15/2018 Inactive simvastatin 20 mg tablet RxNorm: 411374 TAKE ONE TABLET BY MOUTH ONCE DAILY 09/12/2017 03/12/2018 Inactive lisinopril 40 mg tablet RxNorm: 547791 TAKE ONE TABLET BY MOUTH ONCE DAILY 2017 02/19/2018 Inactive Synthroid 25 mcg tablet RxNorm: 128412 1 Tablet(s) PO daily 08/10/2017 02/05/2018 Inactive Synthroid 25 mcg tablet RxNorm: 755014 1 Tablet(s) PO daily 08/09/2017 08/09/2017 Inactive okay for generic-hold until refill due tramadol 50 mg tablet RxNorm: 900124 1-2 Tablet(s) PO QID as needed 08/01/2017 09/13/2017 Inactive Keflex 500 mg capsule RxNorm: 685286 1 Capsule(s) PO TID 07/15/2017 07/21/2017 Inactive Synthroid 25 mcg tablet RxNorm: 019662 1 Tablet(s) PO daily 07/15/2017 07/14/2017 Inactive Synthroid 25 mcg tablet RxNorm: 134642 1 Tablet(s) PO daily 07/15/2017 07/18/2017 Inactive Voltaren 1 % topical gel RxNorm: 818533 4 Gram(s) TOP QID 07/08/2017 08/06/2017 Inactive tramadol 50 mg tablet RxNorm: 235974 1-2 Tablet(s) PO QID as needed 06/16/2017 11/27/2017 Inactive simvastatin 20 mg tablet RxNorm: 380208 TAKE ONE TABLET BY MOUTH ONCE DAILY 06/13/2017 09/11/2017 Inactive hydrochlorothiazide 25 mg tablet RxNorm: 355864 TAKE ONE TABLET BY MOUTH ONCE DAILY 05/16/2017 05/07/2018 Inactive tramadol 50 mg tablet RxNorm: 815842 1-2 Tablet(s) PO QID as needed 04/20/2017 07/31/2017 Inactive Keflex 500 mg capsule RxNorm: 550220 1 Capsule(s) PO TID 03/17/2017 03/16/2017 Inactive Keflex 500 mg capsule RxNorm: 031410 1 Capsule(s) PO TID 03/17/2017 03/23/2017 Inactive alendronate 70 mg tablet RxNorm: 554172 1 Tablet(s) PO QW 03/08/2017 02/19/2018 Inactive tramadol 50 mg tablet RxNorm: 169452 1-2 Tablet(s) PO QID as needed 02/02/2017 07/31/2017 Inactive gabapentin 100 mg capsule RxNorm: 109786 TAKE TWO CAPSULES BY MOUTH AT BEDTIME 01/31/2017 07/29/2017 Inactive tramadol 50 mg tablet RxNorm: 771710 1-2 Tablet(s) PO QID as needed 12/06/2016 07/31/2017 Inactive hydrochlorothiazide 25 mg tablet RxNorm: 281036 TAKE ONE TABLET BY MOUTH ONCE DAILY 11/16/2016 05/14/2017 Inactive lisinopril 40 mg tablet RxNorm: 466749 TAKE ONE TABLET BY MOUTH ONCE DAILY 09/30/2016 06/26/2017 Inactive alendronate 70 mg tablet RxNorm: 433342 1 Tablet(s) PO QW 09/24/2016 03/07/2017 Inactive simvastatin 20 mg tablet RxNorm: 179394 TAKE ONE TABLET BY MOUTH ONCE DAILY 09/20/2016 06/12/2017 Inactive tramadol 50 mg tablet RxNorm: 567150 1-2 Tablet(s) PO QID as needed 09/08/2016 10/20/2016 Inactive gabapentin 100 mg capsule RxNorm: 424161 1 Capsule(s) PO QHS 08/20/2016 12/17/2016 Inactive HOLD- WILL CALL WHEN NEEDED tramadol 50 mg tablet RxNorm: 057765 1-2 Tablet(s) PO QID as needed 08/20/2016 09/07/2016 Inactive tramadol 50 mg tablet RxNorm: 164645 1 Tablet(s) PO QID as needed 05/14/2016 08/05/2016 Inactive Kenalog 40 mg/mL suspension for injection RxNorm: 9187442 Milliliter(s) Inj 04/23/2016 04/23/2016 Inactive gabapentin 100 mg capsule RxNorm: 974779 2 Capsule(s) PO QHS 04/23/2016 08/19/2016 Inactive HOLD- WILL CALL WHEN NEEDED alendronate 70 mg tablet RxNorm: 846996 1 Tablet(s) PO QW 04/07/2016 09/23/2016 Inactive simvastatin 20 mg tablet RxNorm: 245184 1 Tablet(s) PO daily 03/29/2016 09/19/2016 Inactive tramadol 50 mg tablet RxNorm: 282905 1 Tablet(s) PO QID as needed 03/10/2016 07/31/2017 Inactive gabapentin 100 mg capsule RxNorm: 189725 1 Capsule(s) PO QHS 01/30/2016 04/22/2016 Inactive lisinopril 40 mg tablet RxNorm: 684494 1 Tablet(s) PO daily 01/30/2016 09/29/2016 Inactive hydrochlorothiazide 25 mg tablet RxNorm: 579607 1 Tablet(s) PO daily 01/30/2016 10/25/2016 Inactive alendronate 70 mg tablet RxNorm: 685202 1 Tablet(s) QW 01/02/2016 04/06/2016 Inactive simvastatin 20 mg tablet RxNorm: 977152 1 Tablet(s) PO daily 12/31/2015 12/30/2015 Inactive simvastatin 20 mg tablet RxNorm: 401140 1 Tablet(s) PO daily 12/31/2015 03/28/2016 Inactive Calcium + D oral RxNorm: 137984 oral No Start Date Active Tylenol 500 mg RxNorm: 2 PO QHS No Start Date Active hydrochlorothiazide 25 mg tablet RxNorm: 825235 1 Tablet(s) PO daily No Start Date 01/29/2016 Inactive tramadol 50 mg tablet RxNorm: 983563 1 Tablet(s) PO QID as needed No Start Date 03/09/2016 Inactive lisinopril 40 mg tablet RxNorm: 572467 1 Tablet(s) PO daily No Start Date 01/29/2016 Inactive Medication Administered Medication Codes Instructions Start Date Status Kenalog 40 mg/mL suspension for injection RxNorm: 0007138 Milliliter 04/23/2016 No longer Active Immunizations Vaccine Codes Date Status Influenza CVX: 141 01/06/2018 completed Influenza CVX: 141 01/30/2016 completed Pneumococcal (Adult) CVX: 133 01/30/2016 completed Assessments Condition Codes Effective Dates Abnormal weight loss ICD-10: R63.4 ICD-9: 783.21 01/06/2018 Low back pain ICD-10: M54.5 ICD-9: 724.2 01/06/2018 Hypothyroidism, unspecified ICD-10: E03.9 ICD-9: 244.9 01/06/2018 Essential (primary) hypertension ICD-10: I10 ICD-9: 401.9 01/06/2018 Encounter for immunization ICD-10: Z23 ICD-9: V04.81 01/06/2018 Dysuria ICD-10: R30.0 ICD-9: 788.1 07/15/2017 Mixed hyperlipidemia ICD-10: E78.2 ICD-9: 272.2 07/08/2017 Pain in right shoulder ICD-10: M25.511 ICD-9: 719.41 07/08/2017 Cramp and spasm ICD-10: R25.2 ICD-9: 729.82 07/08/2017 Radiculopathy, lumbar region ICD-10: M54.16 ICD-9: [...] Observation Code Item Item Code Result Date Comp Metabolic Lld701 NA 132 mEq/L 01/13/2018 Comp Metabolic Czc594 K 4.2 mEq/L 01/13/2018 Comp Metabolic Rij500 CL 97 mEq/L 01/13/2018 Comp Metabolic Tel939 CO2 29.0 mEq/L 01/13/2018 Comp Metabolic Bjv132 ANION GAP 10 01/13/2018 Comp Metabolic Uih437 GLUCOSE 88 mg/dL 01/13/2018 Comp Metabolic Oir947 Creat 0.9 mg/dL 01/13/2018 Comp Metabolic Gqc665 eGFR 62 ml/min/1.73m2 01/13/2018 Comp Metabolic Qhq762 BUN 16 mg/dL 01/13/2018 Comp Metabolic Bag998 B/C Ratio 17.6 Ratio 01/13/2018 Comp Metabolic Ghy560 CALCIUM 10.0 mg/dL 01/13/2018 Comp Metabolic Cdt015 ALK PHOS 65 U/L 01/13/2018 Comp Metabolic Xey629 AST(SGOT) 20 U/L 01/13/2018 Comp Metabolic Tay094 ALT(SGPT) 16 U/L 01/13/2018 Comp Metabolic Ssd789 BILI T 0.3 mg/dL 01/13/2018 Comp Metabolic Uyn029 ALBUMIN 4.0 g/dL 01/13/2018 Comp Metabolic Xih636 TPRO 7.0 g/dL 01/13/2018 Comp Metabolic Ake416 GLOB 3.0 g/dL 01/13/2018 Comp Metabolic Xxe124 A/G Ratio 1.3 Ratio 01/13/2018 Comp Metabolic Wrc704 Osmo 265 mOsmo 01/13/2018 Cbc With Differential Ord2 WBC 8.14 [...] 29.7 pg 01/13/2018 Cbc With Differential Ord2 [place]% 7.6 % 01/13/2018 Cbc With Differential Ord2 [...] 2.55 K/ul 01/13/2018 Cbc With Differential Ord2 [place] ABS# 0.6 K/ul 01/13/2018 Cbc With Differential Ord2 Eos ABS# 0.2 K/ul 01/13/2018 Cbc With Differential Ord2 Baso ABS# 0.1 K/ul 01/13/2018 Tsh Ord6 TSH (3rd IS) 3.60 uIU/mL 01/13/2018 Free T4 Hzx299 FREE T4 0.95 ng/dL 01/13/2018 Urine Culture Ucult Complete >100,000 col/ml aerobic growth sent to ref lab 07/16/2017 Cbc With Differential Ord2 WBC 8.52 K/ul 07/15/2017 Cbc With Differential Ord2 RBC 4.01 M/ul 07/15/2017 Cbc With Differential Ord2 HGB 11.8 g/dl 07/15/2017 Cbc With Differential Ord2 HCT 35.1 % 07/15/2017 Cbc With Differential Ord2 Neut% 59.5 % 07/15/2017 Cbc With Differential Ord2 Lymph% 28.6 % 07/15/2017 Cbc With Differential Ord2 MCV 87.5 fl 07/15/2017 Cbc With Differential Ord2 MCH 29.4 pg 07/15/2017 Cbc With Differential Ord2 [place]% 8.8 % 07/15/2017 Cbc With Differential Ord2 Eos% 2.6 % 07/15/2017 Cbc With Differential Ord2 MCHC 33.6 pg 07/15/2017 Cbc With Differential Ord2 PLT 258 K/ul 07/15/2017 Cbc With Differential Ord2 Baso% 0.5 % 07/15/2017 Cbc With Differential Ord2 Neut ABS# 5.07 K/ul 07/15/2017 Cbc With Differential Ord2 RDW 13.3 % 07/15/2017 Cbc With Differential Ord2 Lymph ABS# 2.44 K/ul 07/15/2017 Cbc With Differential Ord2 [place] ABS# 0.8 K/ul 07/15/2017 Cbc With Differential Ord2 Eos ABS# 0.2 K/ul 07/15/2017 Cbc With Differential Ord2 Baso ABS# 0.0 K/ul 07/15/2017 Lipid Ord30 CHOL 164 mg/dL 07/15/2017 Lipid Ord30 HDL 64.0 mg/dl 07/15/2017 Lipid Ord30 TRIG 93 mg/dL 07/15/2017 Lipid Ord30 LDL 81 mg/dL 07/15/2017 Lipid Ord30 C/HDL 2.6 Ratio 07/15/2017 Comp Metabolic Ytx817 NA 132 mEq/L 07/15/2017 Comp Metabolic Dal288 K 3.8 mEq/L 07/15/2017 Comp Metabolic Ywo435 CL 95 mEq/L 07/15/2017 Comp Metabolic Rld810 CO2 30.0 mEq/L 07/15/2017 Comp Metabolic Asd065 ANION GAP 11 07/15/2017 Comp Metabolic Ysw777 GLUCOSE 92 mg/dL 07/15/2017 Comp Metabolic Wiz590 Creat 0.8 mg/dL 07/15/2017 Comp Metabolic Csu213 eGFR 75 ml/min/1.73m2 07/15/2017 Comp Metabolic Nhb563 BUN 11 mg/dL 07/15/2017 Comp Metabolic Vos096 B/C Ratio 14.1 Ratio 07/15/2017 Comp Metabolic Pfi073 CALCIUM 9.7 mg/dL 07/15/2017 Comp Metabolic Lnr261 ALK PHOS 72 U/L 07/15/2017 Comp Metabolic Cjs476 AST(SGOT) 14 U/L 07/15/2017 Comp Metabolic Mbc588 ALT(SGPT) 9 U/L 07/15/2017 Comp Metabolic Ull831 BILI T 0.5 mg/dL 07/15/2017 Comp Metabolic Oua662 ALBUMIN 4.1 g/dL 07/15/2017 Comp Metabolic Dpk662 TPRO 6.9 g/dL 07/15/2017 Comp Metabolic Qkq601 GLOB 2.8 g/dL 07/15/2017 Comp Metabolic Vho397 A/G Ratio 1.5 Ratio 07/15/2017 Comp Metabolic Wtx428 Osmo 264 mOsmo 07/15/2017 Tsh Ord6 TSH (3rd IS) 6.20 uIU/mL 07/15/2017 Urinalysis Ord28 U-Color Yellow 07/15/2017 Urinalysis [...] 48 hours from collection if refrigerated) 07/15/2017 Free T4 Phd994 FREE T4 0.95 ng/dL 07/15/2017 Lipid Ord30 CHOL 176 mg/dL 01/30/2016 Lipid Ord30 HDL 53.0 mg/dl 01/30/2016 Lipid Ord30 TRIG 164 mg/dL 01/30/2016 Lipid Ord30 LDL 90 mg/dL 01/30/2016 Lipid Ord30 C/HDL 3.3 Ratio 01/30/2016 Comp Metabolic Bpo728 NA 134 mEq/L 01/30/2016 Comp Metabolic Gxc941 K 4.0 mEq/L 01/30/2016 Comp Metabolic Hor850 CL 97 mEq/L 01/30/2016 Comp Metabolic Xnz873 CO2 29.0 mEq/L 01/30/2016 Comp Metabolic Vhi699 ANION GAP 12 01/30/2016 Comp Metabolic Gsh383 GLUCOSE 98 mg/dL 01/30/2016 Comp Metabolic Wjb571 Creat 0.9 mg/dL 01/30/2016 Comp Metabolic Gkh356 eGFR 67 ml/min/1.73m2 01/30/2016 Comp Metabolic Raw532 BUN 16 mg/dL 01/30/2016 Comp Metabolic Oim447 B/C Ratio 18.6 Ratio 01/30/2016 Comp Metabolic Qfg206 CALCIUM 10.3 mg/dL 01/30/2016 Comp Metabolic Apk813 ALK PHOS 66 U/L 01/30/2016 Comp Metabolic Jts723 AST(SGOT) 16 U/L 01/30/2016 Comp Metabolic Eqb625 ALT(SGPT) 10 U/L 01/30/2016 Comp Metabolic Xzl058 BILI T 0.4 mg/dL 01/30/2016 Comp Metabolic Qay916 ALBUMIN 4.2 g/dL 01/30/2016 Comp Metabolic Oih856 TPRO 7.1 g/dL 01/30/2016 Comp Metabolic Zkk354 GLOB 2.9 g/dL 01/30/2016 Comp Metabolic Yqd761 A/G Ratio 1.5 Ratio 01/30/2016 Comp Metabolic Adn442 Osmo 269 mOsmo 01/30/2016 Tsh Ord6 hTSH II 2.93 uIU/mL 01/30/2016 Cbc With Differential Ord2 WBC 7.90 K/ul 01/30/2016 Cbc With Differential Ord2 RBC 3.83 M/ul 01/30/2016 Cbc With Differential Ord2 HGB 11.9 g/dl 01/30/2016 Cbc With Differential Ord2 Neut% 61.5 % 01/30/2016 Cbc With Differential Ord2 HCT 34.9 % 01/30/2016 Cbc With Differential Ord2 MCV 91.1 fl 01/30/2016 Cbc With Differential Ord2 Lymph% 27.3 % 01/30/2016 Cbc With Differential Ord2 [place]% 8.6 % 01/30/2016 Cbc With Differential Ord2 MCH 31.1 pg 01/30/2016 Cbc With Differential Ord2 Eos% 2.2 % 01/30/2016 Cbc With Differential Ord2 MCHC 34.1 pg 01/30/2016 Cbc With Differential Ord2 Baso% 0.4 % 01/30/2016 Cbc With Differential Ord2 PLT 250 K/ul 01/30/2016 Cbc With Differential Ord2 Neut ABS# 4.86 K/ul 01/30/2016 Cbc With Differential Ord2 RDW 13.0 % 01/30/2016 Cbc With Differential Ord2 Lymph ABS# 2.16 K/ul 01/30/2016 Cbc With Differential Ord2 [place] ABS# 0.7 K/ul 01/30/2016 Cbc With Differential [...] Effective Dates Notes Full Exam - General 1995 Constitutional general appearance Overall: well developed 01/06/2018 [...] Formatting Model/CDA Sections, Assigned to/Karine Archuleta CPT-4: 35277Nfelefj 01/06/2018 TRIAMCINOLONE ACET INJ NOS CPT-4: J3301 04/23/2016 ADMIN INFLUENZA VIRUS VAC CPT-4: G0008 01/30/2016 PNEUMOCOCCAL VACC [address]: 81021197 CPT-4: 54081 01/30/2016 FLU VACC 4 RODNEY 3 YRS PLUS IM Formatting Model/CDA Sections, Assigned to/Karine Archuleta SNOMED CT: 26453907 CPT-4: 78923Wuphiwk 01/30/2016 ADMIN PNEUMOCOCCAL VACCINE SNOMED CT: 66020435 CPT-4: G0009 01/30/2016 Vital Signs Date Vital 01/06/2018 Blood Pressure 1: 138/70 Code: 8480-6 BMI: 21.5 Code: 00230-2 Heart Rate 1: 75 bpm Height: 5'6" SpO2: 98% Weight: 133 lbs 07/08/2017 Blood Pressure 1: 148/82 Code: 8480-6 BMI: 21.6 Code: 18546-4 Heart Rate 1: 80 bpm Height: 5'6" SpO2: 98% Weight: 134 lbs 08/20/2016 Blood Pressure 1: 124/76 Code: 8480-6 BMI: 23.2 Code: 74008-8 Heart Rate 1: 72 bpm Height: 5'6" SpO2: 93% Weight: 144 lbs 04/23/2016 Blood Pressure 1: 130/82 Code: 8480-6 BMI: 23.4 Code: 87975-1 Heart Rate 1: 86 bpm Height: 5'6" SpO2: 98% Weight: 145 lbs 01/30/2016 Blood Pressure 1: 140/86 Code: 8480-6 BMI: 23.9 Code: 90663-3 Heart Rate 1: 55 bpm Height: 5'6" SpO2: 96% Weight: 148 lbs 01/02/2016 Blood Pressure 1: 146/86 Code: 8480-6 BMI: 24.2 Code: 76382-2 Heart Rate 1: 84 bpm Height: 5'6" [...] data Encounters Encounter Performer Location Codes Date ([id number]) [id number] EST. PATIENT, LEVEL IV Diagnosis: Essential (primary) hypertension[ICD10: I10] Diagnosis: Hypothyroidism, unspecified[ICD10: E03.9] Diagnosis: Low back pain[ICD10: M54.5] Diagnosis: Encounter for immunization[ICD10: Z23] Diagnosis: Abnormal weight loss[ICD10: R63.4] Rosi Tsai MD, [facility] CPT- 4: 71421 01/06/2018 ([id number]) [id number] EST. PATIENT, LEVEL IV Diagnosis: Essential (primary) hypertension[ICD10: I10] Diagnosis: Pain in right shoulder[ICD10: M25.511] Diagnosis: Mixed hyperlipidemia[ICD10: E78.2] Diagnosis: Dysuria[ICD10: R30.0] Diagnosis: Cramp and spasm[ICD10: R25.2] Rosi Tsai MD, [facility] CPT-4: 70549 07/08/2017 ([id number]) [id number] EST. PATIENT, LEVEL III Diagnosis: Essential (primary) hypertension[ICD10: I10] Diagnosis: Radiculopathy, lumbar region[ICD10: M54.16] Rosi Tsai MD, [facility] CPT-4: 10242 08/20/2016 ([id number]) 94025 EST. PATIENT, LEVEL IV Diagnosis: Essential (primary) hypertension[ICD10: I10] Diagnosis: Lumbago with sciatica, left side[ICD10: M54.42] Diagnosis: Cramp and spasm[ICD10: R25.2] Rosi Tsai MD, [facility] CPT-4: 21075 04/23/2016 ([id number]) 73344 EST. PATIENT, LEVEL III Diagnosis: Essential (primary) hypertension[ICD10: I10] Diagnosis: Radiculopathy, lumbar region[ICD10: M54.16] Diagnosis: Encounter for immunization[ICD10: Z23] Diagnosis: Impacted cerumen, left ear[ICD10: H61.22] Genny Tsai MD, [facility] CPT-4: 20414 01/30/2016 ([id number]) OFFICE VISIT, NEW - LEVEL 3 Diagnosis: Essential (primary) hypertension[ICD10: I10] Diagnosis: Mixed hyperlipidemia[ICD10: E78.2] Diagnosis: Cramp and spasm[ICD10: R25.2] [facility] CPT-4: 53983 01/02/2016 Plan of Care Planned Activity Notes [...] ice cream 01/06/2018 Appointment: Rosi Vega WPtel: [phone] (15 min) Moderate 01/06/2018 Patient Education: [...] cramps-check labs 07/08/2017 Appointment: Rosi Vega WPtel: [address] [place], [place] [phone] (15 min) Moderate 07/08/2017 Patient Education: Patient Medication Summary Completed 07/08/2017 Appointment: Rosi Vega WPtel: [facility] [phone] (15 min) Moderate 12/24/2016 Visit Plan: [...] of plan. 08/20/2016 Appointment: Rosi Vega WPtel: [address] [place], [place] [phone] (30 min) Complex 08/20/2016 Patient Education: Patient Medication Summary Completed 08/20/2016 Appointment: Rosi Vega WPtel: [facility] [phone] (30 min) Complex 04/30/2016 Visit Plan: [...] removal process. 01/30/2016 Appointment: Rosi Vega WPtel: [facility] [phone] (30 min) Complex 01/30/2016 Patient Education: [...] B12, magnesium 01/02/2016 App[facility]ment: [facility] [phone] [phone] New Patient 01/02/2016 Patient Education: Patient Medication [...]
--- OUTSIDE RECORDS SUMMARY | 2018-10-19 22:03 | XMS REPORT | CCD ---
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 Name Role Phone PP Unavailable CCM Unavailable Summary Purpose Interface Exchange Insurance Providers Payer name Policy type / Coverage type Covered constitution party ID Effective Begin Date Effective End Date WPS Medicare Part B Medicare Part B [id number] Unknown Unknown Family history Daughter Diagnosis Age [...] Unknown 5 01/02/[address]: 989827937 Never smoker 01/02/[address]: 035672543 Never drinks alcohol 01/02/2016 Allergies, Adverse Reactions, [...] Fill Instructions hydrochlorothiazide 25 mg tablet RxNorm: 841506 TAKE ONE TABLET BY MOUTH ONCE DAILY 05/08/2018 No Stop Date Active tramadol 50 mg tablet RxNorm: 555483 1-2 Tablet(s) PO QID as needed 04/04/2018 05/18/2018 Active simvastatin 20 mg tablet RxNorm: 116594 TAKE 1 TABLET BY MOUTH ONCE DAILY 03/13/2018 No Stop Date Active Synthroid 25 mcg tablet RxNorm: 974718 1 Tablet(s) PO daily 03/07/2018 09/02/2018 Active alendronate 70 mg tablet RxNorm: 116185 TAKE ONE TABLET BY MOUTH ONCE A WEEK 02/20/2018 No Stop Date Active lisinopril 40 mg tablet RxNorm: 761805 TAKE 1 TABLET BY MOUTH ONCE DAILY 02/20/2018 No Stop Date Active alendronate 70 mg tablet RxNorm: 571496 TAKE ONE TABLET BY MOUTH ONCE A WEEK 02/20/2018 No Stop Date Active gabapentin 100 mg capsule RxNorm: 463514 TAKE TWO CAPSULES BY MOUTH AT BEDTIME 01/30/2018 No Stop Date Active tramadol 50 mg tablet RxNorm: 776034 1-2 Tablet(s) PO QID as needed 01/16/2018 03/01/2018 Inactive tramadol 50 mg tablet RxNorm: 296737 1-2 Tablet(s) PO QID as needed 11/28/2017 12/26/2017 Inactive tramadol 50 mg tablet RxNorm: 299984 1-2 Tablet(s) PO QID as needed 10/11/2017 01/15/2018 Inactive simvastatin 20 mg tablet RxNorm: 900718 TAKE ONE TABLET BY MOUTH ONCE DAILY 09/12/2017 03/12/2018 Inactive lisinopril 40 mg tablet RxNorm: 432962 TAKE ONE TABLET BY MOUTH ONCE DAILY 2017 02/19/2018 Inactive Synthroid 25 mcg tablet RxNorm: 440278 1 Tablet(s) PO daily 08/10/2017 02/05/2018 Inactive Synthroid 25 mcg tablet RxNorm: 640470 1 Tablet(s) PO daily 08/09/2017 08/09/2017 Inactive okay for generic-hold until refill due tramadol 50 mg tablet RxNorm: 638234 1-2 Tablet(s) PO QID as needed 08/01/2017 09/13/2017 Inactive Keflex 500 mg capsule RxNorm: 182125 1 Capsule(s) PO TID 07/15/2017 07/21/2017 Inactive Synthroid 25 mcg tablet RxNorm: 885879 1 Tablet(s) PO daily 07/15/2017 07/14/2017 Inactive Synthroid 25 mcg tablet RxNorm: 179455 1 Tablet(s) PO daily 07/15/2017 07/18/2017 Inactive Voltaren 1 % topical gel RxNorm: 556150 4 Gram(s) TOP QID 07/08/2017 08/06/2017 Inactive tramadol 50 mg tablet RxNorm: 936768 1-2 Tablet(s) PO QID as needed 06/16/2017 11/27/2017 Inactive simvastatin 20 mg tablet RxNorm: 604562 TAKE ONE TABLET BY MOUTH ONCE DAILY 06/13/2017 09/11/2017 Inactive hydrochlorothiazide 25 mg tablet RxNorm: 638745 TAKE ONE TABLET BY MOUTH ONCE DAILY 05/16/2017 05/07/2018 Inactive tramadol 50 mg tablet RxNorm: 745621 1-2 Tablet(s) PO QID as needed 04/20/2017 07/31/2017 Inactive Keflex 500 mg capsule RxNorm: 776553 1 Capsule(s) PO TID 03/17/2017 03/16/2017 Inactive Keflex 500 mg capsule RxNorm: 261750 1 Capsule(s) PO TID 03/17/2017 03/23/2017 Inactive alendronate 70 mg tablet RxNorm: 518526 1 Tablet(s) PO QW 03/08/2017 02/19/2018 Inactive tramadol 50 mg tablet RxNorm: 275041 1-2 Tablet(s) PO QID as needed 02/02/2017 07/31/2017 Inactive gabapentin 100 mg capsule RxNorm: 966989 TAKE TWO CAPSULES BY MOUTH AT BEDTIME 01/31/2017 07/29/2017 Inactive tramadol 50 mg tablet RxNorm: 208091 1-2 Tablet(s) PO QID as needed 12/06/2016 07/31/2017 Inactive hydrochlorothiazide 25 mg tablet RxNorm: 944434 TAKE ONE TABLET BY MOUTH ONCE DAILY 11/16/2016 05/14/2017 Inactive lisinopril 40 mg tablet RxNorm: 265222 TAKE ONE TABLET BY MOUTH ONCE DAILY 09/30/2016 06/26/2017 Inactive alendronate 70 mg tablet RxNorm: 072391 1 Tablet(s) PO QW 09/24/2016 03/07/2017 Inactive simvastatin 20 mg tablet RxNorm: 222590 TAKE ONE TABLET BY MOUTH ONCE DAILY 09/20/2016 06/12/2017 Inactive tramadol 50 mg tablet RxNorm: 504741 1-2 Tablet(s) PO QID as needed 09/08/2016 10/20/2016 Inactive gabapentin 100 mg capsule RxNorm: 465966 1 Capsule(s) PO QHS 08/20/2016 12/17/2016 Inactive HOLD- WILL CALL WHEN NEEDED tramadol 50 mg tablet RxNorm: 086169 1-2 Tablet(s) PO QID as needed 08/20/2016 09/07/2016 Inactive tramadol 50 mg tablet RxNorm: 721240 1 Tablet(s) PO QID as needed 05/14/2016 08/05/2016 Inactive Kenalog 40 mg/mL suspension for injection RxNorm: 4408343 Milliliter(s) Inj 04/23/2016 04/23/2016 Inactive gabapentin 100 mg capsule RxNorm: 234085 2 Capsule(s) PO QHS 04/23/2016 08/19/2016 Inactive HOLD- WILL CALL WHEN NEEDED alendronate 70 mg tablet RxNorm: 549583 1 Tablet(s) PO QW 04/07/2016 09/23/2016 Inactive simvastatin 20 mg tablet RxNorm: 620960 1 Tablet(s) PO daily 03/29/2016 09/19/2016 Inactive tramadol 50 mg tablet RxNorm: 306847 1 Tablet(s) PO QID as needed 03/10/2016 07/31/2017 Inactive gabapentin 100 mg capsule RxNorm: 138544 1 Capsule(s) PO QHS 01/30/2016 04/22/2016 Inactive lisinopril 40 mg tablet RxNorm: 820825 1 Tablet(s) PO daily 01/30/2016 09/29/2016 Inactive hydrochlorothiazide 25 mg tablet RxNorm: 615062 1 Tablet(s) PO daily 01/30/2016 10/25/2016 Inactive alendronate 70 mg tablet RxNorm: 963055 1 Tablet(s) QW 01/02/2016 04/06/2016 Inactive simvastatin 20 mg tablet RxNorm: 988197 1 Tablet(s) PO daily 12/31/2015 12/30/2015 Inactive simvastatin 20 mg tablet RxNorm: 751977 1 Tablet(s) PO daily 12/31/2015 03/28/2016 Inactive Calcium + D oral RxNorm: 392892 oral No Start Date Active Tylenol 500 mg RxNorm: 2 PO QHS No Start Date Active hydrochlorothiazide 25 mg tablet RxNorm: 653244 1 Tablet(s) PO daily No Start Date 01/29/2016 Inactive tramadol 50 mg tablet RxNorm: 315821 1 Tablet(s) PO QID as needed No Start Date 03/09/2016 Inactive lisinopril 40 mg tablet RxNorm: 830801 1 Tablet(s) PO daily No Start Date 01/29/2016 Inactive Medication Administered Medication Codes Instructions Start Date Status Kenalog 40 mg/mL suspension for injection RxNorm: 4995279 Milliliter 04/23/2016 No longer Active Immunizations Vaccine [...] Item Item Code Result Date Free T4 Mjm206 FREE T4 0.95 ng/dL 01/13/2018 Comp Metabolic Zep914 NA 132 mEq/L 01/13/2018 Comp Metabolic Pwy874 K 4.2 mEq/L 01/13/2018 Comp Metabolic Ydj003 CL 97 mEq/L 01/13/2018 Comp Metabolic Zmq727 CO2 29.0 mEq/L 01/13/2018 Comp Metabolic Eiy831 ANION GAP 10 01/13/2018 Comp Metabolic Vsk694 GLUCOSE 88 mg/dL 01/13/2018 Comp Metabolic Scm075 Creat 0.9 mg/dL 01/13/2018 Comp Metabolic Pew018 eGFR 62 ml/min/1.73m2 01/13/2018 Comp Metabolic Zik551 BUN 16 mg/dL 01/13/2018 Comp Metabolic Uap329 B/C Ratio 17.6 Ratio 01/13/2018 Comp Metabolic Cko838 CALCIUM 10.0 mg/dL 01/13/2018 Comp Metabolic Boa740 ALK PHOS 65 U/L 01/13/2018 Comp Metabolic Eij973 AST(SGOT) 20 U/L 01/13/2018 Comp Metabolic Ayq201 ALT(SGPT) 16 U/L 01/13/2018 Comp Metabolic Lio153 BILI T 0.3 mg/dL 01/13/2018 Comp Metabolic Sqm496 ALBUMIN 4.0 g/dL 01/13/2018 Comp Metabolic Pgl367 TPRO 7.0 g/dL 01/13/2018 Comp Metabolic Ezg849 GLOB 3.0 g/dL 01/13/2018 Comp Metabolic Qtr733 A/G Ratio 1.3 Ratio 01/13/2018 Comp Metabolic Juc896 Osmo 265 mOsmo 01/13/2018 Tsh Ord6 TSH (3rd IS) 3.60 uIU/mL 01/13/2018 Cbc With Differential Ord2 WBC 8.14 K/ul 01/13/2018 Cbc With Differential Ord2 RBC 3.94 M/ul 01/13/2018 Cbc With Differential Ord2 HGB 11.7 g/dl 01/13/2018 Cbc With Differential Ord2 HCT 34.9 % 01/13/2018 Cbc With Differential Ord2 Neut% 57.8 % 01/13/2018 Cbc With Differential Ord2 Lymph% 31.3 % 01/13/2018 Cbc With Differential Ord2 MCV 88.6 fl 01/13/2018 Cbc With Differential Ord2 MCH 29.7 pg 01/13/2018 Cbc With Differential Ord2 Williamson% 7.6 % 01/13/2018 Cbc With Differential Ord2 MCHC 33.5 pg 01/13/2018 Cbc With Differential Ord2 Eos% 2.6 % 01/13/2018 Cbc With Differential Ord2 PLT 296 K/ul 01/13/2018 Cbc With Differential Ord2 Baso% 0.7 % 01/13/2018 Cbc With Differential Ord2 Neut ABS# 4.70 K/ul 01/13/2018 Cbc With Differential Ord2 RDW 13.3 % 01/13/2018 Cbc With Differential Ord2 Lymph ABS# 2.55 K/ul 01/13/2018 Cbc With Differential Ord2 Williamson ABS# 0.6 K/ul 01/13/2018 Cbc With Differential [...] 29.4 pg 07/15/2017 Cbc With Differential Ord2 Williamson% 8.8 % 07/15/2017 Cbc With Differential Ord2 [...] 2.44 K/ul 07/15/2017 Cbc With Differential Ord2 Williamson ABS# 0.8 K/ul 07/15/2017 Cbc With Differential [...] U-VOL VOLUME SUFFICIENT (10mL) 07/15/2017 Urinalysis Ord28 U-Com Urine saved if culture needed (specimen acceptable for 48 hours from collection if refrigerated) 07/15/2017 Urinalysis Ord28 U-Yeast NEGATIVE 07/15/2017 Comp Metabolic Ryv106 NA 132 mEq/L 07/15/2017 Comp Metabolic Zlg929 K 3.8 mEq/L 07/15/2017 Comp Metabolic Ulm171 CL 95 mEq/L 07/15/2017 Comp Metabolic Pqj278 CO2 30.0 mEq/L 07/15/2017 Comp Metabolic Vxz916 ANION GAP 11 07/15/2017 Comp Metabolic Bkp012 GLUCOSE 92 mg/dL 07/15/2017 Comp Metabolic Dxi923 Creat 0.8 mg/dL 07/15/2017 Comp Metabolic Qef262 eGFR 75 ml/min/1.73m2 07/15/2017 Comp Metabolic Efg978 BUN 11 mg/dL 07/15/2017 Comp Metabolic Zxe301 B/C Ratio 14.1 Ratio 07/15/2017 Comp Metabolic Xhp156 CALCIUM 9.7 mg/dL 07/15/2017 Comp Metabolic Fzv169 ALK PHOS 72 U/L 07/15/2017 Comp Metabolic Esr737 AST(SGOT) 14 U/L 07/15/2017 Comp Metabolic Ajr983 ALT(SGPT) 9 U/L 07/15/2017 Comp Metabolic Fkq132 BILI T 0.5 mg/dL 07/15/2017 Comp Metabolic Wqv773 ALBUMIN 4.1 g/dL 07/15/2017 Comp Metabolic Svz475 TPRO 6.9 g/dL 07/15/2017 Comp Metabolic Woj927 GLOB 2.8 g/dL 07/15/2017 Comp Metabolic Iss568 A/G Ratio 1.5 Ratio 07/15/2017 Comp Metabolic Nco698 Osmo 264 mOsmo 07/15/2017 Tsh Ord6 TSH (3rd IS) 6.20 uIU/mL 07/15/2017 Free T4 Cbl661 FREE T4 0.95 ng/dL 07/15/2017 Cbc With [...] 91.1 fl 01/30/2016 Cbc With Differential Ord2 MCH 31.1 pg 01/30/2016 Cbc With Differential Ord2 Williamson% 8.6 % 01/30/2016 Cbc With Differential Ord2 Eos% 2.2 % 01/30/2016 Cbc With Differential Ord2 MCHC 34.1 pg 01/30/2016 Cbc With Differential Ord2 Baso% 0.4 % 01/30/2016 Cbc With Differential Ord2 PLT 250 K/ul 01/30/2016 Cbc With Differential Ord2 RDW 13.0 % 01/30/2016 Cbc With Differential Ord2 Neut ABS# 4.86 K/ul 01/30/2016 Cbc With Differential Ord2 Lymph ABS# 2.16 K/ul 01/30/2016 Cbc With Differential Ord2 Williamson ABS# 0.7 K/ul 01/30/2016 Cbc With Differential Ord2 Eos ABS# 0.2 K/ul 01/30/2016 Cbc With Differential Ord2 Baso ABS# 0.0 K/ul 01/30/2016 Tsh Ord6 hTSH II 2.93 uIU/mL 01/30/2016 Comp Metabolic Lku805 NA 134 mEq/L 01/30/2016 Comp Metabolic Qye255 K 4.0 mEq/L 01/30/2016 Comp Metabolic Ubw942 CL 97 mEq/L 01/30/2016 Comp Metabolic Qrw705 CO2 29.0 mEq/L 01/30/2016 Comp Metabolic Pvj022 ANION GAP 12 01/30/2016 Comp Metabolic Xau292 GLUCOSE 98 mg/dL 01/30/2016 Comp Metabolic Xns201 Creat 0.9 mg/dL 01/30/2016 Comp Metabolic Gcd717 eGFR 67 ml/min/1.73m2 01/30/2016 Comp Metabolic Ldi344 BUN 16 mg/dL 01/30/2016 Comp Metabolic Eub588 B/C Ratio 18.6 Ratio 01/30/2016 Comp Metabolic Gxh494 CALCIUM 10.3 mg/dL 01/30/2016 Comp Metabolic Fcj439 ALK PHOS 66 U/L 01/30/2016 Comp Metabolic Uax430 AST(SGOT) 16 U/L 01/30/2016 Comp Metabolic Oih999 ALT(SGPT) 10 U/L 01/30/2016 Comp Metabolic Jpj906 BILI T 0.4 mg/dL 01/30/2016 Comp Metabolic Hyg848 ALBUMIN 4.2 g/dL 01/30/2016 Comp Metabolic Fvz526 TPRO 7.1 g/dL 01/30/2016 Comp Metabolic Ygp375 GLOB 2.9 g/dL 01/30/2016 Comp Metabolic Rhl393 A/G Ratio 1.5 Ratio 01/30/2016 Comp Metabolic Gxf955 Osmo 269 mOsmo 01/30/2016 Lipid Ord30 CHOL [...] VAC NO PRSV 4 RODNEY 3 YRS+ Assigned to/Karine Archuleta, Formatting Model/CDA Sections CPT-4: 39415Trszsae 01/06/2018 TRIAMCINOLONE ACET INJ NOS CPT-4: J3301 04/23/2016 ADMIN INFLUENZA VIRUS VAC CPT-4: G0008 01/30/2016 PNEUMOCOCCAL VACC [address]: 14978694 CPT-4: 42952 01/30/2016 FLU VACC 4 RODNEY 3 YRS PLUS IM Formatting Model/CDA Sections, Assigned to/Karine Archuleta SNOMED CT: 78742332 CPT-4: 69753Yoyaqzi 01/30/2016 ADMIN PNEUMOCOCCAL VACCINE SNOMED CT: 42663604 CPT-4: G0009 01/30/2016 Vital Signs Date Vital 01/06/2018 Blood Pressure 1: 138/70 Code: 8480-6 BMI: 21.5 Code: 23664-4 Heart Rate 1: 75 bpm Height: 5'6" SpO2: 98% Weight: 133 lbs 07/08/2017 Blood Pressure 1: 148/82 Code: 8480-6 BMI: 21.6 Code: 30943-4 Heart Rate 1: 80 bpm Height: 5'6" SpO2: 98% Weight: 134 lbs 08/20/2016 Blood Pressure 1: 124/76 Code: 8480-6 BMI: 23.2 Code: 03539-1 Heart Rate 1: 72 bpm Height: 5'6" SpO2: 93% Weight: 144 lbs 04/23/2016 Blood Pressure 1: 130/82 Code: 8480-6 BMI: 23.4 Code: 59388-5 Heart Rate 1: 86 bpm Height: 5'6" SpO2: 98% Weight: 145 lbs 01/30/2016 Blood Pressure 1: 140/86 Code: 8480-6 BMI: 23.9 Code: 04824-9 Heart Rate 1: 55 bpm Height: 5'6" SpO2: 96% Weight: 148 lbs 01/02/2016 Blood Pressure 1: 146/86 Code: 8480-6 BMI: 24.2 Code: 19639-3 Heart Rate 1: 84 bpm Height: 5'6" [...] data Encounters Encounter Performer Location Codes Date ([id number]) [id number] EST. PATIENT, LEVEL IV Diagnosis: Essential (primary) hypertension[ICD10: I10] Diagnosis: Hypothyroidism, unspecified[ICD10: E03.9] Diagnosis: Low back pain[ICD10: M54.5] Diagnosis: Encounter for immunization[ICD10: Z23] Diagnosis: Abnormal weight loss[ICD10: R63.4] Rosi Tsai MD, [facility] CPT- 4: 17965 01/06/2018 ([id number]) [id number] EST. PATIENT, LEVEL IV Diagnosis: Essential (primary) hypertension[ICD10: I10] Diagnosis: Pain in right shoulder[ICD10: M25.511] Diagnosis: Mixed hyperlipidemia[ICD10: E78.2] Diagnosis: Dysuria[ICD10: R30.0] Diagnosis: Cramp and spasm[ICD10: R25.2] Rosi Tsai MD, [facility] CPT-4: 51054 07/08/2017 ([id number]) 05391 EST. PATIENT, LEVEL III Diagnosis: Essential (primary) hypertension[ICD10: I10] Diagnosis: Radiculopathy, lumbar region[ICD10: M54.16] Rosi Tsai MD, [facility] CPT-4: 13539 08/20/2016 ([id number]) 12657 EST. PATIENT, LEVEL IV Diagnosis: Essential (primary) hypertension[ICD10: I10] Diagnosis: Lumbago with sciatica, left side[ICD10: M54.42] Diagnosis: Cramp and spasm[ICD10: R25.2] Rosi Tsai MD, [facility] CPT-4: 62718 04/23/2016 ([id number]) 21637 EST. PATIENT, LEVEL III Diagnosis: Essential (primary) hypertension[ICD10: I10] Diagnosis: Radiculopathy, lumbar region[ICD10: M54.16] Diagnosis: Encounter for immunization[ICD10: Z23] Diagnosis: Impacted cerumen, left ear[ICD10: H61.22] Genny Tsai MD, [facility] CPT-4: 37626 01/30/2016 ([id number]) OFFICE VISIT, NEW - LEVEL 3 Diagnosis: Essential (primary) hypertension[ICD10: I10] Diagnosis: Mixed hyperlipidemia[ICD10: E78.2] Diagnosis: Cramp and spasm[ICD10: R25.2] [facility] CPT-4: 71557 01/02/2016 Plan of Care Planned Activity Notes [...] cream 01/06/2018 Appointment: Rosi Vega WPtel: [phone] (15 min) Moderate 01/06/2018 Patient Education: [...] cramps-check labs 07/08/2017 Appointment: Rosi Vega WPtel: [address] [place], [place] [phone] (15 min) Moderate 07/08/2017 Patient Education: Patient Medication Summary Completed 07/08/2017 Appointment: Rosi Vega WPtel: [phone] (15 min) Moderate 12/24/2016 Visit Plan: [...] of plan. 08/20/2016 Appointment: Rosi Vega WPtel: [address] [place], [place] [phone] (30 min) Complex 08/20/2016 Patient Education: Patient Medication Summary Completed 08/20/2016 Appointment: Rosi Vega WPtel: [phone] (30 min) Complex 04/30/2016 Visit Plan: [...] process. 01/30/2016 Appointment: Rosi Vega WPtel: [phone] (30 min) Complex 01/30/2016 Patient Education: [...] B12, magnesium 01/02/2016 [phone] New Patient 01/02/2016 Patient Education: Patient [...]
--- OUTSIDE RECORDS SUMMARY | 2018-10-19 22:04 | XMS REPORT | CCD ---
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 Name Role Phone PP Unavailable CCM Unavailable Summary Purpose Interface Exchange Insurance Providers Payer name Policy type / Coverage type Covered green party ID Effective Begin Date Effective End Date WPS Medicare Part B Medicare Part B [id number] Unknown Unknown Family history Daughter Diagnosis Age [...] Unknown 5 01/02/[address]: 323556355 Never smoker 01/02/[address]: 132322303 Never drinks alcohol 01/02/2016 Allergies, Adverse Reactions, [...] Fill Instructions tramadol 50 mg tablet RxNorm: 812889 1-2 Tablet(s) PO QID as needed 04/04/2018 05/18/2018 Active simvastatin 20 mg tablet RxNorm: 061117 TAKE 1 TABLET BY MOUTH ONCE DAILY 03/13/2018 No Stop Date Active Synthroid 25 mcg tablet RxNorm: 051173 1 Tablet(s) PO daily 03/07/2018 09/02/2018 Active alendronate 70 mg tablet RxNorm: 659901 TAKE ONE TABLET BY MOUTH ONCE A WEEK 02/20/2018 No Stop Date Active lisinopril 40 mg tablet RxNorm: 794615 TAKE 1 TABLET BY MOUTH ONCE DAILY 02/20/2018 No Stop Date Active alendronate 70 mg tablet RxNorm: 869801 TAKE ONE TABLET BY MOUTH ONCE A WEEK 02/20/2018 No Stop Date Active gabapentin 100 mg capsule RxNorm: 278616 TAKE TWO CAPSULES BY MOUTH AT BEDTIME 01/30/2018 No Stop Date Active tramadol 50 mg tablet RxNorm: 163873 1-2 Tablet(s) PO QID as needed 01/16/2018 03/01/2018 Inactive tramadol 50 mg tablet RxNorm: 365153 1-2 Tablet(s) PO QID as needed 11/28/2017 12/26/2017 Inactive tramadol 50 mg tablet RxNorm: 470146 1-2 Tablet(s) PO QID as needed 10/11/2017 01/15/2018 Inactive simvastatin 20 mg tablet RxNorm: 455954 TAKE ONE TABLET BY MOUTH ONCE DAILY 09/12/2017 03/12/2018 Inactive lisinopril 40 mg tablet RxNorm: 735350 TAKE ONE TABLET BY MOUTH ONCE DAILY 2017 02/19/2018 Inactive Synthroid 25 mcg tablet RxNorm: 879435 1 Tablet(s) PO daily 08/10/2017 02/05/2018 Inactive Synthroid 25 mcg tablet RxNorm: 262846 1 Tablet(s) PO daily 08/09/2017 08/09/2017 Inactive okay for generic-hold until refill due tramadol 50 mg tablet RxNorm: 999019 1-2 Tablet(s) PO QID as needed 08/01/2017 09/13/2017 Inactive Keflex 500 mg capsule RxNorm: 783678 1 Capsule(s) PO TID 07/15/2017 07/21/2017 Inactive Synthroid 25 mcg tablet RxNorm: 703169 1 Tablet(s) PO daily 07/15/2017 07/14/2017 Inactive Synthroid 25 mcg tablet RxNorm: 293738 1 Tablet(s) PO daily 07/15/2017 07/18/2017 Inactive Voltaren 1 % topical gel RxNorm: 350202 4 Gram(s) TOP QID 07/08/2017 08/06/2017 Inactive tramadol 50 mg tablet RxNorm: 724223 1-2 Tablet(s) PO QID as needed 06/16/2017 11/27/2017 Inactive simvastatin 20 mg tablet RxNorm: 878586 TAKE ONE TABLET BY MOUTH ONCE DAILY 06/13/2017 09/11/2017 Inactive hydrochlorothiazide 25 mg tablet RxNorm: 525878 TAKE ONE TABLET BY MOUTH ONCE DAILY 05/16/2017 No Stop Date Active tramadol 50 mg tablet RxNorm: 608694 1-2 Tablet(s) PO QID as needed 04/20/2017 07/31/2017 Inactive Keflex 500 mg capsule RxNorm: 470453 1 Capsule(s) PO TID 03/17/2017 03/16/2017 Inactive Keflex 500 mg capsule RxNorm: 705772 1 Capsule(s) PO TID 03/17/2017 03/23/2017 Inactive alendronate 70 mg tablet RxNorm: 482638 1 Tablet(s) PO QW 03/08/2017 02/19/2018 Inactive tramadol 50 mg tablet RxNorm: 668559 1-2 Tablet(s) PO QID as needed 02/02/2017 07/31/2017 Inactive gabapentin 100 mg capsule RxNorm: 166914 TAKE TWO CAPSULES BY MOUTH AT BEDTIME 01/31/2017 07/29/2017 Inactive tramadol 50 mg tablet RxNorm: 845650 1-2 Tablet(s) PO QID as needed 12/06/2016 07/31/2017 Inactive hydrochlorothiazide 25 mg tablet RxNorm: 662820 TAKE ONE TABLET BY MOUTH ONCE DAILY 11/16/2016 05/14/2017 Inactive lisinopril 40 mg tablet RxNorm: 247851 TAKE ONE TABLET BY MOUTH ONCE DAILY 09/30/2016 06/26/2017 Inactive alendronate 70 mg tablet RxNorm: 583887 1 Tablet(s) PO QW 09/24/2016 03/07/2017 Inactive simvastatin 20 mg tablet RxNorm: 737291 TAKE ONE TABLET BY MOUTH ONCE DAILY 09/20/2016 06/12/2017 Inactive tramadol 50 mg tablet RxNorm: 260325 1-2 Tablet(s) PO QID as needed 09/08/2016 10/20/2016 Inactive gabapentin 100 mg capsule RxNorm: 793716 1 Capsule(s) PO QHS 08/20/2016 12/17/2016 Inactive HOLD- WILL CALL WHEN NEEDED tramadol 50 mg tablet RxNorm: 454507 1-2 Tablet(s) PO QID as needed 08/20/2016 09/07/2016 Inactive tramadol 50 mg tablet RxNorm: 306300 1 Tablet(s) PO QID as needed 05/14/2016 08/05/2016 Inactive Kenalog 40 mg/mL suspension for injection RxNorm: 8812273 Milliliter(s) Inj 04/23/2016 04/23/2016 Inactive gabapentin 100 mg capsule RxNorm: 693758 2 Capsule(s) PO QHS 04/23/2016 08/19/2016 Inactive HOLD- WILL CALL WHEN NEEDED alendronate 70 mg tablet RxNorm: 708772 1 Tablet(s) PO QW 04/07/2016 09/23/2016 Inactive simvastatin 20 mg tablet RxNorm: 321250 1 Tablet(s) PO daily 03/29/2016 09/19/2016 Inactive tramadol 50 mg tablet RxNorm: 869744 1 Tablet(s) PO QID as needed 03/10/2016 07/31/2017 Inactive gabapentin 100 mg capsule RxNorm: 003623 1 Capsule(s) PO QHS 01/30/2016 04/22/2016 Inactive lisinopril 40 mg tablet RxNorm: 661570 1 Tablet(s) PO daily 01/30/2016 09/29/2016 Inactive hydrochlorothiazide 25 mg tablet RxNorm: 773498 1 Tablet(s) PO daily 01/30/2016 10/25/2016 Inactive alendronate 70 mg tablet RxNorm: 594789 1 Tablet(s) QW 01/02/2016 04/06/2016 Inactive simvastatin 20 mg tablet RxNorm: 334772 1 Tablet(s) PO daily 12/31/2015 12/30/2015 Inactive simvastatin 20 mg tablet RxNorm: 684155 1 Tablet(s) PO daily 12/31/2015 03/28/2016 Inactive Calcium + D oral RxNorm: 618383 oral No Start Date Active Tylenol 500 mg RxNorm: 2 PO QHS No Start Date Active hydrochlorothiazide 25 mg tablet RxNorm: 901548 1 Tablet(s) PO daily No Start Date 01/29/2016 Inactive tramadol 50 mg tablet RxNorm: 778680 1 Tablet(s) PO QID as needed No Start Date 03/09/2016 Inactive lisinopril 40 mg tablet RxNorm: 880240 1 Tablet(s) PO daily No Start Date 01/29/2016 Inactive Medication Administered Medication Codes Instructions Start Date Status Kenalog 40 mg/mL suspension for injection RxNorm: 2998569 Milliliter 04/23/2016 No longer Active Immunizations Vaccine [...] Item Item Code Result Date Free T4 Qdc196 FREE T4 0.95 ng/dL 01/13/2018 Comp Metabolic Add940 NA 132 mEq/L 01/13/2018 Comp Metabolic Ydt319 K 4.2 mEq/L 01/13/2018 Comp Metabolic Xmj500 CL 97 mEq/L 01/13/2018 Comp Metabolic Qav903 CO2 29.0 mEq/L 01/13/2018 Comp Metabolic Uzo594 ANION GAP 10 01/13/2018 Comp Metabolic Xym195 GLUCOSE 88 mg/dL 01/13/2018 Comp Metabolic Mpn901 Creat 0.9 mg/dL 01/13/2018 Comp Metabolic Uri842 eGFR 62 ml/min/1.73m2 01/13/2018 Comp Metabolic Dot673 BUN 16 mg/dL 01/13/2018 Comp Metabolic Wwb831 B/C Ratio 17.6 Ratio 01/13/2018 Comp Metabolic Gyi384 CALCIUM 10.0 mg/dL 01/13/2018 Comp Metabolic Tpn911 ALK PHOS 65 U/L 01/13/2018 Comp Metabolic Xff339 AST(SGOT) 20 U/L 01/13/2018 Comp Metabolic Ngh289 ALT(SGPT) 16 U/L 01/13/2018 Comp Metabolic Rjz494 BILI T 0.3 mg/dL 01/13/2018 Comp Metabolic Slu423 ALBUMIN 4.0 g/dL 01/13/2018 Comp Metabolic Rrr093 TPRO 7.0 g/dL 01/13/2018 Comp Metabolic Vat973 GLOB 3.0 g/dL 01/13/2018 Comp Metabolic Yvy110 A/G Ratio 1.3 Ratio 01/13/2018 Comp Metabolic Hey479 Osmo 265 mOsmo 01/13/2018 Tsh Ord6 TSH [...] 29.7 pg 01/13/2018 Cbc With Differential Ord2 Reeves% 7.6 % 01/13/2018 Cbc With Differential Ord2 [...] 2.55 K/ul 01/13/2018 Cbc With Differential Ord2 Reeves ABS# 0.6 K/ul 01/13/2018 Cbc With Differential [...] 29.4 pg 07/15/2017 Cbc With Differential Ord2 Reeves% 8.8 % 07/15/2017 Cbc With Differential Ord2 [...] 2.44 K/ul 07/15/2017 Cbc With Differential Ord2 Reeves ABS# 0.8 K/ul 07/15/2017 Cbc With Differential [...] Urinalysis Ord28 U-Yeast NEGATIVE 07/15/2017 Comp Metabolic Nvr788 NA 132 mEq/L 07/15/2017 Comp Metabolic Fub190 K 3.8 mEq/L 07/15/2017 Comp Metabolic Veh278 CL 95 mEq/L 07/15/2017 Comp Metabolic Lio624 CO2 30.0 mEq/L 07/15/2017 Comp Metabolic Cmm980 ANION GAP 11 07/15/2017 Comp Metabolic Czd129 GLUCOSE 92 mg/dL 07/15/2017 Comp Metabolic Jsx240 Creat 0.8 mg/dL 07/15/2017 Comp Metabolic Qcr788 eGFR 75 ml/min/1.73m2 07/15/2017 Comp Metabolic Ouz234 BUN 11 mg/dL 07/15/2017 Comp Metabolic Zug783 B/C Ratio 14.1 Ratio 07/15/2017 Comp Metabolic Ykf111 CALCIUM 9.7 mg/dL 07/15/2017 Comp Metabolic Xjs257 ALK PHOS 72 U/L 07/15/2017 Comp Metabolic Daf131 AST(SGOT) 14 U/L 07/15/2017 Comp Metabolic Lkt866 ALT(SGPT) 9 U/L 07/15/2017 Comp Metabolic Eju184 BILI T 0.5 mg/dL 07/15/2017 Comp Metabolic Vev966 ALBUMIN 4.1 g/dL 07/15/2017 Comp Metabolic Coe043 TPRO 6.9 g/dL 07/15/2017 Comp Metabolic Oyg971 GLOB 2.8 g/dL 07/15/2017 Comp Metabolic Kjx330 A/G Ratio 1.5 Ratio 07/15/2017 Comp Metabolic Hzw151 Osmo 264 mOsmo 07/15/2017 Tsh Ord6 TSH (3rd IS) 6.20 uIU/mL 07/15/2017 Free T4 Kxt773 FREE T4 0.95 ng/dL 07/15/2017 Cbc With [...] 31.1 pg 01/30/2016 Cbc With Differential Ord2 Reeves% 8.6 % 01/30/2016 Cbc With Differential Ord2 [...] 2.16 K/ul 01/30/2016 Cbc With Differential Ord2 Reeves ABS# 0.7 K/ul 01/30/2016 Cbc With Differential Ord2 Eos ABS# 0.2 K/ul 01/30/2016 Cbc With Differential Ord2 Baso ABS# 0.0 K/ul 01/30/2016 Tsh Ord6 hTSH II 2.93 uIU/mL 01/30/2016 Comp Metabolic Hus882 NA 134 mEq/L 01/30/2016 Comp Metabolic Hgj137 K 4.0 mEq/L 01/30/2016 Comp Metabolic Jyi639 CL 97 mEq/L 01/30/2016 Comp Metabolic Voc642 CO2 29.0 mEq/L 01/30/2016 Comp Metabolic Cyy175 ANION GAP 12 01/30/2016 Comp Metabolic Geq530 GLUCOSE 98 mg/dL 01/30/2016 Comp Metabolic Gqk985 Creat 0.9 mg/dL 01/30/2016 Comp Metabolic Tgd190 eGFR 67 ml/min/1.73m2 01/30/2016 Comp Metabolic Udq936 BUN 16 mg/dL 01/30/2016 Comp Metabolic Ooc315 B/C Ratio 18.6 Ratio 01/30/2016 Comp Metabolic Fmq355 CALCIUM 10.3 mg/dL 01/30/2016 Comp Metabolic Afv176 ALK PHOS 66 U/L 01/30/2016 Comp Metabolic Dpt404 AST(SGOT) 16 U/L 01/30/2016 Comp Metabolic Rdi649 ALT(SGPT) 10 U/L 01/30/2016 Comp Metabolic Jix347 BILI T 0.4 mg/dL 01/30/2016 Comp Metabolic Pyx284 ALBUMIN 4.2 g/dL 01/30/2016 Comp Metabolic Lcp869 TPRO 7.1 g/dL 01/30/2016 Comp Metabolic Fjz960 GLOB 2.9 g/dL 01/30/2016 Comp Metabolic Aql387 A/G Ratio 1.5 Ratio 01/30/2016 Comp Metabolic Nqv998 Osmo 269 mOsmo 01/30/2016 Lipid Ord30 CHOL [...] accomodation 01/06/2018 None Full Exam - General 1993 [...] Formatting Model/CDA Sections, Assigned to/Karine Archuleta CPT-4: 61417Gqlriqt 01/06/2018 TRIAMCINOLONE ACET INJ NOS CPT-4: J3301 04/23/2016 ADMIN INFLUENZA VIRUS VAC CPT-4: G0008 01/30/2016 PNEUMOCOCCAL VACC [address]: 31459290 CPT-4: 88251 01/30/2016 FLU VACC 4 RODNEY 3 YRS PLUS IM Formatting Model/CDA Sections, Assigned to/Karine Archuleta SNOMED CT: 78013321 CPT-4: 69025Mjpylkk 01/30/2016 ADMIN PNEUMOCOCCAL VACCINE SNOMED CT: 06792469 CPT-4: G0009 01/30/2016 Vital Signs Date Vital 01/06/2018 Blood Pressure 1: 138/70 Code: 8480-6 BMI: 21.5 Code: 11758-6 Heart Rate 1: 75 bpm Height: 5'6" SpO2: 98% Weight: 133 lbs 07/08/2017 Blood Pressure 1: 148/82 Code: 8480-6 BMI: 21.6 Code: 71930-0 Heart Rate 1: 80 bpm Height: 5'6" SpO2: 98% Weight: 134 lbs 08/20/2016 Blood Pressure 1: 124/76 Code: 8480-6 BMI: 23.2 Code: 76809-3 Heart Rate 1: 72 bpm Height: 5'6" SpO2: 93% Weight: 144 lbs 04/23/2016 Blood Pressure 1: 130/82 Code: 8480-6 BMI: 23.4 Code: 98925-5 Heart Rate 1: 86 bpm Height: 5'6" SpO2: 98% Weight: 145 lbs 01/30/2016 Blood Pressure 1: 140/86 Code: 8480-6 BMI: 23.9 Code: 17109-5 Heart Rate 1: 55 bpm Height: 5'6" SpO2: 96% Weight: 148 lbs 01/02/2016 Blood Pressure 1: 146/86 Code: 8480-6 BMI: 24.2 Code: 63791-3 Heart Rate 1: 84 bpm Height: 5'6" [...] data Encounters Encounter Performer Location Codes Date ([id number]) [id number] EST. PATIENT, LEVEL IV Diagnosis: Essential (primary) hypertension[ICD10: I10] Diagnosis: Hypothyroidism, unspecified[ICD10: E03.9] Diagnosis: Low back pain[ICD10: M54.5] Diagnosis: Encounter for immunization[ICD10: Z23] Diagnosis: Abnormal weight loss[ICD10: R63.4] Rosi Tsai MD, [facility] CPT- 4: 65169 01/06/2018 ([id number]) [id number] EST. PATIENT, LEVEL IV Diagnosis: Essential (primary) hypertension[ICD10: I10] Diagnosis: Pain in right shoulder[ICD10: M25.511] Diagnosis: Mixed hyperlipidemia[ICD10: E78.2] Diagnosis: Dysuria[ICD10: R30.0] Diagnosis: Cramp and spasm[ICD10: R25.2] Rosi Tsai MD, [facility] CPT-4: 78295 07/08/2017 ([id number]) [id number] EST. PATIENT, LEVEL III Diagnosis: Essential (primary) hypertension[ICD10: I10] Diagnosis: Radiculopathy, lumbar region[ICD10: M54.16] Rosi Tsai MD, [facility] CPT-4: 52460 08/20/2016 ([id number]) 31801 EST. PATIENT, LEVEL IV Diagnosis: Essential (primary) hypertension[ICD10: I10] Diagnosis: Lumbago with sciatica, left side[ICD10: M54.42] Diagnosis: Cramp and spasm[ICD10: R25.2] Rosi Tsai MD, [facility] CPT-4: 92886 04/23/2016 ([id number]) 48882 EST. PATIENT, LEVEL III Diagnosis: Essential (primary) hypertension[ICD10: I10] Diagnosis: Radiculopathy, lumbar region[ICD10: M54.16] Diagnosis: Encounter for immunization[ICD10: Z23] Diagnosis: Impacted cerumen, left ear[ICD10: H61.22] Genny sTai MD, [facility] CPT-4: 99398 01/30/2016 ([id number]) OFFICE VISIT, NEW - LEVEL 3 Diagnosis: Essential (primary) hypertension[ICD10: I10] Diagnosis: Mixed hyperlipidemia[ICD10: E78.2] Diagnosis: Cramp and spasm[ICD10: R25.2] [facility] CPT-4: 75025 01/02/2016 Plan of Care Planned Activity Notes [...] ice cream 01/06/2018 Appointment: Rosi Vega WPtel: [address] [place] [address] (15 min) Moderate 01/06/2018 Patient Education: Patient [...] cramps-check labs 07/08/2017 Appointment: Rosi Vega WPtel: [address] [place] [address] (15 min) Moderate 07/08/2017 Patient Education: Patient Medication Summary Completed 07/08/2017 Appointment: Rosi Vega WPtel: [address] [place] [address] (15 min) Moderate 12/24/2016 Visit Plan: Hypertension [...] of plan. 08/20/2016 Appointment: Rosi Vega WPtel: [facility] (30 min) Complex 08/20/2016 Patient Education: Patient Medication Summary Completed 08/20/2016 Appointment: [facility] WPtel[phone] (30 min) Complex 04/30/2016 Visit Plan: Hypertension [...] removal process. 01/30/2016 Appointment: Ros[facility]ega WPtel[phone] ([facility] min) Complex 01/30/2016 Patient Education: [...] B12, magnesium 01/02/2016 Appointment: Ros[facility]ega WPtel[phone] [facility] Patient 01/02/2016 Patient Education: Patient [...]
--- OUTSIDE RECORDS SUMMARY | 2018-10-19 22:06 | XMS REPORT | CCD ---
Author Author Rosi Vega MD, [facility] Address [address] [place] [address] Phone Care Team Providers Care Button Riveter Name Role Phone PP Unavailable CCM Unavailable Summary Purpose Interface Exchange Insurance Providers Payer name Policy type / Coverage type Covered green party ID Effective Begin Date Effective End Date WPS Medicare Part B Medicare Part B [id number] Unknown Unknown Family history Daughter Diagnosis Age [...] Unknown 5 01/02/[address]: 718124636 Never smoker 01/02/[address]: 585126767 Never drinks alcohol 01/02/2016 Allergies, Adverse Reactions, [...] Start Date Stop Date Status Fill Instructions simvastatin 20 mg tablet RxNorm: 435114 TAKE 1 TABLET BY MOUTH ONCE DAILY 03/13/2018 No Stop Date Active Synthroid 25 mcg tablet RxNorm: 707445 1 Tablet(s) PO daily 03/07/2018 09/02/2018 Active alendronate 70 mg tablet RxNorm: 565109 TAKE ONE TABLET BY MOUTH ONCE A WEEK 02/20/2018 No Stop Date Active lisinopril 40 mg tablet RxNorm: 790406 TAKE 1 TABLET BY MOUTH ONCE DAILY 02/20/2018 No Stop Date Active alendronate 70 mg tablet RxNorm: 801533 TAKE ONE TABLET BY MOUTH ONCE A WEEK 02/20/2018 No Stop Date Active gabapentin 100 mg capsule RxNorm: 007922 TAKE TWO CAPSULES BY MOUTH AT BEDTIME 01/30/2018 No Stop Date Active tramadol 50 mg tablet RxNorm: 650128 1-2 Tablet(s) PO QID as needed 01/16/2018 03/01/2018 Inactive tramadol 50 mg tablet RxNorm: 187123 1-2 Tablet(s) PO QID as needed 11/28/2017 12/26/2017 Inactive tramadol 50 mg tablet RxNorm: 790030 1-2 Tablet(s) PO QID as needed 10/11/2017 01/15/2018 Inactive simvastatin 20 mg tablet RxNorm: 308324 TAKE ONE TABLET BY MOUTH ONCE DAILY 09/12/2017 03/12/2018 Inactive lisinopril 40 mg tablet RxNorm: 192429 TAKE ONE TABLET BY MOUTH ONCE DAILY 2017 02/19/2018 Inactive Synthroid 25 mcg tablet RxNorm: 941503 1 Tablet(s) PO daily 08/10/2017 02/05/2018 Inactive Synthroid 25 mcg tablet RxNorm: 426243 1 Tablet(s) PO daily 08/09/2017 08/09/2017 Inactive okay for generic-hold until refill due tramadol 50 mg tablet RxNorm: 671703 1-2 Tablet(s) PO QID as needed 08/01/2017 09/13/2017 Inactive Keflex 500 mg capsule RxNorm: 394041 1 Capsule(s) PO TID 07/15/2017 07/21/2017 Inactive Synthroid 25 mcg tablet RxNorm: 478965 1 Tablet(s) PO daily 07/15/2017 07/14/2017 Inactive Synthroid 25 mcg tablet RxNorm: 827915 1 Tablet(s) PO daily 07/15/2017 07/18/2017 Inactive Voltaren 1 % topical gel RxNorm: 174964 4 Gram(s) TOP QID 07/08/2017 08/06/2017 Inactive tramadol 50 mg tablet RxNorm: 031048 1-2 Tablet(s) PO QID as needed 06/16/2017 11/27/2017 Inactive simvastatin 20 mg tablet RxNorm: 947190 TAKE ONE TABLET BY MOUTH ONCE DAILY 06/13/2017 09/11/2017 Inactive hydrochlorothiazide 25 mg tablet RxNorm: 833895 TAKE ONE TABLET BY MOUTH ONCE DAILY 05/16/2017 No Stop Date Active tramadol 50 mg tablet RxNorm: 321585 1-2 Tablet(s) PO QID as needed 04/20/2017 07/31/2017 Inactive Keflex 500 mg capsule RxNorm: 034750 1 Capsule(s) PO TID 03/17/2017 03/16/2017 Inactive Keflex 500 mg capsule RxNorm: 146520 1 Capsule(s) PO TID 03/17/2017 03/23/2017 Inactive alendronate 70 mg tablet RxNorm: 697673 1 Tablet(s) PO QW 03/08/2017 02/19/2018 Inactive tramadol 50 mg tablet RxNorm: 162802 1-2 Tablet(s) PO QID as needed 02/02/2017 07/31/2017 Inactive gabapentin 100 mg capsule RxNorm: 822638 TAKE TWO CAPSULES BY MOUTH AT BEDTIME 01/31/2017 07/29/2017 Inactive tramadol 50 mg tablet RxNorm: 981123 1-2 Tablet(s) PO QID as needed 12/06/2016 07/31/2017 Inactive hydrochlorothiazide 25 mg tablet RxNorm: 651882 TAKE ONE TABLET BY MOUTH ONCE DAILY 11/16/2016 05/14/2017 Inactive lisinopril 40 mg tablet RxNorm: 449824 TAKE ONE TABLET BY MOUTH ONCE DAILY 09/30/2016 06/26/2017 Inactive alendronate 70 mg tablet RxNorm: 463101 1 Tablet(s) PO QW 09/24/2016 03/07/2017 Inactive simvastatin 20 mg tablet RxNorm: 538933 TAKE ONE TABLET BY MOUTH ONCE DAILY 09/20/2016 06/12/2017 Inactive tramadol 50 mg tablet RxNorm: 883015 1-2 Tablet(s) PO QID as needed 09/08/2016 10/20/2016 Inactive gabapentin 100 mg capsule RxNorm: 705287 1 Capsule(s) PO QHS 08/20/2016 12/17/2016 Inactive HOLD- WILL CALL WHEN NEEDED tramadol 50 mg tablet RxNorm: 653778 1-2 Tablet(s) PO QID as needed 08/20/2016 09/07/2016 Inactive tramadol 50 mg tablet RxNorm: 362970 1 Tablet(s) PO QID as needed 05/14/2016 08/05/2016 Inactive Kenalog 40 mg/mL suspension for injection RxNorm: 6121260 Milliliter(s) Inj 04/23/2016 04/23/2016 Inactive gabapentin 100 mg capsule RxNorm: 301190 2 Capsule(s) PO QHS 04/23/2016 08/19/2016 Inactive HOLD- WILL CALL WHEN NEEDED alendronate 70 mg tablet RxNorm: 072942 1 Tablet(s) PO QW 04/07/2016 09/23/2016 Inactive simvastatin 20 mg tablet RxNorm: 256177 1 Tablet(s) PO daily 03/29/2016 09/19/2016 Inactive tramadol 50 mg tablet RxNorm: 049935 1 Tablet(s) PO QID as needed 03/10/2016 07/31/2017 Inactive gabapentin 100 mg capsule RxNorm: 791660 1 Capsule(s) PO QHS 01/30/2016 04/22/2016 Inactive lisinopril 40 mg tablet RxNorm: 917811 1 Tablet(s) PO daily 01/30/2016 09/29/2016 Inactive hydrochlorothiazide 25 mg tablet RxNorm: 596066 1 Tablet(s) PO daily 01/30/2016 10/25/2016 Inactive alendronate 70 mg tablet RxNorm: 170316 1 Tablet(s) QW 01/02/2016 04/06/2016 Inactive simvastatin 20 mg tablet RxNorm: 788369 1 Tablet(s) PO daily 12/31/2015 12/30/2015 Inactive simvastatin 20 mg tablet RxNorm: 792489 1 Tablet(s) PO daily 12/31/2015 03/28/2016 Inactive Calcium + D oral RxNorm: 677397 oral No Start Date Active Tylenol 500 mg RxNorm: 2 PO QHS No Start Date Active hydrochlorothiazide 25 mg tablet RxNorm: 596313 1 Tablet(s) PO daily No Start Date 01/29/2016 Inactive tramadol 50 mg tablet RxNorm: 090147 1 Tablet(s) PO QID as needed No Start Date 03/09/2016 Inactive lisinopril 40 mg tablet RxNorm: 265261 1 Tablet(s) PO daily No Start Date 01/29/2016 Inactive Medication Administered Medication Codes Instructions Start Date Status Kenalog 40 mg/mL suspension for injection RxNorm: 2510376 Milliliter 04/23/2016 No longer Active Immunizations Vaccine [...] Item Item Code Result Date Free T4 Amq859 FREE T4 0.95 ng/dL 01/13/2018 Comp Metabolic Bfm008 NA 132 mEq/L 01/13/2018 Comp Metabolic Hid983 K 4.2 mEq/L 01/13/2018 Comp Metabolic Cef333 CL 97 mEq/L 01/13/2018 Comp Metabolic Dgz541 CO2 29.0 mEq/L 01/13/2018 Comp Metabolic Dbp321 ANION GAP 10 01/13/2018 Comp Metabolic Aru658 GLUCOSE 88 mg/dL 01/13/2018 Comp Metabolic Rif272 Creat 0.9 mg/dL 01/13/2018 Comp Metabolic Zey892 eGFR 62 ml/min/1.73m2 01/13/2018 Comp Metabolic Wus279 BUN 16 mg/dL 01/13/2018 Comp Metabolic Lof727 B/C Ratio 17.6 Ratio 01/13/2018 Comp Metabolic Kvn866 CALCIUM 10.0 mg/dL 01/13/2018 Comp Metabolic Nyu198 ALK PHOS 65 U/L 01/13/2018 Comp Metabolic Xdq696 AST(SGOT) 20 U/L 01/13/2018 Comp Metabolic Kff013 ALT(SGPT) 16 U/L 01/13/2018 Comp Metabolic Crn984 BILI T 0.3 mg/dL 01/13/2018 Comp Metabolic Bpd545 ALBUMIN 4.0 g/dL 01/13/2018 Comp Metabolic Ufq126 TPRO 7.0 g/dL 01/13/2018 Comp Metabolic Txy093 GLOB 3.0 g/dL 01/13/2018 Comp Metabolic Rmy739 A/G Ratio 1.3 Ratio 01/13/2018 Comp Metabolic Fgv244 Osmo 265 mOsmo 01/13/2018 Tsh Ord6 TSH (3rd IS) 3.60 uIU/mL 01/13/2018 Cbc With Differential Ord2 WBC 8.14 K/ul 01/13/2018 Cbc With Differential Ord2 RBC 3.94 M/ul 01/13/2018 Cbc With Differential Ord2 HGB 11.7 g/dl 01/13/2018 Cbc With Differential Ord2 Neut% 57.8 % 01/13/2018 Cbc With Differential Ord2 HCT 34.9 % 01/13/2018 Cbc With Differential Ord2 Lymph% 31.3 % 01/13/2018 Cbc With Differential Ord2 MCV 88.6 fl 01/13/2018 Cbc With Differential Ord2 MCH 29.7 pg 01/13/2018 Cbc With Differential Ord2 [place]% 7.6 % 01/13/2018 Cbc With Differential Ord2 [...] 2.55 K/ul 01/13/2018 Cbc With Differential Ord2 [place] ABS# 0.6 K/ul 01/13/2018 Cbc With Differential [...] 35.1 % 07/15/2017 Cbc With Differential Ord2 MCV 87.5 fl 07/15/2017 Cbc With Differential Ord2 Lymph% 28.6 % 07/15/2017 Cbc With Differential Ord2 MCH 29.4 pg 07/15/2017 Cbc With Differential Ord2 [place]% 8.8 % 07/15/2017 Cbc With Differential Ord2 [...] 2.44 K/ul 07/15/2017 Cbc With Differential Ord2 [place] ABS# 0.8 K/ul 07/15/2017 Cbc With Differential [...] Urinalysis Ord28 U-Yeast NEGATIVE 07/15/2017 Comp Metabolic Cyz977 NA 132 mEq/L 07/15/2017 Comp Metabolic Ibt295 K 3.8 mEq/L 07/15/2017 Comp Metabolic Xbu539 CL 95 mEq/L 07/15/2017 Comp Metabolic Fwe356 CO2 30.0 mEq/L 07/15/2017 Comp Metabolic Cdx061 ANION GAP 11 07/15/2017 Comp Metabolic Fnx101 GLUCOSE 92 mg/dL 07/15/2017 Comp Metabolic Gww758 Creat 0.8 mg/dL 07/15/2017 Comp Metabolic Ayu431 eGFR 75 ml/min/1.73m2 07/15/2017 Comp Metabolic Bzm736 BUN 11 mg/dL 07/15/2017 Comp Metabolic Dje336 B/C Ratio 14.1 Ratio 07/15/2017 Comp Metabolic Nma284 CALCIUM 9.7 mg/dL 07/15/2017 Comp Metabolic Cpg247 ALK PHOS 72 U/L 07/15/2017 Comp Metabolic Upi285 AST(SGOT) 14 U/L 07/15/2017 Comp Metabolic Eah893 ALT(SGPT) 9 U/L 07/15/2017 Comp Metabolic Ote065 BILI T 0.5 mg/dL 07/15/2017 Comp Metabolic Zue237 ALBUMIN 4.1 g/dL 07/15/2017 Comp Metabolic Njv211 TPRO 6.9 g/dL 07/15/2017 Comp Metabolic Irg280 GLOB 2.8 g/dL 07/15/2017 Comp Metabolic Qwn725 A/G Ratio 1.5 Ratio 07/15/2017 Comp Metabolic Aka223 Osmo 264 mOsmo 07/15/2017 Tsh Ord6 TSH (3rd IS) 6.20 uIU/mL 07/15/2017 Free T4 Zpm181 FREE T4 0.95 ng/dL 07/15/2017 Cbc With [...] 31.1 pg 01/30/2016 Cbc With Differential Ord2 [place]% 8.6 % 01/30/2016 Cbc With Differential Ord2 [...] 2.16 K/ul 01/30/2016 Cbc With Differential Ord2 [place] ABS# 0.7 K/ul 01/30/2016 Cbc With Differential Ord2 Eos ABS# 0.2 K/ul 01/30/2016 Cbc With Differential Ord2 Baso ABS# 0.0 K/ul 01/30/2016 Tsh Ord6 hTSH II 2.93 uIU/mL 01/30/2016 Comp Metabolic Enq648 NA 134 mEq/L 01/30/2016 Comp Metabolic Ouu676 K 4.0 mEq/L 01/30/2016 Comp Metabolic Jum084 CL 97 mEq/L 01/30/2016 Comp Metabolic Ehj528 CO2 29.0 mEq/L 01/30/2016 Comp Metabolic Ugn196 ANION GAP 12 01/30/2016 Comp Metabolic Mxr715 GLUCOSE 98 mg/dL 01/30/2016 Comp Metabolic Gfa702 Creat 0.9 mg/dL 01/30/2016 Comp Metabolic Shd987 eGFR 67 ml/min/1.73m2 01/30/2016 Comp Metabolic Gts623 BUN 16 mg/dL 01/30/2016 Comp Metabolic Tze214 B/C Ratio 18.6 Ratio 01/30/2016 Comp Metabolic Jgq048 CALCIUM 10.3 mg/dL 01/30/2016 Comp Metabolic Exd395 ALK PHOS 66 U/L 01/30/2016 Comp Metabolic Hts145 AST(SGOT) 16 U/L 01/30/2016 Comp Metabolic Qsi523 ALT(SGPT) 10 U/L 01/30/2016 Comp Metabolic Top738 BILI T 0.4 mg/dL 01/30/2016 Comp Metabolic Jzn045 ALBUMIN 4.2 g/dL 01/30/2016 Comp Metabolic Jrm173 TPRO 7.1 g/dL 01/30/2016 Comp Metabolic Yjh267 GLOB 2.9 g/dL 01/30/2016 Comp Metabolic Ium757 A/G Ratio 1.5 Ratio 01/30/2016 Comp Metabolic Cva643 Osmo 269 mOsmo 01/30/2016 Lipid Ord30 CHOL [...] Formatting Model/CDA Sections, Assigned to/Karine Archuleta CPT-4: 30485Puzyogx 01/06/2018 TRIAMCINOLONE ACET INJ NOS CPT-4: J3301 04/23/2016 ADMIN INFLUENZA VIRUS VAC CPT-4: G0008 01/30/2016 PNEUMOCOCCAL VACC [address]: 30774071 CPT-4: 85993 01/30/2016 FLU VACC 4 RODNEY 3 YRS PLUS IM Assigned to/Karine Archuleta, Formatting Model/CDA Sections SNOMED CT: 53738690 CPT-4: 98681Eiedxmz 01/30/2016 ADMIN PNEUMOCOCCAL VACCINE SNOMED CT: 77792082 CPT-4: G0009 01/30/2016 Vital Signs Date Vital 01/06/2018 Blood Pressure 1: 138/70 Code: 8480-6 BMI: 21.5 Code: 01091-2 Heart Rate 1: 75 bpm Height: 5'6" SpO2: 98% Weight: 133 lbs 07/08/2017 Blood Pressure 1: 148/82 Code: 8480-6 BMI: 21.6 Code: 27517-0 Heart Rate 1: 80 bpm Height: 5'6" SpO2: 98% Weight: 134 lbs 08/20/2016 Blood Pressure 1: 124/76 Code: 8480-6 BMI: 23.2 Code: 99715-7 Heart Rate 1: 72 bpm Height: 5'6" SpO2: 93% Weight: 144 lbs 04/23/2016 Blood Pressure 1: 130/82 Code: 8480-6 BMI: 23.4 Code: 32599-8 Heart Rate 1: 86 bpm Height: 5'6" SpO2: 98% Weight: 145 lbs 01/30/2016 Blood Pressure 1: 140/86 Code: 8480-6 BMI: 23.9 Code: 22016-9 Heart Rate 1: 55 bpm Height: 5'6" SpO2: 96% Weight: 148 lbs 01/02/2016 Blood Pressure 1: 146/86 Code: 8480-6 BMI: 24.2 Code: 46986-7 Heart Rate 1: 84 bpm Height: 5'6" [...] data Encounters Encounter Performer Location Codes Date ([id number]) 74827 EST. PATIENT, LEVEL IV Diagnosis: Essential (primary) hypertension[ICD10: I10] Diagnosis: Hypothyroidism, unspecified[ICD10: E03.9] Diagnosis: Low back pain[ICD10: M54.5] Diagnosis: Encounter for immunization[ICD10: Z23] Diagnosis: Abnormal weight loss[ICD10: R63.4] Rosi Tsai MD, [facility] CPT- 4: 67607 01/06/2018 ([id number]) 88636 EST. PATIENT, LEVEL IV Diagnosis: Essential (primary) hypertension[ICD10: I10] Diagnosis: Pain in right shoulder[ICD10: M25.511] Diagnosis: Mixed hyperlipidemia[ICD10: E78.2] Diagnosis: Dysuria[ICD10: R30.0] Diagnosis: Cramp and spasm[ICD10: R25.2] Rosi Tsai MD, [facility] CPT-4: 37495 07/08/2017 ([id number]) 52652 EST. PATIENT, LEVEL III Diagnosis: Essential (primary) hypertension[ICD10: I10] Diagnosis: Radiculopathy, lumbar region[ICD10: M54.16] [facility] CPT-4: 62214 08/20/2016 ([id number]) 84141 EST. PATIENT, LEVEL IV Diagnosis: Essential (primary) hypertension[ICD10: I10] Diagnosis: Lumbago with sciatica, left side[ICD10: M54.42] Diagnosis: Cramp and spasm[ICD10: R25.2] [facility] CPT-4: 64576 04/23/2016 ([id number]) 44540 EST. PATIENT, LEVEL III Diagnosis: Essential (primary) hypertension[ICD10: I10] Diagnosis: Radiculopathy, lumbar region[ICD10: M54.16] Diagnosis: Encounter for immunization[ICD10: Z23] Diagnosis: Impacted cerumen, left ear[ICD10: H61.22] [facility] CPT-4: 19482 01/30/2016 ([id number]) OFFICE VISIT, NEW - LEVEL 3 Diagnosis: Essential (primary) hypertension[ICD10: I10] Diagnosis: Mixed hyperlipidemia[ICD10: E78.2] Diagnosis: Cramp and spasm[ICD10: R25.2] [facility] CPT-4: 76959 01/02/2016 Plan of Care Planned Activity Notes [...] ice cream 01/06/2018 Appointment: Rosi Vega WPtel: Formerly named [phone] (15 min) Moderate 01/06/2018 Patient Education: Patient [...] [phone] (15 min) Moderate 07/08/2017 Patient Education: Patient Medication Summary Completed 07/08/2017 Appointment: Rosi Vega WPtel: Formerly named [phone] (15 min) Moderate 12/24/2016 Visit Plan: Hypertension [...] of plan. 08/20/2016 Appointment: Rosi Vega WPtel: Formerly named [phone] (30 min) Complex 08/20/2016 Patient Education: Patient Medication Summary Completed 08/20/2016 Appointment: Rosi Vega WPtel: [phone] [phone] (30 min) Complex 04/30/2016 Visit Plan: Hypertension [...] removal process. 01/30/2016 Appointment: Rosi Vega WPtel: Formerly named [phone] (30 min) Complex 01/30/2016 Patient Education: Patient [...] B12, magnesium 01/02/2016 Appointment: [phone] [phone] [place] New Patient 01/02/2016 Patient Education: Patient Medication [...]
--- OUTSIDE RECORDS SUMMARY | 2018-10-19 22:07 | XMS REPORT | CCD ---
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 Role Phone PP Unavailable CCM Unavailable Summary Purpose Interface Exchange Insurance Providers Payer name Policy type / Coverage type Covered democrat ID Effective Begin Date Effective End Date WPS Medicare Part B Medicare Part B [id number] Unknown Unknown Family history Daughter Diagnosis Age [...] Unknown 5 01/02/[address]: 995241438 Never smoker 01/02/[address]: 354723846 Never drinks alcohol 01/02/2016 Allergies, Adverse Reactions, [...] Fill Instructions Synthroid 25 mcg tablet RxNorm: 880636 1 Tablet(s) PO daily 03/07/2018 09/02/2018 Active alendronate 70 mg tablet RxNorm: 168657 TAKE ONE TABLET BY MOUTH ONCE A WEEK 02/20/2018 No Stop Date Active lisinopril 40 mg tablet RxNorm: 096393 TAKE 1 TABLET BY MOUTH ONCE DAILY 02/20/2018 No Stop Date Active alendronate 70 mg tablet RxNorm: 813658 TAKE ONE TABLET BY MOUTH ONCE A WEEK 02/20/2018 No Stop Date Active gabapentin 100 mg capsule RxNorm: 165567 TAKE TWO CAPSULES BY MOUTH AT BEDTIME 01/30/2018 No Stop Date Active tramadol 50 mg tablet RxNorm: 533438 1-2 Tablet(s) PO QID as needed 01/16/2018 03/01/2018 Inactive tramadol 50 mg tablet RxNorm: 803136 1-2 Tablet(s) PO QID as needed 11/28/2017 12/26/2017 Inactive tramadol 50 mg tablet RxNorm: 552235 1-2 Tablet(s) PO QID as needed 10/11/2017 01/15/2018 Inactive simvastatin 20 mg tablet RxNorm: 005970 TAKE ONE TABLET BY MOUTH ONCE DAILY 09/12/2017 No Stop Date Active lisinopril 40 mg tablet RxNorm: 515251 TAKE ONE TABLET BY MOUTH ONCE DAILY 2017 02/19/2018 Inactive Synthroid 25 mcg tablet RxNorm: 165132 1 Tablet(s) PO daily 08/10/2017 02/05/2018 Inactive Synthroid 25 mcg tablet RxNorm: 747210 1 Tablet(s) PO daily 08/09/2017 08/09/2017 Inactive okay for generic-hold until refill due tramadol 50 mg tablet RxNorm: 209702 1-2 Tablet(s) PO QID as needed 08/01/2017 09/13/2017 Inactive Keflex 500 mg capsule RxNorm: 682068 1 Capsule(s) PO TID 07/15/2017 07/21/2017 Inactive Synthroid 25 mcg tablet RxNorm: 519384 1 Tablet(s) PO daily 07/15/2017 07/14/2017 Inactive Synthroid 25 mcg tablet RxNorm: 859537 1 Tablet(s) PO daily 07/15/2017 07/18/2017 Inactive Voltaren 1 % topical gel RxNorm: 237144 4 Gram(s) TOP QID 07/08/2017 08/06/2017 Inactive tramadol 50 mg tablet RxNorm: 594189 1-2 Tablet(s) PO QID as needed 06/16/2017 11/27/2017 Inactive simvastatin 20 mg tablet RxNorm: 550105 TAKE ONE TABLET BY MOUTH ONCE DAILY 06/13/2017 09/11/2017 Inactive hydrochlorothiazide 25 mg tablet RxNorm: 025498 TAKE ONE TABLET BY MOUTH ONCE DAILY 05/16/2017 No Stop Date Active tramadol 50 mg tablet RxNorm: 080303 1-2 Tablet(s) PO QID as needed 04/20/2017 07/31/2017 Inactive Keflex 500 mg capsule RxNorm: 074145 1 Capsule(s) PO TID 03/17/2017 03/16/2017 Inactive Keflex 500 mg capsule RxNorm: 410332 1 Capsule(s) PO TID 03/17/2017 03/23/2017 Inactive alendronate 70 mg tablet RxNorm: 752854 1 Tablet(s) PO QW 03/08/2017 02/19/2018 Inactive tramadol 50 mg tablet RxNorm: 323731 1-2 Tablet(s) PO QID as needed 02/02/2017 07/31/2017 Inactive gabapentin 100 mg capsule RxNorm: 584287 TAKE TWO CAPSULES BY MOUTH AT BEDTIME 01/31/2017 07/29/2017 Inactive tramadol 50 mg tablet RxNorm: 973251 1-2 Tablet(s) PO QID as needed 12/06/2016 07/31/2017 Inactive hydrochlorothiazide 25 mg tablet RxNorm: 290078 TAKE ONE TABLET BY MOUTH ONCE DAILY 11/16/2016 05/14/2017 Inactive lisinopril 40 mg tablet RxNorm: 239452 TAKE ONE TABLET BY MOUTH ONCE DAILY 09/30/2016 06/26/2017 Inactive alendronate 70 mg tablet RxNorm: 090254 1 Tablet(s) PO QW 09/24/2016 03/07/2017 Inactive simvastatin 20 mg tablet RxNorm: 411362 TAKE ONE TABLET BY MOUTH ONCE DAILY 09/20/2016 06/12/2017 Inactive tramadol 50 mg tablet RxNorm: 713494 1-2 Tablet(s) PO QID as needed 09/08/2016 10/20/2016 Inactive gabapentin 100 mg capsule RxNorm: 472763 1 Capsule(s) PO QHS 08/20/2016 12/17/2016 Inactive HOLD- WILL CALL WHEN NEEDED tramadol 50 mg tablet RxNorm: 802532 1-2 Tablet(s) PO QID as needed 08/20/2016 09/07/2016 Inactive tramadol 50 mg tablet RxNorm: 375395 1 Tablet(s) PO QID as needed 05/14/2016 08/05/2016 Inactive Kenalog 40 mg/mL suspension for injection RxNorm: 5057349 Milliliter(s) Inj 04/23/2016 04/23/2016 Inactive gabapentin 100 mg capsule RxNorm: 848075 2 Capsule(s) PO QHS 04/23/2016 08/19/2016 Inactive HOLD- WILL CALL WHEN NEEDED alendronate 70 mg tablet RxNorm: 443493 1 Tablet(s) PO QW 04/07/2016 09/23/2016 Inactive simvastatin 20 mg tablet RxNorm: 294935 1 Tablet(s) PO daily 03/29/2016 09/19/2016 Inactive tramadol 50 mg tablet RxNorm: 846836 1 Tablet(s) PO QID as needed 03/10/2016 07/31/2017 Inactive gabapentin 100 mg capsule RxNorm: 766350 1 Capsule(s) PO QHS 01/30/2016 04/22/2016 Inactive lisinopril 40 mg tablet RxNorm: 590174 1 Tablet(s) PO daily 01/30/2016 09/29/2016 Inactive hydrochlorothiazide 25 mg tablet RxNorm: 136684 1 Tablet(s) PO daily 01/30/2016 10/25/2016 Inactive alendronate 70 mg tablet RxNorm: 904771 1 Tablet(s) QW 01/02/2016 04/06/2016 Inactive simvastatin 20 mg tablet RxNorm: 931274 1 Tablet(s) PO daily 12/31/2015 12/30/2015 Inactive simvastatin 20 mg tablet RxNorm: 893456 1 Tablet(s) PO daily 12/31/2015 03/28/2016 Inactive Calcium + D oral RxNorm: 113063 oral No Start Date Active Tylenol 500 mg RxNorm: 2 PO QHS No Start Date Active hydrochlorothiazide 25 mg tablet RxNorm: 320168 1 Tablet(s) PO daily No Start Date 01/29/2016 Inactive tramadol 50 mg tablet RxNorm: 248171 1 Tablet(s) PO QID as needed No Start Date 03/09/2016 Inactive lisinopril 40 mg tablet RxNorm: 389490 1 Tablet(s) PO daily No Start Date 01/29/2016 Inactive Medication Administered Medication Codes Instructions Start Date Status Kenalog 40 mg/mL suspension for injection RxNorm: 8210150 Milliliter 04/23/2016 No longer Active Immunizations Vaccine [...] Item Item Code Result Date Free T4 Cxl963 FREE T4 0.95 ng/dL 01/13/2018 Comp Metabolic Otf024 NA 132 mEq/L 01/13/2018 Comp Metabolic Zpx985 K 4.2 mEq/L 01/13/2018 Comp Metabolic Lud048 CL 97 mEq/L 01/13/2018 Comp Metabolic Kfq579 CO2 29.0 mEq/L 01/13/2018 Comp Metabolic Okw857 ANION GAP 10 01/13/2018 Comp Metabolic Mio262 GLUCOSE 88 mg/dL 01/13/2018 Comp Metabolic Ddm813 Creat 0.9 mg/dL 01/13/2018 Comp Metabolic Wxl552 eGFR 62 ml/min/1.73m2 01/13/2018 Comp Metabolic Fgr718 BUN 16 mg/dL 01/13/2018 Comp Metabolic Ant202 B/C Ratio 17.6 Ratio 01/13/2018 Comp Metabolic Auz403 CALCIUM 10.0 mg/dL 01/13/2018 Comp Metabolic Whb056 ALK PHOS 65 U/L 01/13/2018 Comp Metabolic Euv977 AST(SGOT) 20 U/L 01/13/2018 Comp Metabolic Nxs951 ALT(SGPT) 16 U/L 01/13/2018 Comp Metabolic Fqz168 BILI T 0.3 mg/dL 01/13/2018 Comp Metabolic Hsz381 ALBUMIN 4.0 g/dL 01/13/2018 Comp Metabolic Ypj054 TPRO 7.0 g/dL 01/13/2018 Comp Metabolic Cqp940 GLOB 3.0 g/dL 01/13/2018 Comp Metabolic Akz410 A/G Ratio 1.3 Ratio 01/13/2018 Comp Metabolic Ogv996 Osmo 265 mOsmo 01/13/2018 Tsh Ord6 TSH [...] 29.7 pg 01/13/2018 Cbc With Differential Ord2 Dixon% 7.6 % 01/13/2018 Cbc With Differential Ord2 [...] 2.55 K/ul 01/13/2018 Cbc With Differential Ord2 Dixon ABS# 0.6 K/ul 01/13/2018 Cbc With Differential [...] 29.4 pg 07/15/2017 Cbc With Differential Ord2 Dixon% 8.8 % 07/15/2017 Cbc With Differential Ord2 [...] 2.44 K/ul 07/15/2017 Cbc With Differential Ord2 Dixon ABS# 0.8 K/ul 07/15/2017 Cbc With Differential [...] from collection if refrigerated) 07/15/2017 Comp Metabolic Ghg952 NA 132 mEq/L 07/15/2017 Comp Metabolic Vjg981 K 3.8 mEq/L 07/15/2017 Comp Metabolic Gfy392 CL 95 mEq/L 07/15/2017 Comp Metabolic Ltt341 CO2 30.0 mEq/L 07/15/2017 Comp Metabolic Dnd690 ANION GAP 11 07/15/2017 Comp Metabolic Osa866 GLUCOSE 92 mg/dL 07/15/2017 Comp Metabolic Vln264 Creat 0.8 mg/dL 07/15/2017 Comp Metabolic Sdm885 eGFR 75 ml/min/1.73m2 07/15/2017 Comp Metabolic Ont973 BUN 11 mg/dL 07/15/2017 Comp Metabolic Crw234 B/C Ratio 14.1 Ratio 07/15/2017 Comp Metabolic Voh146 CALCIUM 9.7 mg/dL 07/15/2017 Comp Metabolic Kpp515 ALK PHOS 72 U/L 07/15/2017 Comp Metabolic Zaj486 AST(SGOT) 14 U/L 07/15/2017 Comp Metabolic Zzs321 ALT(SGPT) 9 U/L 07/15/2017 Comp Metabolic Wht948 BILI T 0.5 mg/dL 07/15/2017 Comp Metabolic Uor381 ALBUMIN 4.1 g/dL 07/15/2017 Comp Metabolic Gth503 TPRO 6.9 g/dL 07/15/2017 Comp Metabolic Hsa863 GLOB 2.8 g/dL 07/15/2017 Comp Metabolic Xux945 A/G Ratio 1.5 Ratio 07/15/2017 Comp Metabolic Pht936 Osmo 264 mOsmo 07/15/2017 Tsh Ord6 TSH (3rd IS) 6.20 uIU/mL 07/15/2017 Free T4 Qgt585 FREE T4 0.95 ng/dL 07/15/2017 Cbc With [...] 31.1 pg 01/30/2016 Cbc With Differential Ord2 Dixon% 8.6 % 01/30/2016 Cbc With Differential Ord2 MCHC 34.1 pg 01/30/2016 Cbc With Differential Ord2 Eos% 2.2 % 01/30/2016 Cbc With Differential Ord2 Baso% 0.4 % 01/30/2016 Cbc With Differential Ord2 PLT 250 K/ul 01/30/2016 Cbc With Differential Ord2 RDW 13.0 % 01/30/2016 Cbc With Differential Ord2 Neut ABS# 4.86 K/ul 01/30/2016 Cbc With Differential Ord2 Lymph ABS# 2.16 K/ul 01/30/2016 Cbc With Differential Ord2 Dixon ABS# 0.7 K/ul 01/30/2016 Cbc With Differential Ord2 Eos ABS# 0.2 K/ul 01/30/2016 Cbc With Differential Ord2 Baso ABS# 0.0 K/ul 01/30/2016 Tsh Ord6 hTSH II 2.93 uIU/mL 01/30/2016 Comp Metabolic Eyx753 NA 134 mEq/L 01/30/2016 Comp Metabolic Nnt361 K 4.0 mEq/L 01/30/2016 Comp Metabolic Rlt713 CL 97 mEq/L 01/30/2016 Comp Metabolic Waf949 CO2 29.0 mEq/L 01/30/2016 Comp Metabolic Ntx047 ANION GAP 12 01/30/2016 Comp Metabolic Qgh774 GLUCOSE 98 mg/dL 01/30/2016 Comp Metabolic Udo292 Creat 0.9 mg/dL 01/30/2016 Comp Metabolic Ina124 eGFR 67 ml/min/1.73m2 01/30/2016 Comp Metabolic Jjk104 BUN 16 mg/dL 01/30/2016 Comp Metabolic Edl244 B/C Ratio 18.6 Ratio 01/30/2016 Comp Metabolic Egx102 CALCIUM 10.3 mg/dL 01/30/2016 Comp Metabolic Tjk425 ALK PHOS 66 U/L 01/30/2016 Comp Metabolic Dpd991 AST(SGOT) 16 U/L 01/30/2016 Comp Metabolic Ljs297 ALT(SGPT) 10 U/L 01/30/2016 Comp Metabolic Azz717 BILI T 0.4 mg/dL 01/30/2016 Comp Metabolic Aby137 ALBUMIN 4.2 g/dL 01/30/2016 Comp Metabolic Asg198 TPRO 7.1 g/dL 01/30/2016 Comp Metabolic Phe454 GLOB 2.9 g/dL 01/30/2016 Comp Metabolic Axx516 A/G Ratio 1.5 Ratio 01/30/2016 Comp Metabolic Mrp403 Osmo 269 mOsmo 01/30/2016 Lipid Ord30 CHOL [...] Formatting Model/CDA Sections, Assigned to/Karine Archuleta CPT-4: 76722Kwkmdtk 01/06/2018 TRIAMCINOLONE ACET INJ NOS CPT-4: J3301 04/23/2016 ADMIN INFLUENZA VIRUS VAC CPT-4: G0008 01/30/2016 PNEUMOCOCCAL VACC [address]: 22834928 CPT-4: 90027 01/30/2016 FLU VACC 4 RODNEY 3 YRS PLUS IM Formatting Model/CDA Sections, Assigned to/Karine Archuleta SNOMED CT: 62521023 CPT-4: 33973Msspkej 01/30/2016 ADMIN PNEUMOCOCCAL VACCINE SNOMED CT: 35099900 CPT-4: G0009 01/30/2016 Vital Signs Date Vital 01/06/2018 Blood Pressure 1: 138/70 Code: 8480-6 BMI: 21.5 Code: 96222-2 Heart Rate 1: 75 bpm Height: 5'6" SpO2: 98% Weight: 133 lbs 07/08/2017 Blood Pressure 1: 148/82 Code: 8480-6 BMI: 21.6 Code: 34983-5 Heart Rate 1: 80 bpm Height: 5'6" SpO2: 98% Weight: 134 lbs 08/20/2016 Blood Pressure 1: 124/76 Code: 8480-6 BMI: 23.2 Code: 15463-9 Heart Rate 1: 72 bpm Height: 5'6" SpO2: 93% Weight: 144 lbs 04/23/2016 Blood Pressure 1: 130/82 Code: 8480-6 BMI: 23.4 Code: 58661-6 Heart Rate 1: 86 bpm Height: 5'6" SpO2: 98% Weight: 145 lbs 01/30/2016 Blood Pressure 1: 140/86 Code: 8480-6 BMI: 23.9 Code: 63332-8 Heart Rate 1: 55 bpm Height: 5'6" SpO2: 96% Weight: 148 lbs 01/02/2016 Blood Pressure 1: 146/86 Code: 8480-6 BMI: 24.2 Code: 46730-4 Heart Rate 1: 84 bpm Height: 5'6" [...] data Encounters Encounter Performer Location Codes Date ([id number]) [id number] EST. PATIENT, LEVEL IV Diagnosis: Essential (primary) hypertension[ICD10: I10] Diagnosis: Hypothyroidism, unspecified[ICD10: E03.9] Diagnosis: Low back pain[ICD10: M54.5] Diagnosis: Encounter for immunization[ICD10: Z23] Diagnosis: Abnormal weight loss[ICD10: R63.4] Rosi Tsai MD, [facility] CPT- 4: 88842 01/06/2018 ([id number]) [id number] EST. PATIENT, LEVEL IV Diagnosis: Essential (primary) hypertension[ICD10: I10] Diagnosis: Pain in right shoulder[ICD10: M25.511] Diagnosis: Mixed hyperlipidemia[ICD10: E78.2] Diagnosis: Dysuria[ICD10: R30.0] Diagnosis: Cramp and spasm[ICD10: R25.2] Rosi Tsai MD, [facility] CPT-4: 47239 07/08/2017 ([id number]) [id number] EST. PATIENT, LEVEL III Diagnosis: Essential (primary) hypertension[ICD10: I10] Diagnosis: Radiculopathy, lumbar region[ICD10: M54.16] Rosi Tsai MD, [facility] CPT-4: 09253 08/20/2016 ([id number]) [id number] EST. PATIENT, LEVEL IV Diagnosis: Essential (primary) hypertension[ICD10: I10] Diagnosis: Lumbago with sciatica, left side[ICD10: M54.42] Diagnosis: Cramp and spasm[ICD10: R25.2] Rosi Tsai MD, [facility] CPT-4: 82271 04/23/2016 ([id number]) [id number] EST. PATIENT, LEVEL III Diagnosis: Essential (primary) hypertension[ICD10: I10] Diagnosis: Radiculopathy, lumbar region[ICD10: M54.16] Diagnosis: Encounter for immunization[ICD10: Z23] Diagnosis: Impacted cerumen, left ear[ICD10: H61.22] Genny Tsai MD, [facility] CPT-4: 12098 01/30/2016 ([id number]) OFFICE VISIT, NEW - LEVEL 3 Diagnosis: Essential (primary) hypertension[ICD10: I10] Diagnosis: Mixed hyperlipidemia[ICD10: E78.2] Diagnosis: Cramp and spasm[ICD10: R25.2] Rosi Tsai MD, [facility] CPT-4: 63625 01/02/2016 Plan of Care Planned Activity Notes [...] ice cream 01/06/2018 Appointment: Rosi Vega WPtel: [phone] [phone] (15 min) Moderate 01/06/2018 Patient Education: Patient [...] cramps-check labs 07/08/2017 Appointment: Rosi Vega WPtel: [phone] (15 min) Moderate 07/08/2017 Patient Education: Patient Medication Summary Completed 07/08/2017 Appointment: Rosi Vega WPtel: [address] [place], [place] [phone] (15 min) Moderate 12/24/2016 Visit Plan: Hypertension [...] plan. 08/20/2016 Appointment: Rosi Vega WPtel: [phone] (30 min) Complex 08/20/2016 Patient Education: Patient Medication Summary Completed 08/20/2016 Appointment: oRsi Vega WPtel: [phone] [place] (30 min) Complex 04/30/2016 Visit Plan: [...] removal process. 01/30/2016 Appointment: [phone] ([facility] min[facility] Complex 01/30/2016 Patient Education: [...] B12, magnesium 01/02/2016 Appointment: Rosi Vega WPtel: [address] [place], [place] [phone] New Patient 01/02/2016 Patient Education: Patient Medication [...]
--- OUTSIDE RECORDS SUMMARY | 2018-10-19 22:08 | XMS REPORT | CCD ---
Author Author Rosi Vega MD, [facility] Address [address] [place] [address] Phone Care Team Providers Care Bell Valet Name Role Phone PP Unavailable CCM Unavailable Summary Purpose Interface Exchange Insurance Providers Payer name Policy type / Coverage type Covered alliance party ID Effective Begin Date Effective End Date WPS Medicare Part B Medicare Part B [id number] Unknown Unknown Family history Daughter Diagnosis Age [...] Unknown 5 01/02/[address]: 493488143 Never smoker 01/02/[address]: 081187580 Never drinks alcohol 01/02/2016 Allergies, Adverse Reactions, [...] Fill Instructions simvastatin 20 mg tablet RxNorm: 092589 TAKE ONE TABLET BY MOUTH ONCE DAILY 06/13/2017 No Stop Date Active hydrochlorothiazide 25 mg tablet RxNorm: 073587 TAKE ONE TABLET BY MOUTH ONCE DAILY 05/16/2017 No Stop Date Active tramadol 50 mg tablet RxNorm: 871819 1-2 Tablet(s) PO QID as needed 04/20/2017 05/19/2017 Inactive Keflex 500 mg capsule RxNorm: 119302 1 Capsule(s) PO TID 03/17/2017 03/16/2017 Inactive Keflex 500 mg capsule RxNorm: 267508 1 Capsule(s) PO TID 03/17/2017 03/23/2017 Inactive alendronate 70 mg tablet RxNorm: 561865 1 Tablet(s) PO QW 03/08/2017 03/02/2018 Active tramadol 50 mg tablet RxNorm: 963309 1-2 Tablet(s) PO QID as needed 02/02/2017 03/17/2017 Inactive gabapentin 100 mg capsule RxNorm: 142080 TAKE TWO CAPSULES BY MOUTH AT BEDTIME 01/31/2017 07/29/2017 Active tramadol 50 mg tablet RxNorm: 181206 1-2 Tablet(s) PO QID as needed 12/06/2016 01/03/2017 Inactive hydrochlorothiazide 25 mg tablet RxNorm: 806909 TAKE ONE TABLET BY MOUTH ONCE DAILY 11/16/2016 05/14/2017 Inactive lisinopril 40 mg tablet RxNorm: 655518 TAKE ONE TABLET BY MOUTH ONCE DAILY 09/30/2016 06/26/2017 Active alendronate 70 mg tablet RxNorm: 253090 1 Tablet(s) PO QW 09/24/2016 03/07/2017 Inactive simvastatin 20 mg tablet RxNorm: 070043 TAKE ONE TABLET BY MOUTH ONCE DAILY 09/20/2016 06/12/2017 Inactive tramadol 50 mg tablet RxNorm: 116220 1-2 Tablet(s) PO QID as needed 09/08/2016 10/20/2016 Inactive gabapentin 100 mg capsule RxNorm: 834980 1 Capsule(s) PO QHS 08/20/2016 12/17/2016 Inactive HOLD- WILL CALL WHEN NEEDED tramadol 50 mg tablet RxNorm: 175255 1-2 Tablet(s) PO QID as needed 08/20/2016 09/07/2016 Inactive tramadol 50 mg tablet RxNorm: 402309 1 Tablet(s) PO QID as needed 05/14/2016 08/05/2016 Inactive Kenalog 40 mg/mL suspension for injection RxNorm: 9284115 Milliliter(s) Inj 04/23/2016 04/23/2016 Inactive gabapentin 100 mg capsule RxNorm: 046706 2 Capsule(s) PO QHS 04/23/2016 08/19/2016 Inactive HOLD- WILL CALL WHEN NEEDED alendronate 70 mg tablet RxNorm: 493671 1 Tablet(s) PO QW 04/07/2016 09/23/2016 Inactive simvastatin 20 mg tablet RxNorm: 564931 1 Tablet(s) PO daily 03/29/2016 09/19/2016 Inactive tramadol 50 mg tablet RxNorm: 966177 1 Tablet(s) PO QID as needed 03/10/2016 05/03/2016 Inactive gabapentin 100 mg capsule RxNorm: 604559 1 Capsule(s) PO QHS 01/30/2016 04/22/2016 Inactive lisinopril 40 mg tablet RxNorm: 735402 1 Tablet(s) PO daily 01/30/2016 09/29/2016 Inactive hydrochlorothiazide 25 mg tablet RxNorm: 884952 1 Tablet(s) PO daily 01/30/2016 10/25/2016 Inactive alendronate 70 mg tablet RxNorm: 766765 1 Tablet(s) QW 01/02/2016 04/06/2016 Inactive simvastatin 20 mg tablet RxNorm: 448366 1 Tablet(s) PO daily 12/31/2015 12/30/2015 Inactive simvastatin 20 mg tablet RxNorm: 413975 1 Tablet(s) PO daily 12/31/2015 03/28/2016 Inactive Calcium + D oral RxNorm: 762837 oral No Start Date Active Tylenol 500 mg RxNorm: 2 PO QHS No Start Date Active hydrochlorothiazide 25 mg tablet RxNorm: 700336 1 Tablet(s) PO daily No Start Date 01/29/2016 Inactive tramadol 50 mg tablet RxNorm: 480841 1 Tablet(s) PO QID as needed No Start Date 03/09/2016 Inactive lisinopril 40 mg tablet RxNorm: 776732 1 Tablet(s) PO daily No Start Date 01/29/2016 Inactive Medication Administered Medication Codes Instructions Start Date Status Kenalog 40 mg/mL suspension for injection RxNorm: 9096928 Milliliter 04/23/2016 No longer Active Immunizations Vaccine [...] 31.1 pg 01/30/2016 Cbc With Differential Ord2 [place]ke% 8.6 % 01/30/2016 Cbc With Differential Ord2 [...] 2.16 K/ul 01/30/2016 Cbc With Differential Ord2 [place] ABS# 0.7 K/ul 01/30/2016 Cbc With Differential Ord2 Eos ABS# 0.2 K/ul 01/30/2016 Cbc With Differential Ord2 Baso ABS# 0.0 K/ul 01/30/2016 Tsh Ord6 hTSH II 2.93 uIU/mL 01/30/2016 Comp Metabolic Nju561 NA 134 mEq/L 01/30/2016 Comp Metabolic Imb289 K 4.0 mEq/L 01/30/2016 Comp Metabolic Nzl812 CL 97 mEq/L 01/30/2016 Comp Metabolic Jrf083 CO2 29.0 mEq/L 01/30/2016 Comp Metabolic Vei988 ANION GAP 12 01/30/2016 Comp Metabolic Awq778 GLUCOSE 98 mg/dL 01/30/2016 Comp Metabolic Xxo480 Creat 0.9 mg/dL 01/30/2016 Comp Metabolic Yvs298 eGFR 67 ml/min/1.73m2 01/30/2016 Comp Metabolic Kpd867 BUN 16 mg/dL 01/30/2016 Comp Metabolic Nlj649 B/C Ratio 18.6 Ratio 01/30/2016 Comp Metabolic Tvp906 CALCIUM 10.3 mg/dL 01/30/2016 Comp Metabolic Fvd921 ALK PHOS 66 U/L 01/30/2016 Comp Metabolic Qtu699 AST(SGOT) 16 U/L 01/30/2016 Comp Metabolic Fek407 ALT(SGPT) 10 U/L 01/30/2016 Comp Metabolic Ajo499 BILI T 0.4 mg/dL 01/30/2016 Comp Metabolic Fpf652 ALBUMIN 4.2 g/dL 01/30/2016 Comp Metabolic Ruz034 TPRO 7.1 g/dL 01/30/2016 Comp Metabolic Jrx050 GLOB 2.9 g/dL 01/30/2016 Comp Metabolic Lnx451 A/G Ratio 1.5 Ratio 01/30/2016 Comp Metabolic Afg220 Osmo 269 mOsmo 01/30/2016 Lipid Ord30 CHOL [...] Codes Date TRIAMCINOLONE ACET INJ NOS CPT-4: J3301 04/23/2016 ADMIN INFLUENZA VIRUS VAC CPT-4: G0008 01/30/2016 PNEUMOCOCCAL VACC [address]: 11888246 CPT-4: 07096 01/30/2016 FLU VACC 4 RODNEY 3 YRS PLUS IM Formatting Model/CDA Sections, Assigned to/Karine Archuleta SNOMED CT: 25928135 CPT-4: 84973Jodreqy 01/30/2016 ADMIN PNEUMOCOCCAL VACCINE SNOMED CT: 89813544 CPT-4: G0009 01/30/2016 Vital Signs Date Vital 08/20/2016 Blood Pressure 1: 124/76 Code: 8480-6 BMI: 23.2 Code: 98512-5 Heart Rate 1: 72 bpm Height: 5'6" SpO2: 93% Weight: 144 lbs 04/23/2016 Blood Pressure 1: 130/82 Code: 8480-6 BMI: 23.4 Code: 92105-1 Heart Rate 1: 86 bpm Height: 5'6" SpO2: 98% Weight: 145 lbs 01/30/2016 Blood Pressure 1: 140/86 Code: 8480-6 BMI: 23.9 Code: 89441-1 Heart Rate 1: 55 bpm Height: 5'6" SpO2: 96% Weight: 148 lbs 01/02/2016 Blood Pressure 1: 146/86 Code: 8480-6 BMI: 24.2 Code: 07397-4 Heart Rate 1: 84 bpm Height: 5'6" [...] data Encounters Encounter Performer Location Codes Date ([id number]) [id number] EST. PATIENT, LEVEL III Diagnosis: Essential (primary) hypertension[ICD10: I10] Diagnosis: Radiculopathy, lumbar region[ICD10: M54.16] Rosi Tsai MD, [facility] CPT-4: 68543 08/20/2016 ([id number]) 76074 EST. PATIENT, LEVEL IV Diagnosis: Essential (primary) hypertension[ICD10: I10] Diagnosis: Lumbago with sciatica, left side[ICD10: M54.42] Diagnosis: Cramp and spasm[ICD10: R25.2] Rosi Tsai MD, [facility] CPT-4: 32053 04/23/2016 ([id number]) 13994 EST. PATIENT, LEVEL III Diagnosis: Essential (primary) hypertension[ICD10: I10] Diagnosis: Radiculopathy, lumbar region[ICD10: M54.16] Diagnosis: Encounter for immunization[ICD10: Z23] Diagnosis: Impacted cerumen, left ear[ICD10: H61.22] [facility] CPT-4: 45659 01/30/2016 ([id number]) OFFICE VISIT, NEW - LEVEL 3 Diagnosis: Essential (primary) hypertension[ICD10: I10] Diagnosis: Mixed hyperlipidemia[ICD10: E78.2] Diagnosis: Cramp and spasm[ICD10: R25.2] [facility] CPT-4: 82351 01/02/2016 Plan of Care Planned Activity Notes Codes Status Date Appointment: Rosi Vega WPtel: [facility]4 [phone] (15 min) Moderate 12/24/2016 Visit Plan: Hypertension [...] of plan. 08/20/2016 Appointment: Rosi Vega WPtel: [facility]2 [phone] (30 min) Complex 08/20/2016 Patient Education: Patient Medication Summary Completed 08/20/2016 Appointment: Rosi Vega WPtel: [facility]8 [phone] (30 min) Complex 04/30/2016 Visit Plan: Hypertension [...] process. 01/30/2016 Appointment: Rosi Vega WPtel: [phone] [phone] (30 min) Complex 01/30/2016 Patient [...] B12, magnesium 01/02/2016 [facility]ment[phone] [facility] 01/02/2016 Patient Education: Patient [...]
--- OUTSIDE RECORDS SUMMARY | 2018-10-19 22:08 | XMS REPORT | CCD ---
Author Author Rosi Vega MD, [facility] Address [address] [place] [address] Phone Care Team Providers Care Auto Finance Sales Rep Name Role Phone PP Unavailable CCM Unavailable Summary Purpose Interface Exchange Insurance Providers Payer name Policy type / Coverage type Covered libertarian ID Effective Begin Date Effective End Date WPS Medicare Part B Medicare Part B [id number] Unknown Unknown Family history Daughter Diagnosis Age [...] Unknown 5 01/02/[address]: 448525015 Never smoker 01/02/[address]: 566842861 Never drinks alcohol 01/02/2016 Allergies, Adverse Reactions, [...] Fill Instructions hydrochlorothiazide 25 mg tablet RxNorm: 909939 TAKE ONE TABLET BY MOUTH ONCE DAILY 05/16/2017 No Stop Date Active tramadol 50 mg tablet RxNorm: 572915 1-2 Tablet(s) PO QID as needed 04/20/2017 05/19/2017 Active Keflex 500 mg capsule RxNorm: 594669 1 Capsule(s) PO TID 03/17/2017 03/16/2017 Inactive Keflex 500 mg capsule RxNorm: 375068 1 Capsule(s) PO TID 03/17/2017 03/23/2017 Inactive alendronate 70 mg tablet RxNorm: 637742 1 Tablet(s) PO QW 03/08/2017 03/02/2018 Active tramadol 50 mg tablet RxNorm: 548452 1-2 Tablet(s) PO QID as needed 02/02/2017 03/17/2017 Inactive gabapentin 100 mg capsule RxNorm: 715959 TAKE TWO CAPSULES BY MOUTH AT BEDTIME 01/31/2017 07/29/2017 Active tramadol 50 mg tablet RxNorm: 162400 1-2 Tablet(s) PO QID as needed 12/06/2016 01/03/2017 Inactive hydrochlorothiazide 25 mg tablet RxNorm: 445863 TAKE ONE TABLET BY MOUTH ONCE DAILY 11/16/2016 05/14/2017 Inactive lisinopril 40 mg tablet RxNorm: 074046 TAKE ONE TABLET BY MOUTH ONCE DAILY 09/30/2016 06/26/2017 Active alendronate 70 mg tablet RxNorm: 509099 1 Tablet(s) PO QW 09/24/2016 03/07/2017 Inactive simvastatin 20 mg tablet RxNorm: 588828 TAKE ONE TABLET BY MOUTH ONCE DAILY 09/20/2016 06/16/2017 Active tramadol 50 mg tablet RxNorm: 849644 1-2 Tablet(s) PO QID as needed 09/08/2016 10/20/2016 Inactive gabapentin 100 mg capsule RxNorm: 705906 1 Capsule(s) PO QHS 08/20/2016 12/17/2016 Inactive HOLD- WILL CALL WHEN NEEDED tramadol 50 mg tablet RxNorm: 196350 1-2 Tablet(s) PO QID as needed 08/20/2016 09/07/2016 Inactive tramadol 50 mg tablet RxNorm: 543437 1 Tablet(s) PO QID as needed 05/14/2016 08/05/2016 Inactive Kenalog 40 mg/mL suspension for injection RxNorm: 6592119 Milliliter(s) Inj 04/23/2016 04/23/2016 Inactive gabapentin 100 mg capsule RxNorm: 250969 2 Capsule(s) PO QHS 04/23/2016 08/19/2016 Inactive HOLD- WILL CALL WHEN NEEDED alendronate 70 mg tablet RxNorm: 028329 1 Tablet(s) PO QW 04/07/2016 09/23/2016 Inactive simvastatin 20 mg tablet RxNorm: 116398 1 Tablet(s) PO daily 03/29/2016 09/19/2016 Inactive tramadol 50 mg tablet RxNorm: 448029 1 Tablet(s) PO QID as needed 03/10/2016 05/03/2016 Inactive gabapentin 100 mg capsule RxNorm: 846595 1 Capsule(s) PO QHS 01/30/2016 04/22/2016 Inactive lisinopril 40 mg tablet RxNorm: 633574 1 Tablet(s) PO daily 01/30/2016 09/29/2016 Inactive hydrochlorothiazide 25 mg tablet RxNorm: 258566 1 Tablet(s) PO daily 01/30/2016 10/25/2016 Inactive alendronate 70 mg tablet RxNorm: 575793 1 Tablet(s) QW 01/02/2016 04/06/2016 Inactive simvastatin 20 mg tablet RxNorm: 333225 1 Tablet(s) PO daily 12/31/2015 12/30/2015 Inactive simvastatin 20 mg tablet RxNorm: 642413 1 Tablet(s) PO daily 12/31/2015 03/28/2016 Inactive Calcium + D oral RxNorm: 656482 oral No Start Date Active Tylenol 500 mg RxNorm: 2 PO QHS No Start Date Active hydrochlorothiazide 25 mg tablet RxNorm: 819057 1 Tablet(s) PO daily No Start Date 01/29/2016 Inactive tramadol 50 mg tablet RxNorm: 335551 1 Tablet(s) PO QID as needed No Start Date 03/09/2016 Inactive lisinopril 40 mg tablet RxNorm: 050775 1 Tablet(s) PO daily No Start Date 01/29/2016 Inactive Medication Administered Medication Codes Instructions Start Date Status Kenalog 40 mg/mL suspension for injection RxNorm: 8342080 Milliliter 04/23/2016 No longer Active Immunizations Vaccine [...] Ord30 C/HDL 3.3 Ratio 01/30/2016 Comp Metabolic Oye169 NA 134 mEq/L 01/30/2016 Comp Metabolic Unt859 K 4.0 mEq/L 01/30/2016 Comp Metabolic Bew010 CL 97 mEq/L 01/30/2016 Comp Metabolic Ecg858 CO2 29.0 mEq/L 01/30/2016 Comp Metabolic Lwf619 ANION GAP 12 01/30/2016 Comp Metabolic Yxt054 GLUCOSE 98 mg/dL 01/30/2016 Comp Metabolic Flx456 Creat 0.9 mg/dL 01/30/2016 Comp Metabolic Xih455 eGFR 67 ml/min/1.73m2 01/30/2016 Comp Metabolic Mek406 BUN 16 mg/dL 01/30/2016 Comp Metabolic Mat058 B/C Ratio 18.6 Ratio 01/30/2016 Comp Metabolic Eqv266 CALCIUM 10.3 mg/dL 01/30/2016 Comp Metabolic Yjw094 ALK PHOS 66 U/L 01/30/2016 Comp Metabolic Hwl396 AST(SGOT) 16 U/L 01/30/2016 Comp Metabolic Mkf510 ALT(SGPT) 10 U/L 01/30/2016 Comp Metabolic Sfv836 BILI T 0.4 mg/dL 01/30/2016 Comp Metabolic Ukh236 ALBUMIN 4.2 g/dL 01/30/2016 Comp Metabolic Ijb511 TPRO 7.1 g/dL 01/30/2016 Comp Metabolic Gqq871 GLOB 2.9 g/dL 01/30/2016 Comp Metabolic Nya052 A/G Ratio 1.5 Ratio 01/30/2016 Comp Metabolic Kch259 Osmo 269 mOsmo 01/30/2016 Cbc With Differential [...] 31.1 pg 01/30/2016 Cbc With Differential Ord2 [place]% 8.6 % 01/30/2016 Cbc With Differential Ord2 Eos% 2.2 % 01/30/2016 Cbc With Differential Ord2 MCHC 34.1 pg 01/30/2016 Cbc With Differential Ord2 PLT 250 K/ul 01/30/2016 Cbc With Differential Ord2 Baso% 0.4 % 01/30/2016 Cbc With Differential Ord2 RDW 13.0 % 01/30/2016 Cbc With Differential Ord2 Neut ABS# 4.86 K/ul 01/30/2016 Cbc With Differential Ord2 Lymph ABS# 2.16 K/ul 01/30/2016 Cbc With Differential Ord2 [place] ABS# 0.7 K/ul 01/30/2016 Cbc With Differential [...] PNEUMOCOCCAL VACC [address]: 46602660 CPT-4: 98159 01/30/2016 FLU VACC 4 RODNEY 3 YRS PLUS IM Formatting Model/CDA Sections, Assigned to/Karine Archuleta SNOMED CT: 51011766 CPT-4: 77836Xriezex 01/30/2016 ADMIN PNEUMOCOCCAL VACCINE SNOMED CT: 82243100 CPT-4: G0009 01/30/2016 Vital Signs Date Vital 08/20/2016 Blood Pressure 1: 124/76 Code: 8480-6 BMI: 23.2 Code: 88959-8 Heart Rate 1: 72 bpm Height: 5'6" SpO2: 93% Weight: 144 lbs 04/23/2016 Blood Pressure 1: 130/82 Code: 8480-6 BMI: 23.4 Code: 29324-1 Heart Rate 1: 86 bpm Height: 5'6" SpO2: 98% Weight: 145 lbs 01/30/2016 Blood Pressure 1: 140/86 Code: 8480-6 BMI: 23.9 Code: 96218-3 Heart Rate 1: 55 bpm Height: 5'6" SpO2: 96% Weight: 148 lbs 01/02/2016 Blood Pressure 1: 146/86 Code: 8480-6 BMI: 24.2 Code: 22082-6 Heart Rate 1: 84 bpm Height: 5'6" [...] data Encounters Encounter Performer Location Codes Date ([id number]) 35550 EST. PATIENT, LEVEL III Diagnosis: Essential (primary) hypertension[ICD10: I10] Diagnosis: Radiculopathy, lumbar region[ICD10: M54.16] [facility] CPT-4: 01321 08/20/2016 ([id number]) 24995 EST. PATIENT, LEVEL IV Diagnosis: Essential (primary) hypertension[ICD10: I10] Diagnosis: Lumbago with sciatica, left side[ICD10: M54.42] Diagnosis: Cramp and spasm[ICD10: R25.2] [facility] CPT-4: 77665 04/23/2016 ([id number]) 96591 EST. PATIENT, LEVEL III Diagnosis: Essential (primary) hypertension[ICD10: I10] Diagnosis: Radiculopathy, lumbar region[ICD10: M54.16] Diagnosis: Encounter for immunization[ICD10: Z23] Diagnosis: Impacted cerumen, left ear[ICD10: H61.22] [facility] CPT-4: 15699 01/30/2016 ([id number]) OFFICE VISIT, NEW - LEVEL 3 Diagnosis: Essential (primary) hypertension[ICD10: I10] Diagnosis: Mixed hyperlipidemia[ICD10: E78.2] Diagnosis: Cramp and spasm[ICD10: R25.2] [facility] CPT-4: 65371 01/02/2016 Plan of Care Planned Activity Notes Codes Status Date Appointment: Rosi Vega WPtel: [facility] [place] [phone] (15 min) Moderate 12/24/2016 Visit Plan: Hypertension [...] plan. 08/20/2016 Appointment: Rosi Vega WPtel: [facility] [place] [phone] (30 min) Complex 08/20/2016 Patient Education: Patient Medication Summary Completed 08/20/2016 Appointment: Rosi Vega WPtel: [facility] [address] (30 min) Complex 04/30/2016 Visit Plan: Hypertension [...] process. 01/30/2016 Appointment: Rosi Vega WPtel: [phone] [phone] (30 min) Complex 01/30/2016 Patient Education: Patient [...] B12, magnesium 01/02/2016 Appointment: [facility]el[phone] New Patient 01/02/2016 Patient Education: Patient [...]
--- OUTSIDE RECORDS SUMMARY | 2018-10-19 22:09 | XMS REPORT | CCD ---
Author Author Rosi Vega MD, [facility] Address [address] [place] [address] Phone Care Team Providers Care Hoop Bender Tank Name Role Phone PP Unavailable CCM Unavailable Summary Purpose Interface Exchange Insurance Providers Payer name Policy type / Coverage type Covered green party ID Effective Begin Date Effective End Date WPS Medicare Part B Medicare Part B [id number] Unknown Unknown Family history Daughter Diagnosis Age [...] Unknown 3 01/02/[address]: 110104173 Never smoker 01/02/[address]: 620795433 Never drinks alcohol 01/02/2016 Allergies, Adverse Reactions, [...] Fill Instructions simvastatin 20 mg tablet RxNorm: 386711 TAKE ONE TABLET BY MOUTH ONCE DAILY 06/13/2017 No Stop Date Active hydrochlorothiazide 25 mg tablet RxNorm: 845555 TAKE ONE TABLET BY MOUTH ONCE DAILY 05/16/2017 No Stop Date Active tramadol 50 mg tablet RxNorm: 631821 1-2 Tablet(s) PO QID as needed 04/20/2017 05/19/2017 Inactive Keflex 500 mg capsule RxNorm: 162237 1 Capsule(s) PO TID 03/17/2017 03/16/2017 Inactive Keflex 500 mg capsule RxNorm: 904323 1 Capsule(s) PO TID 03/17/2017 03/23/2017 Inactive alendronate 70 mg tablet RxNorm: 709234 1 Tablet(s) PO QW 03/08/2017 03/02/2018 Active tramadol 50 mg tablet RxNorm: 846208 1-2 Tablet(s) PO QID as needed 02/02/2017 03/17/2017 Inactive gabapentin 100 mg capsule RxNorm: 433891 TAKE TWO CAPSULES BY MOUTH AT BEDTIME 01/31/2017 07/29/2017 Active tramadol 50 mg tablet RxNorm: 136264 1-2 Tablet(s) PO QID as needed 12/06/2016 01/03/2017 Inactive hydrochlorothiazide 25 mg tablet RxNorm: 601932 TAKE ONE TABLET BY MOUTH ONCE DAILY 11/16/2016 05/14/2017 Inactive lisinopril 40 mg tablet RxNorm: 668802 TAKE ONE TABLET BY MOUTH ONCE DAILY 09/30/2016 06/26/2017 Active alendronate 70 mg tablet RxNorm: 490889 1 Tablet(s) PO QW 09/24/2016 03/07/2017 Inactive simvastatin 20 mg tablet RxNorm: 633870 TAKE ONE TABLET BY MOUTH ONCE DAILY 09/20/2016 06/12/2017 Inactive tramadol 50 mg tablet RxNorm: 205672 1-2 Tablet(s) PO QID as needed 09/08/2016 10/20/2016 Inactive gabapentin 100 mg capsule RxNorm: 081749 1 Capsule(s) PO QHS 08/20/2016 12/17/2016 Inactive HOLD- WILL CALL WHEN NEEDED tramadol 50 mg tablet RxNorm: 809534 1-2 Tablet(s) PO QID as needed 08/20/2016 09/07/2016 Inactive tramadol 50 mg tablet RxNorm: 080569 1 Tablet(s) PO QID as needed 05/14/2016 08/05/2016 Inactive Kenalog 40 mg/mL suspension for injection RxNorm: 1643955 Milliliter(s) Inj 04/23/2016 04/23/2016 Inactive gabapentin 100 mg capsule RxNorm: 086136 2 Capsule(s) PO QHS 04/23/2016 08/19/2016 Inactive HOLD- WILL CALL WHEN NEEDED alendronate 70 mg tablet RxNorm: 570558 1 Tablet(s) PO QW 04/07/2016 09/23/2016 Inactive simvastatin 20 mg tablet RxNorm: 033535 1 Tablet(s) PO daily 03/29/2016 09/19/2016 Inactive tramadol 50 mg tablet RxNorm: 938375 1 Tablet(s) PO QID as needed 03/10/2016 05/03/2016 Inactive gabapentin 100 mg capsule RxNorm: 006943 1 Capsule(s) PO QHS 01/30/2016 04/22/2016 Inactive lisinopril 40 mg tablet RxNorm: 537886 1 Tablet(s) PO daily 01/30/2016 09/29/2016 Inactive hydrochlorothiazide 25 mg tablet RxNorm: 818923 1 Tablet(s) PO daily 01/30/2016 10/25/2016 Inactive alendronate 70 mg tablet RxNorm: 291209 1 Tablet(s) QW 01/02/2016 04/06/2016 Inactive simvastatin 20 mg tablet RxNorm: 774926 1 Tablet(s) PO daily 12/31/2015 12/30/2015 Inactive simvastatin 20 mg tablet RxNorm: 025783 1 Tablet(s) PO daily 12/31/2015 03/28/2016 Inactive Calcium + D oral RxNorm: 271970 oral No Start Date Active Tylenol 500 mg RxNorm: 2 PO QHS No Start Date Active hydrochlorothiazide 25 mg tablet RxNorm: 061617 1 Tablet(s) PO daily No Start Date 01/29/2016 Inactive tramadol 50 mg tablet RxNorm: 686046 1 Tablet(s) PO QID as needed No Start Date 03/09/2016 Inactive lisinopril 40 mg tablet RxNorm: 368839 1 Tablet(s) PO daily No Start Date 01/29/2016 Inactive Medication Administered Medication Codes Instructions Start Date Status Kenalog 40 mg/mL suspension for injection RxNorm: 4732715 Milliliter 04/23/2016 No longer Active Immunizations Vaccine [...] 31.1 pg 01/30/2016 Cbc With Differential Ord2 [place]% 8.6 % 01/30/2016 Cbc With Differential Ord2 [...] 2.16 K/ul 01/30/2016 Cbc With Differential Ord2 [place] ABS# 0.7 K/ul 01/30/2016 Cbc With Differential Ord2 Eos ABS# 0.2 K/ul 01/30/2016 Cbc With Differential Ord2 Baso ABS# 0.0 K/ul 01/30/2016 Tsh Ord6 hTSH II 2.93 uIU/mL 01/30/2016 Comp Metabolic Cgc041 NA 134 mEq/L 01/30/2016 Comp Metabolic Npy355 K 4.0 mEq/L 01/30/2016 Comp Metabolic Fqs421 CL 97 mEq/L 01/30/2016 Comp Metabolic Hya015 CO2 29.0 mEq/L 01/30/2016 Comp Metabolic Zdb329 ANION GAP 12 01/30/2016 Comp Metabolic Thc495 GLUCOSE 98 mg/dL 01/30/2016 Comp Metabolic Tku040 Creat 0.9 mg/dL 01/30/2016 Comp Metabolic Luf400 eGFR 67 ml/min/1.73m2 01/30/2016 Comp Metabolic Xym212 BUN 16 mg/dL 01/30/2016 Comp Metabolic Yxn826 B/C Ratio 18.6 Ratio 01/30/2016 Comp Metabolic Ytp079 CALCIUM 10.3 mg/dL 01/30/2016 Comp Metabolic Yxk626 ALK PHOS 66 U/L 01/30/2016 Comp Metabolic Ami432 AST(SGOT) 16 U/L 01/30/2016 Comp Metabolic Yhc976 ALT(SGPT) 10 U/L 01/30/2016 Comp Metabolic Lph190 BILI T 0.4 mg/dL 01/30/2016 Comp Metabolic Nzn874 ALBUMIN 4.2 g/dL 01/30/2016 Comp Metabolic Arf215 TPRO 7.1 g/dL 01/30/2016 Comp Metabolic Uxb418 GLOB 2.9 g/dL 01/30/2016 Comp Metabolic Wji496 A/G Ratio 1.5 Ratio 01/30/2016 Comp Metabolic Vqq631 Osmo 269 mOsmo 01/30/2016 Lipid Ord30 CHOL [...] PNEUMOCOCCAL VACC [address]: 49070450 CPT-4: 45205 01/30/2016 FLU VACC 4 RODNEY 3 YRS PLUS IM Formatting Model/CDA Sections, Assigned to/Karine Archuleta SNOMED CT: 65483865 CPT-4: 55958Seanuhx 01/30/2016 ADMIN PNEUMOCOCCAL VACCINE SNOMED CT: 38320578 CPT-4: G0009 01/30/2016 Vital Signs Date Vital 08/20/2016 Blood Pressure 1: 124/76 Code: 8480-6 BMI: 23.2 Code: 30070-3 Heart Rate 1: 72 bpm Height: 5'6" SpO2: 93% Weight: 144 lbs 04/23/2016 Blood Pressure 1: 130/82 Code: 8480-6 BMI: 23.4 Code: 76503-0 Heart Rate 1: 86 bpm Height: 5'6" SpO2: 98% Weight: 145 lbs 01/30/2016 Blood Pressure 1: 140/86 Code: 8480-6 BMI: 23.9 Code: 11567-7 Heart Rate 1: 55 bpm Height: 5'6" SpO2: 96% Weight: 148 lbs 01/02/2016 Blood Pressure 1: 146/86 Code: 8480-6 BMI: 24.2 Code: 11258-8 Heart Rate 1: 84 bpm Height: 5'6" [...] data Encounters Encounter Performer Location Codes Date ([id number]) 63999 EST. PATIENT, LEVEL III Diagnosis: Essential (primary) hypertension[ICD10: I10] Diagnosis: Radiculopathy, lumbar region[ICD10: M54.16] Rosi Tsai MD, [facility] CPT-4: 75591 08/20/2016 ([id number]) 18475 EST. PATIENT, LEVEL IV Diagnosis: Essential (primary) hypertension[ICD10: I10] Diagnosis: Lumbago with sciatica, left side[ICD10: M54.42] Diagnosis: Cramp and spasm[ICD10: R25.2] Rosi Tsai MD, [facility] CPT-4: 72414 04/23/2016 ([id number]) 37948 EST. PATIENT, LEVEL III Diagnosis: Essential (primary) hypertension[ICD10: I10] Diagnosis: Radiculopathy, lumbar region[ICD10: M54.16] Diagnosis: Encounter for immunization[ICD10: Z23] Diagnosis: Impacted cerumen, left ear[ICD10: H61.22] [facility] CPT-4: 03695 01/30/2016 ([id number]) OFFICE VISIT, NEW - LEVEL 3 Diagnosis: Essential (primary) hypertension[ICD10: I10] Diagnosis: Mixed hyperlipidemia[ICD10: E78.2] Diagnosis: Cramp and spasm[ICD10: R25.2] [facility] CPT-4: 65587 01/02/2016 Plan of Care Planned Activity Notes Codes Status Date Appointment: Rosi Vega WPtel: [phone] (15 min) Moderate 12/24/2016 Visit Plan: Hypertension [...] of plan. 08/20/2016 Appointment: Rosi Vega WPtel: [phone] (30 min) Complex 08/20/2016 Patient Education: Patient Medication Summary Completed 08/20/2016 Appointment: Rosi Vega WPtel: [phone] (30 min) Complex 04/30/2016 Visit Plan: Hypertension [...] process. 01/30/2016 Appointment: Rosi Vega WPtel: [phone] [phone] (30 min) Complex 01/30/2016 Patient Education: Patient [...] B12, magnesium 01/02/2016 [facility]: [phone] New Patient 01/02/2016 Patient Education: [...]
--- OUTSIDE RECORDS SUMMARY | 2018-10-19 22:10 | XMS REPORT | CCD ---
Author Author Rosi Vega MD, [facility] Address [address] [place] [address] Phone Care Team Providers Care Pole Shaver Helper Name Role Phone PP Unavailable CCM Unavailable Summary Purpose Interface Exchange Insurance Providers Payer name Policy type / Coverage type Covered constitution party ID Effective Begin Date Effective End Date WPS Medicare Part B Medicare Part B [id number] Unknown Unknown Family history Daughter Diagnosis Age [...] Unknown 3 01/02/[address]: 508389214 Never smoker 01/02/[address]: 440580212 Never drinks alcohol 01/02/2016 Allergies, Adverse Reactions, [...] Fill Instructions tramadol 50 mg tablet RxNorm: 060328 1-2 Tablet(s) PO QID as needed 06/16/2017 07/15/2017 Active simvastatin 20 mg tablet RxNorm: 163206 TAKE ONE TABLET BY MOUTH ONCE DAILY 06/13/2017 No Stop Date Active hydrochlorothiazide 25 mg tablet RxNorm: 550622 TAKE ONE TABLET BY MOUTH ONCE DAILY 05/16/2017 No Stop Date Active tramadol 50 mg tablet RxNorm: 014093 1-2 Tablet(s) PO QID as needed 04/20/2017 05/18/2017 Inactive Keflex 500 mg capsule RxNorm: 948451 1 Capsule(s) PO TID 03/17/2017 03/16/2017 Inactive Keflex 500 mg capsule RxNorm: 730393 1 Capsule(s) PO TID 03/17/2017 03/23/2017 Inactive alendronate 70 mg tablet RxNorm: 111767 1 Tablet(s) PO QW 03/08/2017 03/02/2018 Active tramadol 50 mg tablet RxNorm: 526841 1-2 Tablet(s) PO QID as needed 02/02/2017 03/17/2017 Inactive gabapentin 100 mg capsule RxNorm: 145990 TAKE TWO CAPSULES BY MOUTH AT BEDTIME 01/31/2017 07/29/2017 Active tramadol 50 mg tablet RxNorm: 178131 1-2 Tablet(s) PO QID as needed 12/06/2016 01/03/2017 Inactive hydrochlorothiazide 25 mg tablet RxNorm: 500683 TAKE ONE TABLET BY MOUTH ONCE DAILY 11/16/2016 05/14/2017 Inactive lisinopril 40 mg tablet RxNorm: 860822 TAKE ONE TABLET BY MOUTH ONCE DAILY 09/30/2016 06/26/2017 Active alendronate 70 mg tablet RxNorm: 501229 1 Tablet(s) PO QW 09/24/2016 03/07/2017 Inactive simvastatin 20 mg tablet RxNorm: 397957 TAKE ONE TABLET BY MOUTH ONCE DAILY 09/20/2016 06/12/2017 Inactive tramadol 50 mg tablet RxNorm: 315760 1-2 Tablet(s) PO QID as needed 09/08/2016 10/20/2016 Inactive gabapentin 100 mg capsule RxNorm: 876617 1 Capsule(s) PO QHS 08/20/2016 12/17/2016 Inactive HOLD- WILL CALL WHEN NEEDED tramadol 50 mg tablet RxNorm: 145470 1-2 Tablet(s) PO QID as needed 08/20/2016 09/07/2016 Inactive tramadol 50 mg tablet RxNorm: 812927 1 Tablet(s) PO QID as needed 05/14/2016 08/05/2016 Inactive Kenalog 40 mg/mL suspension for injection RxNorm: 5641348 Milliliter(s) Inj 04/23/2016 04/23/2016 Inactive gabapentin 100 mg capsule RxNorm: 706287 2 Capsule(s) PO QHS 04/23/2016 08/19/2016 Inactive HOLD- WILL CALL WHEN NEEDED alendronate 70 mg tablet RxNorm: 508640 1 Tablet(s) PO QW 04/07/2016 09/23/2016 Inactive simvastatin 20 mg tablet RxNorm: 583806 1 Tablet(s) PO daily 03/29/2016 09/19/2016 Inactive tramadol 50 mg tablet RxNorm: 361285 1 Tablet(s) PO QID as needed 03/10/2016 05/03/2016 Inactive gabapentin 100 mg capsule RxNorm: 638190 1 Capsule(s) PO QHS 01/30/2016 04/22/2016 Inactive lisinopril 40 mg tablet RxNorm: 166599 1 Tablet(s) PO daily 01/30/2016 09/29/2016 Inactive hydrochlorothiazide 25 mg tablet RxNorm: 456432 1 Tablet(s) PO daily 01/30/2016 10/25/2016 Inactive alendronate 70 mg tablet RxNorm: 028867 1 Tablet(s) QW 01/02/2016 04/06/2016 Inactive simvastatin 20 mg tablet RxNorm: 005285 1 Tablet(s) PO daily 12/31/2015 12/30/2015 Inactive simvastatin 20 mg tablet RxNorm: 688152 1 Tablet(s) PO daily 12/31/2015 03/28/2016 Inactive Calcium + D oral RxNorm: 870124 oral No Start Date Active Tylenol 500 mg RxNorm: 2 PO QHS No Start Date Active hydrochlorothiazide 25 mg tablet RxNorm: 164104 1 Tablet(s) PO daily No Start Date 01/29/2016 Inactive tramadol 50 mg tablet RxNorm: 266282 1 Tablet(s) PO QID as needed No Start Date 03/09/2016 Inactive lisinopril 40 mg tablet RxNorm: 807132 1 Tablet(s) PO daily No Start Date 01/29/2016 Inactive Medication Administered Medication Codes Instructions Start Date Status Kenalog 40 mg/mL suspension for injection RxNorm: 0036571 Milliliter 04/23/2016 No longer Active Immunizations Vaccine [...] 91.1 fl 01/30/2016 Cbc With Differential Ord2 Jackson% 8.6 % 01/30/2016 Cbc With Differential Ord2 [...] 2.16 K/ul 01/30/2016 Cbc With Differential Ord2 Jackson ABS# 0.7 K/ul 01/30/2016 Cbc With Differential Ord2 Eos ABS# 0.2 K/ul 01/30/2016 Cbc With Differential Ord2 Baso ABS# 0.0 K/ul 01/30/2016 Tsh Ord6 hTSH II 2.93 uIU/mL 01/30/2016 Comp Metabolic Suu629 NA 134 mEq/L 01/30/2016 Comp Metabolic Hnu281 K 4.0 mEq/L 01/30/2016 Comp Metabolic Xpu312 CL 97 mEq/L 01/30/2016 Comp Metabolic Jcb392 CO2 29.0 mEq/L 01/30/2016 Comp Metabolic Htu493 ANION GAP 12 01/30/2016 Comp Metabolic Vmm134 GLUCOSE 98 mg/dL 01/30/2016 Comp Metabolic Sim816 Creat 0.9 mg/dL 01/30/2016 Comp Metabolic Djd320 eGFR 67 ml/min/1.73m2 01/30/2016 Comp Metabolic Cht932 BUN 16 mg/dL 01/30/2016 Comp Metabolic Dcc650 B/C Ratio 18.6 Ratio 01/30/2016 Comp Metabolic Vun331 CALCIUM 10.3 mg/dL 01/30/2016 Comp Metabolic Vvg056 ALK PHOS 66 U/L 01/30/2016 Comp Metabolic Jle445 AST(SGOT) 16 U/L 01/30/2016 Comp Metabolic Bfs601 ALT(SGPT) 10 U/L 01/30/2016 Comp Metabolic Voj019 BILI T 0.4 mg/dL 01/30/2016 Comp Metabolic Oxu492 ALBUMIN 4.2 g/dL 01/30/2016 Comp Metabolic Xgh289 TPRO 7.1 g/dL 01/30/2016 Comp Metabolic Imp251 GLOB 2.9 g/dL 01/30/2016 Comp Metabolic Bot029 A/G Ratio 1.5 Ratio 01/30/2016 Comp Metabolic Pnh880 Osmo 269 mOsmo 01/30/2016 Lipid Ord30 CHOL [...] PNEUMOCOCCAL VACC [address]: 90894086 CPT-4: 82403 01/30/2016 FLU VACC 4 RODNEY 3 YRS PLUS IM Formatting Model/CDA Sections, Assigned to/Karine Archuleta SNOMED CT: 88480882 CPT-4: 45583Ckyipeg 01/30/2016 ADMIN PNEUMOCOCCAL VACCINE SNOMED CT: 00774088 CPT-4: G0009 01/30/2016 Vital Signs Date Vital 08/20/2016 Blood Pressure 1: 124/76 Code: 8480-6 BMI: 23.2 Code: 35220-1 Heart Rate 1: 72 bpm Height: 5'6" SpO2: 93% Weight: 144 lbs 04/23/2016 Blood Pressure 1: 130/82 Code: 8480-6 BMI: 23.4 Code: 23783-5 Heart Rate 1: 86 bpm Height: 5'6" SpO2: 98% Weight: 145 lbs 01/30/2016 Blood Pressure 1: 140/86 Code: 8480-6 BMI: 23.9 Code: 97421-9 Heart Rate 1: 55 bpm Height: 5'6" SpO2: 96% Weight: 148 lbs 01/02/2016 Blood Pressure 1: 146/86 Code: 8480-6 BMI: 24.2 Code: 16284-8 Heart Rate 1: 84 bpm Height: 5'6" [...] data Encounters Encounter Performer Location Codes Date ([id number]) 69686 EST. PATIENT, LEVEL III Diagnosis: Essential (primary) hypertension[ICD10: I10] Diagnosis: Radiculopathy, lumbar region[ICD10: M54.16] Rosi Tsai MD, [facility] CPT-4: 05780 08/20/2016 ([id number]) 08311 EST. PATIENT, LEVEL IV Diagnosis: Essential (primary) hypertension[ICD10: I10] Diagnosis: Lumbago with sciatica, left side[ICD10: M54.42] Diagnosis: Cramp and spasm[ICD10: R25.2] Rosi Tsai MD, [facility] CPT-4: 50762 04/23/2016 ([id number]) 48475 EST. PATIENT, LEVEL III Diagnosis: Essential (primary) hypertension[ICD10: I10] Diagnosis: Radiculopathy, lumbar region[ICD10: M54.16] Diagnosis: Encounter for immunization[ICD10: Z23] Diagnosis: Impacted cerumen, left ear[ICD10: H61.22] [facility] CPT-4: 48265 01/30/2016 ([id number]) OFFICE VISIT, NEW - LEVEL 3 Diagnosis: Essential (primary) hypertension[ICD10: I10] Diagnosis: Mixed hyperlipidemia[ICD10: E78.2] Diagnosis: Cramp and spasm[ICD10: R25.2] [facility] CPT-4: 67456 01/02/2016 Plan of Care Planned Activity Notes Codes Status Date Appointment: Rosi Vega WPtel: [address] [place] [address] (15 min) Moderate 12/24/2016 Visit Plan: Hypertension [...] of plan. 08/20/2016 Appointment: Rosi Vega WPtel: [address] [place], [place] [phone] (30 min) Complex 08/20/2016 Patient Education: Patient Medication Summary Completed 08/20/2016 Appointment: Rosi Vega WPtel: [address] [place], [place] [phone] (30 min) Complex 04/30/2016 Visit Plan: Hypertension [...] process. 01/30/2016 Appointment: Rosi Vega WPtel: [phone] (30 min) Complex 01/30/2016 Patient [...] B12, magnesium 01/02/2016 Appointment: [facility]Ptel[facility] New Patient 01/02/2016 Patient Education: Patient [...]
--- OUTSIDE RECORDS SUMMARY | 2018-10-19 22:10 | XMS REPORT | Continuity of Care Document ---
Author Organization Unknown Address Unknown Allergies Active Description Code Type Severity Reaction Onset Reported/Identified Relationship to Patient Clinical Status Yes SULFA SULFA Unknown N/A 02/18/2010 Medications There is no data. Problems Date Dx Coded Attending Type Code Diagnosis Diagnosed By 10/18/2014 KEANU NULL, MARIA M Myles Ot 724.2 10/19/2014 KEANU NULL, MARIA M Myles Ot 724.2 10/19/2014 KEANU NULL, MARIA M Myles Ot 724.2 11/08/2014 KEANU NULL, MARIA M Myles Ot 724.2 10/04/2016 JIA ARREDONDO Ot N30.00 ACUTE CYSTITIS WITHOUT HEMATURIA 10/04/2016 JIA ARREDONDO Ot N30.00 ACUTE CYSTITIS WITHOUT HEMATURIA 10/09/2016 JIA ARREDONDO Ot N30.00 ACUTE CYSTITIS WITHOUT HEMATURIA 10/26/2016 JIA ARREDONDO Ot N30.00 ACUTE CYSTITIS WITHOUT HEMATURIA Procedures There is no data. Results Test Result Range Bacterial urine culture - 10/03/16 12:00 Bacterial urine culture [id number] NRG COLONY COUNT >100,000/ML NRG Encounters ACCT No. Visit Date/Time Discharge Status Pt. Type Provider Facility Loc./Unit Complaint [id number] 10/03/2016 15:50:00 10/03/2016 23:59:59 CLS Outpatient JIA ARREDONDO [facility] ACUTE CYSTITIS W/O HEMATURIA [id number] 10/16/2014 17:50:00 10/16/2014 23:59:59 CLS Outpatient MARIA M COLUNGA MD [facility] RAD [id number] 03/22/2013 09:56:00 03/22/2013 23:59:59 CLS Outpatient [id number] 12/21/2016 23:20:33 12/21/2016 23:59:59 CLS Outpatient
[2018-10-19 22:11] LABS: ALANINE AMINOTRANSFERASE 9 U/L (0-55); ALBUMIN 4.5 GM/DL (3.2-4.5); ALKALINE PHOSPHATASE 75 U/L (40-136); BILIRUBIN,TOTAL 0.7 MG/DL (0.1-1.0); BUN/CREATININE RATIO 20; CALCIUM 9.9 MG/DL (8.5-10.1); CARBON DIOXIDE 20 MMOL/L (21-32); CHLORIDE 89 MMOL/L (98-107); CREATININE SERUM 0.85 MG/DL (0.60-1.30); GFR ESTIMATED > 60; GLUCOSE 112 MG/DL (70-105); MAGNESIUM 1.9 MG/DL (1.8-2.4); POTASSIUM 3.4 MMOL/L (3.6-5.0); TOTAL PROTEIN 8.3 GM/DL (6.4-8.2)
[2018-10-19 22:16] LABS: SODIUM 124 MMOL/L (135-145)
[2018-10-19] MEDS ORDERED: PROMETHAZINE INJ 25 MG/ML (PHENERGAN) AMP IVP ONE (22:45)
[2018-10-19 23:17] LABS: BILIRUBIN,URINE NEGATIVE (NEGATIVE); CLARITY,URINE CLEAR; COLOR,URINE YELLOW; GLUCOSE, URINE (UA) NEGATIVE (NEGATIVE); KETONES,URINE 1+ (NEGATIVE); LEUKOCYTE ESTERASE ,URINE 3+ (NEGATIVE); NITRITE,URINE NEGATIVE (NEGATIVE); PH,URINE 8 (5-9); PROTEIN,URINE NEGATIVE (NEGATIVE); UROBILINOGEN,URINE NORMAL (NORMAL)
[2018-10-19 23:28] LABS: BACTERIA,URINE FEW /HPF; SQUAMOUS EPITHELIAL CELL,UR 0-2 /HPF
[2018-10-19] MEDS ORDERED: meTOprolol 5 MG/5 ML (LOPRESSOR) VIAL IV ONE (23:45)
[2018-10-20] VITALS (7 sets, daily range): BP systolic 138–199; BP diastolic 72–107
--- OUTSIDE RECORDS SUMMARY | 2018-10-20 00:45 | XMS REPORT | Continuity of Care Document ---
[...] culture - 10/03/16 12:00 Bacterial urine culture [id number] NRG COLONY COUNT >100,000/ML NRG Encounters ACCT No. Visit Date/Time Discharge Status Pt. Type Provider Facility Loc./Unit Complaint [id number] 10/03/2016 15:50:00 10/03/2016 23:59:59 CLS Outpatient JIA ARREDONDO [facility] LAB ACUTE CYSTITIS W/O HEMATURIA [id number] 10/16/2014 17:50:00 10/16/2014 23:59:59 CLS Outpatient MARIA M COLUNGA MD [facility] RAD [id number] 03/22/2013 09:56:00 03/22/2013 23:59:59 CLS Outpatient [id number] 12/21/2016 23:20:33 12/21/2016 23:59:59 CLS Outpatient
--- NOTE | 2018-10-20 00:50 | NUR ---
Report received from Kevin OROZCO in [facility]. CODIVIPIN admitted to room 406-1, with an admitting diagnosis of UTI, abd pain, N/V, on 10/20/18 from ED via stretcher, accompanied by staff and adult daughter. VIPIN KINCAID introduced to surroundings, call light, bed controls, phone, TV, temperature control, lights, meal times, smoking policy, visitor policy, side rail policy, bathrooms and showers. Patient Rights given to patient in the handbook. VIPIN KINCAID verbalizes understanding that [facility] is not responsible for the loss or damage to any personal effects or valuables that are kept in the patients posession during their hospitalization. VIPIN KINCAID verbalizes understanding of Interdisciplinary Patient Education. Patient and/or family were informed about the Rapid Response Team and its purpose.
[2018-10-20] MEDS ORDERED: ONDANSETRON 4 MG/2 ML (SDV) Z0FRAN IV PRN (01:30)
[2018-10-20] MEDS ORDERED: IBUPROFEN 800 MG (MOTRIN) TAB PO PRN (01:30)
[2018-10-20] MEDS ORDERED: CATHETER FLUSH 10 ML SYR IV PRN (01:30)
[2018-10-20] MEDS: NS IV 1000 ML 1,000 ML IV SCH ×3 (01:30→20:03)
[2018-10-20] MEDS ORDERED: PROMETHAZINE INJ 25 MG/ML (PHENERGAN) AMP IV PRN (01:30)
[2018-10-20 05:18] LABS: BASOPHILS % (AUTO) 0 % (0-10); EOSINOPHILS % (AUTO) 0 % (0-10); HEMATOCRIT 37 % (35-52); HEMOGLOBIN 12.9 G/DL (11.5-16.0); LYMPHOCYTES # (AUTO) 1.6 X 10^3 (1.0-4.0); LYMPHOCYTES % (AUTO) 14 % (12-44); MEAN CORPUSCULAR HEMOGLOBIN 31 PG (25-34); MEAN CORPUSCULAR HGB CONC 35 G/DL (32-36); MEAN CORPUSCULAR VOLUME 89 FL (80-99); MEAN PLATELET VOLUME 9.8 FL (7.4-10.4); MONOCYTES # (AUTO) 0.8 X 10^3 (0.0-1.0); MONOCYTES % (AUTO) 8 % (0-12); NEUTROPHILS # (AUTO) 8.7 X 10^3 (1.8-7.8); NEUTROPHILS % (AUTO) 78 % (42-75); PLATELET COUNT 310 10^3/uL (130-400); RED CELL DISTRIBUTION WIDTH 12.5 % (10.0-14.5); WHITE BLOOD COUNT 11.2 10^3/uL (4.3-11.0)
[2018-10-20 05:36] LABS: ALANINE AMINOTRANSFERASE 9 U/L (0-55); ALBUMIN 4.1 GM/DL (3.2-4.5); ALKALINE PHOSPHATASE 69 U/L (40-136); BILIRUBIN,TOTAL 0.6 MG/DL (0.1-1.0); BUN/CREATININE RATIO 18; CALCIUM 9.2 MG/DL (8.5-10.1); CARBON DIOXIDE 22 MMOL/L (21-32); CHLORIDE 95 MMOL/L (98-107); CREATININE SERUM 0.79 MG/DL (0.60-1.30); GFR ESTIMATED > 60; GLUCOSE 119 MG/DL (70-105); POTASSIUM 3.2 MMOL/L (3.6-5.0); SODIUM 129 MMOL/L (135-145); TOTAL PROTEIN 7.5 GM/DL (6.4-8.2)
--- NOTE | 2018-10-20 05:36 | Diagnostic Imaging Report ---
INDICATION: Vomiting, recent spider bite COMPARISON: 09/09/2011 TECHNIQUE: Single frontal radiograph of the chest dated 10/19/2018. FINDINGS: The cardiac silhouette is within normal limits in size. No significant pulmonary vascular congestion. Round retrocardiac lucency is present, felt to relate to a moderate sized hiatal hernia. The lungs are clear of focal pulmonary opacity. No pleural effusion. No pneumothorax. No acute osseous abnormality. IMPRESSION: Retrocardiac lucency, favored to relate to a moderate sized hiatal hernia. Otherwise, unremarkable exam. Dictated by: Dictated on workstation # [id number]
--- NOTE | 2018-10-20 05:43 | NUR ---
SPOKE WITH DR. TOMAS AND INFORMED HER PTS BP-199/93 HR-86 AND THAT PT HAS BEEN VERY RESTLESS SINCE ARRIVAL. TELEPHONE ORDERS RECEIVED FOR HYDRALAZINE 25MG PO Q8HRS JESSE, AND TRAMADOL 100MG TID PRN. WILL CARRY OUT ORDERS AND CONTINUE TO MONITOR PT.
[2018-10-20] MEDS: hydrALAZINE (APRESOLINE) 25 MG TAB PO SCH ×3 (06:16→22:10)
[2018-10-20] MEDS: CATHETER FLUSH 10 ML SYR IV SCH ×3 (06:19→22:10)
[2018-10-20] MEDS: cefTRIAXone 1,000 MG/SWFI 10 ML IV PUSH IV SCH ×2 (08:46)
--- NOTE | 2018-10-20 10:03 | History & Physicial ---
History of Present Illness History of Present Illness Reason for visit/HPI PT IS AN 88 Y/O FEMALE WHO IS A CLINIC PATIENT WHO IS USUALLY SEEN IN MY CLINIC BY ONE OF MY NURSE PRACTITIONERS. APPARENTLY SHE HAD A SPIDER BITE FOR WHICH SHE WAS SEEN AT URGENT CARE, STARTED ON DOXYCYCLINE AND WAS DOING FAIRLY WELL FOR A FEW DAYS, HOWEVER EARLIER THIS WEEK SHE STARTED TO COMPLAIN OF ABDOMINAL DISCOMFORT AND NAUSEA. THE NAUSEA WAS SO GREAT YESTERDAY THAT SHE BECAME WEAK AND WAS UNABLE TO STOP VOMITING. THE EMERGENCY DEPARTMENT EVALUATED HER AND FOUND HER TO BE HYPONATREMIC, SLIGHTLY DEHYDRATED, AND TO HAVE INTRACTABLE EMESIS. THIS MORNING SHE IS FATIGUED AND FEELING LIKE SHE HAS TO PERSISTENTLY URINATE. Date of Admission Oct 20, 2018 at 00:05 Date Seen by a Provider: Oct 20, 2018 Time Seen by a Provider: 10:00 I consulted on this patient on 10/20/18 10:00 Attending Physician Linda Tsai MD Admitting Physician Linda Tsai MD Consult Allergies and Home Medications Allergies Uncoded Allergies: SULFA (Allergy, Unknown, 10/20/18) Home Medications Acetaminophen 500 Mg Tablet, 1,000 MG PO TID PRN for PAIN-MILD, (Reported) Alendronate Sodium 70 Mg Tablet, 70 MG PO Th, (Reported) Betamethasone Valerate 15 Gm Cream..g., TOP BID, (Reported) FILLED FOR 7 DAYS ON 10-15-2018 Ca Carbonate/Vitamin D3/Vit K 1 Each Tab.chew, 1 TAB.CHEW PO BID, (Reported) Docusate Sodium 100 Mg Capsule, 100 MG PO DAILY PRN for CONSTIPATION-1ST LINE, (Reported) Doxycycline Hyclate 100 Mg Capsule, 100 MG PO BID, (Reported) 10 DAY SUPPLY FILLED ON 10-14-2018 Gabapentin 100 Mg Capsule, 100 MG PO HS, (Reported) Hydrochlorothiazide 25 Mg Tablet, 25 MG PO DAILY, (Reported) Levothyroxine Sodium 25 Mcg Tablet, 25 MCG PO DAILY, (Reported) Lisinopril 40 Mg Tablet, 40 MG PO DAILY, (Reported) Simvastatin 20 Mg Tablet, 20 MG PO HS, (Reported) Tramadol HCl 50 Mg Tablet, 100 MG PO QID PRN for PAIN-MILD, (Reported) Patient Home Medication List Home Medication List Reviewed: Yes Past Rnnlvra-Xystoz-Oeitaq Hx Patient Social History Marrital Status: Living Status: LIVES AT HOME WITH HER DAUGHTER Employed/Student: retired Alcohol Use: Denies Use Recreational Drug Use: No Smoking Status: Never a Smoker 2nd Hand Smoke Exposure: No Physical Abuse Screen: No Sexual Abuse: No Recent Foreign Travel: No Contact w/other who traveled: No Recent Hopitalizations: No Recent Infectious Disease Expo: No Immunizations Up To Date Date of Pneumonia Vaccine: Oct 21, 2015 Seasonal Allergies Seasonal Allergies: No Surgeries Yes (broken wrist) Orthopedic, Tonsillectomy Respiratory No Cardiovascular Yes High Cholesterol, Hypertension Neurological No Reproductive System : No 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 Genitourinary No Gastrointestinal Yes Chronic Constipation Musculoskeletal Yes Osteoporosis, Arthritis, Chronic Back Pain Endocrine History of Endocrine Disorders: Yes Endocrine Disorders: Hypothyroidsim HEENT History of HEENT Disorders: Yes HEENT Disorders: Cataract Hearing Impairment: Hard of Hearing Cancer No Psychosocial History of Psychiatric Problem: No Integumentary History of Skin or Integumenta: No Blood Transfusions History of Blood Disorders: No Reviewed Nursing Assessment Reviewed/Agree w Nursing PMH: Yes Family Medical History Significant Family History: Heart Disease, GI Disease, Hypertension Family Hx: Arthritis 19 FATHER 19 MOTHER G8 SISTER Gastroenteritis G8 SISTER Review of Systems Constitutional: No chills, No diaphoresis, No fever; malaise, weakness EENTM: No hoarseness, No throat pain Respiratory: No cough, No dyspnea on exertion, No short of breath Cardiovascular: No chest pain, No edema Gastrointestinal: abdominal pain Genitourinary: dysuria, incontinence Musculoskeletal: muscle weakness Skin: no symptoms reported Psychiatric/Neurological: Denies Anxiety, Denies Depressed All Other Systems Reviewed Negative Unless Noted: Yes Physical Exam Vital Signs Vital Signs - First Documented 10/19/18 21:32 Temp 97.3 Pulse 106 Resp 20 B/P (MAP) 190/98 (128) Pulse Ox 99 O2 Delivery Room Air Capillary Refill : Less Than 3 Seconds Height, Weight, BMI Height: 5'5.00" Weight: 135lbs. 1.0oz. 61.342873lp; 22.5 BMI Method:Stated General Appearance: Mild Distress, Thin Eyes: Bilateral Eye Normal Inspection, Bilateral Eye PERRL, Bilateral Eye EOMI HEENT: PERRL/EOMI, Pharynx Normal Neck: Full Range of Motion, Supple Respiratory: Chest Non Tender, Lungs Clear, Normal Breath Sounds, No Accessory Muscle Use, No Respiratory Distress Cardiovascular: Regular Rate, Rhythm Gastrointestinal: Normal Bowel Sounds, No Organomegaly, Non Tender, Soft Rectal: Deferred Back: Normal Inspection, No CVA Tenderness, No Vertebral Tenderness Extremity: Normal Capillary Refill, Non Tender, No Calf Tenderness, No Pedal Edema Neurologic/Psychiatric: Alert, Oriented x3, Normal 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 DEHYDRATION - CONTINUE WITH IV FLUIDS NAUSEA WITH EMESIS - INTRACTABLE - IMPROVED WITH ZOFRAN AND PROMETHAZINE. URINARY RETENTION - MENDOZA TO BE PLACED TODAY. HYPERTENSIVE URGENCY - RESTART LISINOPRIL, ADDED METOPROLOL AND HYDRALAZINE TODAY. HYPONATREMIA - CONTINUE WITH IV FLUIDS. MONITOR LABS. ADVANCED AGE- WITH GENERALIZED WEAKNESS - START PHYSICAL THERAPY. Admission Diagnosis URINARY TRACT INFECTION DEHYDRATION NAUSEA WITH EMESIS - INTRACTABLE URINARY RETENTION HYPERTENSIVE URGENCY HYPONATREMIA ADVANCED AGE GENERALIZED WEAKNESS Admission Status: Inpatient Order (span 2 midnights) Reason for Inpatient Admission: SHE WILL NEED INPATIENT ADMISSION FOR IV ANTIBIOTICS, FLUIDS, ANTIEMETICS AND THERAPY FOR AT LEAST 48-72 HOURS PRIOR TO DISCHARGE TO HOME. Clinical Quality Measures DVT/VTE Risk/Contraindication: Risk Factor Score Per Nursin RFS Level Per Nursing on Admit: 4+=Very High LINDA TSAI MD Oct 20, 2018 10:03
[2018-10-20] MEDS ORDERED: LEVO25TA5 PO (11:40)
[2018-10-20] MEDS ORDERED: DOXY100C2 PO (11:40)
[2018-10-20] MEDS ORDERED: GABA-486 PO (11:40)
[2018-10-20] MEDS ORDERED: TRAM50TA2 PO (11:40)
[2018-10-20] MEDS ORDERED: ALEN70TA5 PO (11:40)
[2018-10-20] MEDS ORDERED: SIMV20TA3 PO (11:40)
[2018-10-20] MEDS ORDERED: HYDR25TA4 PO (11:40)
[2018-10-20] MEDS ORDERED: BETA15CR3 TOP (11:40)
[2018-10-20] MEDS ORDERED: LISI40TA PO (11:40)
[2018-10-20] MEDS ORDERED: DOCU100C37 PO (12:35)
[2018-10-20] MEDS ORDERED: CA C1TAB75 PO (12:35)
[2018-10-20] MEDS ORDERED: ACET-77 PO (12:35)
--- NOTE | 2018-10-20 13:16 | NUR ---
SPOKE WITH PATIENT ABOUT HER HOME MEDS, SHE ADVISED WE TALK WITH HER DAUGHTER. WE WERE ABLE TO VERIFY HER MEDS WITH THE EXTERNAL MED HISTORY ALONG WITH THE PATIENTS DAUGHTER. 09-24-2018 GABAPENTIN 100MG #60/30DS, HOWEVER PATIENTS DAUGHTER STATES SHE IS ONLY TAKING QHS NOW. OTC MEDICATIONS FOLLOWS: TYLENOL 500MG, 2TS TID DOCUSATE 100 PRN CALCIUM CHEW BID
[2018-10-20] MEDS ORDERED: ACETAMINOPHEN 1000 MG PO PRN (13:30)
[2018-10-20] MEDS ORDERED: meTOproloL SUCCINATE 50 MG (TOPROL XL) TAB PO NR (13:30)
--- NOTE | 2018-10-20 15:09 | Physical Therapy Evaluation ---
PT Evaluation-General Medical Diagnosis Admission Date Oct 20, 2018 at 00:05 Medical Diagnosis: UTI/hyponatremia/sepsis Onset Date: Oct 20, 2018 Therapy Diagnosis Therapy Diagnosis: generalized weakness/debility Height/Weight Height (Feet): 5 Height (Inches): 5.00 Weight (Pounds): 135 Weight (Ounces): 1.0 Precautions Precautions/Isolations: Fall Prevention, Standard Precautions Referral Physician: Quin Reason for Referral: Evaluation/Treatment Medical History Pertinent Medical History: DM, Hypothroidism, Neuropathy Current History ER via family secondary to N&V Reviewed History: Yes Social History Home: Single Level Current Living Status: Children Prior/Core FIM Prior Level of Function Therapy Code Descriptions/Definitions Functional [place] Measure: 0=Not Assessed/NA 4=Minimal Assistance 1=Total Assistance 5=Supervision or Setup 2=Maximal Assistance 6=Modified [place] 3=Moderate Assistance 7=Complete [place] Therapy Quality Codes: 6 Independent with activity with or without an assistive device 5 Patient requires set up or clean up by helper. Patient completes activity by themselves 4 Supervision or touching assist (CGA). [place] provide cues , steadying assist 3 The helper provides less than half the effort to complete the activity 2 The helper provides more than half the effort to complete the activity 1 Dependent. The helper does all the effort to complete an activity 7 Patient refused to complete or attempt activity 9 The patient did not perform the activity before the current illness or injury 88 Not attempted due to Medical conditions or safety concerns Functional Abilities and Goals: Independent: Patient completed the activities by him/herself, with or without an assistive device, with no assistance from a helper. Needed Some Help: Patient needed partial assistance from another person to complete activities. Dependent: A helper completed the activities for the patient. Unknown: Not Applicable: Bed Mobility: 6 Transfers (B,C,W/C) (FIM): 6 Gait: 6 Indoor Mobility (Ambulation): Independent Prior Devices Use: None PT Evaluation-Current Subjective Patient agrees to PT. No c/o Pain Numeric Pain Scale: 0-No Pain Location: No Pain Reported Objective Patient Orientation: Person, Time, Situation Problem Solving: Fair Attachments: Hayes Catheter, IV ROM/Strength ROM Lower Extremities bilateral LE WFL Strength Lower Extremities 4-/5 grossly bilaterally Integumentary/Posture Integumentary refer to nursing notes Bladder Incontinence: Hayes Cath Posture kyphotic Neuromuscular (Tone, Coordination, Reflexes) grossly intact Sensory Vision: Functional Hearing: Functional Sensation Right Lower Extremit: Impaired Sensation Left Lower Extremity: Impaired Transfers Therapy Code Descriptions/Definitions Functional [place] Measure: 0=Not Assessed/NA 4=Minimal Assistance 1=Total Assistance 5=Supervision or Setup 2=Maximal Assistance 6=Modified [place] 3=Moderate Assistance 7=Complete [place] Transfers (B, C, W/C) (FIM): 4 Scootin Rollin Supine to/from Sit: 4 Sit to/from Stand: 4 Gait Mode of Locomotion: Walk Anticipated Mode of Locomotion: Walk Gait (FIM): 4 Distance (FIM): 3=150 ft Distance: 175' Gait Level of Assist: 4 Gait Persons Needed: 1 Gait Assistive Device: FWW Comments/Gait Description extended UE's with FWW use/shuffle gait sequence Balance Sitting Static: Normal Sitting Dynamic: Normal Standing Static: Good Standing Dynamic: Good Assessment/Needs 88 y.o. female, will benefit from skilled PT to address functional strength and mobility to improve current LOF and to safely return to home with family at maximum LOF. Rehab Potential: Fair PT [facility] Goals Rate And Cost Analyst Goals PT Rate And Cost Analyst Goals Time Frame: Oct 27, 2018 Transfers (B,C,W/C) (FIM): 6 Gait (FIM): 6 Gait distance (FIM): 3=150 ft Distance: 200' Gait Level of Assist: 6 Gait Assistive Device: None, FWW PT Plan Problem List Problem List: Activity Tolerance, Functional Strength, Safety, Gait, Bed Mobility Treatment/Plan Treatment Plan: Continue Plan of Care Treatment Plan: Bed Mobility, Education, Functional Activity Nhi, Functional Strength, Gait, Safety, Therapeutic Exercise, Transfers Treatment Duration: Oct 27, 2018 Frequency: 6 times per week Estimated Hrs Per Day: .25 hour per day Patient and/or Family Agrees t: Yes Discharge Recommendations Therapy D/C Recommendations: Home w/ Family Support Time/GCodes Time In: 1425 Time Out: 1437 Total Billed Treatment Time: 12 Total Billed Treatment 1 visit EVLowC 12 min CHUCK SUE PT Oct 20, 2018 15:09
[2018-10-20] MEDS: ACETAMINOPHEN 500 MG TAB (TYLENOL) PO PRN (16:17)
[2018-10-20] MEDS: LACTOBACILLUS ACIDOPHILUS (PROBIOTIC) CAPSULE PO SCH (17:52)
[2018-10-20] MEDS: GABAPENTIN 100 MG (NEURONTIN) CAP PO SCH (20:03)
[2018-10-21] VITALS (7 sets, daily range): BP systolic 129–178; BP diastolic 69–84
[2018-10-21 04:46] LABS: HEMOGLOBIN 11.7 G/DL (11.5-16.0); MEAN PLATELET VOLUME 9.7 FL (7.4-10.4); RED CELL DISTRIBUTION WIDTH 13.3 % (10.0-14.5); WHITE BLOOD COUNT 9.6 10^3/uL (4.3-11.0)
[2018-10-21 05:15] LABS: ALANINE AMINOTRANSFERASE 7 U/L (0-55); ALBUMIN 3.4 GM/DL (3.2-4.5); ALKALINE PHOSPHATASE 56 U/L (40-136); BILIRUBIN,TOTAL 0.5 MG/DL (0.1-1.0); BUN/CREATININE RATIO 16; CALCIUM 8.5 MG/DL (8.5-10.1); CARBON DIOXIDE 20 MMOL/L (21-32); CHLORIDE 103 MMOL/L (98-107); CREATININE SERUM 0.74 MG/DL (0.60-1.30); GFR ESTIMATED > 60; GLUCOSE 91 MG/DL (70-105); POTASSIUM 3.1 MMOL/L (3.6-5.0); SODIUM 132 MMOL/L (135-145)
[2018-10-21] MEDS: hydrALAZINE (APRESOLINE) 25 MG TAB PO SCH ×3 (05:57→21:32)
[2018-10-21] MEDS: LACTOBACILLUS ACIDOPHILUS (PROBIOTIC) CAPSULE PO SCH ×3 (05:57→17:39)
[2018-10-21] MEDS: LEVOTHYROXINE 25 MCG (LEVOTHROID) TAB PO SCH (05:57)
[2018-10-21] MEDS: NS IV 1000 ML 1,000 ML IV SCH ×2 (06:11→16:50)
[2018-10-21] MEDS: CATHETER FLUSH 10 ML SYR IV SCH ×3 (06:11→21:32)
[2018-10-21] MEDS: cefTRIAXone 1,000 MG/SWFI 10 ML IV PUSH IV SCH ×2 (08:26)
[2018-10-21] MEDS: lisINopril 40 MG (PRINIVIL) TABLET PO SCH (08:26)
[2018-10-21] MEDS: meTOproloL SUCCINATE 50 MG (TOPROL XL) TAB PO SCH (08:26)
--- NOTE | 2018-10-21 08:43 | Physical Therapy Daily Note ---
PT Daily Note-Current Subjective Patient in bed pre tx, agrees to PT, has no complaints of pain. Appearance Patient in recliner post tx with nurse call, phone, tray, all needs met. Nurse notified patient is in recliner, patient's legs elevated. Mental Status Patient Orientation: Person, Place Attachments: IV Transfers Therapy Code Descriptions/Definitions Functional [place] Measure: 0=Not Assessed/NA 4=Minimal Assistance 1=Total Assistance 5=Supervision or Setup 2=Maximal Assistance 6=Modified [place] 3=Moderate Assistance 7=Complete [place] Therapy Quality Codes: 6 Independent with activity with or without an assistive device 5 Patient requires set up or clean up by helper. Patient completes activity by themselves 4 Supervision or touching assist (CGA). [place] provide cues , steadying assist 3 The helper provides less than half the effort to complete the activity 2 The helper provides more than half the effort to complete the activity 1 Dependent. The helper does all the effort to complete an activity 7 Patient refused to complete or attempt activity 9 The patient did not perform the activity before the current illness or injury 88 Not attempted due to Medical conditions or safety concerns Transfers (B, C, W/C) (FIM): 4 Scootin Rollin Supine to/from Sit: 5 Sit to/from Stand: 4 Bed to/from Chair: 4 No dizziness with sitting, min assist for sit to stand, CGA for transfers. Gait Training Gait (FIM): 4 Distance: 250' Gait Level of Assist: 4 Gait Persons Needed: 1 Gait Assistive Device: FWW CGA, slow ambulation, unsteadiness with turning but no LOB Treatments bed mobility and transfers, ambulation Assessment Current Status: Fair Progress improving endurance. 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 [employer] Forms Goals PT Custodial Goals Time Frame: Oct 27, 2018 Transfers (B,C,W/C) (FIM): 6 Gait (FIM): 6 Gait distance (FIM): 3=150 ft Distance: 200' Gait Level of Assist: 6 Gait Assistive Device: None, FWW PT Plan Problem List Problem List: Activity Tolerance, Functional Strength, Safety, Balance, Gait, Transfer, Bed Mobility Treatment/Plan Treatment Plan: Continue Plan of Care Treatment Plan: Bed Mobility, Education, Functional Activity Nhi, Functional Strength, Gait, Safety, Therapeutic Exercise, Transfers Treatment Duration: Oct 27, 2018 Frequency: 6 times per week Estimated Hrs Per Day: .25 hour per day Patient and/or Family Agrees t: Yes Safety Risks/Education Patient Education: Gait Training, Transfer Techniques, Correct Positioning, Safety Issues Teaching Recipient: Patient Teaching Methods: Demonstration, Discussion Response to Teaching: Reinforcement Needed Time/GCodes Time In: 822 Time Out: 835 Total Billed Treatment Time: 13 Total Billed Treatment 1 visit GT 13' TIM PLATT PT Oct 21, 2018 08:43
[2018-10-21] MEDS: ACETAMINOPHEN 500 MG TAB (TYLENOL) PO PRN ×2 (11:06→21:32)
--- NOTE | 2018-10-21 11:41 | Progress Note-Hospitalist ---
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 and hears best out of her right ear but still difficult to communicate Urine culture reviewed and it appears to be 3 or more isolate suggesting contamination We will maintain Mendoza catheter Patient appears to be very debilitated No more nausea or vomiting but will be slow to advance oral intake Review of Systems General: Fatigue Gastrointestinal: Nausea, Vomiting Genitourinary: Retention Focused Exam Lactate Level 10/19/18 21:40: Lactic Acid Level 1.51 Objective Exam Vital Signs Vital Signs Date Time Temp Pulse Resp B/P (MAP) Pulse Ox O2 Delivery O2 Flow Rate FiO2 10/21/18 15:39 97.2 64 16 144/82 (102) 100 Room Air Capillary Refill : Less Than 3 Seconds General Appearance: No Apparent Distress, WD/WN, Chronically ill, Thin HEENT: PERRL/EOMI, Pharynx Normal Neck: Full Range of Motion, Supple Respiratory: Chest Non Tender, Lungs Clear, Normal Breath Sounds, No Accessory Muscle Use, No Respiratory Distress Cardiovascular: Regular Rate, Rhythm Gastrointestinal: Normal Bowel Sounds, No Organomegaly, Non Tender, Soft Rectal: Deferred Back: Normal Inspection, No CVA Tenderness, No Vertebral Tenderness Extremity: Normal Capillary Refill, Non Tender, No Calf Tenderness, No Pedal Edema Neurologic/Psychiatric: Alert, Oriented x3, No Motor/Sensory Deficits, Normal 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 Assessment/Plan Assessment and Plan Assess & Plan/Chief Complaint Assessment per PCP: SUSPECTED URINARY TRACT INFECTION - WAITING ON CULTURE REPORT - PT TO CONTINUE WITH IV ANTIBIOTICS - ROCEPHIN. - reviewed UCx and contaminant so will DC abx DEHYDRATION - CONTINUE WITH IV FLUIDS NS 100cc/hr NAUSEA WITH EMESIS - INTRACTABLE - IMPROVED WITH ZOFRAN AND PROMETHAZINE. Doing well today now URINARY RETENTION - MENDOZA TO BE PLACED TODAY. Will maintain until Tuesday HYPERTENSIVE URGENCY - RESTART LISINOPRIL, ADDED METOPROLOL AND HYDRALAZINE TODAY. Improved levels HYPONATREMIA - CONTINUE WITH IV FLUIDS. MONITOR LABS. ADVANCED AGE- WITH GENERALIZED WEAKNESS - START PHYSICAL THERAPY. Diagnosis/Problems Diagnosis/Problems (1) Intractable nausea and vomiting Status: Acute Qualifiers: Vomiting type: unspecified Qualified Codes: R11.2 - Nausea with vomiting, unspecified (2) Hyponatremia Status: Acute (3) Urinary retention Status: Acute (4) Mendoza catheter in place Status: Acute (5) Debility Status: Acute (6) Advanced age Status: Chronic (7) Presbycusis Status: Chronic Qualifiers: Laterality: unspecified laterality Qualified Codes: H91.10 - Presbycusis, unspecified ear (8) Hypertension Status: Chronic Qualifiers: Hypertension type: essential hypertension Qualified Codes: I10 - Essential (primary) hypertension Clinical Quality Measures DVT/VTE Risk/Contraindication: Risk Factor Score Per Nursin RFS Level Per Nursing on Admit: 4+=Very High DEIDRE THOMPSON DO Oct 21, 2018 11:40
[2018-10-21] MEDS ORDERED: CALCIUM CARBONATE 500 MG (TUMS) TAB.CHEW PO PRN (16:45)
[2018-10-21] MEDS ORDERED: DOCUSATE SODIUM 100 MG (COLACE) CAP PO PRN (16:45)
[2018-10-21] MEDS ORDERED: LOPERAMIDE 2 MG (IMODIUM) TABLET PO PRN (16:45)
[2018-10-21] MEDS ORDERED: MELATONIN 3 MG TABLET PO PRN (16:45)
[2018-10-21] MEDS: SENNA W/DOCUSATE (SENOKOT S) TABLET PO SCH (21:32)
[2018-10-21] MEDS: GABAPENTIN 100 MG (NEURONTIN) CAP PO SCH (21:32)
[2018-10-22] MEDS: NS IV 1000 ML 1,000 ML IV SCH ×3 (03:24→23:10)
[2018-10-22 03:48] VITALS: BP 157/81
[2018-10-22 05:34] LABS: BASOPHILS # (AUTO) 0.1 10^3/uL (0.0-0.1); BASOPHILS % (AUTO) 1 % (0-10); EOSINOPHILS # (AUTO) 0.2 10^3/uL (0.0-0.3); EOSINOPHILS % (AUTO) 2 % (0-10); HEMATOCRIT 34 % (35-52); HEMOGLOBIN 11.7 G/DL (11.5-16.0); LYMPHOCYTES # (AUTO) 2.7 X 10^3 (1.0-4.0); LYMPHOCYTES % (AUTO) 34 % (12-44); MEAN CORPUSCULAR HEMOGLOBIN 31 PG (25-34); MEAN CORPUSCULAR HGB CONC 34 G/DL (32-36); MEAN CORPUSCULAR VOLUME 90 FL (80-99); MEAN PLATELET VOLUME 10.1 FL (7.4-10.4); MONOCYTES # (AUTO) 0.9 X 10^3 (0.0-1.0); MONOCYTES % (AUTO) 12 % (0-12); NEUTROPHILS # (AUTO) 4.1 X 10^3 (1.8-7.8); NEUTROPHILS % (AUTO) 52 % (42-75); PLATELET COUNT 270 10^3/uL (130-400); RED CELL DISTRIBUTION WIDTH 13.1 % (10.0-14.5); WHITE BLOOD COUNT 7.9 10^3/uL (4.3-11.0)
[2018-10-22] MEDS: LEVOTHYROXINE 25 MCG (LEVOTHROID) TAB PO SCH (05:38)
[2018-10-22] MEDS: LACTOBACILLUS ACIDOPHILUS (PROBIOTIC) CAPSULE PO SCH ×3 (05:38→18:09)
[2018-10-22] MEDS: hydrALAZINE (APRESOLINE) 25 MG TAB PO SCH ×3 (05:38→21:38)
[2018-10-22] MEDS: CATHETER FLUSH 10 ML SYR IV SCH ×3 (05:39→21:39)
[2018-10-22] MEDS: ACETAMINOPHEN 500 MG TAB (TYLENOL) PO PRN ×3 (05:39→21:38)
[2018-10-22 06:01] LABS: ALANINE AMINOTRANSFERASE 9 U/L (0-55); ALBUMIN 3.3 GM/DL (3.2-4.5); ALKALINE PHOSPHATASE 54 U/L (40-136); BILIRUBIN,TOTAL 0.4 MG/DL (0.1-1.0); BUN/CREATININE RATIO 16; CALCIUM 8.6 MG/DL (8.5-10.1); CARBON DIOXIDE 19 MMOL/L (21-32); CHLORIDE 108 MMOL/L (98-107); CREATININE SERUM 0.67 MG/DL (0.60-1.30); GFR ESTIMATED > 60; GLUCOSE 88 MG/DL (70-105); POTASSIUM 3.1 MMOL/L (3.6-5.0); SODIUM 135 MMOL/L (135-145); TOTAL PROTEIN 5.9 GM/DL (6.4-8.2)
[2018-10-22 08:00] VITALS: BP 161/81
[2018-10-22] MEDS: meTOproloL SUCCINATE 50 MG (TOPROL XL) TAB PO SCH (08:58)
[2018-10-22] MEDS: SENNA W/DOCUSATE (SENOKOT S) TABLET PO SCH ×2 (08:58→21:38)
[2018-10-22] MEDS: lisINopril 40 MG (PRINIVIL) TABLET PO SCH (08:58)
--- NOTE | 2018-10-22 11:31 | Progress Note-Hospitalist ---
Subjective HPI/CC On Admission Date Seen by Provider: Oct 22, 2018 Time Seen by Provider: 11:30 Subjective/Events-last exam Patient doing pretty well Appears to be very debilitated Potassium 3.1 so we'll replace through the IV No bowel movements yet and she is not eating too well Daughter is the bedside Discontinued antibiotics yesterday due to urine culture contaminant Will DC Mendoza catheter at Dr. Tsai's discretion Overall very frail and weak Review of Systems General: Fatigue Focused Exam Lactate Level 10/19/18 21:40: Lactic Acid Level 1.51 Objective Exam Vital Signs Vital Signs Date Time Temp Pulse Resp B/P (MAP) Pulse Ox O2 Delivery O2 Flow Rate FiO2 10/22/18 08:00 98.3 67 20 161/81 (107) 98 Room Air Capillary Refill : Less Than 3 Seconds General Appearance: No Apparent Distress, WD/WN, Chronically ill, Thin HEENT: PERRL/EOMI, Pharynx Normal Neck: Full Range of Motion, Supple Respiratory: Chest Non Tender, Lungs Clear, Normal Breath Sounds, No Accessory Muscle Use, No Respiratory Distress Cardiovascular: Regular Rate, Rhythm Gastrointestinal: Normal Bowel Sounds, No Organomegaly, Non Tender, Soft Rectal: Deferred Back: Normal Inspection, No CVA Tenderness, No Vertebral Tenderness Extremity: Normal Capillary Refill, Non Tender, No Calf Tenderness, No Pedal Edema Neurologic/Psychiatric: Alert, Oriented x3, No Motor/Sensory Deficits, Normal Mood/Affect, gear grinder II-XII Norm as Tested Skin: Normal Color, Warm/Dry Lymphatic: No Adenopathy Results/Procedures Lab Laboratory Tests 10/22/18 04:55 Patient resulted labs reviewed. Assessment/Plan Assessment and Plan Assess & Plan/Chief Complaint Assessment per PCP: SUSPECTED URINARY TRACT INFECTION - WAITING ON CULTURE REPORT - PT TO CONTINUE WITH IV ANTIBIOTICS - ROCEPHIN. - reviewed UCx and contaminant so will DC abx DEHYDRATION - CONTINUE WITH IV FLUIDS NS 100cc/hr NAUSEA WITH EMESIS - INTRACTABLE - IMPROVED WITH ZOFRAN AND PROMETHAZINE. Doing well today now URINARY RETENTION - MENDOZA TO BE PLACED TODAY. Will maintain until Tuesday HYPERTENSIVE URGENCY - RESTART LISINOPRIL, ADDED METOPROLOL AND HYDRALAZINE TODAY. Improved levels HYPONATREMIA - CONTINUE WITH IV FLUIDS. MONITOR LABS. ADVANCED AGE- WITH GENERALIZED WEAKNESS - START PHYSICAL THERAPY. Plan: Continue supportive care Replace potassium Doing well but very frail and weak may need skilled care Diagnosis/Problems Diagnosis/Problems (1) Intractable nausea and vomiting Status: Resolved Qualifiers: Vomiting type: unspecified Qualified Codes: R11.2 - Nausea with vomiting, unspecified Resolution Date/Time: 10/22/18 @ 12:59 (2) Hyponatremia Status: Resolved Resolution Date/Time: 10/22/18 @ 13:00 (3) Urinary retention Status: Acute (4) Mendoza catheter in place Status: Acute (5) Debility Status: Acute (6) Advanced age Status: Chronic (7) Presbycusis Status: Chronic Qualifiers: Laterality: unspecified laterality Qualified Codes: H91.10 - Presbycusis, unspecified ear (8) Hypertension Status: Chronic Qualifiers: Hypertension type: essential hypertension Qualified Codes: I10 - Essential (primary) hypertension Clinical Quality Measures DVT/VTE Risk/Contraindication: Risk Factor Score Per Nursin RFS Level Per Nursing on Admit: 4+=Very High DEIDRE THOMPSON DO Oct 22, 2018 11:31
[2018-10-22] MEDS: POTASSIUM CL 10MEQ/50ML IVPB 50 ML IV SCH ×4 (11:46→15:24)
[2018-10-22 15:34] VITALS: BP 162/89
[2018-10-22] MEDS: GABAPENTIN 100 MG (NEURONTIN) CAP PO SCH (21:38)
[2018-10-22 21:39] VITALS: BP 188/70
[2018-10-22 23:35] VITALS: BP 163/82
[2018-10-23 05:11] VITALS: BP 150/77
[2018-10-23] MEDS: hydrALAZINE (APRESOLINE) 25 MG TAB PO SCH ×3 (05:14→22:30)
[2018-10-23] MEDS: LACTOBACILLUS ACIDOPHILUS (PROBIOTIC) CAPSULE PO SCH ×3 (05:14→17:33)
[2018-10-23] MEDS: LEVOTHYROXINE 25 MCG (LEVOTHROID) TAB PO SCH (05:15)
[2018-10-23] MEDS: CATHETER FLUSH 10 ML SYR IV SCH ×3 (05:17→22:00)
[2018-10-23] MEDS: ACETAMINOPHEN 500 MG TAB (TYLENOL) PO PRN ×3 (05:51→22:31)
[2018-10-23 06:15] LABS: BASOPHILS # (AUTO) 0.1 10^3/uL (0.0-0.1); BASOPHILS % (AUTO) 1 % (0-10); EOSINOPHILS # (AUTO) 0.1 10^3/uL (0.0-0.3); EOSINOPHILS % (AUTO) 1 % (0-10); HEMATOCRIT 34 % (35-52); HEMOGLOBIN 11.6 G/DL (11.5-16.0); LYMPHOCYTES # (AUTO) 2.5 X 10^3 (1.0-4.0); LYMPHOCYTES % (AUTO) 31 % (12-44); MEAN CORPUSCULAR HEMOGLOBIN 31 PG (25-34); MEAN CORPUSCULAR HGB CONC 34 G/DL (32-36); MEAN CORPUSCULAR VOLUME 91 FL (80-99); MEAN PLATELET VOLUME 9.9 FL (7.4-10.4); MONOCYTES # (AUTO) 0.7 X 10^3 (0.0-1.0); MONOCYTES % (AUTO) 8 % (0-12); NEUTROPHILS # (AUTO) 4.9 X 10^3 (1.8-7.8); NEUTROPHILS % (AUTO) 59 % (42-75); PLATELET COUNT 244 10^3/uL (130-400); RED CELL DISTRIBUTION WIDTH 13.6 % (10.0-14.5); WHITE BLOOD COUNT 8.2 10^3/uL (4.3-11.0)
[2018-10-23 06:37] LABS: ALANINE AMINOTRANSFERASE 10 U/L (0-55); ALBUMIN 3.2 GM/DL (3.2-4.5); ALKALINE PHOSPHATASE 53 U/L (40-136); BILIRUBIN,TOTAL 0.3 MG/DL (0.1-1.0); BUN/CREATININE RATIO 13; CALCIUM 8.7 MG/DL (8.5-10.1); CARBON DIOXIDE 17 MMOL/L (21-32); CHLORIDE 108 MMOL/L (98-107); GFR ESTIMATED > 60; GLUCOSE 97 MG/DL (70-105); POTASSIUM 3.5 MMOL/L (3.6-5.0); SODIUM 134 MMOL/L (135-145); TOTAL PROTEIN 5.7 GM/DL (6.4-8.2)
[2018-10-23 08:00] VITALS: BP 169/75
[2018-10-23] MEDS: SENNA W/DOCUSATE (SENOKOT S) TABLET PO SCH ×2 (08:11→22:00)
[2018-10-23] MEDS: lisINopril 40 MG (PRINIVIL) TABLET PO SCH (08:11)
[2018-10-23] MEDS: meTOproloL SUCCINATE 50 MG (TOPROL XL) TAB PO SCH (08:11)
--- NOTE | 2018-10-23 08:36 | Progress Note (SOAP) ---
Subjective Time Seen by a Provider: 08:34 Subjective/Events-last exam Patient communicating this morning. Patient states she's feeling a little better. Objective Exam Vital Signs Date Time Temp Pulse Resp B/P (MAP) Pulse Ox O2 Delivery O2 Flow Rate FiO2 10/23/18 08:14 Room Air 10/23/18 05:11 72 150/77 (101) 98 10/22/18 23:35 97.4 83 20 163/82 (109) 98 Room Air 10/22/18 21:39 188/70 (109) 10/22/18 20:04 Room Air 10/22/18 15:34 98.3 79 18 162/89 (113) 98 Room Air I & O 10/23/18 07:00 Intake Total 3460 ml Output Total 3000 ml Balance 460 ml Capillary Refill : Less Than 3 Seconds General Appearance: No Apparent Distress, Thin HEENT: Normal ENT Inspection, Other (Patient hard of hearing) Neck: Full Range of Motion, Normal Inspection Respiratory: No Accessory Muscle Use, No Respiratory Distress Cardiovascular: Other (Irregular@) Gastrointestinal: non tender, soft Results Lab Laboratory Tests 10/23/18 06:06 Laboratory Tests 10/23/18 06:06: White Blood Count 8.2, Red Blood Count 3.76L, Hemoglobin 11.6, Hematocrit 34L, Mean Corpuscular Volume 91, Mean Corpuscular Hemoglobin 31, Mean Corpuscular Hemoglobin Concent 34, Red Cell Distribution Width 13.6, Platelet Count 244, Mean Platelet Volume 9.9, Neutrophils (%) (Auto) 59, Lymphocytes (%) (Auto) 31, Monocytes (%) (Auto) 8, Eosinophils (%) (Auto) 1, Basophils (%) (Auto) 1, Neutrophils # (Auto) 4.9, Lymphocytes # (Auto) 2.5, Monocytes # (Auto) 0.7, Eosinophils # (Auto) 0.1, Basophils # (Auto) 0.1, Sodium Level 134L, Potassium Level 3.5L, Chloride Level 108H, Carbon Dioxide Level 17L, Anion Gap 9, Blood Urea Nitrogen 8, Creatinine 0.60, Estimat Glomerular Filtration Rate > 60, BUN/Creatinine Ratio 13, Glucose Level 97, Calcium Level 8.7, Corrected Calcium 9.3, Total Bilirubin 0.3, Aspartate Amino Transf (AST/SGOT) 14, Alanine Aminotransferase (ALT/SGPT) 10, Alkaline Phosphatase 53, Total Protein 5.7L, Albumin 3.2 Microbiology 10/19/18 Blood Culture - Preliminary, Resulted No growth 10/19/18 Urine Culture - Final, Complete 3 or more isolates Assessment/Plan Assessment/Plan Assess & Plan/Chief Complaint Dehydration. Nausea and vomiting. Hypertension. Hyponatremia. Debility Clinical Quality Measures DVT/VTE Risk/Contraindication: Risk Factor Score Per Nursin RFS Level Per Nursing on Admit: 4+=Very High VERONICA GARRISON DO Oct 23, 2018 08:36
--- NOTE | 2018-10-23 09:49 | Physical Therapy Daily Note ---
PT Daily Note-Current Subjective Patient is in bed and agrees to PT. She reports she is feeling stronger today. Mental Status Patient Orientation: Person, Time Attachments: [place] Catheter, IV Transfers Therapy Code Descriptions/Definitions Functional [place] Measure: 0=Not Assessed/NA 4=Minimal Assistance 1=Total Assistance 5=Supervision or Setup 2=Maximal Assistance 6=Modified [place] 3=Moderate Assistance 7=Complete [place] Therapy Quality Codes: 6 Independent with activity with or without an assistive device 5 Patient requires set up or clean up by helper. Patient completes activity by themselves 4 Supervision or touching assist (CGA). [place] provide cues , steadying assist 3 The helper provides less than half the effort to complete the activity 2 The helper provides more than half the effort to complete the activity 1 Dependent. The helper does all the effort to complete an activity 7 Patient refused to complete or attempt activity 9 The patient did not perform the activity before the current illness or injury 88 Not attempted due to Medical conditions or safety concerns Transfers (B, C, W/C) (FIM): 5 Scootin Rollin Supine to/from Sit: 6 Sit to/from Stand: 5 Bed to/from Chair: 5 Gait Training Gait (FIM): 5 Distance (FIM): 3=150 ft Distance: 600' Gait Level of Assist: 5 Gait Assistive Device: FWW safe and functional with no deviation Exercises Seated Therapy Exercises: Ankle pumps, Long arc quads, Hip flexion Seated Reps: 15 Assessment Patient tolerated treatment well and is progressing with treatment plan. Patient is up in recliner with needs met. Nursing notified. PT Retirement Goals Supervisor Draper[place] Hanging Goals PT Supervisor Dra[place] Hanging Goals Time Frame: Oct 27, 2018 Transfers (B,C,W/C) (FIM): 6 Gait (FIM): 6 Gait distance (FIM): 3=150 ft Distance: 200' Gait Level of Assist: 6 Gait Assistive Device: None, FWW PT Plan Treatment/Plan Treatment Plan: Continue Plan of Care Treatment Plan: Bed Mobility, Education, Functional Activity Nhi, Functional Strength, Gait, Safety, Therapeutic Exercise, Transfers Treatment Duration: Oct 27, 2018 Frequency: 6 times per week Estimated Hrs Per Day: .25 hour per day Patient and/or Family Agrees t: Yes Time/GCodes Time In: 920 Time Out: 936 Total Billed Treatment Time: 16 Total Billed Treatment 1 visit FA 16 min CHUCK SUE PT Oct 23, 2018 09:48
[2018-10-23] MEDS ORDERED: MILK OF MAGNESIA 400 MG/5 ML 30 ML UDC PO PRN (14:00)
[2018-10-23 15:31] VITALS: BP 162/75
[2018-10-23] MEDS: NS IV 1000 ML 1,000 ML IV SCH (19:09)
[2018-10-23] MEDS: GABAPENTIN 100 MG (NEURONTIN) CAP PO SCH (22:30)
[2018-10-24] VITALS: BP 178/88
[2018-10-24 05:54] LABS: HEMOGLOBIN 11.6 G/DL (11.5-16.0); MEAN PLATELET VOLUME 10.5 FL (7.4-10.4); RED CELL DISTRIBUTION WIDTH 13.3 % (10.0-14.5); WHITE BLOOD COUNT 9.1 10^3/uL (4.3-11.0)
[2018-10-24] MEDS: CATHETER FLUSH 10 ML SYR IV SCH (06:06)
[2018-10-24 06:12] LABS: ALANINE AMINOTRANSFERASE 10 U/L (0-55); ALBUMIN 3.3 GM/DL (3.2-4.5); ALKALINE PHOSPHATASE 52 U/L (40-136); BILIRUBIN,TOTAL 0.3 MG/DL (0.1-1.0); BUN/CREATININE RATIO 10; CALCIUM 8.8 MG/DL (8.5-10.1); CARBON DIOXIDE 21 MMOL/L (21-32); CHLORIDE 106 MMOL/L (98-107); CREATININE SERUM 0.63 MG/DL (0.60-1.30); GFR ESTIMATED > 60; GLUCOSE 94 MG/DL (70-105); POTASSIUM 3.4 MMOL/L (3.6-5.0); SODIUM 137 MMOL/L (135-145)
[2018-10-24] MEDS: LEVOTHYROXINE 25 MCG (LEVOTHROID) TAB PO SCH (06:16)
[2018-10-24] MEDS: hydrALAZINE (APRESOLINE) 25 MG TAB PO SCH (06:16)
[2018-10-24] MEDS: LACTOBACILLUS ACIDOPHILUS (PROBIOTIC) CAPSULE PO SCH (06:19)
[2018-10-24 07:50] VITALS: BP 179/87
[2018-10-24] MEDS ORDERED: KCL 10 MEQ TAB (MICRO K) PO NR (07:51)
--- NOTE | 2018-10-24 07:52 | Progress Note (SOAP) ---
Subjective Time Seen by a Provider: 07:49 Subjective/Events-last exam Patient feeling better and wants to go home. Patient did good with physical therapy yesterday. Increase metipranolol since blood pressure elevated. Patient to be discharged today. Patient be followed up by Dr. Tsai in one week Objective Exam Vital Signs Date Time Temp Pulse Resp B/P (MAP) Pulse Ox O2 Delivery O2 Flow Rate FiO2 10/24/18 00:00 98.3 84 20 178/88 (118) 97 Room Air 10/23/18 20:00 97 Room Air 10/23/18 15:31 98.5 73 18 162/75 (104) 96 Room Air 10/23/18 08:14 Room Air 10/23/18 08:00 98.0 81 18 169/75 (106) 99 Room Air I & O 10/24/18 07:00 Intake Total 2710 ml Output Total 2975 ml Balance -265 ml Capillary Refill : Less Than 3 Seconds General Appearance: No Apparent Distress, Thin HEENT: Normal ENT Inspection Neck: Full Range of Motion Respiratory: Lungs Clear, No Accessory Muscle Use, No Respiratory Distress Cardiovascular: Regular Rate, Rhythm, No Murmur Gastrointestinal: non tender, soft Results Lab Laboratory Tests 10/24/18 04:50 Laboratory Tests 10/24/18 04:50: White Blood Count 9.1, Red Blood Count 3.78L, Hemoglobin 11.6, Hematocrit 34L, Mean Corpuscular Volume 91, Mean Corpuscular Hemoglobin 31, Mean Corpuscular Hemoglobin Concent 34, Red Cell Distribution Width 13.3, Platelet Count 262, Mean Platelet Volume 10.5H, Sodium Level 137, Potassium Level 3.4L, Chloride Level 106, Carbon Dioxide Level 21, Anion Gap 10, Blood Urea Nitrogen 6L, Creatinine 0.63, Estimat Glomerular Filtration Rate > 60, BUN/Creatinine Ratio 10, Glucose Level 94, Calcium Level 8.8, Corrected Calcium 9.4, Total Bilirubin 0.3, Aspartate Amino Transf (AST/SGOT) 13, Alanine Aminotransferase (ALT/SGPT) 10, Alkaline Phosphatase 52, Total Protein 6.0L, Albumin 3.3 Microbiology 10/19/18 Blood Culture - Preliminary, Resulted No growth 10/19/18 Urine Culture - Final, Complete 3 or more isolates Assessment/Plan Assessment/Plan Assess & Plan/Chief Complaint Dehydration. Nausea and vomiting. Hypertension. Hyponatremia. Debility. . 10/24/18. Dehydration. Nausea and vomiting resolved. Hypertension increased metoprolol. Hyponatremia. Debility resolved. Patient be discharged and seen by Dr. Tsai in one week. Increased metoprolol tartrate XL 100 milligrams Clinical Quality Measures DVT/VTE Risk/Contraindication: Risk Factor Score Per Nursin RFS Level Per Nursing on Admit: 4+=Very High VERONICA GARRISON DO Oct 24, 2018 07:52
--- NOTE | 2018-10-24 07:56 | Discharge Inst-Simple/Standard ---
Discharge Inst-Standard Patient Instructions/Follow Up Plan of Care/Instructions/FU: To see Dr. Tsai in one week Activity as Tolerated: Yes Discharge Diet: Low Sodium Diet VERONICA GARRISON DO Oct 24, 2018 07:56
[2018-10-24] MEDS: ACETAMINOPHEN 500 MG TAB (TYLENOL) PO PRN (08:00)
[2018-10-24] MEDS: SENNA W/DOCUSATE (SENOKOT S) TABLET PO SCH (08:03)
[2018-10-24] MEDS: lisINopril 40 MG (PRINIVIL) TABLET PO SCH (08:06)
[2018-10-24] MEDS ORDERED: meTOproloL SUCCINATE 50 MG (TOPROL XL) TAB PO SCH (09:00)
[2018-10-24] MEDS ORDERED: HYDR-3923 PO (10:12)
[2018-10-24] MEDS ORDERED: METO-370 PO (10:12)
--- NOTE | 2018-10-25 07:02 | Discharge Summary ---
Diagnosis/Chief Complaint Date of Admission Oct 20, 2018 at 00:05 Date of Discharge Oct 24, 2018 at 11:20 Discharge Date: Oct 24, 2018 Discharge Time: 07:00 Discharge Diagnosis Nausea with emesis intractable. Urinary retention. Dehydration. Hypertension. Hyponatremia. Hypokalemia. Generalized weakness. Advanced age Discharge Summary Discharge Physical Examination Allergies: Uncoded Allergies: SULFA (Allergy, Unknown, 10/20/18) Vitals & I&Os Vital Signs Date Time Temp Pulse Resp B/P (MAP) Pulse Ox O2 Delivery O2 Flow Rate FiO2 10/24/18 11:14 10/24/18 08:00 97 Room Air 10/24/18 07:50 98.6 88 18 Hospital Course Patient in hospital did improve and wanted to go home Labs (last 24 hrs) Laboratory Tests 10/19/18 21:40: White Blood Count 10.2, Red Blood Count 4.24L, Hemoglobin 13.2, Hematocrit 37, Mean Corpuscular Volume 88, Mean Corpuscular Hemoglobin 31, Mean Corpuscular Hemoglobin Concent 36, Red Cell Distribution Width 12.4, Platelet Count 315, Mean Platelet Volume 9.5, Neutrophils (%) (Auto) 74, Lymphocytes (%) (Auto) 17, Monocytes (%) (Auto) 9, Eosinophils (%) (Auto) 1, Basophils (%) (Auto) 1, Neut rophils # (Auto) 7.5, Lymphocytes # (Auto) 1.7, Monocytes # (Auto) 0.9, Eosinophils # (Auto) 0.1, Basophils # (Auto) 0.1, Prothrombin Time 14.0, INR Comment 1.0, Activated Partial Thromboplast Time 35, Sodium Level 124*L, Potassium Level 3.4L, Chloride Level 89L, Carbon Dioxide Level 20L, Anion Gap 15H, Blood Urea Nitrogen 17, Creatinine 0.85, Estimat Glomerular Filtration Rate > 60, BUN/Creatinine Ratio 20, Glucose Level 112H, Lactic Acid Level 1.51, Calcium Level 9.9, Corrected Calcium 9.5, Magnesium Level 1.9, Total Bilirubin 0.7, Aspartate Amino Transf (AST/SGOT) 16, Alanine Aminotransferase (ALT/SGPT) 9, Alkaline Phosphatase 75, Total Protein 8.3H, Albumin 4.5 10/19/18 23:10: Urine Color YELLOW, Urine Clarity CLEAR, Urine pH 8, Urine Specific [place] 1.015L, Urine Protein NEGATIVE, Urine Glucose (UA) NEGATIVE, Urine Ketones 1+H, Urine Nitrite NEGATIVE, Urine Bilirubin NEGATIVE, Urine Urobilinogen NORMAL, Urine Leukocyte Esterase 3+H, Urine RBC (Auto) 3+H, Urine RBC 5-10H, Urine WBC 10-25H, Urine Squamous Epithelial Cells 0-2, Urine Crystals NONE, Urine Bacteria FEWH, Urine Casts NONE, Urine Mucus NEGATIVE, Urine Culture Indicated CULTURE PENDING 10/20/18 00:05: Lab Scanned Report Referred Lab Report 10/20/18 04:43: White Blood Count 11.2H, Red Blood Count 4.12L, Hemoglobin 12.9, Hematocrit 37, Mean Corpuscular Volume 89, Mean Corpuscular Hemoglobin 31, Mean Corpuscular Hemoglobin Concent 35, Red Cell Distribution Width 12.5, Platelet Count 310, Mean Platelet Volume 9.8, Neutrophils (%) (Auto) 78H, Lymphocytes (%) (Auto) 14, Monocytes (%) (Auto) 8, Eosinophils (%) (Auto) 0, Basophils (%) (Auto) 0, Neutrophils # (Auto) 8.7H, Lymphocytes # (Auto) 1.6, Monocytes # (Auto) 0.8, Eosinophils # (Auto) 0.0, Basophils # (Auto) 0.0, Sodium Level 129L, Potassium Level 3.2L, Chloride Level 95L, Carbon Dioxide Level 22, Anion Gap 12, Blood Urea Nitrogen 14, Creatinine 0.79, Estimat Glomerular Filtration Rate > 60, BUN/Creatinine Ratio 18, Glucose Level 119H, Calcium Level 9.2, Corrected Calcium 9.1, Total Bilirubin 0.6, Aspartate Amino Transf (AST/SGOT) 14, Alanine Aminotransferase (ALT/SGPT) 9, Alkaline Phosphatase 69, Total Protein 7.5, Albumin 4.1 10/21/18 04:12: White Blood Count 9.6, Red Blood Count 3.81L, Hemoglobin 11.7, Hematocrit 34L, Mean Corpuscular Volume 90, Mean Corpuscular Hemoglobin 31, Mean Corpuscular Hemoglobin Concent 34, Red Cell Distribution Width 13.3, Platelet Count 315, Mean Platelet Volume 9.7, Sodium Level 132L, Potassium Level 3.1L, Chloride Level 103, Carbon Dioxide Level 20L, Anion Gap 9, Blood Urea Nitrogen 12, Creatinine 0.74, Estimat Glomerular Filtration Rate > 60, BUN/Creatinine Ratio 16, Glucose Level 91, Calcium Level 8.5, Corrected Calcium 9.0, Total Bilirubin 0.5, Aspartate Amino Transf (AST/SGOT) 15, Alanine Aminotransferase (ALT/SGPT) 7, Alkaline Phosphatase 56, Total Protein 6.0L, Albumin 3.4 10/22/18 04:55: White Blood Count 7.9, Red Blood Count 3.76L, Hemoglobin 11.7, Hematocrit 34L, Mean Corpuscular Volume 90, Mean Corpuscular Hemoglobin 31, Mean Corpuscular Hemoglobin Concent 34, Red Cell Distribution Width 13.1, Platelet Count 270, Mean Platelet Volume 10.1, Sodium Level 135, Potassium Level 3.1L, Chloride Level 108H, Carbon Dioxide Level 19L, Anion Gap 8, Blood Urea Nitrogen 11, Creatinine 0.67, Estimat Glomerular Filtration Rate > 60, BUN/Creatinine Ratio 16, Glucose Level 88, Calcium Level 8.6, Corrected Calcium 9.2, Total Bilirubin 0.4, Aspartate Amino Transf (AST/SGOT) 13, Alanine Aminotransferase (ALT/SGPT) 9, Alkaline Phosphatase 54, Total Protein 5.9L, Albumin 3.3, Neutrophils (%) (Auto) 52, Lymphocytes (%) (Auto) 34, Monocytes (%) (Auto) 12, Eosinophils (%) (Auto) 2, Basophils (%) (Auto) 1, Neutrophils # (Auto) 4.1, Lymphocytes # (Auto) 2.7, Monocytes # (Auto) 0.9, Eosinophils # (Auto) 0.2, Basophils # (Auto) 0.1 10/23/18 06:06: White Blood Count 8.2, Red Blood Count 3.76L, Hemoglobin 11.6, Hematocrit 34L, Mean Corpuscular Volume 91, Mean Corpuscular Hemoglobin 31, Mean Corpuscular Hemoglobin Concent 34, Red Cell Distribution Width 13.6, Platelet Count 244, Mean Platelet Volume 9.9, Sodium Level 134L, Potassium Level 3.5L, Chloride Level 108H, Carbon Dioxide Level 17L, Anion Gap 9, Blood Urea Nitrogen 8, Creatinine 0.60, Estimat Glomerular Filtration Rate > 60, BUN/Creatinine Ratio 13, Glucose Level 97, Calcium Level 8.7, Corrected Calcium 9.3, Total Bilirubin 0.3, Aspartate Amino Transf (AST/SGOT) 14, Alanine Aminotransferase (ALT/SGPT) 10, Alkaline Phosphatase 53, Total Protein 5.7L, Albumin 3.2, Neutrophils (%) (Auto) 59, Lymphocytes (%) (Auto) 31, Monocytes (%) (Auto) 8, Eosinophils (%) (Auto) 1, Basophils (%) (Auto) 1, Neutrophils # (Auto) 4.9, Lymphocytes # (Auto) 2.5, Monocytes # (Auto) 0.7, Eosinophils # (Auto) 0.1, Basophils # (Auto) 0.1, Magnesium Level 1.4L 10/24/18 04:50: White Blood Count 9.1, Red Blood Count 3.78L, Hemoglobin 11.6, Hematocrit 34L, Mean Corpuscular Volume 91, Mean Corpuscular Hemoglobin 31, Mean Corpuscular Hemoglobin Concent 34, Red Cell Distribution Width 13.3, Platelet Count 262, Mean Platelet Volume 10.5H, Sodium Level 137, Potassium Level 3.4L, Chloride L evel 106, Carbon Dioxide Level 21, Anion Gap 10, Blood Urea Nitrogen 6L, Creati nine 0.63, Estimat Glomerular Filtration Rate > 60, BUN/Creatinine Ratio 10, Glucose Level 94, Calcium Level 8.8, Corrected Calcium 9.4, Total Bilirubin 0.3, Aspartate Amino Transf (AST/SGOT) 13, Alanine Aminotransferase (ALT/SGPT) 10, Alkaline Phosphatase 52, Total Protein 6.0L, Albumin 3.3 Microbiology 10/19/18 Blood Culture - Preliminary, Resulted No growth 10/19/18 Urine Culture - Final, Complete 3 or more isolates Laboratory Tests 10/19/18 21:40 10/20/18 04:43 10/21/18 04:12 10/22/18 04:55 10/23/18 06:06 10/24/18 04:50 Pending Labs Microbiology Date/Time Source Procedure Growth Status 10/19/18 22:14 Peripheral Rt Hand Blood Culture - Preliminary No growth Resulted 10/19/18 21:40 Peripheral Lt Ac Blood Culture - Preliminary No growth Resulted 10/19/18 23:10 Urine Clean Catch Urine Culture - Final 3 or more isolates Complete Laboratory Tests 10/19/18 21:40: White Blood Count 10.2, Red Blood Count 4.24, Hemoglobin 13.2, Hematocrit 37, Mean Corpuscular Volume 88, Mean Corpuscular Hemoglobin 31, Mean Corpuscular Hemoglobin Concent 36, Red Cell Distribution Width 12.4, Platelet Count 315, Mean Platelet Volume 9.5, Neutrophils (%) (Auto) 74, Lymphocytes (%) (Auto) 17, Monocytes (%) (Auto) 9, Eosinophils (%) (Auto) 1, Basophils (%) (Auto) 1, Neutrophils # (Auto) 7.5, Lymphocytes # (Auto) 1.7, Monocytes # (Auto) 0.9, Eosinophils # (Auto) 0.1, Basophils # (Auto) 0.1, Prothrombin Time 14.0, INR Comment 1.0, Activated Partial Thromboplast Time 35, Sodium Level 124, Potassium Level 3.4, Chloride Level 89, Carbon Dioxide Level 20, Anion Gap 15, Blood Urea Nitrogen 17, Creatinine 0.85, Estimat Glomerular Filtration Rate > 60, BUN/Creatinine Ratio 20, Glucose Level 112, Lactic Acid Level 1.51, Calcium Level 9.9, Corrected Calcium 9.5, Magnesium Level 1.9, Total Bilirubin 0.7, Aspartate Amino Transf (AST/SGOT) 16, Alanine Aminotransferase (ALT/SGPT) 9, Alkaline Phosphatase 75, Total Protein 8.3, Albumin 4.5 10/19/18 23:10: Urine Color YELLOW, Urine Clarity CLEAR, Urine pH 8, Urine Specific [place] 1.015, Urine Protein NEGATIVE, Urine Glucose (UA) NEGATIVE, Urine Ketones 1+, Urine Nitrite NEGATIVE, Urine Bilirubin NEGATIVE, Urine Urobilinogen NORMAL, Urine Leukocyte Esterase 3+, Urine RBC (Auto) 3+, Urine RBC 5-10, Urine WBC 10- 25, Urine Squamous Epithelial Cells 0-2, Urine Crystals NONE, Urine Bacteria FEW, Urine Casts NONE, Urine Mucus NEGATIVE, Urine Culture Indicated CULTURE PENDING 10/20/18 00:05: Lab Scanned Report Referred Lab Report 10/20/18 04:43: White Blood Count 11.2, Red Blood Count 4.12, Hemoglobin 12.9, Hematocrit 37, Mean Corpuscular Volume 89, Mean Corpuscular Hemoglobin 31, Mean Corpuscular Hemoglobin Concent 35, Red Cell Distribution Width 12.5, Platelet Count 310, Mean Platelet Volume 9.8, Neutrophils (%) (Auto) 78, Lymphocytes (%) (Auto) 14, Monocytes (%) (Auto) 8, Eosinophils (%) (Auto) 0, Basophils (%) (Auto) 0, Neutrophils # (Auto) 8.7, Lymphocytes # (Auto) 1.6, Monocytes # (Auto) 0.8, Eosinophils # (Auto) 0.0, Basophils # (Auto) 0.0, Sodium Level 129, Potassium Level 3.2, Chloride Level 95, Carbon Dioxide Level 22, Anion Gap 12, Blood Urea Nitrogen 14, Creatinine 0.79, Estimat Glomerular Filtration Rate > 60, BUN/Creatinine Ratio 18, Glucose Level 119, Calcium Level 9.2, Corrected Calcium 9.1, Total Bilirubin 0.6, Aspartate Amino Transf (AST/SGOT) 14, Alanine Aminotransferase (ALT/SGPT) 9, Alkaline Phosphatase 69, Total Protein 7.5, Albumin 4.1 10/21/18 04:12: White Blood Count 9.6, Red Blood Count 3.81, Hemoglobin 11.7, Hematocrit 34, Mean Corpuscular Volume 90, Mean Corpuscular Hemoglobin 31, Mean Corpuscular Hemoglobin Concent 34, Red Cell Distribution Width 13.3, Platelet Count 315, Mean Platelet Volume 9.7, Sodium Level 132, Potassium Level 3.1, Chloride Level 103, Carbon Dioxide Level 20, Anion Gap 9, Blood Urea Nitrogen 12, Creatinine 0.74, Estimat Glomerular Filtration Rate > 60, BUN/Creatinine Ratio 16, Glucose Level 91, Calcium Level 8.5, Corrected Calcium 9.0, Total Bilirubin 0.5, Aspartate Amino Transf (AST/SGOT) 15, Alanine Aminotransferase (ALT/SGPT) 7, Alkaline Phosphatase 56, Total Protein 6.0, Albumin 3.4 10/22/18 04:55: White Blood Count 7.9, Red Blood Count 3.76, Hemoglobin 11.7, Hematocrit 34, Mean Corpuscular Volume 90, Mean Corpuscular Hemoglobin 31, Mean Corpuscular Hemoglobin Concent 34, Red Cell Distribution Width 13.1, Platelet Count 270, Mean Platelet Volume 10.1, Sodium Level 135, Potassium Level 3.1, Chloride Level 108, Carbon Dioxide Level 19, Anion Gap 8, Blood Urea Nitrogen 11, Creatinine 0.67, Estimat Glomerular Filtration Rate > 60, BUN/Creatinine Ratio 16, Glucose Level 88, Calcium Level 8.6, Corrected Calcium 9.2, Total Bilirubin 0.4, Aspartate Amino Transf (AST/SGOT) 13, Alanine Aminotransferase (ALT/SGPT) 9, Alkaline Phosphatase 54, Total Protein 5.9, Albumin 3.3, Neutrophils (%) (Auto) 52, Lymphocytes (%) (Auto) 34, Monocytes (%) (Auto) 12, Eosinophils (%) (Auto) 2, Basophils (%) (Auto) 1, Neutrophils # (Auto) 4.1, Lymphocytes # (Auto) 2.7, Monocytes # (Auto) 0.9, Eosinophils # (Auto) 0.2, Basophils # (Auto) 0.1 10/23/18 06:06: White Blood Count 8.2, Red Blood Count 3.76, Hemoglobin 11.6, Hematocrit 34, Mean Corpuscular Volume 91, Mean Corpuscular Hemoglobin 31, Mean Corpuscular Hemoglobin Concent 34, Red Cell Distribution Width 13.6, Platelet Count 244, Mean Platelet Volume 9.9, Sodium Level 134, Potassium Level 3.5, Chloride Level 108, Carbon Dioxide Level 17, Anion Gap 9, Blood Urea Nitrogen 8, Creatinine 0.60, Estimat Glomerular Filtration Rate > 60, BUN/Creatinine Ratio 13, Glucose Level 97, Calcium Level 8.7, Corrected Calcium 9.3, Total Bilirubin 0.3, Aspartate Amino Transf (AST/SGOT) 14, Alanine Aminotransferase (ALT/SGPT) 10, Alkaline Phosphatase 53, Total Protein 5.7, Albumin 3.2, Neutrophils (%) (Auto) 59, Lymphocytes (%) (Auto) 31, Monocytes (%) (Auto) 8, Eosinophils (%) (Auto) 1, Basophils (%) (Auto) 1, Neutrophils # (Auto) 4.9, Lymphocytes # (Auto) 2.5, Mon ocytes # (Auto) 0.7, Eosinophils # (Auto) 0.1, Basophils # (Auto) 0.1, Magnesium Level 1.4 10/24/18 04:50: White Blood Count 9.1, Red Blood Count 3.78, Hemoglobin 11.6, Hematocrit 34, Mean Corpuscular Volume 91, Mean Corpuscular Hemoglobin 31, Mean Corpuscular Hemoglobin Concent 34, Red Cell Distribution Width 13.3, Platelet Count 262, Mean Platelet Volume 10.5, Sodium Level 137, Potassium Level 3.4, Chloride Level 106, Carbon Dioxide Level 21, Anion Gap 10, Blood Urea Nitrogen 6, Creatinine 0.63, Estimat Glomerular Filtration Rate > 60, BUN/Creatinine Ratio 10, Glucose Level 94, Calcium Level 8.8, Corrected Calcium 9.4, Total Bilirubin 0.3, Aspartate Amino Transf (AST/SGOT) 13, Alanine Aminotransferase (ALT/SGPT) 10, Alkaline Phosphatase 52, Total Protein 6.0, Albumin 3.3 Discussion & Recommendations Ration to follow-up with Dr. Tsai Discharge Home Medications: Active Scripts Active Metoprolol Succinate 50 Mg Tab.er.24h 100 Mg PO DAILY 30 Days Hydralazine HCl 25 Mg Tablet 25 Mg PO TID 14 Days Reported Calcium + D Soft Chewable Tab (Ca Carbonate/Vitamin D3/Vit K) 1 Each Tab.chew 1 Tab.chew PO BID Docusate Sodium 100 Mg Capsule 100 Mg PO DAILY PRN Acetaminophen 500 Mg Tablet 1,000 Mg PO TID PRN Gabapentin 100 Mg Capsule 100 Mg PO HS Betamethasone Valerate 15 Gm Cream..g. TOP BID FILLED FOR 7 DAYS ON 10-15-2018 Tramadol HCl 50 Mg Tablet 100 Mg PO QID PRN Alendronate Sodium 70 Mg Tablet 70 Mg PO TH Levothyroxine Sodium 25 Mcg Tablet 25 Mcg PO DAILY Simvastatin 20 Mg Tablet 20 Mg PO HS Lisinopril 40 Mg Tablet 40 Mg PO DAILY Hydrochlorothiazide 25 Mg Tablet 25 Mg PO DAILY Instructions to patient/family Please see electronic discharge instructions given to patient. Clinical Quality Measures DVT/VTE Risk/Contraindication: Risk Factor Score Per Nursin RFS Level Per Nursing on Admit: 4+=Very High VERONICA GARRISON DO Oct 25, 2018 07:02
== END 2018-10-24 11:20 | disposition home or self-care (01) | DRG 641 ==
LOC: EDUNIT# 21:31 → ER 21:32 → 4TH 10-20 00:05
PROVIDERS: ADMIT Family Medicine; ATTEND Family Medicine
DX: E86.0 Dehydration (principal); E87.1 Hypo-osmolality and hyponatremia; R33.9 Retention of urine, unspecified; G62.9 Polyneuropathy, unspecified; I10 Essential (primary) hypertension; I16.0 Hypertensive urgency; K59.09 Other constipation; M81.0 Age-related osteoporosis without current pathological fracture; E03.9 Hypothyroidism, unspecified; E87.6 Hypokalemia; R53.1 Weakness
CPT/HCPCS: 36415; 71045; 80053; 81000; 83605; 83735; 85025; 85027; 85610; 85730; 87040; 87088; 93005; 96361; 96365; 96375

== ENCOUNTER 2019-05-10 15:23 | Emergency (ER) | payer MEDICARE ==
[~2019-05-10] VITALS: Ht 162.5 cm; Wt 59.0 kg
[~2019-05-10 15:23] MED LIST changes: +ACET-78 PO; +ALEN70TA5 PO; +BETA15CR3 TOP; +CA C1TAB75 PO; +DOCU100C37 PO; +DOXY100C2 PO; +GABA-486 PO; +HYDR-3923 PO; +HYDR25TA4 PO; +LEVO25TA5 PO; +LISI40TA PO; +SIMV20TA26 PO
--- NOTE | 2019-05-10 15:30 | NUR ---
PT PRESENTS WITH ABRASION TO R EYE ALONG WITH SWELLING AND BRUISING
[2019-05-10] MEDS ORDERED: TETANUS,DIPTH,PERTUSS P/F (BOOSTRIX) 0.5 ML VIAL IM ONE (15:45)
[2019-05-10 15:48] LABS: BASOPHILS % (AUTO) 0 % (0-10); EOSINOPHILS # (AUTO) 0.1 10^3/uL (0.0-0.3); EOSINOPHILS % (AUTO) 1 % (0-10); HEMATOCRIT 37 % (35-52); HEMOGLOBIN 11.9 G/DL (11.5-16.0); LYMPHOCYTES # (AUTO) 2.1 X 10^3 (1.0-4.0); LYMPHOCYTES % (AUTO) 14 % (12-44); MEAN CORPUSCULAR HEMOGLOBIN 31 PG (25-34); MEAN CORPUSCULAR HGB CONC 32 G/DL (32-36); MEAN CORPUSCULAR VOLUME 97 FL (80-99); MEAN PLATELET VOLUME 10.6 FL (7.4-10.4); MONOCYTES % (AUTO) 7 % (0-12); NEUTROPHILS # (AUTO) 11.1 X 10^3 (1.8-7.8); NEUTROPHILS % (AUTO) 78 % (42-75); PLATELET COUNT 272 10^3/uL (130-400); RED CELL DISTRIBUTION WIDTH 12.9 % (10.0-14.5); WHITE BLOOD COUNT 14.3 10^3/uL (4.3-11.0)
--- NOTE | 2019-05-10 15:49 | NUR ---
C COLLAR REMOVED PER PT REQUEST, COLLAR REMOVED BY DAUGHTER, FAMILY ADVISED OF RISKS OF REMOVAL
--- NOTE | 2019-05-10 15:56 | ED Fall/Injury ---
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 HITTING HER FACE PT WAS ABLE TO CRAWL/GET HERSELF BACK IN THE HOUSE, BUT TOOK AN HOUR TO DO IT PT DENIES LOSS OF CONSCIOUSNESS C/O PAIN TO RIGHT EYE AREA C/O PAIN TO RIGHT SHOULDER STATES SHE "HURTS ALL OVER", BUT PT HAS BEEN ABLE TO STAND AND WALK--DENIES ANY PAIN TO KNEES, HIPS OR LEGS DENIES ANY DIZZINESS NO NAUSEA/VOMITING NO CHANGES IN VISION--HAS CHRONIC BLURRINESS TO LEFT EYE--S/P LEFT CATARACT SURGERY, WITH PERMANENT DEFORMITY TO LEFT PUPIL. NO PARESTHESIAS OR MOTOR DEFICITS CERVICAL COLLAR PLACED ON PT'S ARRIVAL Location Injury Occurred: FRONT PORCH OF HOME PCP: Allergies and Home Medications Allergies Uncoded Allergies: SULFA (Allergy, Unknown, 10/20/18) Home Medications Acetaminophen 500 Mg Tablet, 1,000 MG PO TID PRN for PAIN-MILD, (Reported) Alendronate Sodium 70 Mg Tablet, 70 MG PO Th, (Reported) Betamethasone Valerate 15 Gm Cream..g., TOP BID, (Reported) FILLED FOR 7 DAYS ON 10-15-2018 Ca Carbonate/Vitamin D3/Vit K 1 Each Tab.chew, 1 TAB.CHEW PO BID, (Reported) Docusate Sodium 100 Mg Capsule, 100 MG PO DAILY PRN for CONSTIPATION-1ST LINE, (Reported) Gabapentin 100 Mg Capsule, 100 MG PO HS, (Reported) Hydralazine HCl 25 Mg Tablet, 25 MG PO TID Prescribed by: RON WILLIS on 10/24/18 1012 Hydrochlorothiazide 25 Mg Tablet, 25 MG PO DAILY, (Reported) Levothyroxine Sodium 25 Mcg Tablet, 25 MCG PO DAILY, (Reported) Lisinopril 40 Mg Tablet, 40 MG PO DAILY, (Reported) Metoprolol Succinate 50 Mg Tab.er.24h, 100 MG PO DAILY Prescribed by: RON WILLIS on 10/24/18 1012 Simvastatin 20 Mg Tablet, 20 MG PO HS, (Reported) Tramadol HCl 50 Mg Tablet, 100 MG PO QID PRN for PAIN-MILD, (Reported) Patient Home Medication List Home Medication List Reviewed: Yes Review of Systems Review of Systems Constitutional: no symptoms reported Eyes: See HPI Ears, Nose, Mouth, Throat: no symptoms reported Respiratory: no symptoms reported Cardiovascular: no symptoms reported; No chest pain Gastrointestinal: no symptoms reported; No abdominal pain, No nausea, No vomiting Genitourinary: no symptoms reported Musculoskeletal: see HPI Skin: no symptoms reported Psychiatric/Neurological: No Symptoms Reported; Denies Headache, Denies Numbness, Denies Paresthesia, Denies Tingling, Denies Weakness Past Hwsuzzt-Nigsnp-Phycjf Hx Patient Social History Alcohol Use: Denies Use Recreational Drug Use: No Smoking Status: Never a Smoker 2nd Hand Smoke Exposure: No Recent Foreign Travel: No Contact w/Someone Who Travel: No Recent Infectious Disease Expo: No Recent Hopitalizations: No Immunizations Up To Date Tetanus Booster (TDap): Unknown Date of Pneumonia Vaccine: Oct 21, 2015 Seasonal Allergies Seasonal Allergies: No Past Medical History Surgeries: Yes (LEFT EYE CATARACT SURGERY; WRIST FX/REPAIR) Eye Surgery, Orthopedic, Tonsillectomy Respiratory: No Cardiac: Yes High Cholesterol, Hypertension Neurological: No Reproductive Disorders: No 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 Genitourinary: No Gastrointestinal: Yes Chronic Constipation Musculoskeletal: Yes (WRIST FX/SURGERY) Osteoporosis, Arthritis, Chronic Back Pain, Fractures Endocrine: Yes Hypothyroidsim HEENT: Yes (LEFT CATARACT SURGERY W/ PERMANANT DEFORMITY/DILATION & BLURRY VISION) Cataract Hearing Impairment: Hard of Hearing Cancer: No Psychosocial: No Integumentary: No Blood Disorders: No Family Medical History Arthritis 19 FATHER 19 MOTHER G8 SISTER Gastroenteritis G8 SISTER Heart Disease, GI Disease, Hypertension Physical Exam Vital Signs Vital Signs - First Documented 05/10/19 15:30 Pulse 85 Resp 15 B/P (MAP) 170/87 (114) Capillary Refill : Less Than 3 Seconds Height, Weight, BMI Height: 5'5.00" Weight: 135lbs. 1.0oz. [id number]; 22.00 BMI Method:Stated General Appearance: WD/WN, no apparent distress, other (ANXIOUS) HEENT: other (MARKED RIGHT PERIORBITAL ECCHYMOSIS/HEMATOMA, WITH RIGHT EYE SWOLLEN SHUT. LIMITED VIEW OF RIGHT PUPIL AND IRIS--GROSSLY NORMAL. NO HYPHEMA. UNABLE TO COMPLETELY PRY RIGHT EYE OPEN. LEFT PUPIL IS CHRONICALLY DILATED AND VERY DISTORTED AND NON-REACTIVE. NO MOUTH OR ORAL INJURY. MINOR ABRASION TO RIGHT BROW/FOREHEAD AREA. NO BONY DEFORMITY) Neck: tender lateral, tender midline Cardiovascular: no edema, no JVD, no murmur, irregularly irregular Respiratory: chest non-tender, normal breath sounds, no respiratory distress, no accessory muscle use Peripheral Pulses: 1+ Dorsalis Pedis (R), 1+ Left Dors-Pedis (L), 1+ Radial Pulses (R), 1+ Radial Pulses (L) Gastrointestinal: normal bowel sounds, non tender, soft Back: decreased range of motion, other (KYPHOSIS; DIFFUSE MILD BACK TENDERNESS. 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, no motor/sensory deficits, alert, normal mood/affect, oriented x 3 Skin: normal color, warm/dry, ecchymosis [place] Coma Score Best Eye Response: (4) Open Spontaneously Best Verbal Response: (5) Oriented Best Motor Response: (6) Obeys Commands Zack Total: 15 Progress/Results/Core Measures Results/Orders Lab Results Laboratory Tests Test 05/10/19 15:38 Range/Units White Blood Count 14.3 H 4.3-11.0 10^3/uL Red Blood Count 3.81 L 4.35-5.85 10^6/uL Hemoglobin 11.9 11.5-16.0 G/DL Hematocrit 37 35-52 % Mean Corpuscular Volume 97 80-99 FL Mean Corpuscular Hemoglobin 31 25-34 PG Mean Corpuscular Hemoglobin Concent 32 32-36 G/DL Red Cell Distribution Width 12.9 10.0-14.5 % Platelet Count 272 130-400 10^3/uL Mean Platelet Volume 10.6 H 7.4-10.4 FL Neutrophils (%) (Auto) 78 H 42-75 % Lymphocytes (%) (Auto) 14 12-44 % Monocytes (%) (Auto) 7 0-12 % Eosinophils (%) (Auto) 1 0-10 % Basophils (%) (Auto) 0 0-10 % Neutrophils # (Auto) 11.1 H 1.8-7.8 X 10^3 Lymphocytes # (Auto) 2.1 1.0-4.0 X 10^3 Monocytes # (Auto) 1.0 0.0-1.0 X 10^3 Eosinophils # (Auto) 0.1 0.0-0.3 10^3/uL Basophils # (Auto) 0.0 0.0-0.1 10^3/uL Neutrophils % (Manual) 71 % Lymphocytes % (Manual) 20 % Monocytes % (Manual) 7 % Eosinophils % (Manual) 1 % Basophils % (Manual) 1 % Blood Morphology Comment NORMAL Prothrombin Time 13.1 12.2-14.7 SEC INR Comment 1.0 0.8-1.4 Activated Partial Thromboplast Time 31 24-35 SEC Sodium Level 136 135-145 MMOL/L Potassium Level 3.5 L 3.6-5.0 MMOL/L Chloride Level 102 98-107 MMOL/L Carbon Dioxide Level 23 21-32 MMOL/L Anion Gap 11 5-14 MMOL/L Blood Urea Nitrogen 15 7-18 MG/DL Creatinine 0.91 0.60-1.30 MG/DL Estimat Glomerular Filtration Rate 59 BUN/Creatinine Ratio 16 Glucose Level 103 70-105 MG/DL Calcium Level 10.0 8.5-10.1 MG/DL Corrected Calcium 9.8 8.5-10.1 MG/DL Total Bilirubin 0.3 0.1-1.0 MG/DL Aspartate Amino Transf (AST/SGOT) 13 5-34 U/L Alanine Aminotransferase (ALT/SGPT) 8 0-55 U/L Alkaline Phosphatase 54 40-136 U/L Total Protein 7.5 6.4-8.2 GM/DL Albumin 4.2 3.2-4.5 GM/DL My Orders Orders - THANG ROLON DO Ed Iv/Invasive Line Start (05/10/19 15:39) Ct Head/Face/Cervical Wo (05/10/19 15:39) Ct Thoracic/Lumbar Spine Wo (05/10/19 15:39) Chest 1 View, Ap/Pa Only (05/10/19 15:39) Shoulder, Right, 3 Views (05/10/19 15:39) Pelvis (05/10/19 15:39) Cbc With Automated Diff (05/10/19 15:39) Comprehensive Metabolic Panel (05/10/19 15:39) Protime With Inr (05/10/19 15:39) Partial Thromboplastin Time (05/10/19 15:39) Cervical Collar (05/10/19 15:39) Dipht,Pertuss(Acell),Tet Adult (Boostrix (05/10/19 15:45) Manual Differential (05/10/19 15:38) Wound Dressing-Ed (05/10/19 16:45) Medications Given in ED Current Medications Medications Dose Ordered Sig/Tyler Route Start Time Stop Time Status Last Admin Dose Admin Diphtheria/ Tetanus/Acell Pertussis 0.5 ml ONCE ONCE IM 05/10/19 15:45 05/10/19 15:46 DC 05/10/19 16:33 0.5 ML Vital Signs/I&O 05/10/19 15:30 Pulse 85 Resp 15 B/P (MAP) 170/87 (114) Blood Pressure Mean: 114 Progress Progress Note : Progress Note DAUGHTER REMOVED PT'S CERVICAL COLLAR, WHEN STAFF LEFT ROOM, AND PRIOR TO PT GOING OVER TO HAVE CT SCANS DONE. NO DETERIORATION IN PT'S CONDITION DURING ER STAY. Diagnostic Imaging Comments CT HEAD/MAXILLOFACIALS/CERVICAL SPINE--CHRONIC CHANGES, NO ACUTE PROCESS, PER RADIOLOGIST REPORT AT 1635 CT THORACIC/LUMBAR SPINE--CHRONIC CHANGES, NO ACUTE PROCESS. PER RADIOLOGIST REPORT AT 1641 CXR--NO ACUTE PROCESS PELVIS XRAY--NO ACUTE PROCESS RIGHT SHOULDER XRAYS--NO ACUTE PROCESS ALL PER RADIOLOGIST REPORTS AT 1641 Reviewed: Reviewed by Me Departure Impression Primary Impression: S/P FALL FROM STANDING Additional Impressions: Periorbital hematoma of right eye CERVICAL SPINE STRAIN Contusion of right shoulder Vvdvyfywht-djtqjbooc-yokjljj (DPT) vaccination administered at current visit Minor head injury without loss of consciousness Disposition: 01 HOME, SELF-CARE Condition: Stable Departure-Patient Inst. Referrals: LINDA TOMAS MD (PCP) Primary Care Physician LOCO ANDRADE (Family) Primary Care Physician Patient Instructions: Black Eye, Contusion (DC), Diphtheria and Tetanus Toxoids, and Acellular Pertussis Vaccine, Minor Head Injury (DC), Skin Abrasions (DC) Add. Discharge Instructions: ICE TO SORE AREAS AT 20 MINUTE INTERVALS TYLENOL NEEDED FOR PAIN YOU MAY TAKE YOUR REGULAR TRAMADOL NEEDED FOR PAIN CLEAN WOUND TWICE A DAY WITH ANTIBACTERIAL SOAP AND WATER, APPLY TRIPLE ANTIBIOTIC AND FRESH BAND AID TWICE A DAY FOLLOW UP WITH YOUR DR IN 1 WEEK IF NO BETTER, RETURN TO ER IF SYMPTOMS WORSEN All discharge instructions reviewed with patient and/or family. Voiced understanding. THANG ROLON DO May 10, 2019 15:56
[2019-05-10 16:03] LABS: PROTHROMBIN TIME PATIENT 13.1 SEC (12.2-14.7)
[2019-05-10 16:11] LABS: ALBUMIN 4.2 GM/DL (3.2-4.5); BILIRUBIN,TOTAL 0.3 MG/DL (0.1-1.0); CREATININE SERUM 0.91 MG/DL (0.60-1.30); POTASSIUM 3.5 MMOL/L (3.6-5.0); TOTAL PROTEIN 7.5 GM/DL (6.4-8.2)
--- NOTE | 2019-05-10 16:28 | Diagnostic Imaging Report ---
EXAMINATION: CT head, face and CT cervical spine without contrast. TECHNIQUE: Multiple contiguous axial images were obtained through the face, brain and cervical spine without the use of intravenous contrast. Sagittal and coronal reformations through the cervical spine were then performed. All CT scans use one or more of the following dose optimizing techniques: automated exposure control, MA and/or KvP adjustment based on a patient size and exam type, or iterative reconstruction. HISTORY: Fall. COMPARISON: None available. FINDINGS: The betts-white matter differentiation is normal. No mass effect or midline shift. There is age related cerebral atrophy with ex vacuo dilation of the ventricles. Periventricular white matter hypoattenuation is in keeping with chronic small vessel ischemic changes. Basilar cisterns are patent. There are no intra- or extra-axial fluid collections. There is no intracranial hemorrhage. On the axial images, two areas of hyperattenuation anteriorly in the right frontal lobe are seen to reflect partial volume averaging as they are not apparent on sagittal reconstructions of the face. The orbits are normal. Paranasal sinuses are normal. Mastoid air cells are clear. No soft tissue abnormality is seen. No osseus lesions or fractures are seen. No fracture is seen in the face. The nasal bones are normal. Mandible and maxillae are normal. Zygomatic arches are normal. Pterygoid plates are normal. There is a hematoma overlying the right orbit. The alignment of the cervical spine is normal. No fracture is seen. Vertebral body heights are normal. The craniocervical junction is normal. Disc heights are normal. Facet and uncovertebral joints are normal. There is no osseus spinal canal stenosis. No soft tissue abnormality is seen in the neck. Limited views of the superior thorax are normal. IMPRESSION: 1. No acute intracranial abnormality. 2. No cervical spine fracture. 3. No fracture in the face. Dictated by: Dictated on workstation # [id number]
--- NOTE | 2019-05-10 16:32 | Diagnostic Imaging Report ---
INDICATION: Fall. COMPARISON: None FINDINGS: A single AP view of the pelvis was performed. There is no radiographic evidence of acute fracture or dislocation. Pubic symphysis is within normal limits. SI joints are symmetric. Proximal femurs are intact, bilaterally. The femoro-acetabular joint spaces appear maintained on this single frontal view. Remainder of the bony pelvis is intact as well. No unexpected radiopaque foreign bodies are seen. Included small bowel loops are nondistended. IMPRESSION: 1. No radiographic evidence of acute fracture or dislocation of the bony pelvis. Dictated by: Dictated on workstation # [id number]
--- NOTE | 2019-05-10 16:35 | Diagnostic Imaging Report ---
INDICATION: Fall. COMPARISON: None. FINDINGS: Three views of the right shoulder were obtained. There is no fracture, dislocation, or other acute bony abnormality identified. The soft tissues appear unremarkable. No radiopaque foreign bodies identified. The visualized portions of the right lung are clear. IMPRESSION: No acute fractures or dislocations of the right shoulder. Dictated by: Dictated on workstation # [id number]
--- NOTE | 2019-05-10 16:35 | NUR ---
PT REQUESTING PAIN MEDICATION AT THIS TIME, PROVIDER NOTIFIED OF THIS
--- NOTE | 2019-05-10 16:36 | Diagnostic Imaging Report ---
PROCEDURE: CT thoracic and lumbar spine without contrast. TECHNIQUE: Multiple contiguous axial images were obtained through the thoracic and lumbar spine without the use of intravenous contrast. Sagittal and coronal reformations were then performed. INDICATION: Back pain after fall. COMPARISON: None available. FINDINGS: Thoracic spine: There is exaggerated kyphosis of the thoracic spine. However, there is no acute fracture. Diffuse osseous demineralization suggests osteoporosis. There are few scattered intervertebral hemangiomas present. Visualized aspects of the posterior ribs are intact. Rim calcified low attenuation structure within the spleen may be due to old hemangioma or traumatic cyst. Aucdl-xl-cvmulnhk-sized hiatal hernia. Lumbar spine: Normal lordosis of the lumbar spine. No acute fracture or traumatic malalignment. Diffuse osseous demineralization is most suggestive of osteoporosis. No fracture within the sacrum. SI joints are normal in alignment. Mild degenerative disc disease within lumbar spine. No areas of high-grade spinal stenosis. Cholelithiasis is present with mild stranding in the right upper quadrant. IMPRESSION: 1. No fracture within the thoracic and lumbar spine. 2. Cholelithiasis with fluid and stranding in the right upper quadrant. Correlation for symptoms of acute cholecystitis are advised. Dictated by: Dictated on workstation # [id number]
--- NOTE | 2019-05-10 16:39 | Diagnostic Imaging Report ---
INDICATION: Fall with chest pain. Frontal chest obtained at 04:17 p.m. Heart and mediastinal silhouette are normal in appearance. Lungs appear clear. There is no pneumothorax or pleural fluid. There is no overt bony abnormality in the chest. IMPRESSION: Negative chest. Dictated by: Dictated on workstation # [id number]
[2019-05-10 16:42] LABS: BASOPHILS % (MANUAL) 1 %; EOSINOPHILS % (MANUAL) 1 %; LYMPHOCYTES % (MANUAL) 20 %; MONOCYTES % (MANUAL) 7 %; NEUTROPHILS % (MANUAL) 71 %
[2019-05-10 16:43] LABS: RBC MORPH NORMAL
[2019-05-10 17:19] VITALS: BP 170/87
== END 2019-05-10 17:19 | disposition home or self-care (01) ==
LOC: EDUNIT# 15:23 → ER 15:25
DX: S09.90XA Unspecified injury of head, initial encounter (principal); S16.1XXA Strain of muscle, fascia and tendon at neck level, initial encounter; S40.011A Contusion of right shoulder, initial encounter; S05.11XA Contusion of eyeball and orbital tissues, right eye, initial encounter; I10 Essential (primary) hypertension; E78.00 Pure hypercholesterolemia, unspecified; M81.0 Age-related osteoporosis without current pathological fracture; R40.2142 Coma scale, eyes open, spontaneous, at arrival to emergency department; R40.2252 Coma scale, best verbal response, oriented, at arrival to emergency department; R40.2362 Coma scale, best motor response, obeys commands, at arrival to emergency department; Z23 Encounter for immunization; Z88.2 Allergy status to sulfonamides; Z90.89 Acquired absence of other organs; Z82.49 Family history of ischemic heart disease and other diseases of the circulatory system; W01.198A Fall on same level from slipping, tripping and stumbling with subsequent striking against other object, initial encounter
CPT/HCPCS: 36415; 70450; 70486; 71045; 72125; 72128; 72131; 72170; 73030; 80053; 85007; 85027; 85610; 85730; 90715

== ENCOUNTER → 2021-11-30 | Outpatient (CLI) | payer MEDICARE ==
[~2021-11-30] MED LIST changes: -ALEN70TA5 PO; +ALEN70TA80 PO; -DOXY100C2 PO; +DOXY100C5 PO; -LISI40TA PO; +LISI40TA9 PO
== END ==
LOC: CARD 15:30
PROVIDERS: ATTEND Family Medicine
DX: I49.9 Cardiac arrhythmia, unspecified (principal)
CPT/HCPCS: 93005